=== PATIENT | male | born 1940 | race Caucasian/White ===

== ENCOUNTER 2019-06-15 14:38 | Emergency (ER) | payer OTHER ==
--- NOTE | 2019-06-15 15:01 | RAD REPORT ---
EXAM DESCRIPTION: CT - Ct Stroke Brain Wo Cont - 06/15/2019 2:50 pm CLINICAL HISTORY: CONFUSED Headache, drowsiness, seizure COMPARISON: HEAD BRAIN W O CONTRAST dated 10/08/2015 TECHNIQUE: All CT scans are performed using dose optimization technique as appropriate and may inclu de automated exposure control or mA/KV adjustment according to patient size. FINDINGS: No intracranial hemorrhage, hydrocephalus or extra-axial fluid collection.Mild brain atrop hy.No areas of brain edema or evidence of midline shift. The paranasal sinuses and mastoids are clear. The calvarium is intact. IMPRESSION: No acute intracranial abnormality. The findings were discussed with Dr. Rome in the ER on 06/15/2019 at 2:55 p.m. by telephone.
[2019-06-15 15:05] LABS: Absolute Lymphocytes (CBC) 1.3 K/uL (0.7-4.9); Basophils % 1.2 % (0-1.3); Eosinophils % 1.4 % (0-4.4); Hematocrit 38.4 % (39.6-49.0); MPV 7.2 fL (7.6-11.3); Monocytes % 11.1 % (3.3-12.3)
[2019-06-15 15:14] LABS: Protime INR 1.18
--- NOTE | 2019-06-15 15:35 | EKG ---
Test Date: 2019-06-15 Test Time: 15:12:33 Telegraph Office Manager: TC/D MEASUREMENT RESULTS: Intervals: Rate: 83 [place]: 144 QRSD: 74 QT: 342 QTc: 401 [place]: P: 50 AZ: 144 QRS: 29 T: 35 INTERPRETIVE STATEMENTS: Normal sinus rhythm Nonspecific T wave abnormality Abnormal ECG Compared to ECG 02/27/2016 09:07:05 No significant changes Electronically Signed On 06-15-19 15:35:04 CDT by Melvin Albarado
--- NOTE | 2019-06-15 15:49 | RAD REPORT ---
EXAM DESCRIPTION: RAD - Chest Single View - 06/15/2019 3:43 pm CLINICAL HISTORY: MALAISE Chest pain. COMPARISON: Chest Single View dated 02/27/2016; CHEST SINGLE VIEW dated 10/08/2015; CHEST SINGLE VIEW dated 05/20/2008 FINDINGS: Portable technique limits examination quality. Elevated left hemidiaphragm is noted with atelectasis in the left lung base. The right lung appears c lear. The heart is normal in size. Sternotomy wires present.
[2019-06-15 17:12] LABS: Urine Blood NEGATIVE (NEG); Urine Glucose NEGATIVE (NEG); Urine Protein 1+ (NEG); Urine Specific Gravity 1.025 (1.005-1.030); Urine pH 5.5 (5.0-7.0)
--- NOTE | 2019-06-15 17:19 | RAD REPORT ---
EXAM DESCRIPTION: RAD - Ankle Right 3 View - 06/15/2019 5:11 pm CLINICAL HISTORY: Swelling;Pain COMPARISON: No comparisons FINDINGS: Prominent soft tissue swelling is seen about the ankle. An acute fracture is not detected. Prominent calcaneal spurs are seen.
[2019-06-15] MEDS ORDERED: levETIRAcetam 1,000 MG in NA CHLORIDE 0.9% 100 ML IV ONE (17:30)
--- NOTE | 2019-06-15 17:52 | ER ---
Nurse's Notes [facility] Name: Munir Brooks Age: 78 yrs Sex: Male : 1940 Arrival Date: 06/15/2019 Time: 14:42 Bed 2 Private MD: Diagnosis: Epilepsy and recurrent seizures;Cerebral infarction Presentation: 06/15 14:43 Presenting complaint: EMS states: Pt had seizure at around 1000, hx of seizures, has ph had AMS since, oriented to person only, BGL 137, did not take meds today. Transition of care: patient was not received from another setting of care. Onset of symptoms was June 15, 2019. Risk Assessment: Do you want to hurt yourself or someone else? Patient reports no desire to harm self or others. Initial Sepsis Screen: Does the patient meet any 2 criteria? Altered Mental Status. Does the patient have a suspected source of infection? No. Patient's initial sepsis screen is negative. Care prior to arrival: IV initiated. 20 GA, in the left forearm, Glucose check: 137. 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 - Social history:: Smoking status: unknown. - Ebola Screening: : No symptoms or risks identified at this time. Screenin:59 Abuse screen: Denies threats or abuse. Denies injuries from another. Nutritional ph screening: No deficits noted. Tuberculosis screening: No symptoms or risk factors identified. Fall Risk No fall in past 12 months (0 pts). Secondary diagnosis (15 points) seizures, IV access (20 points). Ambulatory Aid- None/Bed Rest/Nurse Assist (0 pts). Gait- Weak (10 pts.). Mental Status- Overestimates/Forgets Limitations (15 pts.). Total Croft Fall Scale indicates High Risk Score (45 or more points). Fall prevention measures have been instituted. Side Rails Up X 2 Placed Close to Nursing Station Frequent Obs/Assessments Occuring Family Present and informed to notify staff if the need to leave the bedside As available patient and family educated on Fall Prevention Program and Strategies. 15:12 Patient has been NPO before screening. The patient is alert, able to follow commands. ph The patient does not exhibit slurred or garbled speech The patient is not exhibiting difficulty speaking. The patient does not exhibit difficulty understanding words. The patient is able to swallow own secretions with no drooling or need for suction. Patient tolerated one teaspoon of water. No drooling, immediate coughing, gurgling, or clearing of the throat was noted. The patient tolerated 90mL of water. No drooling, immediate coughing, gurgling, or clearing of the throat was noted. The patient passed the bedside swallow screening. Oral medications may be given as ordered. Contact Physician for further diet orders. Assessment: 14:40 Reassessment: Patient appears in no apparent distress at this time. Dr Rome at bedside ph to assess pt. General: Appears in no apparent distress. comfortable, slender, well groomed, Behavior is calm, cooperative, appropriate for age. Pain: Denies pain. Neuro: Level of Consciousness is awake, alert, obeys commands, Oriented to person, Staff Command And Control Officer are equal bilaterally Moves all extremities. Speech is normal, Facial symmetry appears normal, Pupils are PERRLA, Intact Denies weakness dizziness, headache. Cardiovascular: Denies chest pain, nausea. Respiratory: Airway is patent Respiratory effort is even, unlabored, Respiratory pattern is regular, symmetrical. GI: Abdomen is round non-distended, Patient currently denies abdominal pain, nausea, vomiting. Derm: Skin is intact, Skin is pink, warm \T\ dry. Musculoskeletal: Circulation, motion, and sensation intact. Range of motion: intact in all extremities, Swelling present in right ankle. 14:43 Reassessment: Code stroke called. ph 14:45 Reassessment: Pt taken to CT accompanied by RN. ph 14:50 Reassessment: Lab at bedside. ph 15:11 Reassessment: EKG at bedside. ph 15:30 Reassessment: Patient appears in no apparent distress at this time. No changes from ph previously documented assessment. Patient and/or family updated on plan of care and expected duration. Pain level reassessed. Pt resting quietly, remains awake and alert, oriented to person only. 16:47 Reassessment: Patient appears in no apparent distress at this time. Patient and/or ph family updated on plan of care and expected duration. Pain level reassessed. Pt awake and alert, oriented to person, family at bedside, assisted pt to stand at bedside to use urinal, stood w/ no difficulty, denies dizziness, urine sample obtained. 18:05 Reassessment: Patient appears in no apparent distress at this time. Patient and/or ph family updated on plan of care and expected duration. Pain level reassessed. Report called to [facility], transfer form signed by daughter, awaiting EMS for transport. 18:43 Reassessment: Patient appears in no apparent distress at this time. No changes from ph previously documented assessment. Patient and/or family updated on plan of care and expected duration. Pain level reassessed. EMS at bedside, report given to Calvin VEGA. Vital Signs: 15:00 BP 186 / 106; Pulse 95; Resp 18; Temp 99.0; Pulse Ox 97% on R/A; Weight 83.91 kg; ph 15:30 BP 139 / 90; Pulse 78; Resp 16; Pulse Ox 97% on R/A; rv 16:30 BP 161 / 103; Pulse 75; Resp 16; Pulse Ox 100% on R/A; rv 16:40 Temp 97.8(O); jp3 17:00 BP 146 / 109; Pulse 84; Resp 17; Pulse Ox 99% on R/A; rv 17:30 BP 148 / 95; Pulse 75; Resp 16; Pulse Ox 99% on R/A; rv 18:45 BP 130 / 97; Pulse 76; Resp 18; Temp 97.5; Pulse Ox 99% on R/A; Pain 0/10; ph NIH Stroke Scale Scores: 14:40 NIHSS Score: 1 ph 14:50 NIHSS Score: 1 ED Course: 14:42 Patient arrived in ED. ph 14:43 Ralph Rome MD is Attending Physician. gs 14:51 CT Stroke Brain w/o Contrast In Process Unspecified. EDMS 14:58 Triage completed. ph 14:59 Janelle Merino, RN is Primary Nurse. ph 15:04 X-ray completed. Patient tolerated procedure well. jb2 15:07 Stroke CXR 1 View In Process Unspecified. EDMS 15:11 Maintain EMS IV. Dressing intact. Good blood return noted. Site clean \T\ dry. Gauge \T\ ph site: 20LFA. 15:12 Allergy band placed. Bed in low position. Call light in reach. Side rails up X2. ph threat monitoring analyst on. Pulse ox on. NIBP on. Door closed. Noise minimized. Warm blanket given. 15:12 Arm band placed on. ph 15:18 EKG done, by oracle technical architect. reviewed by Ralph Rome MD. tc 17:09 XRAY Ankle RIGHT 3 view In Process Unspecified. EDMS 17:59 Armando wrap to right ankle Orthoglass splint: stirrup splint applied on right leg. jp3 18:44 No provider procedures requiring assistance completed. Patient transferred, IV remains ph in place. Administered Medications: 17:44 Drug: Keppra 1000 mg Route: IV; Rate: calculated rate; Site: left forearm; ph 18:00 Follow up: Response: No adverse reaction; IV Status: Completed infusion ph Outcome: 17:51 ER care complete, transfer ordered by . 18:44 Transferred by ground EMS [place]. to [facility], Transfer form ph completed. X-rays sent w/ patient. 18:44 Condition: stable 18:44 Instructed on the need for transfer. 18:46 Patient left the ED. NIH Stroke Scale - NIH Stroke Score Date: 06/15/2019 Time: 14:40 Total Score = 1 1a. Level of Consciousness (LOC) - 0(Alert) 1b. Level of Consciousness (LOC) (Year \T\ Age) - 1(One) 1c. LOC Commands (Open \T\ Closes Eyes/Mold Washer) - 0(Both) 2. Best Gaze (Lateral Gaze Paresis) - 0(Normal) 3. Visual Field Loss - 0(No visual loss) 4. Facial Palsy - 0(Normal) 5a. Left Arm: Motor (10-second hold) - 0(No drift) 5b. Right Arm: Motor (10-second hold) - 0(No drift) 6a. Left Leg: Motor (5-second hold - always test supine) - 0(No drift) 6b. Right Leg: Motor (5-second hold - always test supine) - 0(No drift) 7. Limb Ataxia (finger/nose \T\ heel/wright - test with eyes open) - 0(Absent) 8. Sensory Loss (pinprick arms/legs/face) - 0(Normal) 9. Best Language: Aphasia (description/naming/reading) - 0(No aphasia) 10. Dysarthria (speech clarity - read or repeat words) - 0(Normal) 11. Extinction and Inattention (visual/tactile/auditory/spatial/personal) - 0(No abnormality) Initials: NIH Stroke Scale - NIH Stroke Score Date: 06/15/2019 Time: 14:50 Total Score = 1 1a. Level of Consciousness (LOC) - 0(Alert) 1b. Level of Consciousness (LOC) (Year \T\ Age) - 1(One) 1c. LOC Commands (Open \T\ Closes Eyes/Mold Washer) - 0(Both) 2. Best Gaze (Lateral Gaze Paresis) - 0(Normal) 3. Visual Field Loss - 0(No visual loss) 4. Facial Palsy - 0(Normal) 5a. Left Arm: Motor (10-second hold) - 0(No drift) 5b. Right Arm: Motor (10-second hold) - 0(No drift) 6a. Left Leg: Motor (5-second hold - always test supine) - 0(No drift) 6b. Right Leg: Motor (5-second hold - always test supine) - 0(No drift) 7. Limb Ataxia (finger/nose \T\ heel/wright - test with eyes open) - 0(Absent) 8. Sensory Loss (pinprick arms/legs/face) - 0(Normal) 9. Best Language: Aphasia (description/naming/reading) - 0(No aphasia) 10. Dysarthria (speech clarity - read or repeat words) - 0(Normal) 11. Extinction and Inattention (visual/tactile/auditory/spatial/personal) - 0(No abnormality) Initials: Signatures: Dispatcher [employer] EDMS Buster Santana2 Lisa Cramer, plant engineer EKG Ttc Jnaelle Merino RN RN ph Ralph Rome MD MD gs Vicente, Ronaldo, RN RN rv Vijay Hernandez jp3 Corrections: (The following items were deleted from the chart) 17:11 15:03 Home Meds: tamsulosin oral oral; ph ph 17:11 15:03 Home Meds: atorvastatin oral oral; ph ph 17:11 15:03 Home Meds: levetiracetam oral oral; ph ph 17:11 15:03 Home Meds: Famotidine Oral; ph ph
--- NOTE | 2019-06-15 17:52 | EDPHYS ---
Physician Documentation [facility] Name: Munir Brooks Age: 78 yrs Sex: Male : 1940 Arrival Date: 06/15/2019 Time: 14:42 Bed 2 Private MD: ED Physician Ralph Rome HPI: 06/15 17:44 This 78 yrs old Male presents to ER via EMS with complaints of Altered Mental gs Status. 17:44 The patient presents with confusion. Onset: The symptoms/episode began/occurred today, gs at 10:00. Possible causes: seizure, has missed recent doses of medications, HAD SZ TODAY AT 10AM. Associated signs and symptoms: Pertinent negatives: abdominal pain, combativeness. Current symptoms: In the emergency department the patient's symptoms have improved, markedly. The patient has experienced similar episodes in the past, a few times. The patient has not recently seen a physician. 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 - Social history:: Smoking status: unknown. - Ebola Screening: : No symptoms or risks identified at this time. ROS: 17:44 MS/extremity: Positive for injury or acute deformity, R ANKLE SAYS STEPPED IN HOLE IN gs YARD. 17:44 All other systems are negative. Exam: 17:44 Head/Face: Normocephalic, atraumatic. Eyes: Pupils equal round and reactive to light, gs extra-ocular motions intact. Lids and lashes normal. Conjunctiva and sclera are non-icteric and not injected. Cornea within normal limits. Periorbital areas with no swelling, redness, or edema. ENT: Nares patent. No nasal discharge, no septal abnormalities noted. Tympanic membranes are normal and external auditory canals are clear. Oropharynx with no redness, swelling, or masses, exudates, or evidence of obstruction, uvula midline. Mucous membranes moist. Neck: Trachea midline, no thyromegaly or masses palpated, and no cervical lymphadenopathy. Supple, full range of motion without nuchal rigidity, or vertebral point tenderness. No Meningismus. Chest/axilla: Normal chest wall appearance and motion. Nontender with no deformity. No lesions are appreciated. Cardiovascular: Regular rate and rhythm with a normal S1 and S2. No gallops, murmurs, or rubs. Normal PMI, no JVD. No pulse deficits. Respiratory: Lungs have equal breath sounds bilaterally, clear to auscultation and percussion. No rales, rhonchi or wheezes noted. No increased work of breathing, no retractions or nasal flaring. Abdomen/GI: Soft, non-tender, with normal bowel sounds. No distension or tympany. No guarding or rebound. No evidence of tenderness throughout. Skin: Warm, dry with normal turgor. Normal color with no rashes, no lesions, and no evidence of cellulitis. 17:44 Constitutional: The patient appears alert, awake. 17:44 Musculoskeletal/extremity: Extremities: noted in the anterior aspect of right ankle: swelling, tenderness, ROM: limited active range of motion due to pain, limited passive range of motion due to pain, Pulses: noted to be 4+ in the right posterior tibial artery and left posterior tibial artery, Sensation intact. 17:44 Neuro: Orientation: to person, place, Cranial nerves: CN II- XII are normal as tested, Cerebellar function: no acute changes, Motor: moves all fours, Sensation: no obvious gross deficits, no acute changes, pin prick testing is normal. Vital Signs: 15:00 BP 186 / 106; Pulse 95; Resp 18; Temp 99.0; Pulse Ox 97% on R/A; Weight 83.91 kg; ph 15:30 BP 139 / 90; Pulse 78; Resp 16; Pulse Ox 97% on R/A; rv 16:30 BP 161 / 103; Pulse 75; Resp 16; Pulse Ox 100% on R/A; rv 16:40 Temp 97.8(O); jp3 17:00 BP 146 / 109; Pulse 84; Resp 17; Pulse Ox 99% on R/A; rv 17:30 BP 148 / 95; Pulse 75; Resp 16; Pulse Ox 99% on R/A; rv 18:45 BP 130 / 97; Pulse 76; Resp 18; Temp 97.5; Pulse Ox 99% on R/A; Pain 0/10; ph NIH Stroke Scale Scores: 14:40 NIHSS Score: 1 ph 14:50 NIHSS Score: 1 gs Procedures: 14:50 Splinting: Splint applied to right ankle using Orthoglass splint, applied by tech. gs Examined by me, post splint application: neurovascular intact, 2+ distal pulses palpable, brisk capillary refill noted, Patient tolerated well. MDM: 14:43 Patient medically screened. 14:50 Differential Diagnosis: CVA, electrolyte abnormality, intracranial bleed, pneumonia, gs seizure. Data reviewed: vital signs, nurses notes. Counseling: I had a detailed discussion with the patient and/or guardian regarding: the historical points, exam findings, and any diagnostic results supporting the discharge/admit diagnosis, the need to transfer to another facility. Response to treatment: There is no appreciated change of the patient's symptoms at this time. 14:50 ED course: NO TPA OUTSIDE 3 AND 4.5 HOUR WINDOW, NIHSS 1. 06/15 14:44 Order name: Basic Metabolic Panel 06/15 14:44 Order name: CBC with Diff; Complete Time: 16:31 06/15 14:44 Order name: Protime (+inr); Complete Time: 16:31 06/15 14:44 Order name: Ptt, Activated; Complete Time: 16:31 06/15 14:45 Order name: Basic Metabolic Panel; Complete Time: 16:31 EDGA 06/15 16:07 Order name: Glucose, Ancillary Testing; Complete Time: 16:31 EDGA 06/15 14:44 Order name: CT Stroke Brain w/o Contrast; Complete Time: 16:31 06/15 14:44 Order name: Stroke CXR 1 View; Complete Time: 16:31 06/15 14:44 Order name: EKG; Complete Time: 14:46 06/15 14:44 Order name: Accucheck; Complete Time: 15:13 06/15 14:44 Order name: Cardiac monitoring; Complete Time: 15:13 06/15 16:46 Order name: XRAY Ankle RIGHT 3 view; Complete Time: 17:24 ph 06/15 16:48 Order name: Urine Dipstick--Ancillary (enter results); Complete Time: 17:24 ms 06/15 14:44 Order name: EKG - Nurse/Tech; Complete Time: 15:13 06/15 14:44 Order name: IV Saline Lock; Complete Time: 15:13 06/15 14:44 Order name: Labs collected and sent; Complete Time: 15:13 06/15 14:44 Order name: NPO; Complete Time: 15:13 06/15 14:44 Order name: O2 Per Protocol; Complete Time: 15:13 06/15 14:44 Order name: O2 Sat Monitoring; Complete Time: 15:13 06/15 14:44 Order name: Stroke Swallow Screen; Complete Time: 15:13 06/15 17:25 Order name: Splint - Ankle: Orthoglass: Stirrup; Complete Time: 17:59 gs Administered Medications: 17:44 Drug: Keppra 1000 mg Route: IV; Rate: calculated rate; Site: left forearm; ph 18:00 Follow up: Response: No adverse reaction; IV Status: Completed infusion ph Disposition: 14:50 Critical Care:. gs Disposition: 06/15/19 17:[address] [facility]. Diagnosis are Epilepsy and recurrent seizures, Cerebral infarction. - Reason for transfer: Higher level of care. - Accepting physician is CARINA. - Condition is Stable. - Problem is new. - Symptoms have improved. Critical care time excluding procedures: 14:50 Critical care time: Bedside Care: 10 minutes, Consultation: 10 minutes, Family gs Intervention: 10 minutes. Total time: 30 minutes NIH Stroke Scale - NIH Stroke Score Date: 06/15/2019 Time: 14:40 Total Score = 1 1a. Level of Consciousness (LOC) - 0(Alert) 1b. Level of Consciousness (LOC) (Year \T\ Age) - 1(One) 1c. LOC Commands (Open \T\ Closes Eyes/Shipsmith) - 0(Both) 2. Best Gaze (Lateral Gaze Paresis) - 0(Normal) 3. Visual Field Loss - 0(No visual loss) 4. Facial Palsy - 0(Normal) 5a. Left Arm: Motor (10-second hold) - 0(No drift) 5b. Right Arm: Motor (10-second hold) - 0(No drift) 6a. Left Leg: Motor (5-second hold - always test supine) - 0(No drift) 6b. Right Leg: Motor (5-second hold - always test supine) - 0(No drift) 7. Limb Ataxia (finger/nose \T\ heel/wright - test with eyes open) - 0(Absent) 8. Sensory Loss (pinprick arms/legs/face) - 0(Normal) 9. Best Language: Aphasia (description/naming/reading) - 0(No aphasia) 10. Dysarthria (speech clarity - read or repeat words) - 0(Normal) 11. Extinction and Inattention (visual/tactile/auditory/spatial/personal) - 0(No abnormality) Initials: NIH Stroke Scale - NIH Stroke Score Date: 06/15/2019 Time: 14:50 Total Score = 1 1a. Level of Consciousness (LOC) - 0(Alert) 1b. Level of Consciousness (LOC) (Year \T\ Age) - 1(One) 1c. LOC Commands (Open \T\ Closes Eyes/Shipsmith) - 0(Both) 2. Best Gaze (Lateral Gaze Paresis) - 0(Normal) 3. Visual Field Loss - 0(No visual loss) 4. Facial Palsy - 0(Normal) 5a. Left Arm: Motor (10-second hold) - 0(No drift) 5b. Right Arm: Motor (10-second hold) - 0(No drift) 6a. Left Leg: Motor (5-second hold - always test supine) - 0(No drift) 6b. Right Leg: Motor (5-second hold - always test supine) - 0(No drift) 7. Limb Ataxia (finger/nose \T\ heel/wright - test with eyes open) - 0(Absent) 8. Sensory Loss (pinprick arms/legs/face) - 0(Normal) 9. Best Language: Aphasia (description/naming/reading) - 0(No aphasia) 10. Dysarthria (speech clarity - read or repeat words) - 0(Normal) 11. Extinction and Inattention (visual/tactile/auditory/spatial/personal) - 0(No abnormality) Initials: Signatures: Dispatcher [employer] Janelle Rios RN RN ph Ralph Rome MD MD gs Corrections: (The following items were deleted from the chart) 17:11 15:03 Home Meds: tamsulosin oral oral; ph ph 17:11 15:03 Home Meds: atorvastatin oral oral; ph ph 17:11 15:03 Home Meds: levetiracetam oral oral; ph ph 17:11 15:03 Home Meds: Famotidine Oral; ph ph 18:46 17:51 06/15/2019 17:[address] [facility]. ph Diagnosis is Epilepsy and recurrent seizures; Cerebral infarction. Reason for transfer: Higher level of care. Accepting physician is CARINA. Condition is Stable. Problem is new. Symptoms have improved. gs
[2019-06-15 21:56] VITALS: O2SAT 99
[2019-06-15 21:59] VITALS: BP 130/97; TEMP 97.5
== END 2019-06-15 18:46 | disposition short-term general hospital (02) ==
LOC: ER 14:38
PROC: 2W3QX1Z Immobilization of Right Lower Leg using Splint (ICD-10-PCS; principal; 2019-06-15)
DX: I63.9 Cerebral infarction, unspecified (principal); R29.701 NIHSS score 1; G40.909 Epilepsy, unspecified, not intractable, without status epilepticus; Z79.82 Long term (current) use of aspirin; M25.571 Pain in right ankle and joints of right foot
CPT/HCPCS: 96365; 93005; 85025; 80048; 36415; 85610; 82962; 85730; 81003; 70450; 71045; 73610; 99285; 29515; J1953

== ENCOUNTER 2023-03-24 13:49 | Emergency (ER) | payer OTHER ==
--- OUTSIDE RECORDS SUMMARY | 2023-03-24 13:53 | XMS REPORT | Continuity of Care Document ---
:1940 Author Organization [facility] t Address [address] [place]. [address] [place] [address] Care Team Providers Name Role Phone Mitul Womack Attending Clinician Unavailable CHACHO VALENCIA Attending Clinician Unavailable CHACHO VALENCIA Admitting Clinician Unavailable Problems Condition Condition Condition Status Onset Resolution Last Treating Co mments Source Name Details Category Date Date Treatment Clinician Date Cellulitis Cellulitis Disease Active [facility] Hx of CABG Hx of CABG Disease [facility] Hx of Hx of Disease Active [facility] disorder disorder [facility] Medica l 00 [place] Fracture Fracture Disease Active [facility] [place] [facility]: Medical 00 [place] Encephalop Encephalop Disease Active [facility] athy athy [facility] Allergies, Adverse Reactions, Alerts Allergy Allergy Status Severity Reaction(s) Onset Inactive Treating Comm ents Source Name Type Date Date Clinician No Known DA Active [facility] s 00:[facility]: [place] 00 [facility] No Known DA Active [facility] Allergie 2-28 Clear s 00:00: [place] 00 [facility] Social History Social Habit Start Date Stop Date Quantity Comments Source History SDOH [facility] Alcohol Comment Medical C enter History SDOH [facility] Alcohol Std Drinks Medica l Center History SDOH [facility] Alcohol Binge Medical [address] [facility] Alcohol intake 2019-06-17 2019-06-[address] [facility] 00:[facility]:00 00:00:00 non-drinker of Medical Ce nter alcohol (finding) History SDOH 2019-06-17 2019-06-[address] [facility] Alcohol Frequency 00:00:00 00:00:00 [facility] Sex Assigned At [address] [address] [facility] 00:[facility]00 [facility]00 [facility] Smoking Status Start Date Stop Date Source Never smoker [facility] Medications Ordered Filled Start Stop Current Ordering Indication Dosage Frequency Signature Comments Components Source Medication Medication Date Date Medication? Clinician (SIG) Name Name famotidine Yes gastroesoph 20mg QD Take [address] (PEPCID) 20 7- ageal by mouth [facility] MG tablet 17:41: reflux nightly. Me dical 42 disease Center tamsulosin Yes benign .4mg QD Take 0.[address] (FLOMAX) 7-26 prostatic mg by [facility] 0.4 mg Cap 17:41: hyperplasia mouth Medical 24 hr 42 with lower daily. Center capsule urinary tract sx atorvastati Yes hypercholes 40mg QD Take [address] n (LIPITOR) 7-26 terolemia by mouth [facility] 40 MG 17:41: nightly. Medical tablet 42 Center levETIRAcet Yes tonic-cloni 250mg Q.5D Take [address] [facility] (KEPPRA) 7-26 c epilepsy mg by L ukes 250 MG 17:41: treatment mouth 2 Med ical tablet 42 adjunct (two) Center times daily. famotidine Yes gastroesoph 20mg QD Take [address] (PEPCID) 20 7-26 ageal by mouth [facility] MG tablet 17:41: reflux nightly. Me dical 42 disease Center tamsulosin Yes benign .4mg QD Take 0.[address] (FLOMAX) 7-26 prostatic mg by [facility] 0.4 mg Cap 17:41: hyperplasia mouth Medical 24 hr 42 with lower daily. [place] capsule urinary tract sx atorvastati Yes hypercholes 40mg QD Take [address] [facility] (LIPITOR) 7-26 terolemia by mouth [facility] 40 MG 17:41: nightly. Medical tablet 42 Center levETIRAcet Yes tonic-cloni 250mg Q.5D Take [address] am (KEPPRA) 7-26 c epilepsy mg by L ukes 250 MG 17:41: treatment mouth 2 Med ical tablet 42 adjunct (two) Center times daily. Procedures This patient has no known procedures. Encounters Start End Encounter Admission Attending Care Care Encounter Source Date/Time Date/Time Type Type Clinicians Facility Department ID 2023-01-26 2023-01-26 [id number] [facility] 06:46:00 06:46:[address] Results Test Description Test Time Test Comments Results Result Comments Source BLOOD CULTURE 2019-06-24 08:44:00 Test Item Value Reference Range Interpretation Comme nts CULTURE (BEAKER) (test A From Aerobic Bottle Only code = 1095) Coagulase negat gabriella Staphylococcus GRAM STAIN RESULT From aerobic bottle only: (BEAKER) (test code = gram positive cocci in 1123) [facility] BASIC METABOLIC [id number] 07:23:00 Test Item Value Reference Range Interpretation Comments SODIUM (BEAKER) 137 meq/L 136-145 (test code = 381) POTASSIUM (BEAKER) 4.4 meq/L 3.5-5.1 (test code = 379) CHLORIDE (BEAKER) 104 meq/L 98-107 (test code = 382) CO2 (BEAKER) (test 27 meq/L 22-29 code = 355) BLOOD UREA NITROGEN 20 mg/dL 7-21 (BEAKER) (test code = 354) CREATININE (BEAKER) 1.46 mg/dL 0.57-1.25 H (test code = 358) GLUCOSE RANDOM 103 mg/dL 70-105 (BEAKER) (test code = 652) CALCIUM (BEAKER) 9.5 mg/dL 8.4-10.2 (test code = 697) EGFR (BEAKER) (test 46 mL/min/1.73 ESTIMA LINA GFR IS code = 1092) sq m NOT ACCURATE CREATININE CLEARANCE IN PREDICTING GLOMERULAR FILTRATION RATE . ESTIMATED GFR I S NOT APPLICABLE FOR DIALYSIS PATIEN TS. CBC W/PLT COUNT & AUTO [id number] 06:20:00 Test Item Value Reference Range Interpretation Comments WHITE BLOOD CELL COUNT (BEAKER) 7.5 K/ L 3.5-10.5 (test code = 775) RED BLOOD CELL COUNT (BEAKER) 4.35 M/ L 4.63-6.08 L (test code = 761) HEMOGLOBIN (BEAKER) (test code = 12.1 GM/DL 13.7-17.5 L 410) HEMATOCRIT (BEAKER) (test code = 37.2 % 40.1-51.0 L 411) MEAN CORPUSCULAR VOLUME (BEAKER) 85.5 fL 79.0-92.2 (test code = 753) MEAN CORPUSCULAR HEMOGLOBIN 27.8 pg 25.7-32.2 (BEAKER) (test code = 751) MEAN CORPUSCULAR HEMOGLOBIN CONC 32.5 GM/DL 32.3-36.5 (BEAKER) (test code = 752) RED CELL DISTRIBUTION WIDTH 12.9 % 11.6-14.4 (BEAKER) (test code = 412) PLATELET COUNT (BEAKER) (test 327 K/CU MM 150-450 code = 756) MEAN PLATELET VOLUME (BEAKER) 8.7 fL 9.4-12.4 L (test code = 754) NUCLEATED RED BLOOD CELLS 0 /100 WBC 0-0 (BEAKER) (test code = 413) NEUTROPHILS RELATIVE PERCENT 63 % (BEAKER) (test code = 429) LYMPHOCYTES RELATIVE PERCENT 26 % (BEAKER) (test code = 430) MONOCYTES RELATIVE PERCENT 7 % (BEAKER) (test code = 431) EOSINOPHILS RELATIVE PERCENT 3 % (BEAKER) (test code = 432) BASOPHILS RELATIVE PERCENT 1 % (BEAKER) (test code = 437) NEUTROPHILS ABSOLUTE COUNT 4.67 K/ L 1.78-5.38 (BEAKER) (test code = 670) LYMPHOCYTES ABSOLUTE COUNT 1.93 K/ L 1.32-3.57 (BEAKER) (test code = 414) MONOCYTES ABSOLUTE COUNT (BEAKER) 0.52 K/ L 0.30-0.82 (test code = 415) EOSINOPHILS ABSOLUTE COUNT 0.19 K/ L 0.04-0.54 (BEAKER) (test code = 416) BASOPHILS ABSOLUTE COUNT (BEAKER) 0.06 K/ L 0.01-0.08 (test code = 417) IMMATURE GRANULOCYTES-RELATIVE 1 % 0-1 PERCENT (BEAKER) (test code = 2801) BLOOD [id number] 20:01:00 Test Item Value Reference Range Interpretation Comments CULTURE (BEAKER) (test No growth in 5 days code = 1095) URINALYSIS W/ REFLEX URINE [id number] 11:55:00 Test Item Value Reference Range Interpretation Comments COLOR (BEAKER) (test code = 470) Colorless CLARITY (BEAKER) (test code = 469) Clear SPECIFIC GRAVITY UA (BEAKER) (test 1.003 1.001-1.035 code = 468) PH UA (BEAKER) (test code = 467) 6.0 5.0-8.0 PROTEIN UA (BEAKER) (test code = Negative Negative 464) GLUCOSE UA (BEAKER) (test code = Negative Negative 365) KETONES UA (BEAKER) (test code = Negative Negative 371) BILIRUBIN UA (BEAKER) (test code = Negative Negative 462) BLOOD UA (BEAKER) (test code = 461) Negative Negative NITRITE UA (BEAKER) (test code = Negative Negative 465) LEUKOCYTE ESTERASE UA (BEAKER) Negative Negative (test code = 466) UROBILINOGEN UA (BEAKER) (test code 0.2 mg/dL 0.2-1.0 = 463) RBC UA (BEAKER) (test code = 519) 0 /HPF WBC UA (BEAKER) (test code = 520) < /HPF BACTERIA (BEAKER) (test code = 517) Rare MUCUS (BEAKER) (test code = 1574) Rare SOURCE(BEAKER) (test code = 2795) CBC W/PLT COUNT & AUTO [id number] 09:53:00 Test Item Value Reference Range Interpretation Comments WHITE BLOOD CELL COUNT (BEAKER) 7.5 K/ L 3.5-10.5 (test code = 775) RED BLOOD CELL COUNT (BEAKER) 4.61 M/ L 4.63-6.08 L (test code = 761) HEMOGLOBIN (BEAKER) (test code = 12.7 GM/DL 13.7-17.5 L 410) HEMATOCRIT (BEAKER) (test code = 39.5 % 40.1-51.0 L 411) MEAN CORPUSCULAR VOLUME (BEAKER) 85.7 fL 79.0-92.2 (test code = 753) MEAN CORPUSCULAR HEMOGLOBIN 27.5 pg 25.7-32.2 (BEAKER) (test code = 751) MEAN CORPUSCULAR HEMOGLOBIN CONC 32.2 GM/DL 32.3-36.5 L (BEAKER) (test code = 752) RED CELL DISTRIBUTION WIDTH 12.9 % 11.6-14.4 (BEAKER) (test code = 412) PLATELET COUNT (BEAKER) (test 315 K/CU MM 150-450 code = 756) MEAN PLATELET VOLUME (BEAKER) 9.2 fL 9.4-12.4 L (test code = 754) NUCLEATED RED BLOOD CELLS 0 /100 WBC 0-0 (BEAKER) (test code = 413) NEUTROPHILS RELATIVE PERCENT 74 % (BEAKER) (test code = 429) LYMPHOCYTES RELATIVE PERCENT 17 % (BEAKER) (test code = 430) MONOCYTES RELATIVE PERCENT 6 % (BEAKER) (test code = 431) EOSINOPHILS RELATIVE PERCENT 2 % (BEAKER) (test code = 432) BASOPHILS RELATIVE PERCENT 1 % (BEAKER) (test code = 437) NEUTROPHILS ABSOLUTE COUNT 5.49 K/ L 1.78-5.38 H (BEAKER) (test code = 670) LYMPHOCYTES ABSOLUTE COUNT 1.23 K/ L 1.32-3.57 L (BEAKER) (test code = 414) MONOCYTES ABSOLUTE COUNT (BEAKER) 0.43 K/ L 0.30-0.82 (test code = 415) EOSINOPHILS ABSOLUTE COUNT 0.16 K/ L 0.04-0.54 (BEAKER) (test code = 416) BASOPHILS ABSOLUTE COUNT (BEAKER) 0.07 K/ L 0.01-0.08 (test code = 417) IMMATURE GRANULOCYTES-RELATIVE 1 % 0-1 PERCENT (BEAKER) (test code = 2801) [id number] 07:04:00 Test Item Value Reference Range Interpretation Comments CREATININE (BEAKER) 1.38 mg/dL 0.57-1.25 H (test code = 358) EGFR (BEAKER) (test 50 mL/min/1.73 ESTIMA LINA GFR IS code = 1092) sq m NOT ACCURATE CREATININE CLEARANCE IN PREDICTING GLOMERULAR FILTRATION RATE . ESTIMATED GFR I S NOT APPLICABLE FOR DIALYSIS PATIEN TS. VANCOMYCIN LEVEL, [id number] 06:38:00 Test Item Value Reference Range Interpretation Comments VANCOMYCIN TROUGH (BEAKER) (test 13.5 ug/mL 10.0-20.0 code = 522) Draw 30 min prior to scheduled dose, HOLD if level > 20 mcg/mL, inform . BASIC METABOLIC [id number] 16:14:00 Test Item Value Reference Range Interpretation Comments SODIUM (BEAKER) 135 meq/L 136-145 L (test code = 381) POTASSIUM (BEAKER) 4.0 meq/L 3.5-5.1 (test code = 379) CHLORIDE (BEAKER) 103 meq/L 98-107 (test code = 382) CO2 (BEAKER) (test 27 meq/L 22-29 code = 355) BLOOD UREA NITROGEN 16 mg/dL 7-21 (BEAKER) (test code = 354) CREATININE (BEAKER) 1.36 mg/dL 0.57-1.25 H (test code = 358) GLUCOSE RANDOM 114 mg/dL 70-105 H (BEAKER) (test code = 652) CALCIUM (BEAKER) 9.3 mg/dL 8.4-10.2 (test code = 697) EGFR (BEAKER) (test 50 mL/min/1.73 ESTIMA LINA GFR IS code = 1092) sq m NOT ACCURATE CREATININE CLEARANCE IN PREDICTING GLOMERULAR FILTRATION RATE . ESTIMATED GFR I S NOT APPLICABLE FOR DIALYSIS PATIEN TS. PLEASE CALL LAB TO ADD TO AM LAB [id number] 05:13:00 Test Item Value Reference Range Interpretation Comments CREATININE (BEAKER) 1.36 mg/dL 0.57-1.25 H (test code = 358) EGFR (BEAKER) (test 50 mL/min/1.73 ESTIMA LINA GFR IS code = 1092) sq m NOT ACCURATE CREATININE CLEARANCE IN PREDICTING GLOMERULAR FILTRATION RATE . ESTIMATED GFR I S NOT APPLICABLE FOR DIALYSIS PATIEN TS. C-REACTIVE [id number] 08:48:00 Test Item Value Reference Range Interpretation Comments C-REACTIVE PROTEIN (BEAKER) (test 4.29 mg/dL 0.00-0.50 H code = 676) BASIC METABOLIC [id number] 07:47:00 Test Item Value Reference Range Interpretation Comments SODIUM (BEAKER) 132 meq/L 136-145 L (test code = 381) POTASSIUM (BEAKER) 4.2 meq/L 3.5-5.1 Specimen slightly (test code = 379) hemolyzed CHLORIDE (BEAKER) 103 meq/L 98-107 (test code = 382) CO2 (BEAKER) (test 22 meq/L 22-29 code = 355) BLOOD UREA NITROGEN 24 mg/dL 7-21 H (BEAKER) (test code = 354) CREATININE (BEAKER) 1.37 mg/dL 0.57-1.25 H Specimen slightly (test code = 358) hemolyzed GLUCOSE RANDOM 90 mg/dL 70-105 (BEAKER) (test code = 652) CALCIUM (BEAKER) 8.7 mg/dL 8.4-10.2 (test code = 697) EGFR (BEAKER) (test 50 mL/min/1.73 ESTIMA LINA GFR IS code = 1092) sq m NOT ACCURATE CREATININE CLEARANCE IN PREDICTING GLOMERULAR FILTRATION RATE . ESTIMATED GFR I S NOT APPLICABLE FOR DIALYSIS PATIEN TS. VANCOMYCIN LEVEL, [id number] 07:45:00 Test Item Value Reference Range Interpretation Comments VANCOMYCIN TROUGH (BEAKER) (test 22.1 ug/mL 10.0-20.0 H code = 522) Draw 30 min prior to scheduled dose, HOLD if level > 20 mcg/mL, inform .CBC W/PLT COUNT & AUTO [id number] 07:29:00 Test Item Value Reference Range Interpretation Comments WHITE BLOOD CELL COUNT (BEAKER) 6.3 K/ L 3.5-10.5 (test code = 775) RED BLOOD CELL COUNT (BEAKER) 4.10 M/ L 4.63-6.08 L (test code = 761) HEMOGLOBIN (BEAKER) (test code = 11.5 GM/DL 13.7-17.5 L 410) HEMATOCRIT (BEAKER) (test code = 35.5 % 40.1-51.0 L 411) MEAN CORPUSCULAR VOLUME (BEAKER) 86.6 fL 79.0-92.2 (test code = 753) MEAN CORPUSCULAR HEMOGLOBIN 28.0 pg 25.7-32.2 (BEAKER) (test code = 751) MEAN CORPUSCULAR HEMOGLOBIN CONC 32.4 GM/DL 32.3-36.5 (BEAKER) (test code = 752) RED CELL DISTRIBUTION WIDTH 13.0 % 11.6-14.4 (BEAKER) (test code = 412) PLATELET COUNT (BEAKER) (test 271 K/CU MM 150-450 code = 756) MEAN PLATELET VOLUME (BEAKER) 9.0 fL 9.4-12.4 L (test code = 754) NUCLEATED RED BLOOD CELLS 0 /100 WBC 0-0 (BEAKER) (test code = 413) NEUTROPHILS RELATIVE PERCENT 58 % (BEAKER) (test code = 429) LYMPHOCYTES RELATIVE PERCENT 26 % (BEAKER) (test code = 430) MONOCYTES RELATIVE PERCENT 8 % (BEAKER) (test code = 431) EOSINOPHILS RELATIVE PERCENT 5 % (BEAKER) (test code = 432) BASOPHILS RELATIVE PERCENT 1 % (BEAKER) (test code = 437) NEUTROPHILS ABSOLUTE COUNT 3.65 K/ L 1.78-5.38 (BEAKER) (test code = 670) LYMPHOCYTES ABSOLUTE COUNT 1.65 K/ L 1.32-3.57 (BEAKER) (test code = 414) MONOCYTES ABSOLUTE COUNT (BEAKER) 0.49 K/ L 0.30-0.82 (test code = 415) EOSINOPHILS ABSOLUTE COUNT 0.28 K/ L 0.04-0.54 (BEAKER) (test code = 416) BASOPHILS ABSOLUTE COUNT (BEAKER) 0.06 K/ L 0.01-0.08 (test code = 417) IMMATURE GRANULOCYTES-RELATIVE 2 % 0-1 H PERCENT (BEAKER) (test code = 2802) VANCOMYCIN LEVEL, [id number] 06:16:00 Test Item Value Reference Range Interpretation Comments VANCOMYCIN TROUGH (BEAKER) (test 16.3 ug/mL 10.0-20.0 code = 522) Draw 30 min prior to scheduled dose, HOLD if level > 20 mcg/mL, inform BASIC METABOLIC [id number] 05:59:00 Test Item Value Reference Range Interpretation Comments SODIUM (BEAKER) 135 meq/L 136-145 L (test code = 381) POTASSIUM (BEAKER) 4.2 meq/L 3.5-5.1 (test code = 379) CHLORIDE (BEAKER) 104 meq/L 98-107 (test code = 382) CO2 (BEAKER) (test 24 meq/L 22-29 code = 355) BLOOD UREA NITROGEN 23 mg/dL 7-21 H (BEAKER) (test code = 354) CREATININE (BEAKER) 1.42 mg/dL 0.57-1.25 H (test code = 358) GLUCOSE RANDOM 97 mg/dL 70-105 (BEAKER) (test code = 652) CALCIUM (BEAKER) 9.0 mg/dL 8.4-10.2 (test code = 697) EGFR (BEAKER) (test 48 mL/min/1.73 ESTIMA LINA GFR IS code = 1092) sq m NOT ACCURATE CREATININE CLEARANCE IN PREDICTING GLOMERULAR FILTRATION RATE . ESTIMATED GFR I S NOT APPLICABLE FOR DIALYSIS PATIEN TS. CBC W/PLT COUNT & AUTO [id number] 05:29:00 Test Item Value Reference Range Interpretation Comments WHITE BLOOD CELL COUNT (BEAKER) 7.2 K/ L 3.5-10.5 (test code = 775) RED BLOOD CELL COUNT (BEAKER) 4.26 M/ L 4.63-6.08 L (test code = 761) HEMOGLOBIN (BEAKER) (test code = 11.8 GM/DL 13.7-17.5 L 410) HEMATOCRIT (BEAKER) (test code = 36.2 % 40.1-51.0 L 411) MEAN CORPUSCULAR VOLUME (BEAKER) 85.0 fL 79.0-92.2 (test code = 753) MEAN CORPUSCULAR HEMOGLOBIN 27.7 pg 25.7-32.2 (BEAKER) (test code = 751) MEAN CORPUSCULAR HEMOGLOBIN CONC 32.6 GM/DL 32.3-36.5 (BEAKER) (test code = 752) RED CELL DISTRIBUTION WIDTH 13.0 % 11.6-14.4 (BEAKER) (test code = 412) PLATELET COUNT (BEAKER) (test 265 K/CU MM 150-450 code = 756) MEAN PLATELET VOLUME (BEAKER) 8.7 fL 9.4-12.4 L (test code = 754) NUCLEATED RED BLOOD CELLS 0 /100 WBC 0-0 (BEAKER) (test code = 413) NEUTROPHILS RELATIVE PERCENT 64 % (BEAKER) (test code = 429) LYMPHOCYTES RELATIVE PERCENT 20 % (BEAKER) (test code = 430) MONOCYTES RELATIVE PERCENT 8 % (BEAKER) (test code = 431) EOSINOPHILS RELATIVE PERCENT 6 % (BEAKER) (test code = 432) BASOPHILS RELATIVE PERCENT 1 % (BEAKER) (test code = 437) NEUTROPHILS ABSOLUTE COUNT 4.59 K/ L 1.78-5.38 (BEAKER) (test code = 670) LYMPHOCYTES ABSOLUTE COUNT 1.44 K/ L 1.32-3.57 (BEAKER) (test code = 414) MONOCYTES ABSOLUTE COUNT (BEAKER) 0.55 K/ L 0.30-0.82 (test code = 415) EOSINOPHILS ABSOLUTE COUNT 0.42 K/ L 0.04-0.54 (BEAKER) (test code = 416) BASOPHILS ABSOLUTE COUNT (BEAKER) 0.06 K/ L 0.01-0.08 (test code = 417) IMMATURE GRANULOCYTES-RELATIVE 2 % 0-1 H PERCENT (BEAKER) (test code = 2801) CREATININE, RANDOM [id number] 19:17:00 Test Item Value Reference Range Interpretation Comments CREATININE URINE (BEAKER) (test 77.5 mg/dL code = 375) Reference Range: No NormalsSODIUM, RANDOM [id number] 19:17:00 Test Item Value Reference Range Interpretation Comments SODIUM URINE (BEAKER) (test code = 176 meq/L 243) Reference Range: No NormalsBLOOD CULTURE IDENTIFICATION [id number] 18:37:00 Test Item Value Reference Interpretation Comments Range LISTERIA MONOCYTOGENES Not detected Not detected (test code = 2471893) STAPHYLOCOCCUS (test Detected Not detected A Coagula se negative code = 8978319) Staph specie s (CoNS)- methici llin susceptibleFirs t-jerardo e therapy: Cefa zolin or Oxacillin (Oxacillin pref erred if POST FRAMER involvem ent) MecA NOT DETECTEDPossibl e contamination. The likelihood of pathogenicity i s increased if th e organism is obs erved in multiple blo od cultures obtain ed from separate venipunctures.R efere nce Range: Not Detected STAPHYLOCOCCUS AUREUS Not detected Not detected (test code = 8283560) STREPTOCOCCUS (test Not detected Not detected code = 4774091) STREPTOCOCCUS Not detected Not detected AGALACTIAE (GROUP B) (test code = 6092389) STREPTOCOCCUS Not detected Not detected PNEUMONIAE (test code = 3724871) STREPTOCOCCUS PYOGENES Not detected Not detected (GROUP A) (test code = 8132521) ACINETOBACTER BAUMANNII Not detected Not detected (test code = 8805495) HAEMOPHILUS INFLUENZAE Not detected Not detected (test code = 3381385) NEISSERIA MENINGITIDIS Not detected Not detected (test code = 0088310) ENTEROBACTERIACEAE Not detected Not detected (test code = 2852981) ENTEROBACTER CLOACOE Not detected Not detected COMPLEX (test code = 1521513) KLEBSIELLA OXYTOCA Not detected Not detected (test code = 2407091) KLEBSIELLA PNEUMONIAE Not detected Not detected (test code = 1650) PROTEUS (test code = Not detected Not detected 2724170) SERRATIA MARCESCENS Not detected Not detected (test code = 1120549) KALI ALBICANS (test Not detected Not detected code = 6717996) KALI GLABRATA (test Not detected Not detected code = 4034851) KALI KRUSEI (test Not detected Not detected code = 1824094) KALI PARAPSILOSIS Not detected Not detected (test code = 8425244) KALI TROPICALIS Not detected Not detected (test code = 5850284) ESCHERICHIA COLI (test Not detected Not detected code = 9226032) METHICILLIN-RESISTANCE Not detected Not detected GENE (test code = 7552468) VANCOMYCIN-RESISTANCE Not detected GENE (test code = 6567056) CARBAPENEM-RESISTANCE Not detected GENE (test code = 5302345) ENTEROCOCCUS-BEAKER Not detected Not detected (test code = 9807372) PSEUDOMONAS Not detected Not detected AERUGINOSA-BEAKER (test code = 4378791) Other bacteria and resistance markers not targeted by this PCR panel cannot be excluded; therefore clinical correlation and follow up of serology, culture results, and other molecular studies is required. The results are not intended to be used as the sole means for clinical diagnosis or patient management decisions. This sample was tested at the [facility] using the [employer] Blood Culture ID Panel. It is FDA cleared and has been verified and approved by the [facility] for clinical use. This laboratory is CLIA-certified and College ofAmerican Pathologists (CAP)-accredited to perform high complexity testing.CT, EXTREMITY, LOWER WITHOUT CONTRAST, [id number] 18:32:00FINAL REPORT CT, EXTREMITY, LOWER WITHOUT CONTRAST, RIGHT INDICATION: fracture, please obtain CT of ankle and talus COMPARISON: None TECHNIQUE: Thin slice axial images obtained through the right ankle and portions of the right foot without IV contrast demonstration. Coronal and sagittal reformats obtained. DOSE REDUCTION: Dose modulation, iterative reconstruction, and/or weight-based adjustment of the mA/kV was utilized to reduce the radiation dose to as low as reasonably achievable. FINDINGS:There is no evidence of acute fracture or traumatic malalignment. There are cortical irregularities of the talus, medial and lateral malleoli most consistent with degenerative changes. Ankle mortise is intact. Subtalar joint is unremarkable. There is diffuse soft tissue swelling. Vascular calcifications are noted. No osseous erosion. Scattered degenerative changes of the hindfoot and midfoot noted. Bone mineralization is within normal limits. IMPRESSION:No acute osseous fracture. Signed: Dmitriy Reyes Verified Date/Time: 06/17/2019 18:32:45 VANCOMYCIN LEVEL, [id number] 18:23:00 Test Item Value Reference Range Interpretation Comments VANCOMYCIN RANDOM (BEAKER) (test 11.8 ug/mL code = 523) Reference Range: No NormalsRAD, KNEE, 3 VIEWS, [id number] 14:07:00Reason for exam:->right knee pain. swelling.FINAL REPORT Right knee, four images HISTORY: Knee pain COMPARISON: None IMPRESSION:No evidence fracture. No dislocation. Joint effusion present. Mild pericardial degenerative changes. Signed: Rolan Fitzpatrick Verified Date/Time: 06/17/2019 14:07:05 Reading Location: [address] Ortho Consult Reading Room REHENSIVE METABOLIC [id number] 12:56:00 Test Item Value Reference Range Interpretation Comments TOTAL PROTEIN 8.5 gm/dL 6.0-8.3 H Specimen sligh tly (BEAKER) (test code = hemoly zed 770) ALBUMIN (BEAKER) 3.6 g/dL 3.5-5.0 Specimen sl ightly (test code = 1145) hemolyzed ALKALINE PHOSPHATASE 76 U/L 40-150 (BEAKER) (test code = 346) BILIRUBIN TOTAL 1.9 mg/dL 0.2-1.2 H Specimen sli ghtly (BEAKER) (test code = hemoly zed 377) SODIUM (BEAKER) (test 134 meq/L 136-145 L code = 381) POTASSIUM (BEAKER) 4.4 meq/L 3.5-5.1 Specimen slightly (test code = 379) hemolyzed CHLORIDE (BEAKER) 100 meq/L 98-107 (test code = 382) CO2 (BEAKER) (test 27 meq/L 22-29 code = 355) BLOOD UREA NITROGEN 20 mg/dL 7-21 (BEAKER) (test code = 354) CREATININE (BEAKER) 1.41 mg/dL 0.57-1.25 H Specimen slightly (test code = 358) hemolyzed GLUCOSE RANDOM 107 mg/dL 70-105 H (BEAKER) (test code = 652) CALCIUM (BEAKER) 9.6 mg/dL 8.4-10.2 (test code = 697) AST (SGOT) (BEAKER) 29 U/L 5-34 Specimen slightly (test code = 353) hemolyzed ALT (SGPT) (BEAKER) 23 U/L 6-55 Specimen slightly (test code = 347) hemolyzed EGFR (BEAKER) (test 48 mL/min/1.73 ESTIMA LINA GFR IS code = 1092) sq m NOT ACCURATE CREATININE CLEARANCE IN PREDICTING GLOMERULAR FILTRATION RATE . ESTIMATED GFR I S NOT APPLICABLE FOR DIALYSIS PATIEN TS. CBC W/PLT COUNT & AUTO [id number] 06:42:00 Test Item Value Reference Range Interpretation Comments WHITE BLOOD CELL COUNT (BEAKER) 9.6 K/ L 3.5-10.5 (test code = 775) RED BLOOD CELL COUNT (BEAKER) 4.55 M/ L 4.63-6.08 L (test code = 761) HEMOGLOBIN (BEAKER) (test code = 12.5 GM/DL 13.7-17.5 L 410) HEMATOCRIT (BEAKER) (test code = 38.6 % 40.1-51.0 L 411) MEAN CORPUSCULAR VOLUME (BEAKER) 84.8 fL 79.0-92.2 (test code = 753) MEAN CORPUSCULAR HEMOGLOBIN 27.5 pg 25.7-32.2 (BEAKER) (test code = 751) MEAN CORPUSCULAR HEMOGLOBIN CONC 32.4 GM/DL 32.3-36.5 (BEAKER) (test code = 752) RED CELL DISTRIBUTION WIDTH 13.0 % 11.6-14.4 (BEAKER) (test code = 412) PLATELET COUNT (BEAKER) (test 271 K/CU MM 150-450 code = 756) MEAN PLATELET VOLUME (BEAKER) 8.9 fL 9.4-12.4 L (test code = 754) NUCLEATED RED BLOOD CELLS 0 /100 WBC 0-0 (BEAKER) (test code = 413) NEUTROPHILS RELATIVE PERCENT 75 % (BEAKER) (test code = 429) LYMPHOCYTES RELATIVE PERCENT 12 % (BEAKER) (test code = 430) MONOCYTES RELATIVE PERCENT 9 % (BEAKER) (test code = 431) EOSINOPHILS RELATIVE PERCENT 1 % (BEAKER) (test code = 432) BASOPHILS RELATIVE PERCENT 1 % (BEAKER) (test code = 437) NEUTROPHILS ABSOLUTE COUNT 7.17 K/ L 1.78-5.38 H (BEAKER) (test code = 670) LYMPHOCYTES ABSOLUTE COUNT 1.16 K/ L 1.32-3.57 L (BEAKER) (test code = 414) MONOCYTES ABSOLUTE COUNT (BEAKER) 0.82 K/ L 0.30-0.82 (test code = 415) EOSINOPHILS ABSOLUTE COUNT 0.12 K/ L 0.04-0.54 (BEAKER) (test code = 416) BASOPHILS ABSOLUTE COUNT (BEAKER) 0.05 K/ L 0.01-0.08 (test code = 417) IMMATURE GRANULOCYTES-RELATIVE 3 % 0-1 H PERCENT (BEAKER) (test code = 2801) URINALYSIS W/ REFLEX URINE [id number] 18:24:00 Test Item Value Reference Range Interpretation Comments COLOR (BEAKER) (test code = 470) Yellow CLARITY (BEAKER) (test code = 469) Clear SPECIFIC GRAVITY UA (BEAKER) (test 1.014 1.001-1.035 code = 468) PH UA (BEAKER) (test code = 467) 7.0 5.0-8.0 PROTEIN UA (BEAKER) (test code = 20 mg/dL Negative A 464) GLUCOSE UA (BEAKER) (test code = Negative Negative 365) KETONES UA (BEAKER) (test code = Negative Negative 371) BILIRUBIN UA (BEAKER) (test code = Negative Negative 462) BLOOD UA (BEAKER) (test code = 461) Negative Negative NITRITE UA (BEAKER) (test code = Negative Negative 465) LEUKOCYTE ESTERASE UA (BEAKER) Negative Negative (test code = 466) UROBILINOGEN UA (BEAKER) (test code 3.0 mg/dL 0.2-1.0 H = 463) RBC UA (BEAKER) (test code = 519) < /HPF WBC UA (BEAKER) (test code = 520) < /HPF SQUAMOUS EPITHELIAL (BEAKER) (test < /HPF code = 516) SOURCE(BEAKER) (test code = 2795) VITAMIN B12 AND [id number] 04:17:00 Test Item Value Reference Range Interpretation Comments VITAMIN B12 (BEAKER) (test code = 324 pg/mL 213-816 774) FOLATE (BEAKER) (test code = 362) 2.8 ng/mL >=7.[address], BRAIN, WITHOUT [id number] 03:34:00FINAL REPORT CT Head without contrast CLINICAL HISTORY: Decreased alertness TECHNIQUE: Contiguous axial images through the head without contrast. This exam was performed according to the departmental dose optimization program which includes automated exposure control, adjustment of the mA and/or kV according to the patient size, and/or use of an iterative reconstruction technique. COMPARISON: None FINDINGS: There is no CT evidence of acute infarct or intracranial hemorrhage. There is periventricular and subcortical white matter hypodensity which is nonspecific but compatible with chronic microvascular ischemic change. There are atherosclerotic calcifications of the intracranial circulation. There is generalized parenchymal volume loss without hydrocephalus, midline shift, or apparent mass effect. Basilar cisterns are patent. There are no extra-axial fluid collections. The skull is intact. The visualized paranasal sinuses are well-aerated. Intraorbital contents are unremarkable. IMPRESSION: No CT evidence of acute infarct, hemorrhage, or hydrocephalus. Chronic ischemic and i nvolutional changes as above. Signed: Arielle Tinoco [facility] Verified Date/Time: 06/16/2019 03:34:10 TSH/FREE T4 IF [id number] 00:00:00 Test Item Value Reference Range Interpretation Comments THYROID STIMULATING HORMONE 1.38 uIU/mL 0.35-4.94 (LESIA) (test code = 772) TROPONIN [id number] 23:40:00 Test Item Value Reference Range Interpretation Comments TROPONIN I (LESIA) (test code = 397) < ng/mL 0.00-0.03 Troponin I (TnI) levels must be interpreted in the context of the presenting symptoms and the clinical findings. Elevated TnI levels indicate myocardial damage, but are not specific for ischemic heart disease. Elevated TnI levels are seen in patients with other cardiac conditions (including myocarditis and congestive heart failure), and slight TnI elevations occur in patients with other conditions, including sepsis, renal failure, acidosis, acute neurological disease, and persistent tachyarrhythmia.RAD, FOOT, MIN 3 VIEWS, [id number] 23:38:00Reason for exam:->truamaFINAL REPORT Exam: Right foot series, 3 views. Right tibia/fibula-2 views Clinical History: Trauma Comparison: None Findings: Right foot: Gauze material overlies the hindfoot. There is a likely acute mildly displaced acute fracture of the posterior talus. No other fractures identified. Small plantar calcaneal spur. Mild Achilles enthesopathy. Right tibia and fibula: Negative fracture or dislocation. The ankle mortise appears intact and symmetric. Mild right knee degenerative cordon ges. Patellar and quadriceps tendon enthesopathy. Impression:Likely acute mildly displaced acute fracture of posterior talus. Signed: Chris Foreman MDR[facility]ort Verified Date/Time: 06/15/2019 23:38:38 Reading Location: [address] Consult Reading Room RAD, LEG, [id number] 23:38:00Reason for exam:->truamaFINAL REPORT Exam: Right foot series, 3 views. Right tibia/fibula-2 views Clinical History: Trauma Comparison: None Findings: Right foot: Gauze material overlies the hindfoot. There is a likely acute mildly displaced acute fracture of the posterior talus. No other fractures identified. Small plantar calcaneal spur. Mild Achilles enthesopathy. Right tibia and fibula: Negative fracture or dislocation. The ankle mortise appears intact and symmetric. Mild right knee degenerative changes. Patellar and quadriceps tendon enthesopathy. Impression:Likely acute mildly displaced acute fracture of posterior talus. Signed: Chris Foreman MDReport Verified Date/Time: 06/15/2019 23:38:38 Reading Location: [facility] [id number] Consult Reading Room 11:38 [id number] 23:36:00 Test Item Value Reference Range Interpretation Comments AMMONIA (BEAKER) (test code = 348) 16 mol/L 18-72 L CREATINE KINASE (CK)2019-06-15 23:34:00 Test Item Value Reference Range Interpretation Comments CREATINE KINASE TOTAL (BEAKER) (test 144 U/L 29-200 code = 380) URIC [id number] 23:34:00 Test Item Value Reference Range Interpretation Comments URIC ACID (BEAKER) (test code = 5.3 mg/dL 2.6-7.2 773) BASIC METABOLIC [id number] 23:34:00 Test Item Value Reference Range Interpretation Comments SODIUM (BEAKER) 135 meq/L 136-145 L (test code = 381) POTASSIUM (BEAKER) 4.1 meq/L 3.5-5.1 (test code = 379) CHLORIDE (BEAKER) 100 meq/L 98-107 (test code = 382) CO2 (BEAKER) (test 27 meq/L 22-29 code = 355) BLOOD UREA NITROGEN 23 mg/dL 7-21 H (BEAKER) (test code = 354) CREATININE (BEAKER) 1.58 mg/dL 0.57-1.25 H (test code = 358) GLUCOSE RANDOM 152 mg/dL 70-105 H (BEAKER) (test code = 652) CALCIUM (BEAKER) 9.3 mg/dL 8.4-10.2 (test code = 697) EGFR (BEAKER) (test 42 mL/min/1.73 ESTIMA LINA GFR IS code = 1092) sq m NOT ACCURATE CREATININE CLEARANCE IN PREDICTING GLOMERULAR FILTRATION RATE . ESTIMATED GFR I S NOT APPLICABLE FOR DIALYSIS PATIEN TS. HEPATIC FUNCTION [id number] 23:34:00 Test Item Value Reference Range Interpretation Comments TOTAL PROTEIN (BEAKER) (test code = 8.2 gm/dL 6.0-8.3 770) ALBUMIN (BEAKER) (test code = 1145) 3.6 g/dL 3.5-5.0 BILIRUBIN TOTAL (BEAKER) (test code 1.7 mg/dL 0.2-1.2 H = 377) BILIRUBIN DIRECT (BEAKER) (test 0.8 mg/dL 0.1-0.5 H code = 706) ALKALINE PHOSPHATASE (BEAKER) (test 70 U/L 40-150 code = 346) AST (SGOT) (BEAKER) (test code = 23 U/L 5-34 353) ALT (SGPT) (BEAKER) (test code = 24 U/L 6-55 347) CBC W/PLT COUNT & AUTO [id number] 23:15:00 Test Item Value Reference Range Interpretation Comments WHITE BLOOD CELL COUNT (BEAKER) 8.5 K/ L 3.5-10.5 (test code = 775) RED BLOOD CELL COUNT (BEAKER) 4.54 M/ L 4.63-6.08 L (test code = 761) HEMOGLOBIN (BEAKER) (test code = 13.0 GM/DL 13.7-17.5 L 410) HEMATOCRIT (BEAKER) (test code = 39.3 % 40.1-51.0 L 411) MEAN CORPUSCULAR VOLUME (BEAKER) 86.6 fL 79.0-92.2 (test code = 753) MEAN CORPUSCULAR HEMOGLOBIN 28.6 pg 25.7-32.2 (BEAKER) (test code = 751) MEAN CORPUSCULAR HEMOGLOBIN CONC 33.1 GM/DL 32.3-36.5 (BEAKER) (test code = 752) RED CELL DISTRIBUTION WIDTH 12.9 % 11.6-14.4 (BEAKER) (test code = 412) PLATELET COUNT (BEAKER) (test 241 K/CU MM 150-450 code = 756) MEAN PLATELET VOLUME (BEAKER) 9.0 fL 9.4-12.4 L (test code = 754) NUCLEATED RED BLOOD CELLS 0 /100 WBC 0-0 (BEAKER) (test code = 413) NEUTROPHILS RELATIVE PERCENT 69 % (BEAKER) (test code = 429) LYMPHOCYTES RELATIVE PERCENT 17 % (BEAKER) (test code = 430) MONOCYTES RELATIVE PERCENT 9 % (BEAKER) (test code = 431) EOSINOPHILS RELATIVE PERCENT 3 % (BEAKER) (test code = 432) BASOPHILS RELATIVE PERCENT 1 % (BEAKER) (test code = 437) NEUTROPHILS ABSOLUTE COUNT 5.89 K/ L 1.78-5.38 H (BEAKER) (test code = 670) LYMPHOCYTES ABSOLUTE COUNT 1.48 K/ L 1.32-3.57 (BEAKER) (test code = 414) MONOCYTES ABSOLUTE COUNT (BEAKER) 0.74 K/ L 0.30-0.82 (test code = 415) EOSINOPHILS ABSOLUTE COUNT 0.21 K/ L 0.04-0.54 (BEAKER) (test code = 416) BASOPHILS ABSOLUTE COUNT (BEAKER) 0.05 K/ L 0.01-0.08 (test code = 417) IMMATURE GRANULOCYTES-RELATIVE 1 % 0-1 PERCENT (BEAKER) (test code = 2801) RAD, ANKLE, MIN 3 VIEWS, [id number] 22:04:00Reason for exam:->truamaFINAL REPORT Exam: Left ankle series, 3 views. Clinical History: Trauma Comparison: None Findings: No acute fracture or dislocation. The ankle mortise is intact and symmetric. Sequela of old healed trauma the medial malleolus. No substantial joint effusion. 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 Mild Achilles enthesopathy. Small plantar calcaneal spur. Mild degenerative changes about the midfoot. Impression:No acute osseous injury. Julian deformity of the calcaneus. Achilles enthesopathy. Signed: Chris Foreman [facility]ort Verified Date/Time: 06/15/2019 22:04:23 Reading Location: [facility] [id number] Consult Reading Room
[2023-03-24 15:30] LABS: Absolute Lymphocytes (CBC) 1.6 K/uL (0.7-4.9); Hematocrit 35.4 % (39.6-49.0); Lymphocytes % 20.6 % (15.3-44.8); MCV 85.3 fL (80-100); MPV 8.5 fL (7.6-11.3); RBC Red Blood Cell Count 4.15 M/uL (4.33-5.43)
[2023-03-24 15:35] LABS: Protime INR 1.1
[2023-03-24 15:44] LABS: Albumin 3.6 g/dL (3.4-5.0); Bilirubin Total 0.6 mg/dL (0.2-1.0); Potassium 3.9 mEq/L (3.5-5.1)
[2023-03-24 17:17] LABS: Specific Gravity 1.018 (1.005-1.030); Urine Bilirubin NEGATIVE (Negative); Urine Blood Negative (Negative); Urine Clarity Clear (Clear); Urine Color Light-Yellow (Yellow); Urine Glucose NEGATIVE (Negative); Urine Protein NEGATIVE (Negative); Urine Urobilinogen Normal (Normal)
--- NOTE | 2023-03-24 17:33 | RAD REPORT ---
EXAM DESCRIPTION: SOPHIEChest Single View03/24/2023 4:07 pm CLINICAL HISTORY: AMS COMPARISON: Chest Single View dated 09/06/2022; Chest Single View dated 08/31/2022; Chest Single View dated 06/15/2019; Chest Single View dated 02/27/2016 TECHNIQUE: Portable AP view of the chest. FINDINGS: Elevation of the left hemidiaphragm is again noted. 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 The lungs are clear. No pneumothorax or effusion. The cardiomediastinal contours are unremark able. IMPRESSION: No acute cardiopulmonary process.
--- NOTE | 2023-03-24 18:43 | RAD REPORT ---
EXAM DESCRIPTION: CT - Head Brain Wo Cont - 03/24/2023 6:22 pm CLINICAL HISTORY: AMS COMPARISON: Ct Stroke Brain Wo Cont dated 09/06/2022; Ct Stroke Brain Wo Cont dated 08/31/2022 TECHNIQUE: Noncontrast head CT images ad were obtained without IV contrast. Multiplanar reformats we re generated and reviewed. All CT scans are performed using dose optimization technique as appropriate and may include automated exposure control or mA/KV adjustment according to patient size. FINDINGS: No intracranial hemorrhage, mass, or edema. Midline structures are unremarkable. Stable ventricular caliber for age, with mild diffuse parenchymal volume loss. Love-white matter differentiation is preserved, without evidence of acute infarct. No abnormal extra- axial fluid collections. Mastoid air cells are well aerated. Small mucous retention cysts are seen within both maxillary sinus es. No acute bony findings. IMPRESSION: No evidence of an acute intracranial process.
--- NOTE | 2023-03-24 18:53 | EDPHYS ---
Physician Documentation [facility] Name: Munir Brooks Age: 82 yrs Sex: Male : 1940 Arrival Date: 03/24/2023 Time: 13:49 Bed 20 Private MD: ED Physician Noel Schaffer HPI: 03/24 15:30 This 82 yrs old Male presents to ER via Ambulatory with complaints of Confusion. ms3 15:30 82-year-old male with past medical history of dementia, seizures, Alzheimer's presents ms3 for altered mental status that has progressed over the last couple of days. Patient's daughter states patient did not know her mother this morning. She states patient's urine smells and patient is urinating frequently and having incontinence. Patient's daughter states patient has had 3 prior hospitalizations for delirium. Patient's daughter denies patient having fevers, chills, nausea, vomiting.. Historical: - Allergies: 14:12 Kfmlabu-EDE-DvG Reductase Inhibitor; ll1 14:12 Namenda; ll1 - PMHx: 14:12 Dementia; Seizures; Congenital Heart Defect; Alzheimer's disease; ll1 - PSHx: 14:12 Cholecystectomy; heart surgery; ll1 - Immunization history:: Client reports receiving the 2nd dose of the Covid vaccine. - Social history:: Smoking status: Patient denies any tobacco usage or history of. ROS: 15:30 Constitutional: Negative for fever, and chills. Neck: Negative for injury, pain, and ms3 swelling, Cardiovascular: Negative for chest pain, and palpitations. Respiratory: Negative for shortness of breath, cough, wheezing, and pleuritic chest pain, Abdomen/GI: Negative for abdominal pain, nausea, vomiting, diarrhea, and constipation, MS/Extremity: Negative for injury and deformity, Skin: Negative for injury, rash, and discoloration. 15:30 : Positive for urinary frequency. 15:30 All other systems are negative. Exam: 15:30 Constitutional: This is a well developed, well nourished patient who is awake, alert, ms3 and in no acute distress. Head/Face: Normocephalic, atraumatic. Neck: Trachea midline, no cervical lymphadenopathy. Supple, full range of motion without nuchal rigidity, or vertebral point tenderness. No Meningismus. Chest/axilla: Normal chest wall appearance and motion. Nontender with no deformity. Cardiovascular: Regular rate and rhythm with a normal S1 and S2. No gallops, murmurs, or rubs. Normal PMI, no JVD. No pulse deficits. Respiratory: Lungs have equal breath sounds bilaterally, clear to auscultation and percussion. No rales, rhonchi or wheezes noted. No increased work of breathing, no retractions or nasal flaring. Abdomen/GI: Soft, non-tender, with normal bowel sounds. No distension or tympany. No guarding or rebound. No evidence of tenderness throughout. Skin: Warm, dry with normal turgor. Normal color with no rashes, no lesions, and no evidence of cellulitis. MS/ Extremity: Pulses equal, no cyanosis. Neurovascular intact. Full, normal range of motion. 15:33 ECG was reviewed by the Attending Physician. ms3 Vital Signs: 14:10 BP 136 / 84; Pulse 70; Resp 16; Temp 98.4; Pulse Ox 96% ; Weight 90.26 kg; Height 6 ft. ll1 3 in. ; Pain 0/10; 15:21 BP 139 / 90; Pulse 63; Resp 18; Pulse Ox 98% ; nj1 17:20 BP 141 / 101; Pulse 62; Resp 16; Pulse Ox 97% on R/A; nj1 18:43 BP 142 / 104; Pulse 62; Resp 18; Pulse Ox 95% ; nj1 19:33 BP 151 / 101; Pulse 63; Resp 18 S; Pulse Ox 95% on R/A; ha1 14:10 Body Mass Index 24.87 (90.26 kg, 190.5 cm) ll1 14:10 Pain Scale: Adult ll1 MDM: 14:47 Patient medically screened. ms3 15:30 Differential Diagnosis: electrolyte abnormality, pneumonia, UTI. ms3 17:51 ED course: Discussed case with Dr Herzog. Obtain CT head. If negative patient can be ms3 discharged.. 18:52 Data reviewed: vital signs, nurses notes, lab test result(s), radiologic studies, and ms3 as a result, I will discharge patient. Management of patient was discussed with the following: Primary Care Provider: Discussed case with Dr Herzog and he agrees with obtaining CT Head and if negative discharge home.. Independent interpretation of the following test(s) in the Emergency Department EKG: See my EKG interpretation above government gauger: rate is 61 beats/min, Rhythm is normal sinus rhythm, regular, with no ectopy, Interpretation: normal rate, normal rhythm. Counseling: I had a detailed discussion with the patient and/or guardian regarding: the historical points, exam findings, and any diagnostic results supporting the discharge/admit diagnosis, lab results, radiology results, the need for outpatient follow up, to return to the emergency department if symptoms worsen or persist or if there are any questions or concerns that arise at home. 03/24 14:48 Order name: Blood Culture Adult (2) ms3 03/24 14:48 Order name: CBC with Diff; Complete Time: 17:06 ms3 03/24 14:48 Order name: CMP; Complete Time: 17:06 ms3 03/24 14:48 Order name: Lactate w/ 2H reflex if indic.; Complete Time: 17:06 ms3 03/24 14:48 Order name: Protime (+inr); Complete Time: 17:06 ms3 03/24 14:48 Order name: Ptt, Activated; Complete Time: 17:06 ms3 03/24 14:48 Order name: Urinalysis w/ reflexes; Complete Time: 17:19 ms3 03/24 18:52 Order name: Glucose, Ancillary Testing; Complete Time: 18:55 EDMS 03/24 14:48 Order name: Chest Single View XRAY; Complete Time: 17:43 ms3 03/24 17:50 Order name: CT Head Brain wo Cont; Complete Time: 18:49 ms3 03/24 14:48 Order name: EKG; Complete Time: 14:49 ms3 03/24 14:48 Order name: Cardiac monitoring; Complete Time: 17:21 ms3 03/24 14:48 Order name: EKG - Nurse/Tech; Complete Time: 15:28 ms3 03/24 14:48 Order name: IV Saline Lock - Large Bore; Complete Time: 15:18 ms3 03/24 14:48 Order name: Labs collected and sent; Complete Time: 15:18 ms3 03/24 14:48 Order name: O2 Per Protocol; Complete Time: 15:18 ms3 03/24 14:48 Order name: O2 Sat Monitoring; Complete Time: 15:18 ms3 03/24 14:48 Order name: Vital Signs; Complete Time: 15:18 ms3 03/24 16:30 Order name: Cath; Complete Time: 17:15 ms3 EC:33 Rate is 61 beats/min. Rhythm is regular. QRS [place] is Normal. DE interval is normal. QRS ms3 interval is normal. Clinical impression: NSR w/ Non-specific ST/T Changes. Interpreted by me. Reviewed by me. Administered Medications: No medications were administered Disposition Summary: 03/24/23 18:52 Discharge Ordered Location: Home ms3 Condition: Stable ms3 Diagnosis - Unspecified dementia with behavioral disturbance ms3 - Essential (primary) hypertension ms3 Followup: ms3 - With: Private Physician - When: 1 - 2 days - Reason: Recheck today's complaints Discharge Instructions: - Dementia ms3 - Hypertension, Adult ms3 - Discharge Summary Sheet nj1 Forms: - Medication Reconciliation Form ms3 - Thank You Letter ms3 - Antibiotic Education ms3 - Prescription Opioid Use ms3 - SBAR form nj1 Signatures: Dispatcher [employer] Catalina Wheatley RN RN ll1 Noel Schaffer DO DO ms3
--- NOTE | 2023-03-24 18:53 | ER ---
Nurse's Notes [facility] Name: Munir Brooks Age: 82 yrs Sex: Male : 1940 Arrival Date: 03/24/2023 Time: 13:49 Bed 20 Private MD: Diagnosis: Unspecified dementia with behavioral disturbance;Essential (primary) hypertension Presentation: 03/24 14:10 Chief complaint: Patient states: Confusion worse than usual for 1 week. Forgot who his ll1 was today. Frequent urinating and loss of bladder control. Coronavirus screen: Client denies travel out of the [place] in the last 14 days. At this time, the client does not indicate any symptoms associated with coronavirus-19. Ebola Screen: Patient denies travel to an Ebola-affected area in the 21 days before illness onset. Initial Sepsis Screen: Does the patient meet any 2 criteria? No. Patient's initial sepsis screen is negative. Does the patient have a suspected source of infection? Yes: Dysuria/Frequency/Urgency/UTI. Risk Assessment: Do you want to hurt yourself or someone else? Patient reports no desire to harm self or others. Onset of symptoms was March 18, 2023. 14:10 Method Of Arrival: Ambulatory ll1 14:10 Acuity: MAGALY 2 ll1 Historical: - Allergies: 14:12 Lltycwr-OKS-DbQ Reductase Inhibitor; ll1 14:12 Namenda; ll1 - PMHx: 14:12 Dementia; Seizures; Congenital Heart Defect; Alzheimer's disease; ll1 - PSHx: 14:12 Cholecystectomy; heart surgery; ll1 - Immunization history:: Client reports receiving the 2nd dose of the Covid vaccine. - Social history:: Smoking status: Patient denies any tobacco usage or history of. Screenin:00 [facility] ED Fall Risk Assessment (Adult) History of falling in the last 3 months, nj1 including since admission No falls in past 3 months (0 pts) Confusion or Disorientation Yes (5 pts) Intoxicated or Sedated No (0 pts) Impaired Gait No (0 pts) Mobility Assist Device Used No (0 pt) Altered Elimination Yes (1 pt) Score/Fall Risk Level 3 or more points = High Risk Oriented to surroundings, Maintained a safe environment, Assessed \T\ reinforced patient's understanding of fall precautions, Hourly rounding (assess needs \T\ fall precautionary measures) done, Offered frequent toileting (1:1 observation), Utilized family, sitter, or virtual theatre professor as indicated. 15:00 Abuse screen: Denies threats or abuse. Denies injuries from another. Nutritional nj1 screening: No deficits noted. Tuberculosis screening: No symptoms or risk factors identified. Assessment: 15:00 General: Appears in no apparent distress. comfortable, Behavior is calm, cooperative, nj1 appropriate for age, Smells of Urine. Pain: Denies pain. Neuro: Level of Consciousness is awake, alert, obeys commands, confused, Oriented to person. Cardiovascular: Patient's skin is warm and dry. Respiratory: Airway is patent Respiratory effort is even, unlabored. 16:50 Reassessment: Patient appears in no apparent distress at this time. Patient and/or nj1 family updated on plan of care and expected duration. Pain level reassessed. Patient denies pain at this time. 19:33 Reassessment: Patient and/or family updated on plan of care and expected duration. Pain ha1 level reassessed. Respiratory: Airway is patent Respiratory effort is even, unlabored, Respiratory pattern is regular, symmetrical. Vital Signs: 14:10 BP 136 / 84; Pulse 70; Resp 16; Temp 98.4; Pulse Ox 96% ; Weight 90.26 kg; Height 6 ft. ll1 3 in. ; Pain 0/10; 15:21 BP 139 / 90; Pulse 63; Resp 18; Pulse Ox 98% ; nj1 17:20 BP 141 / 101; Pulse 62; Resp 16; Pulse Ox 97% on R/A; nj1 18:43 BP 142 / 104; Pulse 62; Resp 18; Pulse Ox 95% ; nj1 19:33 BP 151 / 101; Pulse 63; Resp 18 S; Pulse Ox 95% on R/A; ha1 14:10 Body Mass Index 24.87 (90.26 kg, 190.5 cm) ll1 14:10 Pain Scale: Adult ll1 ED Course: 13:53 Patient arrived in ED. mr 14:07 Noel Schaffer DO is Attending Physician. ms3 14:12 Triage completed. ll1 14:13 Arm band placed on. ll1 14:34 Pam Ramirez, EDWIN is Primary Nurse. nj1 14:43 Placed in gown. Bed in low position. Call light in reach. Side rails up X 1. Client mb9 placed on continuous cardiac and pulse oximetry monitoring. NIBP monitoring applied. 15:10 Inserted saline lock: 20 gauge in right wrist, using aseptic technique. Blood collected.nj1 15:10 First set of blood cultures drawn by me. nj1 16:09 Chest Single View XRAY In Process Unspecified. EDMS 16:50 Urine collected: straight cath specimen. nj1 18:24 CT Head Brain wo Cont In Process Unspecified. EDMS 18:36 Blood Culture Adult (2) Sent. rs5 19:34 No provider procedures requiring assistance completed. IV discontinued, intact, ha1 bleeding controlled, No redness/swelling at site. Pressure dressing applied. Administered Medications: No medications were administered Medication: 19:35 VIS not applicable for this client. ha1 Outcome: 18:52 Discharge ordered by MD. ms3 19:34 Discharged to home ambulatory, with family. ha1 19:34 Condition: stable 19:34 Discharge instructions given to patient, family, Instructed on discharge instructions, follow up and referral plans. Demonstrated understanding of instructions, follow-up care. 19:35 Patient left the ED. ha1 Signatures: Dispatcher [employer] EDID Carlo Tish giles Catalina House, RN RN ll1 Noel Schaffer, DO ms3 Linda Ponce, RN RN ha1 Tish De La O, RN RN mb9 Ronen Parks rs5 Pam Ramirez, EDWIN RN nj1 Corrections: (The following items were deleted from the chart) 18:48 18:43 Pulse 62bpm; Resp 18bpm; Pulse Ox 95%; nj1 nj1
[2023-03-24 19:54] VITALS: TEMP 98.4
[2023-03-24 19:57] VITALS: O2SAT 95
[2023-03-24 19:59] VITALS: BP 151/101
--- NOTE | 2023-03-25 07:00 | EKG ---
Test Date: 2023-03-24 Test Time: 15:23:14 Adjuster Arbitrator: LEA MEASUREMENT RESULTS: Intervals: Rate: 62 [place]: 188 QRSD: 84 QT: 418 QTc: 424 [place]: P: 38 [place]: 188 QRS: 18 T: 42 INTERPRETIVE STATEMENTS: Normal sinus rhythm T wave abnormality, consider lateral ischemia Abnormal ECG Compared to ECG 09/06/2022 12:25:25 T-wave abnormality now present Possible ischemia now present Sinus bradycardia no longer present ST (T wave) deviation no longer present Electronically Signed On 03-25-23 06:59:47 CDT by Melvin Albarado
--- NOTE | 2023-03-26 15:25 | EKG ---
Test Date: 2023-03-24 Test Time: 15:24:20 Equipment Associate: LEA MEASUREMENT RESULTS: Intervals: Rate: 61 MI: 192 QRSD: 86 QT: 438 QTc: 440 [place]: P: 44 MI: 192 QRS: 20 T: 14 INTERPRETIVE STATEMENTS: Normal sinus rhythm Normal ECG Compared to ECG 03/24/2023 15:23:14 T-wave abnormality no longer present Possible ischemia no longer present Electronically Signed On 03-26-23 15:24:00 CDT by Waldo Yee
== END 2023-03-24 19:35 | disposition home or self-care (01) ==
LOC: ER 13:49
DX: F03.918 Unspecified dementia, unspecified severity, with other behavioral disturbance (principal); I10 Essential (primary) hypertension; Z88.8 Allergy status to other drugs, medicaments and biological substances
CPT/HCPCS: 36415; 70450; 71045; 80053; 81003; 82947; 83605; 85025; 85610; 85730; 87040; 93005

== ENCOUNTER 2023-05-15 13:03 | Emergency (ER) | payer OTHER ==
--- OUTSIDE RECORDS SUMMARY | 2023-05-15 13:06 | XMS REPORT | Continuity of Care Document ---
:1940 Author Organization [facility] t Address [address] [place] [address] Care Team Providers Name Role Phone Mitul [...] [facility] disorder disorder 00:00: Medica l 00 [place] Fracture Fracture Disease Active [facility] [place] 00:00: Medical 00 [place] Encephalop Encephalop Disease Active [facility] 7-19 [facility] 00:[facility]: Medical 00 Center Allergies, Adverse Reactions, Alerts Allergy Allergy Status Severity Reaction(s) Onset Inactive Treating Comm ents Source Name Type Date Date Clinician No Known DA Active [facility] Allergie 3-02 Clear s 00:00: Mead 00 [facility] No Known DA Active [facility] Allergie 2-28 Clear s 00:00: Mead 00 [facility] Social History Social Habit Start Date Stop [...] [facility] Alcohol Frequency 00:00:00 00:00:00 [facility] Sex Assigned At [address] [address] Anita kes 00:00:00 00:00:00 [facility] Smoking Status Start Date Stop Date Source Never smoked tobacco [facility] Medications Ordered Filled Start Stop Current Ordering [...] Medical 24 hr 42 with lower daily. 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 Medical tablet 42 [place] levETIRAcet Yes tonic-cloni 250mg Q.5D Take 250 [...] Medical 24 hr 42 with lower daily. 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 Medical tablet 42 [place] levETIRAcet Yes tonic-cloni 250mg Q.5D Take [address] [facility] (KEPPRA) 7-26 c epilepsy mg by L ukes 250 MG 17:41: treatment mouth 2 Med ical tablet 42 adjunct (two) Center times daily. Procedures This patient has no known procedures. Encounters Start End Encounter Admission Attending Care Care Encounter Source Date/Time Date/Time Type Type Clinicians Facility Department ID 2023-01-26 2023-01-26 Outpatient ISIAH Womack [id number] [facility] 06:46:00 06:46:[address] Results Test Description Test Time Test Comments Results Result Comments Source BLOOD CULTURE 2019-06-24 08:44:00 Test Item Value Reference Range Interpretation Comme nts CULTURE (BEAKER) (test A From Aerobic Bottle Only code = 1095) Coagulase negat gabriella Staphylococcus GRAM STAIN RESULT From aerobic bottle only: (BEAKER) (test code = gram positive cocci in 1123) [facility] BASIC METABOLIC [id number] 07:23:00 Test Item Value Reference Range Interpretation [...] PATIEN TS. CBC W/PLT COUNT & AUTO [id number] 06:20:00 Test Item Value Reference Range Interpretation [...] PERCENT (BEAKER) (test code = 2801) BLOOD [id number] 20:01:00 Test Item Value Reference Range Interpretation Comments CULTURE (BEAKER) (test No growth in 5 days code = 1095) URINALYSIS W/ REFLEX URINE [id number] 11:55:00 Test Item Value Reference Range Interpretation [...] = 2795) CBC W/PLT COUNT & AUTO [id number] 09:53:00 Test Item Value Reference Range Interpretation [...] 0-1 PERCENT (BEAKER) (test code = 2801) [id number] 07:04:00 Test Item Value Reference Range Interpretation Comments CREATININE (BEAKER) 1.38 mg/dL 0.57-1.25 H (test code = 358) EGFR (BEAKER) (test 50 mL/min/1.73 ESTIMA LINA GFR IS code = 1092) sq m NOT ACCURATE CREATININE CLEARANCE IN PREDICTING GLOMERULAR FILTRATION RATE . ESTIMATED GFR I S NOT APPLICABLE FOR DIALYSIS PATIEN TS. VANCOMYCIN LEVEL, [id number] 06:38:00 Test Item Value Reference Range Interpretation Comments VANCOMYCIN TROUGH (BEAKER) (test 13.5 ug/mL 10.0-20.0 code = 522) Draw 30 min prior to scheduled dose, HOLD if level > 20 mcg/mL, inform . BASIC METABOLIC [id number] 16:14:00 Test Item Value Reference Range Interpretation [...] CALL LAB TO ADD TO AM LAB [id number] 05:13:00 Test Item Value Reference Range Interpretation Comments CREATININE (BEAKER) 1.36 mg/dL 0.57-1.25 H (test code = 358) EGFR (BEAKER) (test 50 mL/min/1.73 ESTIMA LINA GFR IS code = 1092) sq m NOT ACCURATE CREATININE CLEARANCE IN PREDICTING GLOMERULAR FILTRATION RATE . ESTIMATED GFR I S NOT APPLICABLE FOR DIALYSIS PATIEN TS. C-REACTIVE [id number] 08:48:00 Test Item Value Reference Range Interpretation Comments C-REACTIVE PROTEIN (BEAKER) (test 4.29 mg/dL 0.00-0.50 H code = 676) BASIC METABOLIC [id number] 07:47:00 Test Item Value Reference Range Interpretation [...] APPLICABLE FOR DIALYSIS PATIEN TS. VANCOMYCIN LEVEL, [id number] 07:45:00 Test Item Value Reference Range Interpretation Comments VANCOMYCIN TROUGH (BEAKER) (test 22.1 ug/mL 10.0-20.0 H code = 522) Draw 30 min prior to scheduled dose, HOLD if level > 20 mcg/mL, inform .CBC W/PLT COUNT & AUTO [id number] 07:29:00 Test Item Value Reference Range Interpretation [...] H PERCENT (BEAKER) (test code = 2801) VANCOMYCIN LEVEL, [id number] 06:16:00 Test Item Value Reference Range Interpretation Comments VANCOMYCIN TROUGH (BEAKER) (test 16.3 ug/mL 10.0-20.0 code = 522) Draw 30 min prior to scheduled dose, HOLD if level > 20 mcg/mL, inform . BASIC METABOLIC [id number] 05:59:00 Test Item Value Reference Range Interpretation [...] PATIEN TS. CBC W/PLT COUNT & AUTO [id number] 05:29:00 Test Item Value Reference Range Interpretation [...] (BEAKER) (test code = 2801) CREATININE, RANDOM [id number] 19:17:00 Test Item Value Reference Range Interpretation Comments CREATININE URINE (BEAKER) (test 77.5 mg/dL code = 375) Reference Range: No NormalsSODIUM, RANDOM [id number] 19:17:00 Test Item Value Reference Range Interpretation Comments SODIUM URINE (BEAKER) (test code = 176 meq/L 243) Reference Range: No NormalsBLOOD CULTURE IDENTIFICATION [id number] 18:37:00 Test Item Value Reference Interpretation Comments Range LISTERIA MONOCYTOGENES Not detected Not detected (test code = 9117151) STAPHYLOCOCCUS (test Detected Not detected A Coagula se negative code = 0087445) Staph specie s (CoNS)- methici llin susceptibleFirs t-jerardo e therapy: Cefa zolin or Oxacillin (Oxacillin pref erred if FLOATER OPERATOR involvem ent) MecA NOT DETECTEDPossibl e contamination. The likelihood of pathogenicity i s increased if th e organism is obs erved in multiple blo od cultures obtain ed from separate venipunctures.R efere nce Range: Not Detected STAPHYLOCOCCUS AUREUS Not detected Not detected (test code = 5732218) STREPTOCOCCUS (test Not detected Not detected code = 8623373) STREPTOCOCCUS Not detected Not detected AGALACTIAE (GROUP B) (test code = 6025514) STREPTOCOCCUS Not detected Not detected PNEUMONIAE (test code = 8017716) STREPTOCOCCUS PYOGENES Not detected Not detected (GROUP A) (test code = 0579243) ACINETOBACTER BAUMANNII Not detected Not detected (test code = 6917360) HAEMOPHILUS INFLUENZAE Not detected Not detected (test code = 9365369) NEISSERIA MENINGITIDIS Not detected Not detected (test code = 1722405) ENTEROBACTERIACEAE Not detected Not detected (test code = 9963311) ENTEROBACTER CLOACOE Not detected Not detected COMPLEX (test code = 6005465) KLEBSIELLA OXYTOCA Not detected Not detected (test code = 2271246) KLEBSIELLA PNEUMONIAE Not detected Not detected (test code = 1650) PROTEUS (test code = Not detected Not detected 8015501) SERRATIA MARCESCENS Not detected Not detected (test code = 8383172) KALI ALBICANS (test Not detected Not detected code = 5507991) KALI GLABRATA (test Not detected Not detected code = 4252799) KALI KRUSEI (test Not detected Not detected code = 0846629) KALI PARAPSILOSIS Not detected Not detected (test code = 0638122) KALI TROPICALIS Not detected Not detected (test code = 3649562) ESCHERICHIA COLI (test Not detected Not detected code = 5510136) METHICILLIN-RESISTANCE Not detected Not detected GENE (test code = 8378355) VANCOMYCIN-RESISTANCE Not detected GENE (test code = 4775434) CARBAPENEM-RESISTANCE Not detected GENE (test code = 5578253) ENTEROCOCCUS-BEAKER Not detected Not detected (test code = 3224120) PSEUDOMONAS Not detected Not detected AERUGINOSA-BEAKER (test code = 0878436) Other bacteria and resistance markers not targeted by this PCR panel cannot be excluded; therefore clinical correlation and follow up of serology, culture results, and other molecular studies is required. The results are not intended to be used as the sole means for clinical diagnosis or patient management decisions. This sample was tested at the [facility] using the [place] Blood Culture ID Panel. It is FDA cleared and has been verified and approved by the [facility] for clinical use. This laboratory is CLIA-certified and College ofAmerican Pathologists (CAP)-accredited to perform high complexity testing.CT, EXTREMITY, LOWER WITHOUT CONTRAST, [id number] 18:32:00FINAL REPORT CT, EXTREMITY, LOWER WITHOUT CONTRAST, [...] IMPRESSION:No acute osseous fracture. Signed: Dmitriy Reyes MDReport Verified Date/Time: 06/17/2019 18:32:45 VANCOMYCIN LEVEL, [id number] 18:23:00 Test Item Value Reference Range Interpretation Comments VANCOMYCIN RANDOM (BEAKER) (test 11.8 ug/mL code = 523) Reference Range: No NormalsRAD, KNEE, 3 VIEWS, [id number] 14:07:00Reason for exam:->right knee pain. swelling.FINAL REPORT Right knee, four images HISTORY: Knee pain COMPARISON: None IMPRESSION:No evidence fracture. No dislocation. Joint effusion present. Mild pericardial degenerative changes. Signed: Rolan Fitzpatrick MDReport Verified Date/Time: 06/17/2019 14:07:05 Reading Location: [address] Ortho Consult Reading Room REHENSIVE METABOLIC [id number] 12:56:00 Test Item Value Reference Range Interpretation [...] PATIEN TS. CBC W/PLT COUNT & AUTO [id number] 06:42:00 Test Item Value Reference Range Interpretation [...] code = 2801) URINALYSIS W/ REFLEX URINE [id number] 18:24:00 Test Item Value Reference Range Interpretation [...] (test code = 2795) VITAMIN B12 AND [id number] 04:17:00 Test Item Value Reference Range Interpretation Comments VITAMIN B12 (BEAKER) (test code = 324 pg/mL 213-816 774) FOLATE (BEAKER) (test code = 362) 2.8 ng/mL >=7.[address], BRAIN, WITHOUT [id number] 03:34:00FINAL REPORT CT Head without contrast CLINICAL [...] nvolutional changes as above. Signed: Arielle Tinoco Verified Date/Time: 06/16/2019 03:34:10 TSH/FREE T4 IF [id number] 00:00:00 Test Item Value Reference Range Interpretation Comments THYROID STIMULATING HORMONE 1.38 uIU/mL 0.35-4.94 (BEAKER) (test code = 772) TROPONIN [id number] 23:40:00 Test Item Value Reference Range Interpretation Comments TROPONIN I (ZITAAKER) (test code = 397) < ng/mL 0.00-0.03 [...] and persistent tachyarrhythmia.RAD, FOOT, MIN 3 VIEWS, [id number] 23:38:00Reason for exam:->truamaFINAL REPORT Exam: Right foot [...] fracture of posterior talus. Signed: Chris Foreman [facility] Verified Date/Time: 06/15/2019 23:38:38 Reading Location: [address] Consult Reading Room RAD, LEG, [id number] 23:38:00Reason for exam:->truamaFINAL REPORT Exam: Right foot [...] MDReport Verified Date/Time: 06/15/2019 23:38:38 Reading Location: [address] Consult Reading Room [id number] 23:36:00 Test Item Value Reference Range Interpretation Comments AMMONIA (BEAKER) (test code = 348) 16 mol/L 18-72 L CREATINE KINASE (CK)2019-06-15 23:34:00 Test Item Value Reference Range Interpretation Comments CREATINE KINASE TOTAL (BEAKER) (test 144 U/L 29-200 code = 380) URIC [id number] 23:34:00 Test Item Value Reference Range Interpretation Comments URIC ACID (BEAKER) (test code = 5.3 mg/dL 2.6-7.2 773) BASIC METABOLIC [id number] 23:34:00 Test Item Value Reference Range Interpretation [...] APPLICABLE FOR DIALYSIS PATIEN TS. HEPATIC FUNCTION [id number] 23:34:00 Test Item Value Reference Range Interpretation [...] 6-55 347) CBC W/PLT COUNT & AUTO [id number] 23:15:00 Test Item Value Reference Range Interpretation [...] = 2801) RAD, ANKLE, MIN 3 VIEWS, [id number] 22:04:00Reason for exam:->truamaFINAL REPORT Exam: Left ankle [...] the calcaneus. Achilles enthesopathy. Signed: Chris Foreman [facility] Verified Date/Time: 06/15/2019 22:04:23 Reading Location: [facility] B1 C[address]W Consult Reading Room
[2023-05-15 14:18] LABS: Absolute Lymphocytes (CBC) 1.7 K/uL (0.7-4.9); Lymphocytes % 23.1 % (15.3-44.8); MCV 83.7 fL (80-100); MPV 7.9 fL (7.6-11.3); RBC Red Blood Cell Count 4.78 M/uL (4.33-5.43)
--- NOTE | 2023-05-15 14:26 | RAD REPORT ---
EXAM DESCRIPTION: CT - Head Brain Wo Cont - 05/15/2023 2:14 pm CLINICAL HISTORY: CONFUSED COMPARISON: Head Brain Wo Cont dated 03/24/2023; Ct Stroke Brain Wo Cont dated 09/06/2022 TECHNIQUE: Noncontrast head CT images ad were obtained without IV contrast. Multiplanar reformats we re generated and reviewed. All CT scans are performed using dose optimization technique as appropriate and may include automated exposure control or mA/KV adjustment according to patient size. FINDINGS: No intracranial hemorrhage, mass, or edema. Midline structures are unremarkable. Stable ventricular caliber, with mild diffuse parenchymal volume loss. Love-white matter differentiation is preserved, without evidence of acute infarct. No abnormal extra- axial fluid collections. Mastoid air cells are well aerated. Small mucous retention cysts in the maxillary sinuses. No acute bony findings. IMPRESSION: No evidence of an acute intracranial process. If there is clinical concern for stroke, additional evaluation by MRI may be helpful.
[2023-05-15 14:34] LABS: Magnesium 2.3 mg/dL (1.6-2.4); Potassium 3.9 mEq/L (3.5-5.1)
[2023-05-15] MEDS ORDERED: NA CHLORIDE 0.9% 500 ML ONE (14:58)
[2023-05-15 15:16] LABS: Specific Gravity 1.018 (1.005-1.030); Urine Bacteria None Seen /HPF (<20); Urine Bilirubin NEGATIVE (Negative); Urine Blood Negative (Negative); Urine Clarity Clear (Clear); Urine Color Light-Yellow (Yellow); Urine Glucose NEGATIVE (Negative); Urine Mucus Slight /HPF (None Seen); Urine Protein NEGATIVE (Negative); Urine RBC <5 /HPF (None Seen); Urine Urobilinogen Normal (Normal)
--- NOTE | 2023-05-15 15:45 | EDPHYS ---
Physician Documentation [facility] Name: Munir Brooks Age: 82 yrs Sex: Male : 1940 Arrival Date: 05/15/2023 Time: 13:03 Bed 14 Private MD: ED Physician Scott Mckeon HPI: 05/15 13:50 This 82 yrs old Male presents to ER via Ambulatory with complaints of Possible Foot cp Infection. 13:50 The patient presents with possible infection. cp 13:50 Daughter reports patient has PMHX significant for Alzheimer's and dementia. Patient cp seemed more confused last night. No fever, no chest pain, no abdominal. Daughter concerned patient may have infection of feet. Historical: - Allergies: 13:36 Namenda; vg1 13:36 Tzxheda-Nac-Col Reductase Inhibitor; vg1 - Home Meds: 13:37 atorvastatin 40 mg Oral tab 1 tab at bedtime [Active]; Melatonin Oral [Active]; vg1 Trazodone Oral [Active]; loratadine 10 mg Oral tab 1 tab once daily at bedtime for Allergic rhinitis [Active]; trazodone 50 mg Oral tab 0.5 tab at bedtime [Active]; famotidine 20 mg Oral tab 1 tab 1 at night [Active]; tamsulosin 0.4 mg Oral cap 1 cap once daily at noon [Active]; Iron CR Oral [Active]; 15:56 amlodipine 5 mg tab 1 tab once daily [Active]; aspirin 81 mg Oral tab 81 mg daily sg5 [Active]; donepezil 10 mg Oral tab 1 tab twice daily [Active]; memantine 5 mg Oral tab 1 tab once daily at noon [Active]; Tradjenta 5 mg Oral tab 1 tab once daily [Active]; - PMHx: 13:36 Alzheimer's disease; Congenital Heart Defect; Dementia; Seizures; vg1 - PSHx: 13:36 Cholecystectomy; heart surgery; vg1 - Immunization history:: Client reports receiving the 2nd dose of the Covid vaccine. - Social history:: Smoking status: Patient denies any tobacco usage or history of. ROS: 13:55 Constitutional: Negative for fever, poor PO intake. cp 13:55 Eyes: Negative for injury, pain, redness, and discharge. cp 13:55 Cardiovascular: Negative for chest pain. 13:55 Respiratory: Negative for cough, wheezing. 13:55 Abdomen/GI: Negative for abdominal pain, vomiting, diarrhea, constipation. 13:55 Skin: Negative for rash. 13:55 Neuro: Negative for altered mental status, headache. 13:55 All other systems are negative. Exam: 13:56 ECG was reviewed by the Attending Physician. cp 14:00 Constitutional: The patient appears in no acute distress, alert, awake, cp non-diaphoretic, non-toxic, well developed, well nourished. 14:00 Head/Face: Normocephalic, atraumatic. cp 14:00 Eyes: Periorbital structures: appear normal, Conjunctiva: normal, no exudate, no injection, Sclera: no appreciated abnormality, Lids and lashes: appear normal, bilaterally. 14:00 ENT: External ear(s): are unremarkable, Nose: is normal, Mouth: Lips: dry, Oral mucosa: moist, Posterior pharynx: is normal, airway is patent, no erythema, no exudate. 14:00 Neck: ROM/movement: is normal, is supple, without pain, no range of motions limitations, no meningismus. 14:00 Chest/axilla: Inspection: normal. 14:00 Cardiovascular: Rate: normal, Rhythm: regular, Edema: is not appreciated, JVD: is not appreciated. 14:00 Respiratory: the patient does not display signs of respiratory distress, Respirations: normal, no use of accessory muscles, no retractions, labored breathing, is not present, Breath sounds: are clear throughout, no decreased breath sounds, no stridor, no wheezing. 14:00 Abdomen/GI: Inspection: abdomen appears normal, Palpation: abdomen is soft and non-tender, in all quadrants. 14:00 Back: pain, is absent, ROM is normal. 14:00 Musculoskeletal/extremity: exam of feet show callous buildup, no significant erythema, no open wounds noted. 14:00 Skin: cellulitis, is not appreciated, no rash present. 14:00 Neuro: Orientation: to person, Mentation: able to follow commands, Motor: moves all fours, strength is normal. Vital Signs: 13:31 BP 128 / 79; Pulse 70; Resp 16; Temp 98.3(O); Pulse Ox 97% on R/A; Weight 90.72 kg; vg1 Height 6 ft. 3 in. ; 14:55 BP 126 / 74; Pulse 62; Resp 16; Pulse Ox 95% on R/A; sg5 15:41 BP 119 / 67; Pulse 59; Resp 16; Pulse Ox 96% on R/A; sg5 13:31 Body Mass Index 25.00 (90.72 kg, 190.5 cm) vg1 MDM: 13:44 Patient medically screened. cp 14:00 Differential diagnosis: sepsis, uti, cellulitis, dehydration, electrolyte abnormality, cp acute [place]. 15:45 Data reviewed: vital signs, nurses notes, lab test result(s), EKG, radiologic studies, cp CT scan, plain films. 15:45 Consideration of Admission/Observation Escalation of care including cp admission/observation considered. Counseling: I had a detailed discussion with the patient and/or guardian regarding: the historical points, exam findings, and any diagnostic results supporting the discharge/admit diagnosis, lab results, radiology results, to return to the emergency department if symptoms worsen or persist or if there are any questions or concerns that arise at home. 05/15 13:40 Order name: Urinalysis W/Microscopic; Complete Time: 15:20 05/15 15:20 Interpretation: Reviewed. 05/15 13:49 Order name: Basic Metabolic Panel; Complete Time: 14:46 05/15 14:46 Interpretation: Normal except: CL 108; GLUC 116; BUN 40; CRE 1.57; GFR 43. 05/15 13:49 Order name: CBC with Diff; Complete Time: 14:30 05/15 14:30 Interpretation: Normal except: HGB 13.3; RDW 16.7. 05/15 13:49 Order name: Magnesium; Complete Time: 14:46 05/15 13:49 Order name: Troponin HS; Complete Time: 14:46 05/15 13:49 Order name: Lactate w/ 2H reflex if indic.; Complete Time: 14:46 05/15 13:56 Order name: CT Head Brain wo Cont; Complete Time: 14:30 05/15 14:30 Interpretation: Report reviewed. 05/15 13:49 Order name: EKG; Complete Time: 13:56 05/15 13:49 Order name: Cardiac monitoring; Complete Time: 13:52 05/15 13:49 Order name: EKG - Nurse/Tech; Complete Time: 13:52 cp 05/15 13:49 Order name: IV Saline Lock; Complete Time: 14:09 cp 05/15 13:49 Order name: Labs collected and sent; Complete Time: 14:09 cp 05/15 13:49 Order name: O2 Per Protocol; Complete Time: 13:52 cp 05/15 13:49 Order name: O2 Sat Monitoring; Complete Time: 13:53 cp EC:56 Rate is 67 beats/min. Rhythm is regular. NV interval is normal. QRS interval is normal. cp QT interval is normal. Interpreted by me. Reviewed by me. Administered Medications: 14:47 CANCELLED (Physician Discretion): NS 0.9% IV 250 ml IV at bolus once cp 14:52 Drug: NS 0.9% IV 500 ml Route: IV; Rate: 125 ml/hr; Site: right forearm; sg5 15:47 Follow up: IV Status: Completed infusion sg5 Disposition Summary: 05/15/23 15:45 Discharge Ordered Location: Home cp Problem: new cp Symptoms: have improved cp Condition: Stable cp Diagnosis - Dementia in other diseases classified elsewhere without behavioral disturbance cp Followup: cp - With: Marcus Pickard DPM - When: 1 week - Reason: foot check Discharge Instructions: - Discharge Summary Sheet cp - Dementia cp - Foot Care, Adult cp Forms: - Medication Reconciliation Form cp - Thank You Letter cp - Antibiotic Education cp - Prescription Opioid Use cp Signatures: Dispatcher [employer] EDMS Schuyler Urbano PA PA cp Garcia, Victoria RN RN vg1 Zaira May RN RN sg5 Corrections: (The following items were deleted from the chart) 14:47 14:46 NS 0.9% IV 250 ml IV at bolus once ordered. cp cp
--- NOTE | 2023-05-15 15:45 | ER ---
Nurse's Notes [facility] Name: Munir Brooks Age: 82 yrs Sex: Male : 1940 Arrival Date: 05/15/2023 Time: 13:03 Bed 14 Private MD: Diagnosis: Dementia in other diseases classified elsewhere without behavioral disturbance Presentation: 05/15 13:31 Chief complaint: Patient's son or daughter states: Daughter states pt c/o BHANU foot vg1 pain, pt hx of Alzheimer's and stated "every time he has an infection he becomes more confused, he thinks my mom is a stranger in the house; I think he may have an infection to his foot". Coronavirus screen: Vaccine status: Patient reports receiving the 2nd dose of the covid vaccine. Client denies travel out of the [place] in the last 14 days. Ebola Screen: Patient negative for fever greater than or equal to 101.5 degrees Fahrenheit, and additional compatible Ebola Virus Disease symptoms Patient denies exposure to infectious person. Patient denies travel to an Ebola-affected area in the 21 days before illness onset. Initial Sepsis Screen: Does the patient meet any 2 criteria? No. Patient's initial sepsis screen is negative. Does the patient have a suspected source of infection? No. Patient's initial sepsis screen is negative. Risk Assessment: Do you want to hurt yourself or someone else? Patient reports no desire to harm self or others. Onset of symptoms was May 14, 2023. 13:31 Method Of Arrival: Ambulatory vg1 13:31 Acuity: MAGALY 3 vg1 Triage Assessment: 13:37 General: Appears in no apparent distress. comfortable, Behavior is cooperative. Pain: vg1 Complains of pain in right foot and left foot. Neuro: Level of Consciousness is awake, alert, obeys commands, Oriented to person, Moves all extremities. Musculoskeletal: Circulation, motion, and sensation intact. Historical: - Allergies: 13:36 Namenda; vg1 13:36 [place]-Exy-Icm Reductase Inhibitor; vg1 - Home Meds: 13:37 atorvastatin 40 mg Oral tab 1 tab at bedtime [Active]; Melatonin Oral [Active]; vg1 Trazodone Oral [Active]; loratadine 10 mg Oral tab 1 tab once daily at bedtime for Allergic rhinitis [Active]; trazodone 50 mg Oral tab 0.5 tab at bedtime [Active]; famotidine 20 mg Oral tab 1 tab 1 at night [Active]; tamsulosin 0.4 mg Oral cap 1 cap once daily at noon [Active]; Iron CR Oral [Active]; 15:56 amlodipine 5 mg tab 1 tab once daily [Active]; aspirin 81 mg Oral tab 81 mg daily sg5 [Active]; donepezil 10 mg Oral tab 1 tab twice daily [Active]; memantine 5 mg Oral tab 1 tab once daily at noon [Active]; Tradjenta 5 mg Oral tab 1 tab once daily [Active]; - PMHx: 13:36 Alzheimer's disease; Congenital Heart Defect; Dementia; Seizures; vg1 - PSHx: 13:36 Cholecystectomy; heart surgery; vg1 - Immunization history:: Client reports receiving the 2nd dose of the Covid vaccine. - Social history:: Smoking status: Patient denies any tobacco usage or history of. Screenin:09 [facility] ED Fall Risk Assessment (Adult) History of falling in the last 3 months, sg5 including since admission No falls in past 3 months (0 pts). Abuse screen: Denies threats or abuse. Nutritional screening: No deficits noted. Tuberculosis screening: No symptoms or risk factors identified. Assessment: 14:09 General: Appears in no apparent distress. comfortable, Behavior is calm, cooperative, sg5 appropriate for age. Pain: Complains of pain in left foot and right foot. Neuro: Level of Consciousness is awake, alert, obeys commands, Oriented to person, place, time, situation, Appropriate for age. Cardiovascular: Capillary refill < 3 seconds Patient's skin is warm and dry. Respiratory: Airway is patent Trachea midline Respiratory effort is even, unlabored. GI: No signs and/or symptoms were reported involving the gastrointestinal system. GI: Abdomen is round non-distended. : No signs and/or symptoms were reported regarding the genitourinary system. EENT: No signs and/or symptoms were reported regarding the EENT system. Derm: No signs and/or symptoms reported regarding the dermatologic system. Musculoskeletal: Reports pain in left foot and right foot. Vital Signs: 13:31 BP 128 / 79; Pulse 70; Resp 16; Temp 98.3(O); Pulse Ox 97% on R/A; Weight 90.72 kg; vg1 Height 6 ft. 3 in. ; 14:55 BP 126 / 74; Pulse 62; Resp 16; Pulse Ox 95% on R/A; sg5 15:41 BP 119 / 67; Pulse 59; Resp 16; Pulse Ox 96% on R/A; sg5 13:31 Body Mass Index 25.00 (90.72 kg, 190.5 cm) vg1 ED Course: 13:07 Patient arrived in ED. ts1 13:25 Schuyler Urbano PA is PHCP. cp 13:25 Scott Mckeon MD is Attending Physician. cp 13:36 Triage completed. vg1 13:37 Arm band placed on. vg1 13:51 Zaira May, EDWIN is Primary Nurse. sg5 13:53 Patient has correct armband on for positive identification. Fall risk band placed. mm9 Placed in gown. Bed in low position. Call light in reach. Side rails up X2. Warm blanket given. Client placed on continuous cardiac and pulse oximetry monitoring. NIBP monitoring applied. electronic device monitor on. Pulse ox on. NIBP on. 13:53 EKG done, by ED staff, reviewed by Scott Mckeon MD. mm9 14:09 Inserted saline lock: 20 gauge in right forearm, using aseptic technique. Blood sg5 collected. 14:16 CT Head Brain wo Cont In Process Unspecified. EDMS 15:43 Marcus Pickard DPM is Referral Physician. cp 15:47 No provider procedures requiring assistance completed. IV discontinued. sg5 Administered Medications: 14:47 CANCELLED (Physician Discretion): NS 0.9% IV 250 ml IV at bolus once cp 14:52 Drug: NS 0.9% IV 500 ml Route: IV; Rate: 125 ml/hr; Site: right forearm; sg5 15:47 Follow up: IV Status: Completed infusion sg5 Medication: 15:56 VIS not applicable for this client. sg5 Outcome: 15:45 Discharge ordered by . cp 15:47 Discharged to home ambulatory, with family. sg5 15:47 Condition: good 15:47 Discharge instructions given to patient, Instructed on discharge instructions, follow up and referral plans. 15:57 Patient left the ED. sg5 Signatures: Dispatcher [employer] EDMS Schuyler Urbano PA PA cp Garcia, Victoria, RN RN adrian1 Sonia Abdullahi mm9 Zaira May, EDWIN RN sg5 Lucero Hunt, MANSI PAS ts1
[2023-05-15 16:02] VITALS: TEMP 98.3
[2023-05-15 16:05] VITALS: BP 119/67; O2SAT 96
== END 2023-05-15 15:57 | disposition home or self-care (01) ==
LOC: ER 13:03
DX: G30.9 Alzheimer's disease, unspecified (principal); F02.80 Dementia in other diseases classified elsewhere, unspecified severity, without behavioral disturbance, psychotic disturbance, mood disturbance, and anxiety; Z88.8 Allergy status to other drugs, medicaments and biological substances
CPT/HCPCS: 85025; 81001; 80048; 36415; 83735; 83605 ×2; 84484; 70450; 96360; 99285; J7040; 93005

== ENCOUNTER 2023-06-09 09:26 | Emergency (ER) | payer OTHER ==
--- OUTSIDE RECORDS SUMMARY | 2023-06-09 09:31 | XMS REPORT | Continuity of Care Document ---
:1940 Author Organization [facility] t Address [address] [facility]. [address] [place] [address] Care Team Providers Name Role Phone Mitul [...] [facility] disorder disorder 00:00: Medica l 00 [place] Fracture Fracture Disease Active [facility] right 7[facility]20 [facility] [place] 00:00: Medical 00 [place] Encephalop Encephalop Disease Active [facility] athy athy 7-19 [facility] 00:00: Medical 00 Center Allergies, Adverse Reactions, Alerts Allergy Allergy Status Severity Reaction(s) Onset Inactive Treating Comm ents Source Name Type Date Date Clinician No Known DA Active [facility] Allergie 3-02 Clear s 00:00: [place] 00 [facility] No Known DA Active [facility] Allergie 2-28 Clear s 00:00: [place] 00 [facility] Social History Social Habit Start Date [...] [facility] Alcohol Frequency 00:00:00 00:00:00 [facility] Center Sex Assigned At [address] [facility] [address] Anita kes 00:00:00 00:00:[address] [facility] Smoking Status Start Date Stop Date Source Never smoked tobacco [facility] Medications Ordered Filled Start Stop Current [...] Medical 24 hr 42 with lower daily. [place] capsule urinary tract sx atorvastati Yes hypercholes 40mg QD Take [address] [facility] (LIPITOR) 7-26 terolemia by mouth [facility] 40 MG 17:41: nightly. Medical tablet 42 [place] levETIRAcet Yes tonic-cloni 250mg Q.5D Take [address] [facility] (KEPPRA) 7-26 c epilepsy mg by L ukes 250 MG 17:41: treatment mouth 2 Med ical tablet 42 adjunct (two) Center times daily. famotidine Yes gastroesoph 20mg QD Take [address] (PEPCID) 20 7-26 ageal by mouth Bebe es MG tablet 17:41: reflux nightly. [address] tamsulosin Yes benign .4mg QD Take 0.[address] (FLOMAX) 7-26 prostatic mg by [facility] 0.4 mg Cap 17:41: hyperplasia mouth Medical 24 hr 42 with lower daily. [place] capsule urinary tract sx atorvastati Yes hypercholes 40mg QD Take [address] [facility] (LIPITOR) 7-26 terolemia by mouth [facility] 40 MG 17:41: nightly. Medical tablet 42 [place] levETIRAcet Yes tonic-cloni 250mg Q.5D Take [address] am (KEPPRA) 7-26 c epilepsy mg by L ukes 250 MG 17:41: treatment mouth 2 Med ical tablet 42 adjunct (two) Center times daily. famotidine Yes gastroesoph 20mg QD Take [address] (PEPCID) 20 7-26 ageal by mouth Bebe es MG tablet 17:41: reflux nightly. [address] tamsulosin Yes benign .4mg QD Take 0.[address] (FLOMAX) 7-26 prostatic mg by [facility] 0.4 mg Cap 17:41: hyperplasia mouth Medical 24 hr 42 with lower daily. [place] capsule urinary tract sx atorvastati Yes hypercholes 40mg QD Take [address] [facility] (LIPITOR) 06-22 terolemia by mouth [facility] 40 MG 17:41: nightly. Medical tablet 42 Center levETIRAcet Yes tonic-cloni 250mg Q.5D Take [address] am (KEPPRA) 7- c epilepsy mg by L ukes 250 MG 17:41: treatment mouth 2 Med ical tablet 42 adjunct (two) Center times daily. Procedures This patient has no known procedures. Encounters Start End Encounter Admission Attending Care Care Encounter Source Date/Time Date/Time Type Type Clinicians Facility Department ID 2023-01-26 2023-01-26 Outpatient ISIAH Womack LABO [id number] [facility] 06:46:00 06:46:[address] Results Test Description Test Time Test Comments Results Result Comments Source BLOOD CULTURE 2019-06-24 08:44:00 Test Item Value Reference Range Interpretation Comme nts CULTURE (BEAKER) (test A From Aerobic Bottle Only code = 1095) Coagulase negat gabriella Staphylococcus GRAM STAIN RESULT From aerobic bottle only: (BEAKER) (test code = gram positive cocci in 1123) [facility] BASIC METABOLIC [id number] 07:23:00 Test Item Value Reference Range Interpretation [...] PATIEN TS. CBC W/PLT COUNT & AUTO [id number] 06:20:00 Test Item Value Reference Range Interpretation [...] PERCENT (BEAKER) (test code = 2801) BLOOD [id number] 20:01:00 Test Item Value Reference Range Interpretation Comments CULTURE (BEAKER) (test No growth in 5 days code = 1095) URINALYSIS W/ REFLEX URINE [id number] 11:55:00 Test Item Value Reference Range Interpretation [...] = 1574) Rare SOURCE(BEAKER) (test code = 8298) CBC W/PLT COUNT & AUTO [id number] 09:53:00 Test Item Value Reference Range Interpretation [...] 0-1 PERCENT (BEAKER) (test code = 2801) [id number] 07:04:00 Test Item Value Reference Range Interpretation Comments CREATININE (BEAKER) 1.38 mg/dL 0.57-1.25 H (test code = 358) EGFR (BEAKER) (test 50 mL/min/1.73 ESTIMA LINA GFR IS code = 1092) sq m NOT ACCURATE CREATININE CLEARANCE IN PREDICTING GLOMERULAR FILTRATION RATE . ESTIMATED GFR I S NOT APPLICABLE FOR DIALYSIS PATIEN TS. VANCOMYCIN LEVEL, [id number] 06:38:00 Test Item Value Reference Range Interpretation Comments VANCOMYCIN TROUGH (BEAKER) (test 13.5 ug/mL 10.0-20.0 code = 522) Draw 30 min prior to scheduled dose, HOLD if level > 20 mcg/mL, inform MD. BASIC METABOLIC [id number] 16:14:00 Test Item Value Reference Range Interpretation [...] CALL LAB TO ADD TO AM LAB [id number] 05:13:00 Test Item Value Reference Range Interpretation Comments CREATININE (BEAKER) 1.36 mg/dL 0.57-1.25 H (test code = 358) EGFR (BEAKER) (test 50 mL/min/1.73 ESTIMA LINA GFR IS code = 1092) sq m NOT ACCURATE CREATININE CLEARANCE IN PREDICTING GLOMERULAR FILTRATION RATE . ESTIMATED GFR I S NOT APPLICABLE FOR DIALYSIS PATIEN TS. C-REACTIVE [id number] 08:48:00 Test Item Value Reference Range Interpretation Comments C-REACTIVE PROTEIN (BEAKER) (test 4.29 mg/dL 0.00-0.50 H code = 676) BASIC METABOLIC [id number] 07:47:00 Test Item Value Reference Range Interpretation [...] APPLICABLE FOR DIALYSIS PATIEN TS. VANCOMYCIN LEVEL, [id number] 07:45:00 Test Item Value Reference Range Interpretation Comments VANCOMYCIN TROUGH (BEAKER) (test 22.1 ug/mL 10.0-20.0 H code = 522) Draw 30 min prior to scheduled dose, HOLD if level > 20 mcg/mL, inform .CBC W/PLT COUNT & AUTO [id number] 07:29:00 Test Item Value Reference Range Interpretation [...] (BEAKER) (test code = 2801) VANCOMYCIN LEVEL, [id number] 06:16:00 Test Item Value Reference Range Interpretation Comments VANCOMYCIN TROUGH (BEAKER) (test 16.3 ug/mL 10.0-20.0 code = 522) Draw 30 min prior to scheduled dose, HOLD if level > 20 mcg/mL, inform . BASIC METABOLIC [id number] 05:59:00 Test Item Value Reference Range Interpretation [...] PATIEN TS. CBC W/PLT COUNT & AUTO [id number] 05:29:00 Test Item Value Reference Range Interpretation [...] (BEAKER) (test code = 2801) CREATININE, RANDOM [id number] 19:17:00 Test Item Value Reference Range Interpretation Comments CREATININE URINE (BEAKER) (test 77.5 mg/dL code = 375) Reference Range: No NormalsSODIUM, RANDOM [id number] 19:17:00 Test Item Value Reference Range Interpretation Comments SODIUM URINE (BEAKER) (test code = 176 meq/L 243) Reference Range: No NormalsBLOOD CULTURE IDENTIFICATION [id number] 18:37:00 Test Item Value Reference Interpretation Comments Range LISTERIA MONOCYTOGENES Not detected Not detected (test code = 20160830) STAPHYLOCOCCUS (test Detected Not detected A Coagula se negative code = 20161102) Staph specie s (CoNS)- methici llin susceptibleFirs t-jerardo e therapy: Cefa zolin or Oxacillin (Oxacillin pref erred if GEAR TOOTH GRINDING MACHINE OPERATOR involvem ent) MecA NOT DETECTEDPossibl e contamination. The likelihood of pathogenicity i s increased if th e organism is obs erved in multiple blo od cultures obtain ed from separate venipunctures.R efere nce Range: Not Detected STAPHYLOCOCCUS AUREUS Not detected Not detected (test code = 20161103) STREPTOCOCCUS (test Not detected Not detected code = 6564203) STREPTOCOCCUS Not detected Not detected AGALACTIAE (GROUP B) (test code = 1547488) STREPTOCOCCUS Not detected Not detected PNEUMONIAE (test code = 0353228) STREPTOCOCCUS PYOGENES Not detected Not detected (GROUP A) (test code = 1021760) ACINETOBACTER BAUMANNII Not detected Not detected (test code = 0047655) HAEMOPHILUS INFLUENZAE Not detected Not detected (test code = 7908065) NEISSERIA MENINGITIDIS Not detected Not detected (test code = 0606360) ENTEROBACTERIACEAE Not detected Not detected (test code = 4854953) ENTEROBACTER CLOACOE Not detected Not detected COMPLEX (test code = 1468213) KLEBSIELLA OXYTOCA Not detected Not detected (test code = 3983328) KLEBSIELLA PNEUMONIAE Not detected Not detected (test code = 1650) PROTEUS (test code = Not detected Not detected 7945315) SERRATIA MARCESCENS Not detected Not detected (test code = 8103499) KALI ALBICANS (test Not detected Not detected code = 1429263) KALI GLABRATA (test Not detected Not detected code = 8275542) KALI KRUSEI (test Not detected Not detected code = 9400435) KALI PARAPSILOSIS Not detected Not detected (test code = 8984427) KALI TROPICALIS Not detected Not detected (test code = 2090598) ESCHERICHIA COLI (test Not detected Not detected code = 5477648) METHICILLIN-RESISTANCE Not detected Not detected GENE (test code = 0991539) VANCOMYCIN-RESISTANCE Not detected GENE (test code = 2075464) CARBAPENEM-RESISTANCE Not detected GENE (test code = 6318013) ENTEROCOCCUS-BEAKER Not detected Not detected (test code = 0628113) PSEUDOMONAS Not detected Not detected AERUGINOSA-BEAKER (test code = 1994847) Other bacteria and resistance markers not targeted by this PCR panel cannot be excluded; therefore clinical correlation and follow up of serology, culture results, and other molecular studies is required. The results are not intended to be used as the sole means for clinical diagnosis or patient management decisions. This sample was tested at the [facility] Molecular Diagnostics Laboratory using the [employer] Blood Culture ID Panel. It is FDA cleared and has been verified and approved by the [facility] Molecular Diagnostics Laboratory for clinical use. This laboratory is CLIA-certified and College ofAmerican Pathologists (CAP)-accredited to perform high complexity testing.CT, EXTREMITY, LOWER WITHOUT CONTRAST, [id number] 18:32:00FINAL REPORT CT, EXTREMITY, LOWER WITHOUT CONTRAST, [...] limits. IMPRESSION:No acute osseous fracture. Signed: Dmitriy Reyesort Verified Date/Time: 06/17/2019 18:32:45 VANCOMYCIN LEVEL, [id number] 18:23:00 Test Item Value Reference Range Interpretation Comments VANCOMYCIN RANDOM (BEAKER) (test 11.8 ug/mL code = 523) Reference Range: No NormalsRAD, KNEE, 3 VIEWS, [id number] 14:07:00Reason for exam:->right knee pain. swelling.FINAL REPORT Right knee, four images HISTORY: Knee pain COMPARISON: None IMPRESSION:No evidence fracture. No dislocation. Joint effusion present. Mild pericardial degenerative changes. Signed: Rolan Fitzpatrick Verified Date/Time: 06/17/2019 14:07:05 Reading Location: [facility] C0[facility] Ortho Consult Reading Room REHENSIVE METABOLIC [id number] 12:56:00 Test Item Value Reference Range Interpretation [...] PATIEN TS. CBC W/PLT COUNT & AUTO [id number] 06:42:00 Test Item Value Reference Range Interpretation [...] code = 2801) URINALYSIS W/ REFLEX URINE [id number] 18:24:00 Test Item Value Reference Range Interpretation [...] (test code = 2795) VITAMIN B12 AND [id number] 04:17:00 Test Item Value Reference Range Interpretation Comments VITAMIN B12 (BEAKER) (test code = 324 pg/mL 213-816 774) FOLATE (BEAKER) (test code = 362) 2.8 ng/mL >=7.[address], BRAIN, WITHOUT [id number] 03:34:00FINAL REPORT CT Head without contrast CLINICAL [...] nvolutional changes as above. Signed: Arielle Tinoco [facility] Verified Date/Time: 06/16/2019 03:34:10 TSH/FREE T4 IF [id number] 00:00:00 Test Item Value Reference Range Interpretation Comments THYROID STIMULATING HORMONE 1.38 uIU/mL 0.35-4.94 (BEAKER) (test code = 772) TROPONIN [id number] 23:40:00 Test Item Value Reference Range Interpretation [...] and persistent tachyarrhythmia.RAD, FOOT, MIN 3 VIEWS, [id number] 23:38:00Reason for exam:->truamaFINAL REPORT Exam: Right foot [...] acute fracture of posterior talus. Signed: Chris Foremanfreeman [facility] Verified Date/Time: 06/15/2019 23:38:38 Reading Location: [address] Reading Room RAD, LEG, [id number] 23:38:00Reason for exam:->truamaFINAL REPORT Exam: Right foot [...] MDReport Verified Date/Time: 06/15/2019 23:38:38 Reading Location: [address] Consult Reading Room 11:38 [id number] 23:36:00 Test Item Value Reference Range Interpretation Comments AMMONIA (BEAKER) (test code = 348) 16 mol/L 18-72 L CREATINE KINASE (CK)2019-06-15 23:34:00 Test Item Value Reference Range Interpretation Comments CREATINE KINASE TOTAL (BEAKER) (test 144 U/L 29-200 code = 380) URIC [id number] 23:34:00 Test Item Value Reference Range Interpretation Comments URIC ACID (BEAKER) (test code = 5.3 mg/dL 2.6-7.2 773) BASIC METABOLIC [id number] 23:34:00 Test Item Value Reference Range Interpretation [...] APPLICABLE FOR DIALYSIS PATIEN TS. HEPATIC FUNCTION [id number] 23:34:00 Test Item Value Reference Range Interpretation [...] 6-55 347) CBC W/PLT COUNT & AUTO [id number] 23:15:00 Test Item Value Reference Range Interpretation [...] = 2801) RAD, ANKLE, MIN 3 VIEWS, [id number] 22:04:00Reason for exam:->truamaFINAL REPORT Exam: Left ankle [...] MDReport Verified Date/Time: 06/15/2019 22:04:23 Reading Location: [facility] C013W Consult Reading Room
[2023-06-09 10:20] LABS: Absolute Lymphocytes (CBC) 1.6 K/uL (0.7-4.9); Hematocrit 40.9 % (39.6-49.0); Lymphocytes % 20.6 % (15.3-44.8); MCV 83.6 fL (80-100); MPV 7.8 fL (7.6-11.3)
[2023-06-09 10:37] LABS: Albumin 3.4 g/dL (3.4-5.0); Bilirubin Total 0.6 mg/dL (0.2-1.0); Potassium 3.9 mEq/L (3.5-5.1); Protein, Total 7.9 g/dL (6.4-8.2)
--- NOTE | 2023-06-09 11:20 | RAD REPORT ---
EXAM DESCRIPTION: US - Extremity Venous [employer] - 06/09/2023 11:09 am CLINICAL HISTORY: Swelling, redness of right foot COMPARISON: None. TECHNIQUE: Real-time sonographic evaluation of the left lower extremity deep venous system was perfo rmed. FINDINGS: Normal compressibility, flow augmentation, phasic flow and spontaneous flow is identified in the left lower extremity deep venous system. No intraluminal filling defects seen. IMPRESSION: No DVT in the left lower extremity.
[2023-06-09 11:32] LABS: Specific Gravity 1.008 (1.005-1.030); Urine Bacteria None Seen /HPF (<20); Urine Bilirubin NEGATIVE (Negative); Urine Blood Negative (Negative); Urine Clarity Clear (Clear); Urine Color Colorless (Yellow); Urine Glucose NEGATIVE (Negative); Urine Protein NEGATIVE (Negative); Urine RBC <5 /HPF (None Seen); Urine Urobilinogen Normal (Normal)
--- NOTE | 2023-06-09 11:43 | ER ---
Nurse's Notes [facility] Name: Munir Brooks Age: 82 yrs Sex: Male : 1940 Arrival Date: 06/09/2023 Time: 09:26 Bed 19 Private MD: Andres Herzog C Diagnosis: Unspecified urinary incontinence;Cellulitis of other sites-Left dorsal foot Presentation: 06/09 09:44 Chief complaint: Spouse and/or significant other states: has been treated for a fungal iw infection of left foot and was told if it turned red to be seen in the ER, it turned red yesterday , also he has frequent urination and an odor to his urine since yesterday. Coronavirus screen: At this time, the client does not indicate any symptoms associated with coronavirus-19. Ebola Screen: Patient negative for fever greater than or equal to 101.5 degrees Fahrenheit, and additional compatible Ebola Virus Disease symptoms Patient denies exposure to infectious person. Patient denies travel to an Ebola-affected area in the 21 days before illness onset. No symptoms or risks identified at this time. Initial Sepsis Screen: Does the patient meet any 2 criteria? No. Patient's initial sepsis screen is negative. Does the patient have a suspected source of infection? No. Patient's initial sepsis screen is negative. Risk Assessment: Do you want to hurt yourself or someone else? Patient reports no desire to harm self or others. Onset of symptoms was June 08, 2023. 09:44 Method Of Arrival: Ambulatory iw 09:44 Acuity: MAGALY 3 iw Historical: - Allergies: 09:46 Namenda; iw 09:46 Ruurpqo-Zfr-Zqi Reductase Inhibitor; iw - Home Meds: 09:46 amlodipine 5 mg tab 1 tab once daily [Active]; aspirin 81 mg Oral tab 81 mg daily iw [Active]; atorvastatin 40 mg Oral tab 1 tab at bedtime [Active]; donepezil 10 mg Oral tab 1 tab twice daily [Active]; famotidine 20 mg Oral tab 1 tab 1 at night [Active]; Iron CR Oral [Active]; loratadine 10 mg Oral tab 1 tab once daily at bedtime for Allergic rhinitis [Active]; Melatonin Oral [Active]; memantine 5 mg Oral tab 1 tab once daily at noon [Active]; tamsulosin 0.4 mg Oral cap 1 cap once daily at noon [Active]; Tradjenta 5 mg Oral tab 1 tab once daily [Active]; trazodone 50 mg Oral tab 0.5 tabs at bedtime [Active]; - PMHx: 09:46 Alzheimer's disease; Dementia; Seizures; Congenital Heart Defect; iw - PSHx: 09:46 Cholecystectomy; heart surgery; iw - Immunization history:: Client reports receiving the 2nd dose of the Covid vaccine. - Social history:: Smoking status: Patient denies any tobacco usage or history of. Screenin:51 Abuse screen: Denies threats or abuse. Nutritional screening: No deficits noted. ap3 Tuberculosis screening: No symptoms or risk factors identified. 11:28 [facility] ED Fall Risk Assessment (Adult) History of falling in the last 3 months, ap3 including since admission Yes- fall prone (multiple falls) (3 pts) Confusion or Disorientation Yes (5 pts) Intoxicated or Sedated No (0 pts) Impaired Gait No (0 pts) Mobility Assist Device Used No (0 pt) Altered Elimination Yes (1 pt) Score/Fall Risk Level 3 or more points = High Risk. Assessment: 09:50 General: Appears in no apparent distress. Behavior is calm, cooperative. General: ap3 Smells of urine. Pain: Denies pain. Neuro: Level of Consciousness is awake, alert, obeys commands, Oriented to person, place. Cardiovascular: Patient's skin is warm and dry. Respiratory: Airway is patent Respiratory effort is even, unlabored, Respiratory pattern is regular, symmetrical. GI: Bowel sounds present X 4 quads. Abd is soft and non tender. : Reports urgency, urinary frequency. Derm: increased redness on the medial left foot. Vital Signs: 09:44 BP 158 / 83; Pulse 59; Resp 16; Temp 97.9; Pulse Ox 98% on R/A; Weight 92.99 kg; Height iw 6 ft. 3 in. ; 09:44 Body Mass Index 25.62 (92.99 kg, 190.5 cm) ED Course: :28 Patient arrived in ED. am2 09:29 Andres Herzog MD is Private Physician. am2 09:33 Chloé Rosenthal F[facility]-C [facility]. snw 09:33 Zaira Lamb MD is Attending Physician. snw 09:35 Ana Maria Mckeon, RN is Primary Nurse. ap3 09:46 Triage completed. iw 09:48 Arm band placed on. iw 09:51 Patient has correct armband on for positive identification. Bed in low position. Call ap3 light in reach. Side rails up X 1. Adult w/ patient. Pulse ox on. NIBP on. 10:15 Inserted saline lock: 20 gauge in right forearm, using aseptic technique. Blood ds4 collected. 10:15 First set of blood cultures drawn by me, Second set of blood cultures drawn by me. ds4 11:10 Extremity Venous Uni Ltd US In Process Unspecified. EDMS 11:24 Urine Culture Sent. ap3 11:24 Urine W/Microscopic (UAM) Sent. ap3 11:28 Provided Education on: fall risk education. ap3 11:40 Andres Herzog MD is Referral Physician. snw 12:05 No provider procedures requiring assistance completed. IV discontinued, intact, mb9 bleeding controlled, No redness/swelling at site. Pressure dressing applied. Administered Medications: 10:09 Drug: NS 0.9% IV 1000 ml Route: IV; Rate: 75 ml/hr; Site: right wrist; ap3 11:52 Drug: Mupirocin Topical Ointment 2 % 1 application Route: Topical; Site: affected area; ap3 Outcome: 11:42 Discharge ordered by MD. snw 12:05 Discharged to home ambulatory, with family. mb9 12:05 Condition: stable 12:05 Discharge instructions given to patient, Instructed on discharge instructions, follow up and referral plans. Demonstrated understanding of instructions, follow-up care, medications, Prescriptions given X 1. 12:05 Patient left the ED. mb9 Signatures: Dispatcher [employer] EDMS Chloé Rosenthal, BOTTOM FILLER-C BOTTOM FILLER-Csnw Yen Langston, RN RN iw Micah Lucas ds4 Ana Maria Gerardo am2 Ana Maria Mckeon, RN RN ap3 Tish De La O RN RN mb9 Corrections: (The following items were deleted from the chart) 09:48 09:46 Home Meds: Trazodone Oral; iw iw
--- NOTE | 2023-06-09 11:43 | EDPHYS ---
Physician Documentation [facility] Name: Munir Brooks Age: 82 yrs Sex: Male : 1940 Arrival Date: 06/09/2023 Time: 09:26 Bed 19 Private MD: Andres Herzog C ED Physician Zaira Lamb HPI: 06/09 10:07 This 82 yrs old Male presents to ER via Ambulatory with complaints of Wound Infection - snw foot, Urinary Problem, Abdominal Problem. 10:07 The patient presents with urinary symptoms, dysuria, urinary frequency. Onset: The snw symptoms/episode began/occurred suddenly, 1 day(s) ago, and became persistent. Associated signs and symptoms: Pertinent positives: pt with dementia, Daughter states she has noticed foul smelling urine, frequency, Dr. Herzog has been treating fungal foot infection, left foot noted to be red yesterday across dorsum. It is unknown whether or not the patient has recently seen a physician. Historical: - Allergies: 09:46 Namenda; iw 09:46 Pqhhbih-Ryp-Hjg Reductase Inhibitor; iw - Home Meds: 09:46 amlodipine 5 mg tab 1 tab once daily [Active]; aspirin 81 mg Oral tab 81 mg daily iw [Active]; atorvastatin 40 mg Oral tab 1 tab at bedtime [Active]; donepezil 10 mg Oral tab 1 tab twice daily [Active]; famotidine 20 mg Oral tab 1 tab 1 at night [Active]; Iron CR Oral [Active]; loratadine 10 mg Oral tab 1 tab once daily at bedtime for Allergic rhinitis [Active]; Melatonin Oral [Active]; memantine 5 mg Oral tab 1 tab once daily at noon [Active]; tamsulosin 0.4 mg Oral cap 1 cap once daily at noon [Active]; Tradjenta 5 mg Oral tab 1 tab once daily [Active]; trazodone 50 mg Oral tab 0.5 tabs at bedtime [Active]; - PMHx: 09:46 Alzheimer's disease; Dementia; Seizures; Congenital Heart Defect; iw - PSHx: 09:46 Cholecystectomy; heart surgery; iw - Immunization history:: Client reports receiving the 2nd dose of the Covid vaccine. - Social history:: Smoking status: Patient denies any tobacco usage or history of. ROS: 10:07 Constitutional: Negative for fever, chills, and weight loss, Eyes: Negative for injury, snw pain, redness, and discharge, ENT: Negative for injury, pain, and discharge, Neck: Negative for injury, pain, and swelling, Cardiovascular: Negative for chest pain, palpitations, and edema, Respiratory: Negative for shortness of breath, cough, wheezing, and pleuritic chest pain. 10:07 Back: Negative for injury and pain, MS/Extremity: Negative for injury and deformity. 10:07 Psych: Negative for depression, anxiety, suicide ideation, homicidal ideation, and hallucinations. 10:07 Abdomen/GI: Positive for bath aide states left abdomen with area of swelling, none noted per Daughter. 10:07 : Positive for urinary symptoms. 10:07 MS/extremity: Positive for erythema, of the dorsum of left foot. 10:07 Skin: Positive for under tx for fungal infection of feet. 10:07 Neuro: Negative for acute changes. 10:07 Psych: Exam: 10:13 Constitutional: This is a well developed, well nourished patient who is awake, alert, snw and in no acute distress. Scented of urine Head/Face: Normocephalic, atraumatic. Eyes: Pupils equal round and reactive to light, extra-ocular motions intact. Lids and lashes normal. Conjunctiva and sclera are non-icteric and not injected. Cornea within normal limits. Periorbital areas with no swelling, redness, or edema. ENT: Nares patent. No nasal discharge, no septal abnormalities noted. Tympanic membranes are normal and external auditory canals are clear. Oropharynx with no redness, swelling, or masses, exudates, or evidence of obstruction, uvula midline. Mucous membranes moist. Neck: Trachea midline, no thyromegaly or masses palpated, and no cervical lymphadenopathy. Supple, full range of motion without nuchal rigidity, or vertebral point tenderness. No Meningismus. Chest/axilla: Normal chest wall appearance and motion. Nontender with no deformity. No lesions are appreciated. Cardiovascular: Regular rate and rhythm with a normal S1 and S2. No gallops, murmurs, or rubs. Normal PMI, no JVD. No pulse deficits. Respiratory: Lungs have equal breath sounds bilaterally, clear to auscultation and percussion. No rales, rhonchi or wheezes noted. No increased work of breathing, no retractions or nasal flaring. Abdomen/GI: Soft, non-tender, with normal bowel sounds. No distension or tympany. No guarding or rebound. No evidence of tenderness throughout. Back: No spinal tenderness. No costovertebral tenderness. Full range of motion. MS/ Extremity: Pulses equal, no cyanosis. Neurovascular intact. Full, normal range of motion. Neuro: Awake and alert, GCS 15, oriented to person, place, time, and situation. Cranial nerves II-XII grossly intact. Motor strength 5/5 in all extremities. Sensory grossly intact. Cerebellar exam normal. Normal gait. 10:13 Skin: Appearance: normal except for affected area, Color: normal in color, cellulitis, that is mild, well demarcated, on the dorsum of left foot. Vital Signs: 09:44 BP 158 / 83; Pulse 59; Resp 16; Temp 97.9; Pulse Ox 98% on R/A; Weight 92.99 kg; Height iw 6 ft. 3 in. ; 09:44 Body Mass Index 25.62 (92.99 kg, 190.5 cm) iw MDM: 09:33 Patient medically screened. snw 10:12 Differential diagnosis: UTI, cellulitis, dvt. Data reviewed: vital signs, nurses notes, snw lab test result(s), radiologic studies. Care significantly affected by the following chronic conditions: Dementia. Counseling: I had a detailed discussion with the patient and/or guardian regarding: the historical points, exam findings, and any diagnostic results supporting the discharge/admit diagnosis, lab results, radiology results, the need for outpatient follow up, for definitive care, an wool brusher, to return to the emergency department if symptoms worsen or persist or if there are any questions or concerns that arise at home. 11:28 Awaiting: urine. snw 11:39 Special discussion: Based on the history and exam findings, there is no indication for snw further emergent testing or inpatient evaluation. I discussed with the patient/guardian the need to see the primary care provider for further evaluation of the symptoms. 06/09 09:50 Order name: CBC with Diff; Complete Time: 10:25 snw 06/09 09:50 Order name: CMP; Complete Time: 10:38 snw 06/09 09:50 Order name: CPK; Complete Time: 10:38 snw 06/09 09:50 Order name: Procalcitonin; Complete Time: 11:11 snw 06/09 09:50 Order name: Urine W/Microscopic (UAM); Complete Time: 11:39 snw 06/09 09:50 Order name: Blood Culture Adult (2) snw 06/09 09:50 Order name: Urine Culture snw 06/09 09:50 Order name: Extremity Venous Uni Ltd US; Complete Time: 11:27 snw Administered Medications: 10:09 Drug: NS 0.9% IV 1000 ml Route: IV; Rate: 75 ml/hr; Site: right wrist; ap3 11:52 Drug: Mupirocin Topical Ointment 2 % 1 application Route: Topical; Site: affected area; ap3 Disposition: 15:38 STAFF ATTESTATION STATEMENT: I was immediately available onsite in the emergency sd2 department for consultation in the care of this patient. I did not see or examine this patient. Zaira Lamb MD. Chart complete. Disposition Summary: 06/09/23 11:42 Discharge Ordered Location: Home snw Condition: Stable snw Diagnosis - Unspecified urinary incontinence snw - Cellulitis of other sites - Left dorsal foot snw Followup: snw - With: Andres Herzog MD - When: 5 - 6 days - Reason: Recheck today's complaints, Continuance of care, Re-evaluation by your physician Discharge Instructions: - Discharge Summary Sheet snw - Cellulitis, Adult snw - Urinary Incontinence snw Forms: - Medication Reconciliation Form snw - Thank You Letter snw - Antibiotic Education snw - Prescription Opioid Use snw - Patient Portal Instructions snw Prescriptions: - mupirocin 2 % Topical ointment - apply 1 application by TOPICAL route 2 times per day; 15 gram tube; Refills: 0, snw Product Selection Permitted Signatures: Dispatcher [employer] Chloé Juarez FNP-Laurie ENERGY AND CONSERVATION TECHNICIAN-Csnw Yen Langston, RN RN Ana Maria Preston RN RN ap3 Zaira Lamb MD MD sd2 Corrections: (The following items were deleted from the chart) 09:48 09:46 Home Meds: Trazodone Oral; tamia cantrell
[2023-06-09] MEDS ORDERED: MUPIROCIN 2% OINT 22GM TUBE TOP ONE (11:56)
[2023-06-09 12:31] VITALS: BP 158/83; TEMP 97.9; O2SAT 98
== END 2023-06-09 12:05 | disposition home or self-care (01) ==
LOC: ER 09:26
DX: R32 Unspecified urinary incontinence (principal); L03.116 Cellulitis of left lower limb; G30.9 Alzheimer's disease, unspecified; F02.80 Dementia in other diseases classified elsewhere, unspecified severity, without behavioral disturbance, psychotic disturbance, mood disturbance, and anxiety; Z88.8 Allergy status to other drugs, medicaments and biological substances; Z79.82 Long term (current) use of aspirin
CPT/HCPCS: 36415; 80053; 81001; 82550; 84145; 85025; 87040; 87086; 87088; 93971; 99284

== ENCOUNTER 2024-02-09 18:35 | Inpatient (IN) | payer OTHER ==
[2024-02-09] MEDS ORDERED: ZIPRASIDONE MESYLA 20 MG/VIAL IM ONE ×2 (18:48→19:17)
[2024-02-09] MEDS ORDERED: WATER FOR INJ,STERILE 10 ML ONE ×2 (18:49→19:17)
--- NOTE | 2024-02-09 20:15 | RAD REPORT ---
EXAM DESCRIPTION: RAD - Chest Single View - 02/09/2024 8:04 pm CLINICAL HISTORY: ams Chest pain. COMPARISON: <Comparisons> FINDINGS: Portable technique limits examination quality. Mild interstitial pulmonary edema. The heart is normal in size. Sternotomy wires. Prominent tortuous thoracic aorta. IMPRESSION: Mild CHF.
[2024-02-09 20:44] LABS: Albumin 3.9 g/dL (3.4-5.0); Albumin/Globulin Ratio 0.9 (1.1-1.8); Globulin 4.5 g/dL (2.3-3.5); Protein, Total 8.4 g/dL (6.4-8.2)
[2024-02-09 20:53] LABS: PT Prothrombin Time 11.6 SECONDS (9.5-12.5); PTT, Activated Partial Thromb 20.6 SECONDS (24.3-36.9); Protime INR 1.06
[2024-02-09 21:40] LABS: Absolute Eosinophils 0.1 K/uL (0-0.5); Absolute Lymphocytes (CBC) 1.3 K/uL (0.7-4.9); Absolute Monocytes 0.5 K/uL (0.1-1.3); Absolute Neutrophil 5.1 K/uL (1.8-8.0); Basophils % 0.6 % (0-1.3); Eosinophils % 1.8 % (0-4.4); Hematocrit 38.8 % (39.6-49.0); Hemoglobin 13.3 g/dL (13.6-17.9); Lymphocytes % 18.9 % (15.3-44.8); MCH 30.3 pg (27.0-35.0); MCHC 34.3 g/dL (32.0-36.0); MCV 88.5 fL (80-100); MPV 8.4 fL (7.6-11.3); Monocytes % 6.9 % (3.3-12.3); Neutrophils % 71.8 % (41.7-73.7); Platelets 202 thou/uL (152-406); RBC Red Blood Cell Count 4.39 M/uL (4.33-5.43)
--- NOTE | 2024-02-09 21:57 | RAD REPORT ---
EXAM DESCRIPTION: CT - Head Brain Wo Cont - 02/09/2024 9:51 pm CLINICAL HISTORY: ams Headache, drowsiness, alteration of awareness. COMPARISON: <Comparisons> TECHNIQUE: All CT scans are performed using dose optimization technique as appropriate and may inclu de automated exposure control or mA/KV adjustment according to patient size. FINDINGS: No intracranial hemorrhage, hydrocephalus or extra-axial fluid collection.Moderate general ized brain atrophy.No areas of brain edema or evidence of midline shift. The paranasal sinuses and mastoids are clear. The calvarium is intact. IMPRESSION: No acute intracranial abnormality.
[2024-02-09 22:06] LABS: Specific Gravity 1.018 (1.005-1.030); Sqamous Epithelial <5 /HPF (None Seen); Urine Bacteria None Seen /HPF (<20); Urine Bilirubin NEGATIVE (Negative); Urine Blood Trace (Negative); Urine Clarity Clear (Clear); Urine Color Light-Yellow (Yellow); Urine Culture Reflex Order NOT NEEDED; Urine Glucose NEGATIVE (Negative); Urine Ketones NEGATIVE (Negative); Urine Microscopic Reflex YN ORDER UMIC; Urine Mucus Slight /HPF (None Seen); Urine Nitrite NEGATIVE (Negative); Urine Protein NEGATIVE (Negative); Urine Urobilinogen Normal (Normal); Urine WBC <5 /HPF (<5)
[2024-02-09] MEDS ORDERED: DIAZEPAM 10 MG/2 ML INJ SYRINGE ONE ×2 (23:03→23:48)
--- NOTE | 2024-02-09 23:06 | EDPHYS ---
Physician Documentation [facility] Name: Munir Brooks Age: 83 yrs Sex: Male : 1940 Arrival Date: 02/09/2024 Time: 18:35 Bed 4 Private MD: Andres Herzog C ED Physician Jan Rowland HPI: 02/08 20:54 This 83 yrs old Male presents to ER via Ambulatory with complaints of Confusion. rt 20:54 History obtained per patient's daughter. Patient presents to the ED with an altered rt mental status. Patient does have a history of Alzheimer's disease but is usually able to carry a conversation. Patient had a brief episode where he was not speaking, only staring off into space, when he started speaking again, was garbled speech was not making any sense and he was becoming more combative compared to usual. Denies recent illness. Denies other acute complaints. No further history could be elicited. Symptoms are moderate in severity, no other aggravating or elevating factors.. Historical: - Allergies: 18:48 Namenda; iw 18:48 Wyxjpcz-Qdw-Ccz Reductase Inhibitor; iw - PMHx: 18:48 Seizures; Dementia; Congenital Heart Defect; Alzheimer's disease; iw - PSHx: 18:48 Cholecystectomy; heart surgery; iw - Immunization history:: Flu vaccine status is unknown. - Social history:: Smoking status: Patient denies any tobacco usage or history of. ROS: 20:54 Unable to obtain ROS due to altered mental status, rt 23:07 Constitutional: Positive for confusion sp4 Exam: 20:54 Constitutional: This is a well developed, well nourished patient who is awake, alert, rt and in no acute distress. Head/Face: Normocephalic, atraumatic. Chest/axilla: Normal chest wall appearance and motion. Nontender with no deformity. No lesions are appreciated. Cardiovascular: Regular rate and rhythm with a normal S1 and S2. No gallops, murmurs, or rubs. Normal PMI, no JVD. No pulse deficits. Respiratory: Lungs have equal breath sounds bilaterally, clear to auscultation and percussion. No rales, rhonchi or wheezes noted. No increased work of breathing, no retractions or nasal flaring. Abdomen/GI: Soft, non-tender, with normal bowel sounds. No distension or tympany. No guarding or rebound. No evidence of tenderness throughout. Skin: Warm, dry with normal turgor. Normal color with no rashes, no lesions, and no evidence of cellulitis. MS/ Extremity: Pulses equal, no cyanosis. Neurovascular intact. Full, normal range of motion. 20:54 Constitutional: The patient appears Confused, somewhat aggressive 20:54 ECG was reviewed by the Attending Physician. 20:54 Neuro: Mostly incoherent speech, moves all 4 extremities equally, no obvious cranial nerve deficits, 23:15 EKG at 1857 normal sinus rhythm at a rate of 73. sp4 Vital Signs: 19:00 BP 140 / 87; Pulse 80; Resp 16 S; Pulse Ox 96% on R/A; jw7 20:00 BP 157 / 91; Pulse 70; Resp 17 S; Pulse Ox 99% on R/A; jw7 20:12 Temp 97.7; Weight 90.72 kg; vc1 20:31 BP 145 / 85; Pulse 70; Resp 21; Pulse Ox 98% ; vc1 21:35 BP 144 / 72; Pulse 61; Resp 15; Pulse Ox 100% ; vc1 03 00:00 BP 125 / 66; Pulse 58; Resp 18; Pulse Ox 100% ; vc1 Procedures: 01:03 Central Line: the site was prepped with in sterile fashion, chlorhexidine prep , a sp4 triple lumen catheter was inserted, in the left internal jugular vein, in 1 attempts. placement was verified, by CXR, by blood return, Central line, ultrasound-guided, verified with ultrasound and chest x-ray, the site was dressed with 4X4s, Tegaderm, using sterile technique, the patient tolerated the procedure, well, 7 Tajik left internal jugular triple-lumen CVL placed without complication. Patient has pulled out multiple IVs therefore central line was placed strictly for IV access. Central line was secured with 4 sutures. MDM: 02/08 18:44 Patient medically screened. rt 22:52 ED course: EXAM DESCRIPTION: CT - Head Brain Wo Cont - 02/09/2024 9:51 pm CLINICAL sp4 HISTORY: ams Headache, drowsiness, alteration of awareness. COMPARISON: TECHNIQUE: All CT scans are performed using dose optimization technique as appropriate and may include automated exposure control or mA/KV adjustment according to patient size. FINDINGS: No intracranial hemorrhage, hydrocephalus or extra-axial fluid collection.Moderate generalized brain atrophy.No areas of brain edema or evidence of midline shift. The paranasal sinuses and mastoids are clear. The calvarium is intact. IMPRESSION: No acute intracranial abnormality. ED course: EXAM DESCRIPTION: RAD - Chest Single View - 02/09/2024 8:04 pm CLINICAL HISTORY: ams Chest pain. COMPARISON: FINDINGS: Portable technique limits examination quality. Mild interstitial pulmonary edema. The heart is normal in size. Sternotomy wires. Prominent tortuous thoracic aorta. IMPRESSION: Mild CHF. . 23:05 Differential Diagnosis altered mental status, sepsis, flu, Acute agitated delirium, sp4 multi-infarct dementia. Data reviewed: vital signs, nurses notes, lab test result(s), EKG, radiologic studies, CT scan, plain films. Consideration of Admission/Observation Patient was admitted/placed on observation. Escalation of care including admission/observation considered. Management of patient was discussed with the following: Hospitalist: Mino Berman MD . ED course: Acute agitated delirium, patient has signs of moderate dehydration no sign of septicemia. Will obtain COVID and flu swab and thyroid panel. Patient warrants admission for further evaluation. He is diagnostics tech is in agreement. . 02/09 02:17 ED course: EXAM DESCRIPTION: Chest Single View 02/10/2024 1:17 AM CDT CLINICAL HISTORY: sp4 83 years, Male, Central Line placed COMPARISON: None FINDINGS: 1 views of the chest was obtained. No prior films are available at this time for comparison. There is decreased lung volume There is a left IJ triple-lumen catheter tip within the junction of the innominate vein and superior vena cava in good position. No evidence for pneumothorax. Mediastinum: The cardiomediastinal silhouette is slightly prominent most likely related to decreased lung volume. Sternotomy wires and pericardiac clips suggest previous CABG Lungs: No areas of consolidations or masses are identified. Heart: The heart is normal in size. Thoracic aorta: The thoracic aorta demonstrate to be normal. Pulmonary vasculature: The pulmonary vasculature is normal in distribution. Pleura: The costophrenic angles demonstrate to be sharp. Elevation of both hemidiaphragms. Osseous structures: The bony structures demonstrate to be within normal limits. Other: None. IMPRESSION: Decreased lung volume. Left IJ triple-lumen catheter tip within the junction of the innominate vein and superior vena cava in good position. No evidence for pneumothorax. Status post CABG.. 02/08 19:01 Order name: Blood Culture Adult (2) rt 02/08 19:01 Order name: CBC with Diff; Complete Time: 22:46 rt 02/08 19:01 Order name: CMP; Complete Time: 20:52 rt 02/08 19:01 Order name: Lactate w/ 2H reflex if indic.; Complete Time: 20:52 rt 02/08 19:01 Order name: Protime (+inr); Complete Time: 21:00 rt 02/08 19:01 Order name: Ptt, Activated; Complete Time: 21:00 rt 02/08 19:01 Order name: Urinalysis w/ reflexes; Complete Time: 22:46 rt 02/08 20:06 Order name: Glucose, Ancillary Testing; Complete Time: 20:52 EDMS 02/08 22:58 Order name: TSH; Complete Time: 02:17 sp4 02/08 22:58 Order name: T4 Free; Complete Time: 02:17 sp4 02/08 23:07 Order name: SARS RAPID; Complete Time: 02:17 sp4 02/08 23:07 Order name: Influenza Screen (a \T\ B); Complete Time: 02:17 sp4 02/08 19:01 Order name: Chest Single View XRAY; Complete Time: 20:52 rt 02/08 19:01 Order name: CT Head Brain wo Cont; Complete Time: 22:46 rt 02/09 00:55 Order name: XRAY Chest (1 view) pf1 02/08 19:01 Order name: EKG; Complete Time: 19:02 rt 02/08 19:01 Order name: Accucheck; Complete Time: 20:00 rt 02/08 19:01 Order name: Cardiac monitoring; Complete Time: 20:00 rt 02/08 19:01 Order name: EKG - Nurse/Tech; Complete Time: 20:00 rt 02/08 19:01 Order name: IV Saline Lock - Large Bore; Complete Time: 20:00 rt 02/08 19:01 Order name: Labs collected and sent; Complete Time: 20:01 rt 02/08 19:01 Order name: O2 Per Protocol; Complete Time: 20:01 rt 02/08 19:01 Order name: O2 Sat Monitoring; Complete Time: 20:01 rt 02/08 19:01 Order name: Vital Signs; Complete Time: 20:02 rt 02/08 23:44 Order name: Central Line Kit; Complete Time: 00:34 sp4 EC/14 20:54 Rate is 73 beats/min. Rhythm is regular, Normal Sinus Rhythm with No ectopy. QRS [place] rt is Normal. TN interval is normal. QRS interval is normal. QT interval is normal. No Q waves. T waves are Normal. No ST changes noted. Interpreted by me. Administered Medications: 18:54 Drug: Geodon IM 20 mg IM once Route: IM; Site: right deltoid; ll1 20:00 Follow up: Response: No adverse reaction; Marked relief of symptoms vc1 19:40 Drug: Geodon IM 10 mg IM once Route: IM; Site: left deltoid; vc1 02/09 01:11 Follow up: Response: No adverse reaction; Marked relief of symptoms vc1 02/08 23:56 Drug: Diazepam IM 10 mg IM once Route: IM; Site: left vastus lateralis; vc1 02/09 01:11 Follow up: Response: No adverse reaction; Marked relief of symptoms vc1 00:06 Not Given (LOST IV ACCESSs): diazepam5 mg IVP once vc1 01:10 Drug: Lidocaine Infiltration (1 %) 20 ml 20 ml Infiltration once; to bedside {Note: vc1 ADMINISTERED TO LEFT NEXT BY DR. ROWLAND.} Volume: 20 ml; Route: Infiltration; Site: affected area; 01:14 Not Given (NO IV ACCESS, PT WENT TO FLOORr): ns 0.9% 1000 ml IV at 125 ml/hr continuous vc1 Disposition Summary: 02/09/24 23:05 Hospitalization Ordered Notes: Hospitalization Status: Inpatient Admission sp4 Provider: Andres Herzog [facility] ([facility]) sp4 Condition: Stable sp4 Problem: new sp4 Symptoms: have improved sp4 Bed/Room Type: Standard sp4 Room Assignment: 404(02/09/24 23:32) Diagnosis - Dehydration sp4 - Acute agitated delirium, moderate dehydration, acute on chronic renal insufficiency sp4 Forms: - Medication Reconciliation Form sp4 - SBAR form sp4 - Leadership Thank You Letter sp4 Signatures: Dispatcher [employer] Yen Luna RN RN iw Garcia, Cindy, RN RN cg Catalina House RN RN ll1 CalcoteSharmila, RN RN vc1 Kodak Nickerson MD MD rt Jan Rowland MD MD sp4 Corrections: (The following items were deleted from the chart) 02/08 23:32 23:05 sp4
--- NOTE | 2024-02-09 23:06 | ER ---
Nurse's Notes [facility] Name: Munir Brooks Age: 83 yrs Sex: Male : 1940 Arrival Date: 02/09/2024 Time: 18:35 Bed 4 Private MD: Andres Herzog C Diagnosis: Dehydration;Acute agitated delirium, moderate dehydration, acute on chronic renal insufficiency Presentation: 02/08 18:46 Chief complaint: Patient's son or daughter states: pt has hx of Alzheimer's , today he iw has had episodes of increased confusion, he was not speaking, and when he finally started talking he did not make any sense. pt refuses to allow VS to be taken, uncooperative, will not sit in bed , daughter at bedside. 18:46 Method Of Arrival: Ambulatory iw 18:46 Acuity: MAGALY 2 iw 18:48 Coronavirus screen: At this time, the client does not indicate any symptoms associated iw with coronavirus-19. Ebola Screen: Patient negative for fever greater than or equal to 101.5 degrees Fahrenheit, and additional compatible Ebola Virus Disease symptoms Patient denies exposure to infectious person. Onset of symptoms was February 09, 2024. 19:00 Initial Sepsis Screen: Does the patient meet any 2 criteria? No. Patient's initial vc1 sepsis screen is negative. Does the patient have a suspected source of infection? No. Patient's initial sepsis screen is negative. Risk Assessment: Do you want to hurt yourself or someone else? Unable to obtain. Triage Assessment: 19:15 General: Appears in no apparent distress. comfortable, unkempt, Behavior is agitated, vc1 restless, uncooperative. General: Smells of urine. Pain: Denies pain. EENT: No deficits noted. No signs and/or symptoms were reported regarding the EENT system. Neuro: Pérez Agitation-Sedation Scale (RASS): +2 Agitated Level of Consciousness is awake, alert, obeys commands, Oriented to person. Cardiovascular: Heart tones S1 S2 Capillary refill < 3 seconds Patient's skin is warm and dry. Respiratory: Airway is patent Respiratory effort is even, unlabored, Respiratory pattern is regular, symmetrical, Breath sounds are clear. GI: Abdomen is flat, non-distended, Bowel sounds present X 4 quads. hyperactive in right upper quadrant, left upper quadrant, right lower quadrant and left lower quadrant Abd is soft and non tender X 4 quads. : No deficits noted. No signs and/or symptoms were reported regarding the genitourinary system. Derm: Skin is intact, dry flaky skin Skin is pink, warm \T\ dry. Skin temperature is warm. Musculoskeletal: No deficits noted. No signs and/or symptoms reported regarding the musculoskeletal system. Historical: - Allergies: 18:48 Namenda; iw 18:48 Wrqytmt-Okx-Yhw Reductase Inhibitor; iw - PMHx: 18:48 Seizures; Dementia; Congenital Heart Defect; Alzheimer's disease; iw - PSHx: 18:48 Cholecystectomy; heart surgery; iw - Immunization history:: Flu vaccine status is unknown. - Social history:: Smoking status: Patient denies any tobacco usage or history of. Screenin:00 [facility] ED Fall Risk Assessment (Adult) History of falling in the last 3 months, vc1 including since admission No falls in past 3 months (0 pts) Confusion or Disorientation Yes (5 pts) Intoxicated or Sedated No (0 pts) Impaired Gait No (0 pts) Mobility Assist Device Used No (0 pt) Altered Elimination No (0 pt) Score/Fall Risk Level 3 or more points = High Risk Oriented to surroundings, Maintained a safe environment, Educated pt \T\ family on fall prevention, incl call for assistance when getting out of bed, Assessed \T\ reinforced patient's understanding of fall precautions, Hourly rounding (assess needs \T\ fall precautionary measures) done, Apply high fall risk patient identification: yellow non skid footwear/ fall signage, Remained with patient while ambulating. Abuse screen: Denies threats or abuse. Nutritional screening: No deficits noted. Tuberculosis screening: No symptoms or risk factors identified. Assessment: 19:00 General: See triage assessment. vc1 20:47 Reassessment: Patient appears in no apparent distress at this time. Patient and/or vc1 family updated on plan of care and expected duration. Pain level reassessed. Patient states symptoms have improved. 21:49 Reassessment: Patient appears in no apparent distress at this time. No changes from vc1 previously documented assessment. Patient and/or family updated on plan of care and expected duration. Pain level reassessed. Patient denies pain at this time. : Urine is clear. 23:00 Reassessment: PT PULLED OUT IV AND 2ND IV WILL NOT FLUSH. vc1 23:30 Reassessment: MULTIPLE ATTEMPTS TO REPLACE IV. vc1 23:40 Reassessment: SUCCESS IV ATTEMPT BY EDWIN BELLA. vc1 23:48 Reassessment: PT PULLED OUT IV, PROVIDER NOTIFIED, WILL PLACE CENTRAL LINE. vc1 02/09 00:00 General: PATIENT PULLED OFF BP CUFF, PULSE OX AND CARDIAC LEADS, PT PEED ON FLOOR ON vc1 PULSE OX AND CARDIAC LEADS.. 06:27 General: Wasted 10mg geodon with Debra Mathis RN. vc1 Vital Signs: 02/08 19:00 BP 140 / 87; Pulse 80; Resp 16 S; Pulse Ox 96% on R/A; jw7 20:00 BP 157 / 91; Pulse 70; Resp 17 S; Pulse Ox 99% on R/A; jw7 20:12 Temp 97.7; Weight 90.72 kg; vc1 20:31 BP 145 / 85; Pulse 70; Resp 21; Pulse Ox 98% ; vc1 21:35 BP 144 / 72; Pulse 61; Resp 15; Pulse Ox 100% ; vc1 02/09 00:00 BP 125 / 66; Pulse 58; Resp 18; Pulse Ox 100% ; vc1 ED Course: 02/08 18:36 Patient arrived in ED. rg4 18:36 Andres Herzog MD is Private Physician. rg4 18:38 Kodak Nickerson MD is Attending Physician. rt 18:44 Arm band placed on Patient placed in an exam room, on a stretcher. ll1 18:47 Triage completed. iw 19:00 presetter operator on. Pulse ox on. NIBP on. Sitter at bedside. vc1 19:00 Warm blanket given. One-on-one care X 15 minutes. vc1 19:00 Patient has correct armband on for positive identification. Placed in gown. Bed in low vc1 position. Call light in reach. Side rails up X2. tech at bedside. 19:15 One-on-one care X 15 minutes. vc1 19:26 Sharmila De La O, EDWIN is Primary Nurse. vc1 19:26 Sharmila De La O, EDWIN is Primary Nurse. vc1 19:30 One-on-one care X 15 minutes. vc1 20:06 Chest Single View XRAY In Process Unspecified. EDMS 20:24 No provider procedures requiring assistance completed. vc1 20:52 Attending Physician role handed off by Kodak Nickerson MD sp4 20:52 Jan Rowland MD is Attending Physician. sp4 21:40 Straight cath inserted, using sterile technique, 16 Fr. Specimen obtained. Returned vc1 500cc. Patient tolerated well. 21:[address] via stretcher. vc1 21:53 CT Head Brain wo Cont In Process Unspecified. EDMS 23:00 One-on-one care X 15 minutes. vc1 23:03 Andres Herzog MD is Hospitalizing Provider. sp4 23:15 One-on-one care X 15 minutes. vc1 23:30 One-on-one care X 15 minutes. vc1 23:45 One-on-one care X 15 minutes. vc1 03/15 00:00 One-on-one care X 15 minutes. vc1 00:15 One-on-one care X 15 minutes. vc1 00:30 One-on-one care X 15 minutes. vc1 00:45 One-on-one care X 15 minutes. vc1 01:00 One-on-one care X 15 minutes. vc1 01:07 Assisted provider with central line placement. Set up central line tray. Triple lumen vc1 line placed in left internal jugular. Line placed by Jan Rowland MD Placement verified by CXR, blood return, Dressed with Tegaderm, Patient tolerated well. Before procedure, did Practitioner(s) obtain informed consent? Yes. Time-out/Briefing performed prior to start of procedure? Yes. Was handwashing/sanitizing done immediately prior to procedure? Yes. Was patient positioned to in a way to prevent air embolism? Yes. Was procedure site sterilized? Yes, with chlorhexidine. Was the site allowed to dry? Yes. Was local anesthetic and/or sedation utilized? Yes. During the procedure, did the Practitioner(s) maintain a sterile field? Yes. Were unused ports clamped during insertion? Yes. Was a 2nd qualified MD obtained after 3 unsuccessful insertion attempts? No. Was blood aspirated from each lumen? Yes. After the procedure, did the Practitioner(s) clean the site and apply a sterile dressing? Yes. 01:09 Patient admitted, IV remains in place. vc1 Administered Medications: 02/08 18:54 Drug: Geodon IM 20 mg IM once Route: IM; Site: right deltoid; ll1 20:00 Follow up: Response: No adverse reaction; Marked relief of symptoms vc1 19:40 Drug: Geodon IM 10 mg IM once Route: IM; Site: left deltoid; vc1 02/09 01:11 Follow up: Response: No adverse reaction; Marked relief of symptoms vc1 02/08 23:56 Drug: Diazepam IM 10 mg IM once Route: IM; Site: left vastus lateralis; vc1 02/09 01:11 Follow up: Response: No adverse reaction; Marked relief of symptoms vc1 00:06 Not Given (LOST IV ACCESSs): diazepam5 mg IVP once vc1 01:10 Drug: Lidocaine Infiltration (1 %) 20 ml 20 ml Infiltration once; to bedside {Note: vc1 ADMINISTERED TO LEFT NEXT BY DR. ROWLAND.} Volume: 20 ml; Route: Infiltration; Site: affected area; 01:14 Not Given (NO IV ACCESS, PT WENT TO FLOORr): ns 0.9% 1000 ml IV at 125 ml/hr continuous vc1 Medication: 02/08 20:21 VIS not applicable for this client. vc1 Outcome: 23:05 Decision to Hospitalize by Provider. sp4 02/09 01:08 Admitted to Tele accompanied by tech, via stretcher, room 404, with oxygen, with chart, vc1 Report called to REPORT FAXED TO 4TH FLOOR. Condition: good Instructed on the need for admit, 01:10 Patient left the ED. vc1 Signatures: Dispatcher [employer] Yen Luna RN RN iw Garcia, Rubi rg4 Catalina House RN RN ll1 Sharmila De La O RN RN vc1 Debra Sanches RN RN jw7 Kodak Nickerson MD MD rt Jan Rowland MD MD sp4 Corrections: (The following items were deleted from the chart) 02/08 18:49 18:46 Chief complaint: Patient's son or daughter states: pt has hx of Alzheimer's , iw today he has had episodes of increased confusion, he was not speaking, and when he finally started talking he did not make any sense iw
[2024-02-10 00:03] LABS: SARS-CoV-2 Antigen CONTROL BLUE LINE VIS/BG OK; SARS-CoV-2 Antigen Rapid Res Negative (Negative)
[2024-02-10 00:12] LABS: Thyroid Stimulating Hormone 3.21 uIU/mL (0.358-3.740)
[2024-02-10] MEDS ORDERED: LIDOCAINE 1% 20 ML MDV ONE (00:20)
[2024-02-10 01:46] VITALS: BMI 25.9
[2024-02-10] MEDS: LORazepam 2 MG/ML VIAL ONE (06:18)
[2024-02-10] MEDS: LORazepam 2 MG/ML VIAL IV ONE (06:34)
[2024-02-10] MEDS ORDERED: ZIPRASIDONE MESYLA 20 MG/VIAL IM PRN (08:51)
[2024-02-10] MEDS: INSULIN REGULAR (HUMAN) 100 UNIT/ML SQ SCH (08:51)
[2024-02-10] MEDS ORDERED: ACETAMINOPHEN 325 MG TABLET PO PRN (08:51)
[2024-02-10] MEDS ORDERED: WATER FOR INJ,STERILE 10 ML IM PRN (08:51)
[2024-02-10] MEDS ORDERED: ALPRAZOLAM 1 MG TABLET PO PRN (08:51)
[2024-02-10] MEDS ORDERED: ONDANSETRON 4 MG/2 ML VIAL IV PRN (08:51)
[2024-02-10] MEDS ORDERED: ALBUTEROL 2.5 MG/3 ML NEB SOL NEB PRN (08:51)
[2024-02-10] MEDS: NA CHLORIDE 0.9% 1,000 ML IV SCH (09:20)
[2024-02-10 10:38] LABS: Anion Gap 9.8 mEq/L (5.0-15.0); Potassium 3.8 mEq/L (3.5-5.1)
[2024-02-10] MEDS: ENOXAPARIN 30 MG/0.3 ML SQ SCH (16:28)
--- NOTE | 2024-02-10 17:22 | EKG ---
Test Date: 2024-02-09 Test Time: 18:57:58 Machine Heddle Cleaner: JEROME MEASUREMENT RESULTS: Intervals: Rate: 73 [place]: 180 QRSD: 94 QT: 420 QTc: 462 [place]: P: 22 [place]: 180 QRS: 36 T: -41 INTERPRETIVE STATEMENTS: Normal sinus rhythm Normal ECG Compared to ECG 05/15/2023 13:49:18 No significant changes Electronically Signed On 02-10-24 17:20:06 CDT by Waldo Yee
[2024-02-10] MEDS: ENSURE ENLIVE 237 ML CAN PO SCH (21:29)
--- NOTE | 2024-02-10 21:30 | HP ---
Date of Admission: 02/10/2024 Chief Complaint: Altered mental status. History Of Present Illness: This is an 83-year-old male patient who came into emergency room after the patient's daughter brought him to ER with altered mental status. The patient lives at home with his and he has advanced dementia problem where he does not recognize any family member. The daughter says that he is very happy at home. Has a good appetite. He gets up and walks around in the house on his own. Denies any fever, chills, nausea, vomiting. No constipation or diarrhea. No fall or head injury, lately. Yesterday, patient was noted to have altered mental status where the patient's daughter reported that he was just talking something that just did not make any sense and he just kept on repeating himself like that. He was standing and walking around when daughter noted this kind of altered mental status and did not get better, so they decided to bring him to the emergency room. There was no focal neurological deficits. After he came into the ER, he was very agitated and received some medication to calm him down. This morning, when I saw him, he was sleeping and daughter was with him at bedside. Code Status: As per my discussion with the patient's daughter, she reported that family wants everything done on him in the event of cardiopulmonary arrest and the patient will remain full code. Medications: Trazodone 50 mg at bedtime and Famotidine 20 mg at bedtime. 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 All other systems reviewed and negative. Allergies: STATIN. Past Medical History: Significant for type 2 diabetes mellitus; hypertension; mixed hyperlipidemia; gastroesophageal reflux disease; liver cyst; chronic kidney disease, stage 3B; benign prostatic hypertrophy; high PSA; osteoarthritis at multiple sites; anemia due to chronic kidney disease; anxiety. Past Surgical History: Significant for surgery for congenital heart disease many years ago and cholecystectomy. Family History: Father had DE. Social History: Negative for smoking and alcohol use. Physical Examination: Vital Signs: Temperature 98, pulse 60, respiratory rate 16, blood pressure 135/75, oxygen saturation 98%. General: Awake, alert, oriented, not in distress. HEENT: Head atraumatic, normocephalic. Conjunctivae nonerythematous. Sclerae white. Mouth, no thrush or edema noted. Ears/Nose, no mass, lesion, discharge noted. Neck: Supple. No JVD, lymph nodes, bruit, thyromegaly noted. Lungs: Bilateral good equal air entry. Clear to auscultation. No rhonchi. No rales. Heart: Normal heart sounds, no murmur or gallop. Abdomen: Soft, bowel sounds normal. No guarding, rigidity, tenderness, mass, hepatosplenomegaly, distention, or bruit noted. Extremities: No leg edema. No calf tenderness. Skin: No rash, ulcer, cellulitis. Lymphatics: No lymph node enlargement in neck, supraclavicular, infraclavicular region. Neuro: No focal neurological deficit. Chest: Unremarkable. External Genitalia: Deferred. Rectal: Deferred. 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 Laboratory Data: His COVID-19 test negative. Chest x-ray was reported as mild CHF and clinically he does not have any congestive heart failure problem. CAT scan of the head was negative for any acute intracranial changes. Labs: White count 7.1, hemoglobin 13.3, platelets 202. Sodium 140, potassium 4, chloride 108, bicarb 25, BUN 52, creatinine 2, glucose 123. Liver function tests unremarkable. Lactic acid 0.8 and TSH 3.210. Urinalysis: 11 to 20 rbc, otherwise rest of the urinalysis was negative. Impression: 1. Acute kidney injury. 2. Volume depletion. 3. Altered mental status. 4. Dementia. 5. Anemia, unspecified. 6. Hypertension. 7. Mixed hyperlipidemia. 8. Diabetes mellitus, type 2. 9. Gastroesophageal reflux disease. 10. Chronic kidney disease, 3b. 11. Osteoarthritis, multiple sites. Plan: We will go ahead and admit the patient to hospital for further evaluation and management of this problem. Patient is appropriate for inpatient and is expected to spend 2 midnights in hospital. IV fluid was ordered and we will monitor blood work. We will repeat blood work tomorrow. DVT prophylaxis will be given using Lovenox and SCD was ordered. Patient takes trazodone and Pepcid at home. We will continue that. Consult Neurology Service, Dr. Lees. Details and plan of treatment discussed with the patient's daughter and code status was discussed as well and the patient will remain full code per her decision. I will see him tomorrow for followup. I have also requested Physical Therapy consultation. CIPRIANO/ORESTES Voice ID: [id number] MTDD
--- NOTE | 2024-02-10 21:37 | CON ---
Reason For Consultation: Consultation called because of acute agitation and delirium. History Of Present Illness: Mr. Brooks is an 83-year-old patient whom I have followed in clinic for about 8 years for complex partial seizures with secondary generalization and more recently Alzheimer 's disease. He has had prior admissions with acute onset confusion related to seizures. His current admission is reported to be due to acute confusion. Brought in by his daughter. There was an episo de where he suddenly stopped speaking and stared off into space and when he began speaking again, he was disoriented, confused, did not make much sense and became combative. There were no recent fevers , chills, nausea, vomiting, and no reported signs of infection. At [facility], blood work s howed normal white count. Marginally low hemoglobin. Platelet count unremarkable. His INR 1.06. H is electrolytes showed dehydration with creatinine of 2, BUN of 52, chloride 108. He was hydrated an d today his creatinine 1.5, BUN 41, but still somewhat dehydrated. His COVID testing is negative and chest x-ray shows a mild CHF pattern without pneumonia. His urinalysis shows trace blood, _ red blood cells, no bacteria, less than red blood cells and less than 5 white blood cell s, not consistent with an infection. At my evaluation, the patient is very pleasant and interactive, but completely disoriented to where he was and what date it was despite looking at the board where t he date including the month, day of the week was written. A nurse is sitting at the bedside due to s ome agitation. Past Medical History: As noted with localization related seizures, Alzheimer disease. Past Surgical History: Cholecystectomy, cardiac surgery. Allergies: REPORTED TO BE NAMENDA AND HMG-COA REDUCTASE INHIBITOR. Social History: No reported alcohol, tobacco, or IV drug use. Surgical History: Cholecystectomy and cardiac surgery. Review of Systems: The patient is not able to give any meaningful review of systems. He is very tangential in speech bu t very alert and would smile and respond to his name and speak in a tangential way when asked questio ns and answers in unrelated answers. Otherwise appears to have no chills. No myalgias or apparent a rthralgias. Has no obvious rash and no headaches, but some disorientation, confusion as n oted. Physical Examination: Vital Signs: Blood pressure 123/70, pulse 60, respiratory rate 18, temperature 97.8, oxygen saturati on 98% on room air. General: Mr. Brooks is in his hospital bed. He appears to be in no acute distress. HEENT: He is normocephalic, atraumatic. Sclerae anicteric. Oropharynx moist. Neck: Supple. Chest: Clear. Heart: Regular. Extremities: No significant edema, cyanosis or clubbing. Neurologic: Alert, oriented to himself, but not to place, situation, circumstance and unable to give a cohesive answer to any questions. At one point, he looked down and wanted to know what was below him, thought he was on some building perhaps. His cranial nerves show no focal deficits. Motor exam , he has equally strong upper and lower extremities. Unable to assess sensation and coordination, bu t his spontaneous movements are smooth without dysmetria. Reflexes symmetric. With his gait, he was ambulated with physical therapist and he ambulated 250 feet twice with a wheelchair following and wa s able to hold onto a rolling walker with minimum assistance. Did have short steps and he had to be reminded to focus on what he was doing. Easily distracted. Assessment And Plan: Mr. Brooks is an 83-year-old patient with a long history of seizures for at le ast 8 years. He is reportedly not very compliant with medications, but was initially when he was [facility] diagnosed with seizures on Dilantin, more recently was off antiepileptic medications. His present ation is suggestive of seizures with a postictal phase of delirium, this staring into space also cons istent with that. He has no evidence of an acute stroke and his prior imaging including brain MRI an d recent CT scan do not show evidence of any acute ischemic or hemorrhagic changes. The study does s how moderate generalized brain atrophy, likely secondary to small vessel ischemic disease. Suggest the patient may be started on Keppra, potentially 750 mg 500 mg twice daily. May continue wi th stroke risk reduction with aspirin 81 mg daily. Also may use Seroquel to help with his agitation. Consider a lipid panel and if LDL is greater than 70, start statin, though he does have listed stat in as an allergy, so may have to consider just high-dose omega-3 fish oil. At this point, he does no t have any evidence of ongoing infection or acute processes and if he is able to return to his facili ty Assisted [facility], he would benefit most from a memory care unit. After discharge, he should follow in Dr. Lees's office and a Keppra level within 10 days will help determine where the blood level is. In addition, he should have an EEG done outpatient that is not available in house. He may bene fit from long-term ambulatory EEG monitoring to characterize any unusual episodes of staring or aggre ssive or focal behaviors. JOCELIN/ORESTES Voice ID: [id number] Report ID: [id number]
[2024-02-10] MEDS: FAMOTIDINE 20 MG TAB ONE (22:03)
[2024-02-10] MEDS: TRAZODONE 50 MG TABLET ONE (22:04)
[2024-02-10] MEDS: TRAZODONE 50 MG TABLET PO SCH (22:07)
[2024-02-10] MEDS: FAMOTIDINE 20 MG TAB PO SCH (22:07)
[2024-02-11 07:47] LABS: Anion Gap 6.9 mEq/L (5.0-15.0); Potassium 3.9 mEq/L (3.5-5.1)
[2024-02-11 08:07] VITALS: BP 157/90; TEMP 97.9
[2024-02-11 11:36] VITALS: O2SAT 95
--- NOTE | 2024-02-11 11:58 | DS ---
Date of Discharge: 02/11/2024 Disposition: The patient will be discharged to go home. Physical Examination: HEENT: Unremarkable. Lungs: Clear to auscultation. Heart: Sounds normal. Abdomen: Soft. Bowel sounds normal. No guarding, rigidity, tenderness, distention. Extremities: No leg edema. Neurological: The patient does not have any focal neurological deficit. He is disoriented, does not answer any questions appropriately. Labs: This morning sodium 142, potassium 3.9, chloride 110, bicarb 29, BUN 30, creatinine 1.37, gluc ose 111. Upon admission, CAT scan of the head was negative for any acute intracranial changes. Init ial labs had shown white count 7.1, hemoglobin 13.3, platelets 202. Sodium 140, potassium 4, chlorid e 108, bicarb 25, BUN 52, creatinine 2, glucose 123. Liver function tests unremarkable. Final Diagnoses: 1.Acute kidney injury. 2.Volume depletion. 3.Altered mental status. 4.Seizure disorder. 5.Dementia. 6.Anemia, unspecified. 7.Hypertension. 8.Hyperlipidemia. 9.Type 2 diabetes mellitus. 10.Gastroesophageal reflux disease. 11.Chronic kidney disease, stage IIIB. 12.Osteoarthritis, multiple sites. Hospital Course: This is an 83-year-old very pleasant male patient admitted to the hospital with alt ered mental status. Please see dictated H and P for more information. After patient was evaluated i n the emergency room, he was admitted to the hospital and his neurologist Dr. Lees was requested to see him for consultation. Dr. Lees did evaluate him yesterday and he has suggested for the rajeev acuna to be started on Keppra with his prior history of seizure disorder. He was on Dilantin, but cu rrently he is not on any medication and he suggested that we should start the patient on Keppra which we started at a low dose 250 mg 2 times a day and then on outpatient basis we will increase the dose to 500 mg 2 times a day as his maintenance dose. This morning, when I saw the patient, his daughter was not there, but subsequently she arrived at the hospital, so I did communicate with her on the ph one regarding all these details regarding Dr. Lees's recommendation. The patient is medically st able for discharge. He was given IV fluid for his volume depletion and acute kidney injury problem w hich has improved now. Discharge Medication/instructions: 1.Continue all prior home medication. 2.Start Keppra 250 mg 2 times a day. 3.Follow up at my office next week. CIPRIANO/MODL Voice ID: [id number] Report ID: [id number]
--- NOTE | 2024-02-11 12:22 | RAD REPORT ---
EXAM DESCRIPTION: RAD - Chest Single View - 02/10/2024 1:06 am CLINICAL HISTORY: 83 years, Male, Central Line placed COMPARISON: None FINDINGS: 1 views of the chest was obtained. No prior films are available at this time for compari son. There is decreased lung volume There is a left IJ triple-lumen catheter tip within the junction of the innominate vein and superior vena cava in good position. No evidence for pneumothorax. Mediastinum: The cardiomediastinal silhouette is slightly prominent most likely related to decreased lung volume. Sternotomy wires and pericardiac clips suggest previous CABG Lungs: No areas of consolidations or masses are identified. Heart: The heart is normal in size. Thoracic aorta: The thoracic aorta demonstrate to be normal. Pulmonary vasculature: The pulmonary vasculature is normal in distribution. Pleura: The costophrenic angles demonstrate to be sharp. Elevation of both hemidiaphragms. Osseous structures: The bony structures demonstrate to be within normal limits. Other: None. IMPRESSION: Decreased lung volume. Left IJ triple-lumen catheter tip within the junction of the innominate vein and superior vena cava i n good position. No evidence for pneumothorax. Status post CABG. Electronically signed by: Anton Ramon MD 02/10/2024 01:18 AM CDT Due to temporary technical issues with the PACS/Fluency reporting system, reports are being signed by the in house radiologists without review as a courtesy to insure prompt reporting. The interpreting radiologist is fully responsible for the content of the report.
== END 2024-02-11 10:45 | disposition home or self-care (01) | DRG 101 ==
LOC: ER 18:35 → 4TH 23:08
PROVIDERS: ADMIT Internal Medicine; ATTEND Internal Medicine
PROC: 02HV33Z Insertion of Infusion Device into Superior Vena Cava, Percutaneous Approach (ICD-10-PCS; principal; 2024-02-10)
DX: G40.909 Epilepsy, unspecified, not intractable, without status epilepticus (principal); N17.9 Acute kidney failure, unspecified; F05 Delirium due to known physiological condition; E86.0 Dehydration; E78.2 Mixed hyperlipidemia; I12.9 Hypertensive chronic kidney disease with stage 1 through stage 4 chronic kidney disease, or unspecified chronic kidney disease; N18.32 Chronic kidney disease, stage 3b; E11.22 Type 2 diabetes mellitus with diabetic chronic kidney disease; D63.1 Anemia in chronic kidney disease; E86.9 Volume depletion, unspecified; M19.09 Primary osteoarthritis, other specified site; K21.9 Gastro-esophageal reflux disease without esophagitis; N40.0 Benign prostatic hyperplasia without lower urinary tract symptoms; G30.9 Alzheimer's disease, unspecified; F02.80 Dementia in other diseases classified elsewhere, unspecified severity, without behavioral disturbance, psychotic disturbance, mood disturbance, and anxiety; Z95.1 Presence of aortocoronary bypass graft; Z90.49 Acquired absence of other specified parts of digestive tract; Z11.52 Encounter for screening for COVID-19; Z91.148 Patient's other noncompliance with medication regimen for other reason
CPT/HCPCS: 36415; 51702; 70450; 71045; 80048; 80053; 81001; 82947; 83605; 84439; 84443; 85025; 85610; 85730; 87040; 87804; 87811; 93005; 96372; 97116; 97163; 97530; 99285; J1650; J2001; J3360; J3486; J7030

== ENCOUNTER 2024-03-19 19:18 | Observation (INO) | payer OTHER ==
--- NOTE | 2024-03-19 20:16 | RAD REPORT ---
EXAM DESCRIPTION: RAD - Chest Single View - 03/19/2024 8:09 pm CLINICAL HISTORY: slurred speech Chest pain. COMPARISON: Chest Single View dated 02/10/2024; Chest Single View dated 02/09/2024; Chest Single View dated 03/24/2023; Chest Single View dated 09/06/2022 FINDINGS: Portable technique limits examination quality. Mild interstitial pulmonary edema suspected. The heart is normal in size. Sternotomy wires present.El evated left hemidiaphragm noted. IMPRESSION: Mild CHF.
[2024-03-19] MEDS ORDERED: NA CHLORIDE 0.9% 500 ML ONE (20:19)
[2024-03-19 20:27] LABS: Absolute Eosinophils 0.1 K/uL (0-0.5); Absolute Lymphocytes (CBC) 1.6 K/uL (0.7-4.9); Absolute Monocytes 0.5 K/uL (0.1-1.3); Absolute Neutrophil 6.3 K/uL (1.8-8.0); Basophils % 0.5 % (0-1.3); Eosinophils % 1.5 % (0-4.4); Hematocrit 39.1 % (39.6-49.0); Hemoglobin 13.2 g/dL (13.6-17.9); Lymphocytes % 18.5 % (15.3-44.8); MCH 30.5 pg (27.0-35.0); MCHC 33.6 g/dL (32.0-36.0); MCV 90.5 fL (80-100); MPV 8.6 fL (7.6-11.3); Monocytes % 5.8 % (3.3-12.3); Neutrophils % 73.7 % (41.7-73.7); Platelets 238 thou/uL (152-406); RBC Red Blood Cell Count 4.33 M/uL (4.33-5.43); Red Cell Distribution Width 13.4 % (12.1-15.2)
[2024-03-19 20:31] LABS: PT Prothrombin Time 12.7 SECONDS (9.5-12.5); PTT, Activated Partial Thromb 31.9 SECONDS (24.3-36.9); Protime INR 1.16
[2024-03-19 20:38] LABS: Specific Gravity 1.021 (1.005-1.030); Sqamous Epithelial <5 /HPF (None Seen); Urine Bacteria None Seen /HPF (<20); Urine Bilirubin NEGATIVE (Negative); Urine Blood Negative (Negative); Urine Clarity Extremely Turbid (Clear); Urine Color Yellow (Yellow); Urine Culture Reflex Order NOT NEEDED; Urine Glucose NEGATIVE (Negative); Urine Ketones TRACE (Negative); Urine Microscopic Reflex YN ORDER UMIC; Urine Mucus Slight /HPF (None Seen); Urine Nitrite NEGATIVE (Negative); Urine Protein TRACE (Negative); Urine RBC <5 /HPF (None Seen); Urine Urobilinogen 1+ (Normal); Urine WBC <5 /HPF (<5)
--- NOTE | 2024-03-19 20:39 | RAD REPORT ---
EXAM DESCRIPTION: CT - Ct Stroke Brain Wo Cont - 03/19/2024 8:33 pm CLINICAL HISTORY: STROKE ALERT Headache, drowsiness COMPARISON: Head Brain Wo Cont dated 02/09/2024; Head Brain Wo Cont dated 05/15/2023 TECHNIQUE: All CT scans are performed using dose optimization technique as appropriate and may inclu de automated exposure control or mA/KV adjustment according to patient size. FINDINGS: No intracranial hemorrhage, hydrocephalus or extra-axial fluid collection.Moderate general ized brain atrophy.No areas of brain edema or evidence of midline shift. The paranasal sinuses and mastoids are clear. The calvarium is intact. IMPRESSION: No acute intracranial abnormality.
[2024-03-19 21:16] LABS: Anion Gap 11.6 mEq/L (5.0-15.0); Troponin High Sensitivity 9.4 pg/mL (<58.9)
[2024-03-19 21:20] LABS: Potassium 4.6 mEq/L (3.5-5.1)
--- NOTE | 2024-03-19 22:02 | EDPHYS ---
Physician Documentation [facility] Name: Munir Brooks Age: 83 yrs Sex: Male : 1940 Arrival Date: 03/19/2024 Time: 19:18 Bed 13 Private MD: ED Physician Tracy Pressley HPI: 03/19 19:48 This 83 yrs old Male presents to ER via Ambulatory with complaints of Confusion. rn 19:48 The patient presents with confusion, disorientation, Slurred speech. Onset: The rn symptoms/episode began/occurred this morning. Possible causes: unknown. Current symptoms: In the emergency department the patient's symptoms have improved. The patient has experienced a previous episode. Family member reports patient with Alzheimer's disease, currently near his baseline but family noted earlier in the day had difficulty with speech, slurred speech. Family now states that speech has improved but seems a little more agitated than normal. Family states the last time this happened he was diagnosed with dehydration and got better with IV fluids. No fall or head injury.. Historical: - Allergies: 19:30 Namenda; km8 19:30 Uoemkgj-Qqn-Jno Reductase Inhibitor; km8 - PMHx: 19:30 Seizures; Alzheimer's disease; Congenital Heart Defect; Dementia; km8 - PSHx: 19:30 Cholecystectomy; heart surgery; km8 - Immunization history:: Adult Immunizations up to date. - Infectious Disease History:: Denies. - Social history:: Smoking status: Patient/guardian denies using tobacco, but has a distant history of tobacco abuse, Patient/guardian denies using alcohol, street drugs. - Family history:: not pertinent. - Hospitalizations: : No recent hospitalization is reported. ROS: 19:51 Constitutional: Negative for fever, chills, and weight loss, Cardiovascular: Negative rn for chest pain, palpitations, and edema, Respiratory: Negative for shortness of breath, cough, wheezing, and pleuritic chest pain, Abdomen/GI: Negative for abdominal pain, nausea, vomiting, diarrhea, and constipation, Back: Negative for injury and pain, MS/Extremity: Negative for injury and deformity, Skin: Negative for injury, rash, and discoloration, Neuro: Positive for slurred speech earlier in the day, now resolved Exam: 19:51 Constitutional: This is a well developed, well nourished patient who is awake, alert, rn no acute distress. Follows all commands, laughing inappropriately but pleasant Head/Face: Normocephalic, atraumatic. ENT: Dry mucous membranes Cardiovascular: Regular rate and rhythm. No pulse deficits. Respiratory: No increased work of breathing, no retractions or nasal flaring. Abdomen/GI: Soft, non-tender MS/ Extremity: Pulses equal, no cyanosis. Neurovascular intact. Full, normal range of motion. Equal circumference. Neuro: Awake and alert, GCS 15, equal strength bilaterally. Normal sensation. Not oriented to time or place Vital Signs: 19:28 BP 122 / 81; Pulse 62; Resp 16; Temp 98.2(TE); Pulse Ox 100% on R/A; Weight 90.72 kg km8 (R); Height 6 ft. 3 in. (R); 20:44 BP 134 / 86; Pulse 92; Resp 16; Temp 98.2; Pulse Ox 98% ; Pain 0/10; bm8 22:03 BP 138 / 78; Pulse 97; Resp 20; Temp 98.2; Pulse Ox 99% on R/A; Pain 0/10; bm8 19:28 Body Mass Index 25.00 (90.72 kg, 190.5 cm) km8 20:44 Pain Scale: Adult bm8 22:03 Pain Scale: Adult bm8 NIH Stroke Scale Scores: 19:32 NIHSS Score: 2 bm8 Nohelia Coma Score: 19:32 Eye Response: spontaneous(4). Motor Response: obeys commands(6). Verbal Response: bm8 oriented(5). Total: 15. MDM: 19:36 Patient medically screened. rn 20:08 Transition of care: After a detail discussion of the patient's case, care is rn transferred to [facility]. 21:58 ED course: CT head with no acute intracranial abnormality. CTA ordered however ci patient's creatinine is 2.24, given lower suspicion for CVA, will defer at this time. CXR concerning for mild interstitial edema, daughter reports no previous history of CHF, will need further workup of his encephalopathy and possible new onset heart failure. Discussed case with PCP Dr. Herzog who accepted patient for admission.. 22:02 Data reviewed: vital signs, nurses notes. ci 03/19 19:44 Order name: Basic Metabolic Panel; Complete Time: 21:28 rn 03/19 21:30 Interpretation: Abnormal: CRE 2.24; Previously 2 02/18. ci 03/19 19:44 Order name: CBC with Diff; Complete Time: 21:09 rn 03/19 19:44 Order name: High Sensitivity Troponin; Complete Time: 21:28 rn 03/19 19:44 Order name: Protime (+inr); Complete Time: 21: rn 03/19 19:44 Order name: Ptt, Activated; Complete Time: 21: rn 03/19 19:51 Order name: Urinalysis w/ reflexes; Complete Time: 21: rn 03/19 21:20 Order name: CREATININE WHOLE BLOOD; Complete Time: 21:28 EDRI 03/19 23:13 Order name: Basic Metabolic Panel EDRI 03/19 23:13 Order name: Basic Metabolic Panel EDRI 03/19 23:13 Order name: CBC with Automated Diff EDRI 03/19 23:13 Order name: CBC with Automated Diff EDRI 03/19 19:44 Order name: CT Stroke Brain w/o Contrast; Complete Time: 21: rn 03/19 21:10 Interpretation: No acute disease: Per Radiologist's finding(s): IMPRESSION: No acute ci intracranial abnormality. 03/19 19:44 Order name: Stroke CXR 1 View; Complete Time: 21: rn 03/19 21:10 Interpretation: Abnormal: Per Radiologist's finding(s): IMPRESSION: Mild CHF. ci 03/19 23:13 Order name: CONS Physician Consult EDRI 03/19 19:44 Order name: Accucheck; Complete Time: 20:39 rn 03/19 19:44 Order name: Cardiac monitoring; Complete Time: 20:39 rn 03/19 19:44 Order name: EKG - Nurse/Tech; Complete Time: 20:39 rn 03/19 19:44 Order name: IV Saline Lock; Complete Time: 20:39 rn 03/19 19:44 Order name: Labs collected and sent; Complete Time: 20:39 rn 03/19 19:44 Order name: NPO; Complete Time: 20:39 rn 03/19 19:44 Order name: O2 Per Protocol; Complete Time: 20:39 rn 03/19 19:44 Order name: O2 Sat Monitoring; Complete Time: 20:39 rn 03/19 19:44 Order name: Stroke Swallow Screen; Complete Time: 20:39 rn Administered Medications: 20:39 Drug: NS 0.9% IV 500 ml IV at bolus once Route: IV; Rate: bolus; Site: right forearm; bm8 22:05 Follow up: Response: No adverse reaction; IV Status: Completed infusion; IV Intake: bm8 500ml 23:01 Drug: Haloperidol IVP 2 mg IVP once Route: IVP; Site: right forearm; bm8 03/20 00:03 Follow up: Response: No adverse reaction bm8 Disposition Summary: 03/19/24 22:01 Hospitalization Ordered Notes: Hospitalization Status: Observation ci Provider: Andres Herzog Location: Telemetry/MedSurg (observation) ci Condition: Stable ci Problem: an acute exacerbation ci Symptoms: are unchanged ci Bed/Room Type: Standard ci Room Assignment: 213(03/19/24 23:14) as6 Diagnosis - Encephalopathy, unspecified ci - Unspecified systolic (congestive) heart failure ci Forms: - Medication Reconciliation Form ci - SBAR form ci - Leadership Thank You Letter ci NIH Stroke Scale - NIH Stroke Score Date: 03/19/2024 Time: 19:32 Total Score = 2 10. Dysarthria (speech clarity - read or repeat words) - 0(Normal) 11. Extinction and Inattention (visual/tactile/auditory/spatial/personal) - 0(No abnormality) 1a. Level of Consciousness (LOC) - 0(Alert) 1b. Level of Consciousness (LOC) (Month \T\ Age) - 2(Neither) 1c. LOC Commands (Open \T\ Closes Eyes/Veterinary Surgeon) - 0(Both) 2. Best Gaze (Lateral Gaze Paresis) - 0(Normal) 3. Visual Field Loss - 0(No visual loss) 4. Facial Palsy - 0(Normal) 5a. Left Arm: Motor (10-second hold) - 0(No drift) 5b. Right Arm: Motor (10-second hold) - 0(No drift) 6a. Left Leg: Motor (5-second hold - always test supine) - 0(No drift) 6b. Right Leg: Motor (5-second hold - always test supine) - 0(No drift) 7. Limb Ataxia (finger/nose \T\ heel/wright - test with eyes open) - 0(Absent) 8. Sensory Loss (pinprick arms/legs/face) - 0(Normal) 9. Best Language: Aphasia (description/naming/reading) - 0(No aphasia) Initials: bm8 Signatures: Dispatcher [employer] EDRI Remington Spencer MD MD rn Slawson, Ashby, RN RN as6 Tracy Pressley Beth Ryan, RN RN km8 Juan Antonio Ng, RN RN bm8 Corrections: (The following items were deleted from the chart) 03/19 19:45 19:45 Neck Angio+CT.RAD.BRZ ordered. EDMS EDMS 19:45 19:45 CT-STROKE BRAIN W/O CONTRAST+CT.RAD.BRZ ordered. EDRI EDMS :45 19:45 Chest Single View+RAD.RAD.BRZ ordered. EDRI EDMS 19:51 19:51 Urinalysis+U.LAB.BRZ ordered. EDRI EDMS 19:52 19:51 Constitutional: This is a well developed, well nourished patient who is rn awake, alert, no acute distress. Follows all commands, laughing inappropriately but pleasant Head/Face: Normocephalic, atraumatic. ENT: Dry mucous membranes Cardiovascular: Regular rate and rhythm. No pulse deficits. Respiratory: No increased work of breathing, no retractions or nasal flaring. Abdomen/GI: Soft, non-tender MS/ Extremity: Pulses equal, no cyanosis. Neurovascular intact. Full, normal range of motion. Equal circumference. Neuro: Awake and alert, GCS 15 rn 22:07 19:45 Head Angio+CT.RAD.BRZ ordered. EDMS EDMS 23:14 22:01 ci as6
--- NOTE | 2024-03-19 22:02 | ER ---
Nurse's Notes [facility] Name: Munir Brooks Age: 83 yrs Sex: Male : 1940 Arrival Date: 03/19/2024 Time: 19:18 Bed 13 Private MD: Diagnosis: Encephalopathy, unspecified;Unspecified systolic (congestive) heart failure Presentation: 03/19 19:28 Chief complaint: Patient's son or daughter states: pt was having trouble speaking and km8 repeating words around 1730 today; last known normal was around 0900; "last time he was like this he was severely dehydrated". Coronavirus screen: Client denies travel out of the [place] in the last 14 days. Ebola Screen: No symptoms or risks identified at this time. Initial Sepsis Screen: Does the patient meet any 2 criteria? No. Patient's initial sepsis screen is negative. Does the patient have a suspected source of infection? No. Patient's initial sepsis screen is negative. Risk Assessment: Do you want to hurt yourself or someone else? Patient reports no desire to harm self or others. Onset of symptoms was March 19, 2024 at 17:30. 19:28 Method Of Arrival: Ambulatory km8 19:28 Acuity: MAGALY 2 km8 Triage Assessment: 19:30 General: Appears in no apparent distress. unkempt, Behavior is calm, cooperative. Pain: km8 Denies pain. EENT: No signs and/or symptoms were reported regarding the EENT system. Neuro: Level of Consciousness is awake, alert, obeys commands, Oriented to person. Cardiovascular: Patient's skin is warm and dry. Respiratory: Airway is patent Respiratory effort is even, unlabored, Respiratory pattern is regular, symmetrical. GI: No signs and/or symptoms were reported involving the gastrointestinal system. : No signs and/or symptoms were reported regarding the genitourinary system. Derm: No signs and/or symptoms reported regarding the dermatologic system. Skin is intact, is healthy with good turgor, Skin is dry, Skin is pink, warm \\T\\ dry. normal, Skin temperature is warm. Musculoskeletal: No signs and/or symptoms reported regarding the musculoskeletal system. Historical: - Allergies: 19:30 Namenda; km8 19:30 Uwholac-Yhp-Uif Reductase Inhibitor; km8 - PMHx: 19:30 Seizures; Alzheimer's disease; Congenital Heart Defect; Dementia; km8 - PSHx: 19:30 Cholecystectomy; heart surgery; km8 - Immunization history:: Adult Immunizations up to date. - Infectious Disease History:: Denies. - Social history:: Smoking status: Patient/guardian denies using tobacco, but has a distant history of tobacco abuse, Patient/guardian denies using alcohol, street drugs. - Family history:: not pertinent. - Hospitalizations: : No recent hospitalization is reported. Screenin:32 [facility] ED Fall Risk Assessment (Adult). [facility] ED Fall Risk Assessment (Adult) bm8 History of falling in the last 3 months, including since admission Yes- fall prone (multiple falls) (3 pts) Confusion or Disorientation Yes (5 pts) Intoxicated or Sedated No (0 pts) Impaired Gait No (0 pts) Mobility Assist Device Used No (0 pt) Altered Elimination No (0 pt) Score/Fall Risk Level 3 or more points = High Risk Oriented to surroundings, Maintained a safe environment, Educated pt \\T\\ family on fall prevention, incl call for assistance when getting out of bed, Remained with patient while ambulating, Utilized family, sitter, or virtual senior technical support engineer as indicated. Abuse screen: Denies threats or abuse. Nutritional screening: No deficits noted. Tuberculosis screening: No symptoms or risk factors identified. 21:09 [place] Swallow Protocol Exclusion Criteria: Exclusion Criteria Result: Proceed Brief bm8 Cognitive Screen What is your name? Normal, Where are you right now? Abnormal: Pt responds in clearly understandable speech but incorrect answer.. What year is it? Abnormal: Pt again responds in clearly understandable language but incorrect answer. Oral Mechanism Examination Facial Symmetry: Normal, Motion: Normal, Lip Closure: Normal, Oral Mechanism Result: Normal. 3 oz Water Swallow Challenge: Pt able to drink all water without stopping, coughing, choking or throat clearing: Yes Result: PASS. Assessment: 19:32 Reassessment: Patient appears in no apparent distress at this time. General: Appears in bm8 no apparent distress. comfortable, Behavior is calm, cooperative, appropriate for age, Smells of urine. Pain: Denies pain. Neuro: Level of Consciousness is awake, alert, obeys commands, Oriented to person. Neuro: pt is repeating what is being said to him or answer with a strong nod and yes or no. Cooperative in his care. moving all exts with ease.. Reports family reports that pt has been very repetitive and doesn't seem to his "usual confused". . Cardiovascular: No deficits noted. Heart tones S1 S2 present Capillary refill < 3 seconds Patient's skin is warm and dry. Respiratory: Airway is patent Respiratory effort is even, unlabored, Respiratory pattern is regular, symmetrical, Breath sounds are clear bilaterally. GI: No deficits noted. No signs and/or symptoms were reported involving the gastrointestinal system. : No deficits noted. No signs and/or symptoms were reported regarding the genitourinary system. EENT: No deficits noted. No signs and/or symptoms were reported regarding the EENT system. Derm: No deficits noted. No signs and/or symptoms reported regarding the dermatologic system. Musculoskeletal: No deficits noted. No signs and/or symptoms reported regarding the musculoskeletal system. 22:03 Reassessment: Patient appears in no apparent distress at this time. No changes from bm8 previously documented assessment. Patient and/or family updated on plan of care and expected duration. Pain level reassessed. pt seems to be talking to someone in the room although no one else is present. can be heard laughing and giggling to himself. Patient denies pain at this time. Vital Signs: 19:28 BP 122 / 81; Pulse 62; Resp 16; Temp 98.2(TE); Pulse Ox 100% on R/A; Weight 90.72 kg km8 (R); Height 6 ft. 3 in. (R); 20:44 BP 134 / 86; Pulse 92; Resp 16; Temp 98.2; Pulse Ox 98% ; Pain 0/10; bm8 22:03 BP 138 / 78; Pulse 97; Resp 20; Temp 98.2; Pulse Ox 99% on R/A; Pain 0/10; bm8 19:28 Body Mass Index 25.00 (90.72 kg, 190.5 cm) km8 20:44 Pain Scale: Adult bm8 22:03 Pain Scale: Adult bm8 Nohelia Coma Score: 19:32 Eye Response: spontaneous(4). Motor Response: obeys commands(6). Verbal Response: bm8 oriented(5). Total: 15. NIH Stroke Scale Scores: 19:32 NIHSS Score: 2 bm8 ED Course: 19:24 Patient arrived in ED. mg5 19:30 Triage completed. km8 19:30 Arm band placed on right wrist. km8 19:32 Patient has correct armband on for positive identification. Placed in gown. Bed in low bm8 position. Call light in reach. Side rails up X2. Adult w/ patient. Client placed on continuous cardiac and pulse oximetry monitoring. NIBP monitoring applied. surveillance monitor on. Pulse ox on. NIBP on. Door closed. Noise minimized. Visitors limited. Warm blanket given. Verbal reassurance given. Head of bed elevated. Cleaned of incontinence. One-on-one care X 30 minutes. 19:32 No provider procedures requiring assistance completed. Inserted saline lock: 20 gauge bm8 in right forearm, using aseptic technique. Blood collected. 19:36 Remington Spencer MD is Attending Physician. rn 19:40 Juan Antonio Ng RN is Primary Nurse. bm8 19:45 Straight cath inserted, using sterile technique, 16 Fr. Specimen obtained. Returned bm8 harshil urine. Patient tolerated well. 20:10 Stroke CXR 1 View In Process Unspecified. EDMS 20:20 EKG done, by cardiac cath technician. reviewed by Remington Spencer MD. oe 20:35 CT Stroke Brain w/o Contrast In Process Unspecified. EDMS 21:09 Attending Physician role handed off by Remington Spencer MD ci 21:09 Tracy Pressley is Attending Physician. ci 22:00 Andres Herzog MD is Hospitalizing Provider. ci 22:03 Provided Education on: family on need for admission.. bm8 22:03 Patient admitted, IV remains in place. bm8 Administered Medications: 20:39 Drug: NS 0.9% IV 500 ml IV at bolus once Route: IV; Rate: bolus; Site: right forearm; bm8 22:05 Follow up: Response: No adverse reaction; IV Status: Completed infusion; IV Intake: bm8 500ml 23:01 Drug: Haloperidol IVP 2 mg IVP once Route: IVP; Site: right forearm; bm8 03/20 00:03 Follow up: Response: No adverse reaction bm8 Medication: 03/19 19:32 VIS not applicable for this client. bm8 Intake: 22:05 IV: 500ml; Total: 500ml. bm8 Outcome: 22:01 Decision to Hospitalize by Provider. ci 03/20 00:02 Admitted to Med/surg accompanied by nurse, via stretcher, room 213, Report called to mendoza beth rn Condition: stable Instructed on the need for admit, Demonstrated understanding of instructions, follow-up care, 00:03 Patient left the ED. bm8 NIH Stroke Scale - NIH Stroke Score Date: 03/19/2024 Time: 19:32 Total Score = 2 10. Dysarthria (speech clarity - read or repeat words) - 0(Normal) 11. Extinction and Inattention (visual/tactile/auditory/spatial/personal) - 0(No abnormality) 1a. Level of Consciousness (LOC) - 0(Alert) 1b. Level of Consciousness (LOC) (Month \\T\\ Age) - 2(Neither) 1c. LOC Commands (Open \\T\\ Closes Eyes/Pit Operator) - 0(Both) 2. Best Gaze (Lateral Gaze Paresis) - 0(Normal) 3. Visual Field Loss - 0(No visual loss) 4. Facial Palsy - 0(Normal) 5a. Left Arm: Motor (10-second hold) - 0(No drift) 5b. Right Arm: Motor (10-second hold) - 0(No drift) 6a. Left Leg: Motor (5-second hold - always test supine) - 0(No drift) 6b. Right Leg: Motor (5-second hold - always test supine) - 0(No drift) 7. Limb Ataxia (finger/nose \\T\\ heel/wright - test with eyes open) - 0(Absent) 8. Sensory Loss (pinprick arms/legs/face) - 0(Normal) 9. Best Language: Aphasia (description/naming/reading) - 0(No aphasia) Initials: tori8 Signatures: Dispatcher [employer] EDRemington Logn MD MD rn Espinosa, [place] oe Gardner Mallory mg5 IhTracy melendez Katie, RN RN 8 Juan Antonio Ng RN RN bm8
[2024-03-19] MEDS ORDERED: HALOPERIDOL LACT 5 MG/ML INJ ONE (22:56)
[2024-03-19] MEDS ORDERED: ONDANSETRON 4 MG/2 ML VIAL IV PRN (23:09)
[2024-03-20 01:22] VITALS: BMI 25.0
[2024-03-20 03:45] LABS: Absolute Eosinophils 0.2 K/uL (0-0.5); Absolute Lymphocytes (CBC) 1.9 K/uL (0.7-4.9); Absolute Monocytes 0.7 K/uL (0.1-1.3); Absolute Neutrophil 4.4 K/uL (1.8-8.0); Basophils % 0.7 % (0-1.3); Eosinophils % 2.8 % (0-4.4); Hemoglobin 12.6 g/dL (13.6-17.9); Lymphocytes % 26.7 % (15.3-44.8); MCH 31.1 pg (27.0-35.0); MCHC 34.9 g/dL (32.0-36.0); MCV 89.1 fL (80-100); MPV 8.5 fL (7.6-11.3); Monocytes % 9.1 % (3.3-12.3); Neutrophils % 60.7 % (41.7-73.7); Nucleated Red Blood Cells % 0.1 % (0-0); Platelets 216 thou/uL (152-406); RBC Red Blood Cell Count 4.05 M/uL (4.33-5.43); Red Cell Distribution Width 13.4 % (12.1-15.2)
[2024-03-20 04:05] LABS: Anion Gap 7.8 mEq/L (5.0-15.0); Potassium 3.8 mEq/L (3.5-5.1)
[2024-03-20] MEDS: NA CHLORIDE 0.9% 1,000 ML IV SCH (08:00)
[2024-03-20 09:04] VITALS: O2SAT 97
--- NOTE | 2024-03-21 01:10 | CON ---
Date of Consultation: 03/20/2024 Reason: Possible worsening of seizures. History Of Present Illness: Mr. Brooks is an 83-year-old right-handed patient, who has se terell Alzheimer's disease and has ApoE 4++ and who has history of controlled complex partial seizures. He earlier on the 19 of March became more disoriented, confused, and appeared for the family to h ave difficulty speaking. He was repeating his words. He was seen at [facility] for workup. His head CT scan showed no acute intracranial abnormalities. The study was remarkable for moderate generalized brain atrophy. CT angiogram studies of head and neck showed no large vesse l disease. Complete blood count with differential is essentially unremarkable. Coagulation panel un remarkable. His electrolyte panel remarkable for dehydration. Creatinine 2.24, BUN elevated to 48. He did receive IV hydration. Urinalysis showed 1+ urobilinogen, trace ketones, greater than 20 hyal ine casts, but no bacteria, no nitrite, no esterase. A chest x-ray in the emergency room showed mild CHF. The patient did appear to return towards baseline level of functioning. I spoke with the ishmael ent's son-in-law who was in the room. I also discussed the case with Dr. Herzog. He was on Keppra pre viously and because of potential behavioral disturbances and the patient having "too much energy," th is was from being seen in the hospital where he would throw things and be combative. The Keppra was discontinued. He was not restarted on antiepileptic medications. The discussion was for him to be p laced on Depakote as both a seizure medication and for mood control. The titration will be [address] arting at night for a week and increasing by 250 every week until 500 mg twice daily. The patient is to be discharged home. Past Medical History: As noted above including diabetes, hypertension, kidney disease, seizures, and Alzheimer's disease. Surgical History: Cardiac surgery in 1998, bypass surgery in 1990, cholecystectomy in 1994, open hea rt surgery in 1998. Family History: Diabetes in father, heart disease in mother, and blood pressure in mother as well. Social History: The patient lives with family members who are available, but not 24 hours a day. He requires significant help managing ordinary activities. No current alcohol, tobacco, or IV drug use . Home Medications: Flomax 0.4 mg daily, Tylenol 500 mg daily, also on trazodone, Pepcid, and Claritin . Allergies: STATINS AND HMG-COA REDUCTASE MEDICATIONS. Family History: Noncontributory. Review of Systems: No current fevers or chills. No significant myalgias, arthralgias. No rash. No headache. No weigh t change. Physical Examination: Vital Signs: Blood pressure 151/64, pulse 78, respiratory rate 16, temperature 98, oxygen saturation 94%. HEENT: Mr. Brooks is normocephalic, atraumatic. Sclerae anicteric. Oropharynx moist. Neck: Supple. Chest: No significant abnormalities noted. Abdomen: Soft. Extremities: No significant clubbing, cyanosis, or edema. Neurologic: He is alert, interactive, follows simple commands and have difficulty following complex commands. He has no focal neurologic deficits in upper and lower extremities. Assessment: Mr. Brooks is an 83-year-old patient with possible additional seizures and behavioral d isturbance, advanced Alzheimer's disease, diabetes mellitus. He has psychotic features with Alzheime r's and possible seizures. Plan: 1.Depakote 250 mg to titrate up to 500 mg twice daily. 2.Outpatient, may consider ambulatory video EEG monitoring. 3.He likely requires 24-hour supervision for safety awareness, potentially in a memory care unit. 4.All comorbidities are managed by Dr. Herzog and he will follow up with Dr. Herzog in 1 week and in thi s clinic in 2 weeks. JOCELIN/ORESTES Voice ID: [id number] Report ID: [id number]
--- NOTE | 2024-03-21 08:32 | HP ---
Date of Admission: 03/19/2024 Chief Complaint: Confusion. History Of Present Illness: This is an 83-year-old male patient, who lives at home, was brought into emergency room by a family member because of worsening of his confusion. The patient has advanced A lzheimer's disease and on any normal given day, he has confusion, but he was noted to be more confuse d than usual as family reported and brought him to emergency room. Recently, such confusion was asso ciated with seizure episodes. Dr. Lees had tried him on Keppra, but family reported that it was causing mood swings, so that medication was discontinued and no new medication was started in its dianna ce as I understand. Family denies any reports of any fever, cough, congestion. No abdominal pain, n ausea, vomiting, diarrhea, etc. After the patient was evaluated in ER, emergency room physician cont acted me requesting admission to the hospital. The patient received 500 cc of IV fluid in the emerge ncy room. During nighttime, as I understand by discussing with nursing staff, they tried to establis h 2 different IV accesses and he pulled out IV access immediately after it was placed in. When I saw him this morning, he was lying in bed, appeared to be in no distress, just like his normal self and no different than his baseline when I saw him this morning. There was no family member with him when I evaluated him this morning. Physical Examination: Vital Signs: This morning, temperature 97, pulse 78, respiratory rate 20, blood pressure 173/84. Pr ior blood pressure was 150/66. Oxygen saturation 94% on room air. Height 6 feet 3 inches, weight 20 0 pounds. General: Awake, alert, oriented, not in distress. HEENT: Head atraumatic, normocephalic. Conjunctivae nonerythematous. Sclerae white. Mouth, no thr ush or edema noted. Ears/Nose, no mass, lesion, discharge noted. Neck: Supple. No JVD, lymph nodes, bruit, thyromegaly noted. Lungs: Bilateral good equal air entry. Clear to auscultation. No rhonchi. No rales. Heart: Normal heart sounds, no murmur or gallop. Abdomen: Soft, bowel sounds normal. No guarding, rigidity, tenderness, mass, hepatosplenomegaly, dis tention, or bruit noted. Extremities: No leg edema. No calf tenderness. Skin: No rash, ulcer, cellulitis. Lymphatics: No lymph node enlargement in neck, supraclavicular, infraclavicular region. DENTAL ASSISTANT INSTRUCTOR: The patient is awake, alert, not oriented, not in any distress, follows simple commands, and mo ves all the 4 extremities equally against gravity. Chest: Unremarkable. External Genitalia: Deferred. Rectal: Deferred. Laboratory Data: Yesterday, white count 8.6, hemoglobin 13.2, platelets 238. This morning, white co unt 7.2, hemoglobin 12.6, platelets 260. Chemistry yesterday, sodium 138, potassium 4.6, chloride 10 4, bicarb 27, BUN 48, creatinine 2.24, glucose 122. This morning, sodium 139, potassium 3.8, chlorid e 108, bicarb 27, BUN 42, creatinine 1.77, glucose 93. Urinalysis, 1+ urobilinogen, more than 20 fani t, rest of the urinalysis was negative. Chest x-ray was reported as mild congestive heart failure stella awan, but clinically there is absolutely no evidence of congestive heart failure. On the contrary, he appeared to be dehydrated when he came in. CAT scan of the head was negative for any acute intrac ranial changes. Impression: 1.Encephalopathy, unspecified. 2.Alzheimer's disease, late stage. 3.Seizure disorder. 4.Volume depletion. 5.Hypertension. 6.Mixed hyperlipidemia. 7.Type 2 diabetes mellitus. 8.Gastroesophageal reflux disease. 9.Osteoarthritis, multiple sites. Plan: We will go ahead and admit the patient to hospital for observation. IV fluids were ordered, b ut the patient pulled out his IV access 2 different times soon after it was placed, so what I have as [facility] nursing staff is to see if he will allow to place IV access while his family members are with him during daytime, so they can help him to try to maintain IV access, so we can give him some IV fluid hydration. We will consult neurologist, Dr. Lees, and I did communicate with him during the cour se of day today and discuss all the details and what he is recommending is elective outpatient video monitoring type of EEG testing to be done which can be done on elective outpatient basis and we will assist with that, but he is also suggesting for the patient to try Depakote starting at 250 mg at bed time and every week increase the dose by adding 250 mg until we reach a dose of 500 mg 2 times a day. We communicated with Dr. Lees 2 times, once earlier before he evaluated the patient providing a ll the information and details, and second time communication happens after he evaluated the patient. Plan was to discharge him to go home this evening, but during evening hours we found out that famil y already had gone for the day and they reported to nursing staff that they preferred the patient to be discharged tomorrow morning instead of later this evening. I will see him tomorrow morning. Total time spent minutes. CIPRIANO/MODL Voice ID: [id number]
[2024-03-21 09:17] VITALS: BP 143/73; TEMP 97.9
--- NOTE | 2024-03-22 01:14 | DS ---
Date of Discharge: 03/21/2024 Disposition: Discharged to go home. Physical Examination: HEENT: Unremarkable. Lungs: Clear to auscultation. Heart: Heart sounds normal. Abdomen: Soft. Bowel sounds normal. No guarding, rigidity, tenderness, distention. Extremities: No leg edema. Discharge Medications And Instructions: 1.Continue all prior home medication. 2.Start Depakote 250 mg take 1 tablet by mouth daily at bedtime and prescription will be sent to [facility] pharmacy from office. 3.Drink 60 ounce water daily. 4.Follow up with Dr. Herzog next week and Dr. Lees in 2 weeks. Hospital Course: An 83-year-old male patient who has end-stage Alzheimer disease, was brought into [facility] emergency room with confusion. Family noted that he was more confused than his usual baseline and brought him to the emergency room. There was no fall, no head injury. No nausea, vomiting, fever, chills, cough, congestion, vomiting, diarrhea, etc. After he was evaluated in the ER, he was admitte d to the hospital. His urinalysis did not indicate any evidence of infection. Chest x-ray did not s how any pneumonia. CAT scan of the head was negative for any acute intracranial changes and blood wo rk was unremarkable except evidence of volume depletion. He received about 500 mL of IV fluid in the emergency room that actually resulted in improvement in his renal function, but after that, the ishmael ent did not keep any IV access and as a result of that, we were not able to provide any further ongoi ng IV fluid hydration. A couple of times IV access was placed, but within short time after it was pl aced, the patient took it out. Dr. Lees was consulted from Neurology Service, and he believes th at his confusion was due to underlying seizure episodes and he has suggested for patient to start Dep akote 250 mg daily at bedtime and every week and 250 mg until we reach to 500 mg 2 times a day. He h as discussed all the details with family member and the patient was discharged to go home in stable c ondition today. This morning when I saw him he was lying in bed, very happy, smiling, does not answe r questions appropriately due to his baseline confusions due to underlying Alzheimer's, but at the [facility] time, no other obvious complaints reported. He was not in any distress and vital signs were stabl e, so patient was discharged to go home with above-mentioned medications and instructions. Final Diagnoses: 1.Encephalopathy, unspecified. 2.Seizure disorder. 3.Alzheimer disease, late stage. 4.Volume depletion. 5.Hypertension. 6.Hyperlipidemia. CIPRIANO/MODL Voice ID: [id number] Report ID: [id number]
--- NOTE | 2024-03-22 16:54 | EKG ---
Test Date: 2024-03-19 Test Time: 20:16:06 Coupon Clerk: RALPH MEASUREMENT RESULTS: Intervals: Rate: 65 DC: 170 QRSD: 82 QT: 422 QTc: 438 Hunter: P: 34 DC: 170 QRS: 31 T: 64 INTERPRETIVE STATEMENTS: Normal sinus rhythm Normal ECG Compared to ECG 02/09/2024 18:57:58 No significant changes Electronically Signed On 03-22-24 16:44:51 CDT by Waldo Yee
== END 2024-03-21 08:39 | disposition home or self-care (01) ==
LOC: ER 19:18 → ERHOLD 23:08 → 2ND 03-20 01:39
PROVIDERS: ADMIT Internal Medicine; ATTEND Internal Medicine
DX: E86.9 Volume depletion, unspecified (principal); G40.909 Epilepsy, unspecified, not intractable, without status epilepticus; G93.40 Encephalopathy, unspecified; G30.9 Alzheimer's disease, unspecified; F02.80 Dementia in other diseases classified elsewhere, unspecified severity, without behavioral disturbance, psychotic disturbance, mood disturbance, and anxiety; I50.20 Unspecified systolic (congestive) heart failure; I10 Essential (primary) hypertension; E78.2 Mixed hyperlipidemia; E11.9 Type 2 diabetes mellitus without complications; K21.9 Gastro-esophageal reflux disease without esophagitis; M19.90 Unspecified osteoarthritis, unspecified site
CPT/HCPCS: 96361; 93005; 85025 ×2; 81001; 80048 ×2; 36415; 85610; 82565; 85730; 84484; 70450; 71045; 51702; 96374; 99285; J1630; J7040; J7030; G0378

== ENCOUNTER 2024-05-25 17:34 | Observation (INO) | payer OTHER ==
[2024-05-25] MEDS ORDERED: NA CHLORIDE 0.9% 1,000 ML ONE (17:58)
[2024-05-25 18:10] LABS: Absolute Basophils 0.1 K/uL (0-0.5); Absolute Eosinophils 0.1 K/uL (0-0.5); Absolute Lymphocytes (CBC) 1.4 K/uL (0.7-4.9); Absolute Monocytes 0.4 K/uL (0.1-1.3); Absolute Neutrophil 5.7 K/uL (1.8-8.0); Basophils % 0.8 % (0-1.3); Eosinophils % 1.5 % (0-4.4); Hematocrit 41.1 % (39.6-49.0); Hemoglobin 13.8 g/dL (13.6-17.9); Lymphocytes % 17.7 % (15.3-44.8); MCH 30.2 pg (27.0-35.0); MCHC 33.5 g/dL (32.0-36.0); MCV 90.1 fL (80-100); MPV 8.4 fL (7.6-11.3); Monocytes % 5.7 % (3.3-12.3); Neutrophils % 74.3 % (41.7-73.7); Nucleated Red Blood Cells % 0.1 % (0-0); Platelets 260 thou/uL (152-406); RBC Red Blood Cell Count 4.57 M/uL (4.33-5.43); Red Cell Distribution Width 13.6 % (12.1-15.2)
--- NOTE | 2024-05-25 18:14 | RAD REPORT ---
EXAM DESCRIPTION: Yane Single View05/25/2024 6:04 pm CLINICAL HISTORY: Confusion. COMPARISON: 2021 FINDINGS: The lungs appear clear of acute infiltrate. The heart mildly to moderately enlarged. Stable dilatation of the aorta. Postsurgical changes involve chest IMPRESSION: No acute abnormalities displayed
[2024-05-25 18:23] LABS: Albumin 4.2 g/dL (3.4-5.0); Albumin/Globulin Ratio 0.9 (1.1-1.8); Anion Gap 12.5 mEq/L (5.0-15.0); Bilirubin Direct 0.2 mg/dL (0-0.2); Bilirubin Indirect, Calculated 0.7 mg/dL (0.2-0.8); Bilirubin Total 0.9 mg/dL (0.2-1.0); Globulin 4.7 g/dL (2.3-3.5); Magnesium 2.3 mg/dL (1.6-2.4); Potassium 4.5 mEq/L (3.5-5.1); Protein, Total 8.9 g/dL (6.4-8.2); Troponin High Sensitivity 9.7 pg/mL (<58.9)
--- NOTE | 2024-05-25 18:39 | RAD REPORT ---
EXAM DESCRIPTION: CT - Head Brain Wo Cont - 05/25/2024 6:23 pm CLINICAL HISTORY: Alteration of awareness/confusion COMPARISON: February 2024 TECHNIQUE: Computed axial tomography of the head was obtained. IV contrast was not requested. All CT scans are performed using dose optimization technique as appropriate and may include automated exposure control or mA/KV adjustment according to patient size. FINDINGS: An intracranial bleed is not seen The ventricles are normal in caliber No extra-axial fluid collection is noted. Prominent cerebral atrophy. No significant hyperdensities the brain. Fluid within the sinuses/ mastoids is not seen. IMPRESSION: No acute intracranial abnormality is seen If patient's symptoms persist MRI of the brain would be recommended
[2024-05-25 18:44] LABS: Sqamous Epithelial <5 /HPF (None Seen); Urine Bacteria None Seen /HPF (<20); Urine Bilirubin NEGATIVE (Negative); Urine Blood Negative (Negative); Urine Clarity Turbid (Clear); Urine Color Yellow (Yellow); Urine Culture Reflex Order NOT NEEDED; Urine Glucose NEGATIVE (Negative); Urine Ketones NEGATIVE (Negative); Urine Micro Reflex YN NO BILL MICROSCOPIC; Urine Mucus Slight /HPF (None Seen); Urine Nitrite NEGATIVE (Negative); Urine Protein TRACE (Negative); Urine RBC <5 /HPF (None Seen); Urine Urobilinogen Normal (Normal); Urine WBC <5 /HPF (<5)
--- NOTE | 2024-05-25 19:28 | EDPHYS ---
Physician Documentation [facility] Name: Munir Brooks Age: 83 yrs Sex: Male : 1940 Arrival Date: 05/25/2024 Time: 17:34 Bed 3 Private MD: ED Physician Kodak Nickerson HPI: 05/25 18:08 This 83 yrs old Male presents to ER via Wheelchair with complaints of altered and rt dehydration. 18:08 Patient presents to the ED with reported altered mental status, possible dehydration. rt Patient has history of severe dementia, reportedly walked up from. Today while the stimulator from his house and police were called when he tried to get into a vehicle that he thought was his. The daughter states that the patient is off of his baseline, is only able to speak his name currently. Denies any acute complaints, symptoms are moderate in severity, no other aggravating or alleviating factors.. Historical: - Allergies: 17:50 Namenda; aa5 17:50 Echrrda-Wqi-Pjx Reductase Inhibitor; aa5 - Home Meds: 17:54 amlodipine 5 mg tab 1 tab once daily [Active]; aspirin 81 mg Oral tab 81 mg daily mb9 [Active]; atorvastatin 40 mg Oral tab 1 tab at bedtime [Active]; donepezil 10 mg Oral tab 1 tab twice daily [Active]; famotidine 20 mg Oral tab 1 tab 1 at night [Active]; Iron CR Oral [Active]; loratadine 10 mg Oral tab 1 tab once daily at bedtime for Allergic rhinitis [Active]; memantine 5 mg Oral tab 1 tab once daily at noon [Active]; tamsulosin 0.4 mg Oral cap 1 cap once daily at noon [Active]; Melatonin Oral [Active]; Tradjenta 5 mg Oral tab 1 tab once daily [Active]; trazodone 50 mg Oral tab 0.5 tabs at bedtime [Active]; Trazodone Oral [Active]; - PMHx: 17:50 Alzheimer's disease; Congenital Heart Defect; Dementia; Seizures; aa5 - PSHx: 17:50 Cholecystectomy; heart surgery; aa5 - Immunization history:: Adult Immunizations up to date. - Infectious Disease History:: Denies. - Family history:: not pertinent. - Social history:: Smoking status: unknown. ROS: 18:08 Unable to obtain ROS due to altered mental status, baseline dementia, rt Exam: 18:08 Head/Face: Normocephalic, atraumatic. Chest/axilla: Normal chest wall appearance and rt motion. Nontender with no deformity. No lesions are appreciated. Cardiovascular: Regular rate and rhythm with a normal S1 and S2. No gallops, murmurs, or rubs. Normal PMI, no JVD. No pulse deficits. Respiratory: Lungs have equal breath sounds bilaterally, clear to auscultation and percussion. No rales, rhonchi or wheezes noted. No increased work of breathing, no retractions or nasal flaring. Abdomen/GI: Soft, non-tender, with normal bowel sounds. No distension or tympany. No guarding or rebound. No evidence of tenderness throughout. Skin: Warm, dry with normal turgor. Normal color with no rashes, no lesions, and no evidence of cellulitis. MS/ Extremity: Pulses equal, no cyanosis. Neurovascular intact. Full, normal range of motion. 18:08 Constitutional: The patient appears Confused 18:08 ECG was reviewed by the Attending Physician. 18:08 Neuro: Confused, only saying his name, moves all 4 extremities equally, Vital Signs: 17:42 BP 148 / 92; Pulse 96; Resp 16 S; Temp 97.3(A); Pulse Ox 96% on R/A; aa5 19:43 BP 132 / 72; Pulse 72; Resp 18; Temp 97.6; Pulse Ox 99% on R/A; pc2 MDM: 17:47 Patient medically screened. rt 19:21 Differential Diagnosis Dehydration, electrolyte disturbance, AMS. Data reviewed: vital rt signs, nurses notes, lab test result(s), EKG, radiologic studies. Consideration of Admission/Observation Patient was admitted/placed on observation. Management of patient was discussed with the following: Hospitalist: Agrees to admit. I considered the following discharge prescriptions or medication management in the emergency department Medications were administered in the Emergency Department. See MAR. Independent interpretation of the following test(s) in the Emergency Department CT Scan: My interpretation is No intracranial hemorrhage seen on interpretation of CT scan images. Care significantly affected by the following chronic conditions: Dementia. Counseling: I had a detailed discussion with the patient and/or guardian regarding the historical points, exam findings, and any diagnostic results supporting the discharge/admit diagnosis, lab results, radiology results, the need for further work-up and treatment in the hospital. Response to treatment: There is no appreciated change of the patient's symptoms at this time. 05/25 17:48 Order name: Basic Metabolic Panel; Complete Time: 18:41 rt 05/25 17:48 Order name: CBC with Diff; Complete Time: 18:22 rt 05/25 17:48 Order name: LFT's; Complete Time: 18:41 rt 05/25 17:48 Order name: Magnesium; Complete Time: 18:41 rt 05/25 17:48 Order name: Troponin HS; Complete Time: 18:41 rt 05/25 17:48 Order name: UAM; Complete Time: 18:47 rt 05/25 17:48 Order name: CPK; Complete Time: 18:41 rt 05/25 19:46 Order name: Urinalysis w/ reflexes EDMS 05/25 19:46 Order name: CBC with Automated Diff EDMS 05/25 19:46 Order name: CBC with Automated Diff EDMS 05/25 19:46 Order name: Comprehensive Metabolic Panel EDMS 05/25 19:46 Order name: Comprehensive Metabolic Panel EDMS 05/25 17:48 Order name: XRAY Chest (1 view); Complete Time: 18:22 rt 05/25 17:48 Order name: CT Head Brain wo Cont; Complete Time: 18:41 rt 05/25 17:48 Order name: Cardiac monitoring; Complete Time: 17:57 rt 05/25 17:48 Order name: EKG - Nurse/Tech; Complete Time: 17:57 rt 05/25 17:48 Order name: IV Saline Lock; Complete Time: 17:57 rt 05/25 17:48 Order name: Labs collected and sent; Complete Time: 17:57 rt 05/25 17:48 Order name: O2 Per Protocol; Complete Time: 17:57 rt 05/25 17:48 Order name: O2 Sat Monitoring; Complete Time: 17:57 rt 05/25 17:58 Order name: Straight Cath - Urine; Complete Time: 18:12 mb9 EC:08 Rate is 92 beats/min. Rhythm is regular, Normal Sinus Rhythm with No ectopy. QRS [place] rt is Normal. FL interval is normal. QRS interval is normal. QT interval is normal. No Q waves. Clinical impression: NSR w/ Non-specific ST/T Changes. Administered Medications: 18:05 Drug: NS 0.9% IV 1000 ml IV at 1 bolus Per protocol; 1000 mL bolus Route: IV; Rate: 1 mb9 bolus; Site: right antecubital; 19:51 Follow up: Response: No adverse reaction; IV Status: Completed infusion pc2 Disposition Summary: 05/25/24 19:27 Hospitalization Ordered Notes: Hospitalization Status: Inpatient Admission rt Provider: Edgard Lepe rt Location: Telemetry/MedSurg (Inpatient) rt Condition: Stable rt Problem: new rt Symptoms: are unchanged rt Bed/Room Type: Standard rt Room Assignment: 205(05/25/24 20:15) [facility] Diagnosis - Acute kidney injury rt Forms: - Medication Reconciliation Form rt - SBAR form rt - Leadership Thank You Letter rt Signatures: Dispatcher [employer] Edelmira Ashford RN RN aa5 Tish eD La O RN RN mb9 Kodak Nickerson MD MD rt Joanne Lai [facility] Sindhu nance RN pc2 Corrections: (The following items were deleted from the chart) 17:49 17:49 BASIC METABOLIC PANEL+C.LAB.BRZ ordered. EDMS EDMS 17:49 17:49 CBC+H.LAB.BRZ ordered. EDMS EDMS 17:49 17:49 HEPATIC FUNCTION+C.LAB.BRZ ordered. EDMS EDMS 17:49 17:49 MAGNESIUM+C.LAB.BRZ ordered. EDMS EDMS 17:49 17:49 Troponin High Sensitivity+C.LAB.BRZ ordered. EDMS EDMS 17:49 17:49 Urinalysis W/Microscopic+U.LAB.BRZ ordered. EDMS EDMS 17:49 17:49 CREATINE PHOSPHOKINASE+C.LAB.BRZ ordered. EDMS EDMS 17:49 17:49 Chest Single View+RAD.RAD.BRZ ordered. EDMS EDMS 17:49 17:49 Head Brain Wo Cont+CT.RAD.BRZ ordered. EDMS EDMS 20:06 19:27 rt kmf 20:15 20:06 208 kmf kmf
--- NOTE | 2024-05-25 19:28 | ER ---
Nurse's Notes [facility] Name: Munir Brooks Age: 83 yrs Sex: Male : 1940 Arrival Date: 05/25/2024 Time: 17:34 Bed 3 Private MD: Diagnosis: Acute kidney injury Presentation: 05/25 17:42 Chief complaint: Pt's daughter reports pt wandered off and was found by the police aa5 approximately 1 mile away from his house. Pt altered, having visual hallucinations, and A\T\O x person only. Hx of Dementia. 17:42 Coronavirus screen: At this time, the client does not indicate any symptoms associated aa5 with coronavirus-19. Ebola Screen: Patient denies travel to an Ebola-affected area in the 21 days before illness onset. Initial Sepsis Screen: Does the patient meet any 2 criteria? HR > 90 bpm. Does the patient have a suspected source of infection? No. Patient's initial sepsis screen is negative. Risk Assessment: Do you want to hurt yourself or someone else? Unable to obtain. Onset of symptoms was May 25, 2024. 17:42 Acuity: MAGALY 2 aa5 17:42 Method Of Arrival: Wheelchair aa5 Historical: - Allergies: 17:50 Namenda; aa5 17:50 Smuejem-Rip-Ujy Reductase Inhibitor; aa5 - Home Meds: 17:54 amlodipine 5 mg tab 1 tab once daily [Active]; aspirin 81 mg Oral tab 81 mg daily mb9 [Active]; atorvastatin 40 mg Oral tab 1 tab at bedtime [Active]; donepezil 10 mg Oral tab 1 tab twice daily [Active]; famotidine 20 mg Oral tab 1 tab 1 at night [Active]; Iron CR Oral [Active]; loratadine 10 mg Oral tab 1 tab once daily at bedtime for Allergic rhinitis [Active]; memantine 5 mg Oral tab 1 tab once daily at noon [Active]; tamsulosin 0.4 mg Oral cap 1 cap once daily at noon [Active]; Melatonin Oral [Active]; Tradjenta 5 mg Oral tab 1 tab once daily [Active]; trazodone 50 mg Oral tab 0.5 tabs at bedtime [Active]; Trazodone Oral [Active]; - PMHx: 17:50 Alzheimer's disease; Congenital Heart Defect; Dementia; Seizures; aa5 - PSHx: 17:50 Cholecystectomy; heart surgery; aa5 - Immunization history:: Adult Immunizations up to date. - Infectious Disease History:: Denies. - Family history:: not pertinent. - Social history:: Smoking status: unknown. Screenin:54 [facility] ED Fall Risk Assessment (Adult) History of falling in the last 3 months, mb9 including since admission Yes- fall prone (multiple falls) (3 pts) Confusion or Disorientation Yes (5 pts) Intoxicated or Sedated No (0 pts) Impaired Gait No (0 pts) Mobility Assist Device Used No (0 pt) Altered Elimination No (0 pt) Score/Fall Risk Level 3 or more points = High Risk Oriented to surroundings, Maintained a safe environment, Educated pt \T\ family on fall prevention, incl call for assistance when getting out of bed, Assessed \T\ reinforced patient's understanding of fall precautions, Hourly rounding (assess needs \T\ fall precautionary measures) done. Abuse screen: Denies threats or abuse. Nutritional screening: No deficits noted. Tuberculosis screening: No symptoms or risk factors identified. Assessment: 17:54 Reassessment: Daughter at bedside. mb9 17:56 General: Appears uncomfortable. Pain: Unable to use pain scale. Patient is disoriented. mb9 Neuro: Level of Consciousness is confused, Oriented to none Speech rapid. Cardiovascular: Patient's skin is warm and dry. Respiratory: Airway is patent Respiratory effort is even, unlabored, Respiratory pattern is regular, symmetrical. GI: Abdomen is round non-distended. : No signs and/or symptoms were reported regarding the genitourinary system. EENT: No signs and/or symptoms were reported regarding the EENT system. Derm: Skin is pink, warm \T\ dry. Musculoskeletal: Range of motion: intact in all extremities. 19:20 General: Appears in no apparent distress. comfortable, Behavior is calm. Neuro: Level pc2 of Consciousness is awake, confused, Oriented to person. Cardiovascular: Patient's skin is warm and dry. Rhythm is sinus rhythm. Respiratory: Airway is patent Respiratory effort is even, unlabored, Respiratory pattern is regular, symmetrical. GI: Abdomen is non-distended. : No deficits noted. EENT: No deficits noted. Derm: Skin is pink, warm \T\ dry. Musculoskeletal: Circulation, motion, and sensation intact. Range of motion: intact in all extremities. 20:15 Reassessment: No changes from previously documented assessment. rg5 Vital Signs: 17:42 BP 148 / 92; Pulse 96; Resp 16 S; Temp 97.3(A); Pulse Ox 96% on R/A; aa5 19:43 BP 132 / 72; Pulse 72; Resp 18; Temp 97.6; Pulse Ox 99% on R/A; pc2 ED Course: 17:36 Patient arrived in ED. ra3 17:37 Kodak Nickerson MD is Attending Physician. rt 17:42 Arm band placed on. aa5 17:52 Triage completed. aa5 17:53 Placed in gown. Bed in low position. Call light in reach. Side rails up X 1. Provided mb9 Education on: press call light if needing anything. Client placed on continuous cardiac and pulse oximetry monitoring. NIBP monitoring applied. monitoring analyst on. Door closed. Noise minimized. Warm blanket given. Pillow given. 17:53 Inserted saline lock: 18 gauge in right forearm, using aseptic technique. Blood cm10 collected. 17:53 Initial lab(s) drawn, by me, sent to lab. First set of blood cultures drawn by me. cm10 17:53 EKG done, by ED staff, reviewed by Kodak Nickerson MD. mb9 18:05 Tish De La O, EDWIN is Primary Nurse. mb9 18:06 XRAY Chest (1 view) In Process Unspecified. EDMS 18:13 Straight cath inserted, using sterile technique, 14 Fr. Returned clear yellow urine. cm10 Patient tolerated well. 18:14 Urine collected: straight cath specimen, clear. mb9 18:25 CT Head Brain wo Cont In Process Unspecified. EDMS 19:01 Report given to EDWIN CANO. mb9 19:27 Edgard Lepe MD is Hospitalizing Provider. rt 20:15 IV is intact, Patient admitted, IV remains in place. rg5 20:17 No provider procedures requiring assistance completed. rg5 Administered Medications: 18:05 Drug: NS 0.9% IV 1000 ml IV at 1 bolus Per protocol; 1000 mL bolus Route: IV; Rate: 1 mb9 bolus; Site: right antecubital; 19:51 Follow up: Response: No adverse reaction; IV Status: Completed infusion pc2 Medication: 17:53 VIS not applicable for this client. mb9 Outcome: 19:27 Decision to Hospitalize by Provider. rt 20:15 Admitted to Med/surg accompanied by nurse, rgMilad 20:15 Condition: stable 20:15 Instructed on safety practices, 20:56 Patient left the ED. rg5 Signatures: Dispatcher [employer] EDMS Edelmira Rodriguez RN RN aa5 Tish De La O RN RN mb9 Kodak Nickerson MD MD rt Taniya Abdullahi RN RN cm10 Jael Carvajal 3 Olvin Becker RN RN rg5 Sindhu nance RN RN pc2 Corrections: (The following items were deleted from the chart) 17:53 17:42 Chief complaint: Pt's daughter reports pt was wandered off and was found by the [facility] police approximately 1 mile from his house. Pt altered, having visual hallucinations, and A\T\O x person only. Hx of Dementia aa5 18:16 18:13 Straight cath inserted, using sterile technique, 14 Fr. Returned clear yellow cm10 urine. Patient tolerated well. mb9
[2024-05-25] MEDS ORDERED: ONDANSETRON 4 MG/2 ML VIAL IV PRN (19:41)
[2024-05-25] MEDS ORDERED: ACETAMINOPHEN 325 MG TABLET PO PRN (19:41)
--- NOTE | 2024-05-25 19:41 | P.HP ---
Certification for Inpatient Patient admitted to: Observation With expected LOS: <2 Midnights Practitioner: I am a practitioner with admitting privileges, knowledge of patient current condition, hospital course, and medical plan of care. Services: Services provided to patient in accordance with Admission requirements found in Title 42 Section 412.3 of the Code of Federal Regulations Patient History Date of Service: 05/25/24 Reason for admission: MELITA History of Present Illness: 83 yrs old Male past medical history of Alzheimer's dementia, seizure, history of congenital heart disease status post surgery, hypertension, hyperlipidemia presents to ER with complaints of altered mental status and dehydration. Patient is a poor historian hence most of the history is obtained from the chart review and talking to the ER physician. The daughter states that the patient is off of his baseline, is only able to speak his name currently. Denies any acute complaints, no other aggravating or alleviating factors.. Patient has been more confused than the baseline Patient was assessed in the ER and is admitted for further management of acute encephalopathy Allergies Aoxlywi-YBT-AiA Reductase Inhibitor [Svlnhno-Mac-Zlf Reductase Inhibitor] Adverse Reaction (Intermediate, Verified 12/28/12 17:06) Itching/Hives/Rash No Known Allergies Allergy (Uncoded 05/25/24 22:21) Unknown Home medications list reviewed: Yes Home Medications: Famotidine 20 mg PO BEDTIME 09/01/22 Trazodone [Desyrel] 0.5 tab PO BEDTIME 09/01/22 - Past Medical/Surgical History Diabetic: No Past Medical History: Reviewed- Non-Contributory -: HDL -: dementia -: diabetes -: urinary retention -: HTN Past Surgical History: Reviewed- Non-Contributory -: 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, fixed with surgery -: 1989 Gallbladder surgery - Family History Family History: Reviewed- Non-Contributory - Family History Father -: Heart disease Mother -: Cancer - Social History Smoking Status: Never smoker Alcohol use: No CD- Drugs: No Caffeine use: Yes Review of Systems is unable to be obtained Physical Examination - Vital Signs Temperature: 97.3 F Blood Pressure: 148/88 Pulse: 94 Respirations: 16 Pulse Ox (%): 94 - Physical Exam General: Alert, In no apparent distress, Confused HEENT: Atraumatic, Normocephalic Neck: Supple, 2+ carotid pulse no bruit Respiratory: Clear to auscultation bilaterally, Normal air movement Cardiovascular: Normal pulses, Regular rate/rhythm Capillary refill: <2 Seconds Gastrointestinal: Hypoactive, W/out hepatosplenomegaly Musculoskeletal: No clubbing, No swelling Integumentary: No rashes Neurological: Normal strength at 5/5 x4 extr, Cranial nerves 3-12 intact, Normal reflexes 2+ Lymphatics: No axilla or inguinal lymphadenopathy - Studies Laboratory Data (last 24 hrs) 05/25/24 05/25/24 17:53 17:53 WBC 7.70 Hgb 13.8 Hct 41.1 Plt Count 260 Sodium 139 Potassium 4.5 BUN 54 H Creatinine 2.48 H Glucose 105 Magnesium 2.3 Total Bilirubin 0.9 AST 21 ALT 24 Alkaline Phosphatase 58 Assessment and Plan - Problems (Diagnosis) (1) Acute metabolic encephalopathy Current Visit: Yes Status: Acute Plan: Acute encephalopathy Patient has a baseline dementia Monitor neuro vital signs CT brain noted No acute changes Hypertension Antihypertensives titrated Acute kidney injury Renal parameters monitor IV hydration Electrolytes monitor and replace accordingly Rhabdomyolysis Elevated CK level ordered IV hydration Monitor closely GI/DVT prophylaxis Advanced directive full code - Advance Directives Does patient have a Living Will: No Does patient have a Durable POA for Healthcare: No
[2024-05-25 22:31] VITALS: O2SAT 99; BMI 23.1
[2024-05-26] MEDS: NA CHLORIDE 0.9% 1,000 ML IV SCH (00:09)
[2024-05-26 06:04] LABS: Absolute Basophils 0.1 K/uL (0-0.5); Absolute Eosinophils 0.2 K/uL (0-0.5); Absolute Lymphocytes (CBC) 1.7 K/uL (0.7-4.9); Absolute Monocytes 0.7 K/uL (0.1-1.3); Absolute Neutrophil 5.1 K/uL (1.8-8.0); Basophils % 0.7 % (0-1.3); Eosinophils % 2.3 % (0-4.4); Hematocrit 34.5 % (39.6-49.0); Hemoglobin 11.8 g/dL (13.6-17.9); Lymphocytes % 22.5 % (15.3-44.8); MCH 30.9 pg (27.0-35.0); MCHC 34.3 g/dL (32.0-36.0); MCV 90.2 fL (80-100); MPV 8.1 fL (7.6-11.3); Monocytes % 8.7 % (3.3-12.3); Neutrophils % 65.8 % (41.7-73.7); Nucleated Red Blood Cells % 0.1 % (0-0); Platelets 218 thou/uL (152-406); RBC Red Blood Cell Count 3.83 M/uL (4.33-5.43); Red Cell Distribution Width 13.5 % (12.1-15.2)
[2024-05-26 06:12] LABS: Albumin 3.1 g/dL (3.4-5.0); Albumin/Globulin Ratio 0.8 (1.1-1.8); Anion Gap 7.5 mEq/L (5.0-15.0); Bilirubin Total 1.1 mg/dL (0.2-1.0); Globulin 3.7 g/dL (2.3-3.5); Potassium 3.5 mEq/L (3.5-5.1); Protein, Total 6.8 g/dL (6.4-8.2)
--- NOTE | 2024-05-26 07:22 | P.PN ---
Date of Service: 05/26/24 Subjective, Dementia, patient confused Review of Systems is unable to be obtained due to dementia Physical Examination - Vital Signs reviewed - Physical Exam General: In no apparent distress, Confused HEENT: Atraumatic, Normocephalic Neck: Supple, 2+ carotid pulse no bruit Respiratory: Clear to auscultation bilaterally, Normal air movement Cardiovascular: Normal pulses, Regular rate/rhythm Capillary refill: <2 Seconds Gastrointestinal: W/out hepatosplenomegaly nontender Musculoskeletal: No clubbing, No swelling Integumentary: No rashes Neurological: Normal strength at 5/5 x4 extr, dementia Assessment and Plan - Problems (Diagnosis) Acute encephalopathy due to dehydration Patient has a baseline dementia Monitor neuro vital signs CT brain noted IMPRESSION: No acute intracranial abnormality is seen If patient's symptoms persist MRI of the brain would be recommended Hypertension Antihypertensives titrated Acute kidney injury Renal parameters monitor IV hydration Electrolytes monitor and replace accordingly Rhabdomyolysis Elevated CK level ordered IV hydration Monitor closely GI/DVT prophylaxis Advanced directive full code - Advance Directives Does patient have a Living Will: No Does patient have a Durable POA for Healthcare: No
[2024-05-26] MEDS: POTASSIUM CL SA 10 MEQ TAB PO ONE (08:00)
[2024-05-26] MEDS: ENOXAPARIN 30 MG/0.3 ML SQ SCH (08:12)
[2024-05-26] MEDS ORDERED: ENOXAPARIN 40 MG/0.4 ML SQ SCH (09:00)
[2024-05-26] MEDS ORDERED: ZOLPIDEM TARTRATE 5 MG TABLET PO PRN (14:51)
[2024-05-26] MEDS ORDERED: MORPHINE 4 MG/ML SYR IV PRN (14:59)
[2024-05-26] MEDS ORDERED: MORPHINE 2 MG/ML SYR IV PRN (14:59)
[2024-05-26 16:00] LABS: Anion Gap 8.2 mEq/L (5.0-15.0); Potassium 4.2 mEq/L (3.5-5.1)
[2024-05-26 16:12] VITALS: BP 164/88; TEMP 98.7
[2024-05-26] MEDS ORDERED: FAMOTIDINE 20 MG TAB PO SCH (21:00)
[2024-05-26] MEDS ORDERED: TRAZODONE 50 MG TABLET PO SCH (21:00)
[2024-05-26] MEDS ORDERED: AMLODIPINE 5 MG TAB PO SCH (21:00)
--- NOTE | 2024-05-26 22:32 | HP ---
Date of Admission: 05/26/2024 Date of Discharge: 05/26/2024 Chief Complaint: Altered mental status. History Of Present Illness: This is an 83-year-old male patient who has late stage Alzheimer disease, lives at home with family, was found to have worsening of his confusion or altered mental status from baseline, and thus far he was brought into emergency room. After he was evaluated, he was admitted to the hospital with volume depletion and acute kidney injury. There is no history of any fever, chills, nausea, vomiting, or diarrhea. The patient was started on IV fluid and unfortunately yesterday when he came in, ER physician did not contact me and contacted the hospitalist service, and the patient was admitted to the hospitalist service, but this morning when I came to hospital I found out about the patient's admission and I took over this patient's care as of this morning. The patient denies any specific complaints, and there was no family member at bedside when I saw him. Medications: List reviewed. Review of Systems: APPLICATIONS PROCESSOR: As mentioned above. All other systems reviewed and negative. Allergies: TO STATIN. Past Medical History: Alzheimer disease, which is late stage; type 2 diabetes mellitus, which is diet controlled; hypertension; mixed hyperlipidemia; gastroesophageal reflux disease; liver cyst; chronic kidney disease stage 3B; benign prostatic hypertrophy; high PSA; osteoarthritis at multiple sites; anemia due to chronic kidney disease; anxiety; and seizure disorder. Past Surgical History: Significant for surgery for congenital heart disease many years ago and cholecystectomy. Family History: Father had HI. Social History: Negative for smoking and alcohol use. Physical Examination: Vital Signs: This morning, last vital signs, temperature 97.9, pulse 58, respiratory rate 18, blood pressure 150/75, oxygen saturation 97% on room air. Weight 185 pounds, height 6 feet 3 inches. General: Awake, alert, oriented, not in distress. HEENT: Head atraumatic, normocephalic. Conjunctivae nonerythematous. Sclerae white. Mouth, no thrush or edema noted. Ears/Nose, no mass, lesion, discharge noted. Neck: Supple. No JVD, lymph nodes, bruit, thyromegaly noted. Lungs: Bilateral good equal air entry. Clear to auscultation. No rhonchi. No rales. Heart: Normal heart sounds, no murmur or gallop. Abdomen: Soft, bowel sounds normal. No guarding, rigidity, tenderness, mass, hepatosplenomegaly, distention, or bruit noted. Extremities: No leg edema. No calf tenderness. Skin: No rash, ulcer, cellulitis. Lymphatics: No lymph node enlargement in neck, supraclavicular, infraclavicular region. Neuro: The patient is not oriented, but follows simple commands and moves all the 4 extremities equally against gravity. There is no facial asymmetry and speech is normal. Chest: Unremarkable. External Genitalia: Deferred. Rectal: Deferred. Laboratory Data: Yesterday, sodium 139, potassium 4.5, chloride 107, bicarb 24, BUN 54, creatinine 2.48, glucose 105. Liver function tests unremarkable. CPK 355. Troponin 9.7. This morning, sodium 142, potassium 3.5, chloride 112, bicarb 26, BUN 44, creatinine 1.68, glucose 87. Liver function test unremarkable. Yesterday, white count 7.7, hemoglobin 13.8, platelets 260. This morning, white count 7.8, hemoglobin 11.8. Urinalysis was normal. No evidence of any urinary tract infection. Chest x-ray: No acute cardiopulmonary changes. CAT scan of the head was negative for any acute intracranial changes. Hospital Course: After I saw the patient, I saw that he was getting IV fluid. We continued that. We repeated another chemistry panel this afternoon and once that result was available, decision was made to discharge him to go home. There is no evidence of any infection and patient does not require ongoing hospital care. The patient is medically stable for discharge. His creatinine is back to baseline at 1.5. Discharge Diagnoses: 1. Acute kidney injury. 2. Volume depletion. 3. Anemia due to chronic kidney disease. 4. Alzheimer disease, late stage. 5. Hypertension. 6. Hyperlipidemia. 7. Type 2 diabetes mellitus. 8. Gastroesophageal reflux disease. 9. Osteoarthritis, multiple sites. Total time spent today that includes review of emergency room records, prior hospital admission, records from 03/20/2024, prior office record and communication with the nursing staff, includes 90 minutes. CIPRIANO/MODL Voice ID: [id number]
[2024-05-27] MEDS ORDERED: PANTOPRAZOLE 40MG TABLET PO SCH (06:30)
[2024-05-27] MEDS ORDERED: AMLODIPINE 5 MG TAB PO SCH (09:00)
[2024-05-27] MEDS ORDERED: DULOXETINE 30 MG CAP PO SCH (09:00)
--- NOTE | 2024-05-28 14:22 | EKG ---
Test Date: 2024-05-25 Test Time: 17:50:45 Cable Rigger: MB MEASUREMENT RESULTS: Intervals: Rate: 92 NE: 174 QRSD: 80 QT: 366 QTc: 452 Newton: P: 66 NE: 174 QRS: 39 T: 80 INTERPRETIVE STATEMENTS: Normal sinus rhythm Nonspecific ST and T wave abnormality Abnormal ECG Compared to ECG 04/13/2024 10:13:33 No significant changes Electronically Signed On 05-28-24 14:16:20 CDT by Waldo Yee
== END 2024-05-26 17:31 | disposition home or self-care (01) ==
LOC: ER 17:34 → ERHOLD 19:41 → 2ND 21:26
PROVIDERS: ADMIT Internal Medicine; ATTEND Internal Medicine
DX: G93.41 Metabolic encephalopathy (principal); N17.9 Acute kidney failure, unspecified; E86.9 Volume depletion, unspecified; M62.82 Rhabdomyolysis; G30.9 Alzheimer's disease, unspecified; F02.C0 Dementia in other diseases classified elsewhere, severe, without behavioral disturbance, psychotic disturbance, mood disturbance, and anxiety; E78.2 Mixed hyperlipidemia; K21.9 Gastro-esophageal reflux disease without esophagitis; E11.22 Type 2 diabetes mellitus with diabetic chronic kidney disease; I12.9 Hypertensive chronic kidney disease with stage 1 through stage 4 chronic kidney disease, or unspecified chronic kidney disease; N18.32 Chronic kidney disease, stage 3b; M19.90 Unspecified osteoarthritis, unspecified site
CPT/HCPCS: 96361; 85025 ×2; 81001; 80048 ×2; 36415; 83735; 82550; 80076; 84484; 80053; 70450; 71045; 51702; 96360; 99285; J1650; J7030 ×3; G0378 ×3; 93005

== ENCOUNTER 2024-06-27 10:08 | Inpatient (IN) | payer OTHER ==
[2024-06-27] MEDS ORDERED: FOLIC ACID 5 MG/ML VIAL ONE (10:37)
[2024-06-27] MEDS ORDERED: NA CHLORIDE 0.9% 1,000 ML ONE ×2 (10:38→13:44)
--- NOTE | 2024-06-27 10:50 | RAD REPORT ---
EXAM DESCRIPTION: CT - Ct Stroke Brain Wo Cont - 06/27/2024 10:38 am CLINICAL HISTORY: STROKE ALERT COMPARISON: Head Brain Wo Cont dated 05/25/2024; Ct Stroke Brain Wo Cont dated 03/19/2024 TECHNIQUE: Noncontrast head CT images were obtained without IV contrast. Multiplanar reformats were generated and reviewed. All CT scans are performed using dose optimization technique as appropriate and may include automated exposure control or mA/KV adjustment according to patient size. FINDINGS: No intracranial hemorrhage, mass, or edema. Midline structures are unremarkable. Moderate diffuse parenchymal volume loss with asymmetric prominence of the left sylvian fissure, stab le. Ventricular caliber is stable. . Love-white matter differentiation is preserved, without evidence of acute infarct. No abnormal extra- axial fluid collections. Mastoid air cells and visualized portions of the paranasal sinuses are clear. No acute bony findings. IMPRESSION: No evidence of an acute intracranial process. Stable moderate diffuse parenchymal volume loss. The findings were communicated to Zaira Lamb on 06/27/2024 at 10:44 hours.
[2024-06-27 11:07] LABS: Absolute Eosinophils 0.1 K/uL (0-0.5); Absolute Lymphocytes (CBC) 1.5 K/uL (0.7-4.9); Absolute Monocytes 0.8 K/uL (0.1-1.3); Absolute Neutrophil 6.1 K/uL (1.8-8.0); Basophils % 0.4 % (0-1.3); Eosinophils % 1.3 % (0-4.4); Hematocrit 38.7 % (39.6-49.0); Lymphocytes % 17.4 % (15.3-44.8); MCH 30.2 pg (27.0-35.0); MCHC 33.6 g/dL (32.0-36.0); MCV 89.9 fL (80-100); Monocytes % 9.8 % (3.3-12.3); Neutrophils % 71.1 % (41.7-73.7); Nucleated Red Blood Cells % 0.1 % (0-0); Platelets 209 thou/uL (152-406); Red Cell Distribution Width 13.1 % (12.1-15.2)
[2024-06-27 11:14] LABS: PT Prothrombin Time 12.1 SECONDS (9.4-12.5); Protime INR 1.08
--- NOTE | 2024-06-27 11:21 | RAD REPORT ---
EXAM DESCRIPTION: CT - Neck Angio - 06/27/2024 10:50 am CLINICAL HISTORY: PAIN COMPARISON: Soft Tissue Neck W/Contr dated 03/25/2016; Head angio dated 06/27/2024 TECHNIQUE: Axial CT angiography images of the neck was performed with multiplanar and maximum intens ity projection reconstructions. Images performed following intravenous administration of 100mL Isovue 370. All CT scans are performed using dose optimization technique as appropriate and may include automated exposure control or mA/KV adjustment according to patient size. Quantification of carotid stenosis, if any, is performed according to NASCET criteria. FINDINGS: At the LEs and tortuous right innominate artery. Moderate to advanced mixed calcified and noncalcified atherosclerotic plaque formation along the included portion of the aortic arch. The righ t CCA origin is not included. No significant flow abnormality is seen of the common carotid bilaterally. No significant stenosis is identified involving the cervical segments of both internal carotid arteri es. Moderate to severe focal atherosclerotic narrowing at the origin of the left vertebral artery. Normal flow is seen within both vertebral arteries otherwise. IMPRESSION: Moderate to severe focal atherosclerotic narrowing at the origin of the left vertebral a rtery. No other significant flow abnormality of the neck vessels is identified. CAROTID STENOSIS REFERENCE USING NASCET CRITERIA: % ICA stenosis = (1 - narrowest ICA diameter/diameter of distal cervical ICA) x 100. Mild - <50% stenosis. Moderate - 50-69% stenosis. Severe - 70-94% stenosis. Near occlusion - 95-99% stenosis. Occluded - 100% stenosis.
--- NOTE | 2024-06-27 11:24 | RAD REPORT ---
EXAM DESCRIPTION: CT - Head angio - 06/27/2024 10:56 am CLINICAL HISTORY: STROKE ALERT COMPARISON: Ct Stroke Brain Wo Cont dated 06/27/2024; Head Brain Wo Cont dated 05/25/2024; Neck Angio dated 06/27/2024; Brain Wo Cont dated 06/27/2024 TECHNIQUE: Axial CT angiography images of the head was performed with multiplanar and maximum intens ity projection reconstructions. Images performed following intravenous administration of 100mL Isovue 370. All CT scans are performed using dose optimization technique as appropriate and may include automated exposure control or mA/KV adjustment according to patient size. FINDINGS: No evidence of large vessel occlusion. No evidence of aneurysm or dissection flap is detec herlinda. No flow-limiting stenosis or vascular malformation identified. Antegrade flow is seen in the vertebral arteries. The vertebral arteries are codominant. The visualized dural venous sinuses are grossly patent although suboptimal contrast timing limits tez luation. Polypoidal mucosal thickening within the maxillary sinuses. IMPRESSION: No evidence of large vessel occlusion or flow-limiting stenosis.
--- NOTE | 2024-06-27 11:27 | RAD REPORT ---
EXAM DESCRIPTION: MRI - Brain Wo Cont - 06/27/2024 11:13 am CLINICAL HISTORY: TIA COMPARISON: Noncontrast head CT and CT angiogram of the same day. MRI brain 09/06/2022 TECHNIQUE: Multiplanar multisequence MRI of the brain performed without IV contrast. FINDINGS: Motion artifact limits evaluation on the sagittal T1 and coronal T2 images, despite attemp ts at repeat imaging. No evidence of acute infarct or other diffusion signal abnormality. No evidence of acute intracranial hemorrhage or abnormal extra-axial fluid collections. Moderate diffuse parenchymal volume loss. Ventricular caliber otherwise within normal for age. Midlin e structures are unremarkable. Mild periventricular and deep white matter T2/FLAIR hyperintensities, nonspecific, and stable in exte nt, most suggestive of chronic small vessel ischemic changes. No mass effect or midline shift. Major vascular flow voids are preserved. Mastoid air cells and paranasal sinuses are clear. IMPRESSION: No acute intracranial process. No evidence of ventriculomegaly or mass effect. Chronic findings as above, including moderate diffuse parenchymal volume loss.
[2024-06-27 11:51] LABS: Albumin 3.5 g/dL (3.4-5.0); Albumin/Globulin Ratio 0.8 (1.1-1.8); Anion Gap 5.2 mEq/L (5.0-15.0); Bilirubin Direct 0.3 mg/dL (0-0.2); Bilirubin Indirect, Calculated 1.3 mg/dL (0.2-0.8); Bilirubin Total 1.6 mg/dL (0.2-1.0); C-Reactive Protein 18.9 mg/L (<3.00); Globulin 4.4 g/dL (2.3-3.5); Magnesium 2.3 mg/dL (1.6-2.4); Potassium 4.2 mEq/L (3.5-5.1); Protein, Total 7.9 g/dL (6.4-8.2); Troponin High Sensitivity 9.9 pg/mL (<58.9)
--- NOTE | 2024-06-27 11:58 | RAD REPORT ---
EXAM DESCRIPTION: RADChest Single View06/27/2024 11:29 am CLINICAL HISTORY: COUGH COMPARISON: Chest Single View dated 05/25/2024; Chest Single View dated 04/13/2024; Chest Single View dated 03/19/2024; Chest Single View dated 02/10/2024 TECHNIQUE: Portable AP view of the chest. FINDINGS: The lungs are clear, again with elevation of the left hemidiaphragm and adjacent atelectas is. No pneumothorax or effusion. The cardiomediastinal contours are unchanged with tortuosity of the thoracic aorta. Sequelae of median sternotomy again seen. IMPRESSION: No acute cardiopulmonary process.
--- NOTE | 2024-06-27 12:17 | ER ---
Nurse's Notes [facility] Name: Munir Brooks Age: 83 yrs Sex: Male : 1940 Arrival Date: 06/27/2024 Time: 10:08 Bed 2 Private MD: Diagnosis: Cerebral infarction, unspecified-subacute;Unspecified kidney failure-insufficency;Dementia in other diseases classified elsewhere without behavioral disturbance;Other conjunctivitis-right Presentation: 06/27 10:16 Chief complaint: Patient states: Unknown last known well. Niece noticed his face looked ll1 swollen last night. At 8 AM his daughter noticed his facial droop right away. Coronavirus screen: Client denies travel out of the [place] in the last 14 days. At this time, the client does not indicate any symptoms associated with coronavirus-19. Ebola Screen: Patient denies travel to an Ebola-affected area in the 21 days before illness onset. No acute neurological deficit is noted. Initial Sepsis Screen: Does the patient meet any 2 criteria? No. Patient's initial sepsis screen is negative. Does the patient have a suspected source of infection? No. Patient's initial sepsis screen is negative. Risk Assessment: Do you want to hurt yourself or someone else? Patient reports no desire to harm self or others. Onset of symptoms was June 26, 2024. 10:16 Method Of Arrival: Ambulatory ll1 10:16 Acuity: MAGALY 2 ll1 Triage Assessment: 13:00 The onset of the patients symptoms was June 26, 2024 at 18:00. ld1 13:00 General: Appears in no apparent distress. comfortable, Behavior is calm, cooperative, ld1 appropriate for age. Pain: Denies pain. EENT: No signs and/or symptoms were reported regarding the EENT system. Neuro: Level of Consciousness is awake, Oriented to none Reports facial droop. Cardiovascular: Capillary refill < 3 seconds Patient's skin is warm and dry. Respiratory: Airway is patent Respiratory effort is even, unlabored. GI: Abdomen is flat, non-distended. : No signs and/or symptoms were reported regarding the genitourinary system. 18:08 The onset of the patients symptoms was. ld1 Stroke Activation: Symptom onset > 6 hours Physician: ED Attending; Name: ; Notified At: ; Arrived At: Physician: Mid-Level Provider; Name: ; Notified At: ; Arrived At: Physician: [not used]; Name: ; Notified At: ; Arrived At: Physician: [not used]; Name: ; Notified At: ; Arrived At: Physician: [not used]; Name: ; Notified At: ; Arrived At: Historical: - Allergies: 10:16 Namenda; ll1 10:16 Zrtpnep-Ogx-Ouu Reductase Inhibitor; ll1 - PMHx: 10:16 Alzheimer's disease; Congenital Heart Defect; Seizures; Dementia; ll1 - PSHx: 10:16 Cholecystectomy; heart surgery; ll1 - Immunization history:: Adult Immunizations up to date. - Infectious Disease History:: Denies. - Family history:: not pertinent. - Social history:: Smoking status: Patient denies any tobacco usage or history of. Screenin:00 [facility] ED Fall Risk Assessment (Adult) History of falling in the last 3 months, ld1 including since admission No falls in past 3 months (0 pts) Confusion or Disorientation No (0 pts) Intoxicated or Sedated No (0 pts) Impaired Gait No (0 pts) Mobility Assist Device Used No (0 pt) Altered Elimination No (0 pt) Score/Fall Risk Level 0 - 2 = Low Risk Oriented to surroundings, Maintained a safe environment, Educated pt \T\ family on fall prevention, incl call for assistance when getting out of bed, Assessed \T\ reinforced patient's understanding of fall precautions, Provided non-skid footwear, Hourly rounding (assess needs \T\ fall precautionary measures) done, Used ambulatory aids as needed (educated on \T\ assisted with), Used gait belt as appropriate. Abuse screen: Denies threats or abuse. Denies injuries from another. Nutritional screening: No deficits noted. Tuberculosis screening: No symptoms or risk factors identified. Assessment: 11:00 VAN Scoring: Arm Drift: Patients demonstrates NO arm weakness. Patient is VAN Negative. ld1 [place] Swallow Protocol Brief Cognitive Screen What is your name? Normal, Where are you right now? Normal, What year is it? Normal. Oral Mechanism Examination Facial Symmetry: Normal, Motion: Normal, Lip Closure: Normal, Oral Mechanism Result: Normal. 3 oz Water Swallow Challenge: Pt able to drink all water without stopping, coughing, choking or throat clearing: Yes Result: HATTIE RUBIO Notified: Schuyler Combs MD. TNKase (Tenecteplase) Screening: Indications: Treatment will start within 4.5 hours onset of symptoms: No. General: Appears in no apparent distress. comfortable, Behavior is calm, cooperative, appropriate for age. Pain: Denies pain. Neuro: Level of Consciousness is awake, alert, obeys commands, Oriented to person, place, time, situation, Appropriate for age. Cardiovascular: Capillary refill < 3 seconds Patient's skin is warm and dry. Rhythm is sinus bradycardia. Respiratory: Airway is patent Respiratory effort is even, unlabored. GI: Abdomen is flat, non-distended. : No signs and/or symptoms were reported regarding the genitourinary system. EENT: No signs and/or symptoms were reported regarding the EENT system. Derm: No signs and/or symptoms reported regarding the dermatologic system. Musculoskeletal: No signs and/or symptoms reported regarding the musculoskeletal system. 12:15 Reassessment: Patient appears in no apparent distress at this time. No changes from ld1 previously documented assessment. Patient and/or family updated on plan of care and expected duration. Pain level reassessed. 14:00 Reassessment: Patient appears in no apparent distress at this time. No changes from ld1 previously documented assessment. 15:30 Reassessment: Patient appears in no apparent distress at this time. No changes from ld1 previously documented assessment. Patient states symptoms have not improved. 17:00 Reassessment: Patient appears in no apparent distress at this time. No changes from ld1 previously documented assessment. 18:06 Reassessment: Patient appears in no apparent distress at this time. No changes from ld1 previously documented assessment. 18:09 [place] Swallow Protocol Exclusion Criteria: Exclusion Criteria Result: Defer \T\ Re-attempt.ld1 Vital Signs: 10:16 BP 138 / 74; Pulse 62; Resp 17; Temp 98.2; Pulse Ox 98% on R/A; Weight 88.45 kg; Height ll1 6 ft. 3 in. ; Pain 0/10; 11:30 BP 162 / 85; Pulse 64; Resp 18; Pulse Ox 97% on R/A; ld1 13:00 BP 159 / 89; Pulse 68; Resp 18; Pulse Ox 98% on R/A; ph 14:00 BP 149 / 98; Pulse 73; Resp 18; Pulse Ox 99% on R/A; ph 15:56 BP 157 / 86; Pulse 67; Resp 18; Temp 98.2; Pulse Ox 98% on R/A; ph 17:00 BP 149 / 76; Pulse 71; Resp 18; Pulse Ox 100% on R/A; ld1 10:16 Body Mass Index 24.37 (88.45 kg, 190.5 cm) ll1 10:16 Pain Scale: Adult ll1 NIH Stroke Scale Scores: 11:00 NIHSS Score: 1 ld1 ED Course: 10:09 Patient arrived in ED. mr 10:14 Schuyler Combs MD is Attending Physician. courtney 10:16 Arm band placed on. ll1 10:18 Triage completed. ll1 10:40 CT Stroke Brain w/o Contrast In Process Unspecified. EDMS 10:52 CT Neck Angio In Process Unspecified. EDMS 10:57 Head angio In Process Unspecified. EDMS 10:57 Inserted saline lock: 20 gauge in left antecubital area, using aseptic technique. Blood ld1 collected. Flushed with 10 mL NS. 11:00 Patient has correct armband on for positive identification. Placed in gown. Bed in low ld1 position. Call light in reach. Side rails up X2. engine monitor on. Pulse ox on. NIBP on. Door closed. Noise minimized. Warm blanket given. 11:00 No provider procedures requiring assistance completed. ld1 11:14 Brain Wo Cont In Process Unspecified. EDMS 11:21 Janelle Merino RN is Primary Nurse. ph 11:31 XRAY Chest (1 view) In Process Unspecified. EDMS 12:15 Andres Herzog MD is Hospitalizing Provider. [facility] 15:49 Janelle Merino RN is Primary Nurse. ph 18:08 Patient admitted, IV remains in place. ld1 Administered Medications: 11:30 Drug: NS 0.9% IV 1000 ml IV at 1 bolus Per protocol; 1000 mL bolus Route: IV; Rate: 1 ld1 bolus; Site: left upper arm; 13:00 Follow up: Response: No adverse reaction; IV Status: Completed infusion; IV Intake: ph 1000ml 11:30 Drug: foLIC Acid IVPB 1 mg IVPB once Route: IVPB; Site: left upper arm; ld1 12:00 Follow up: Response: No adverse reaction; IV Status: Completed infusion ph 12:03 CANCELLED (Duplicate Order): [id number] mg PO once courtney 15:38 Drug: Clopidogrel PO 75 mg PO once Route: PO; ph 16:00 Follow up: Response: No adverse reaction ph 15:38 Drug: NS 0.9% IV 500 ml IV at bolus once Route: IV; Rate: bolus; Site: right ph antecubital; 16:30 Follow up: Response: No adverse reaction; IV Status: Completed infusion ph 15:39 Drug: Mucomyst - Acetylcysteine PO 600 mg PO once Route: PO; ph 16:00 Follow up: Response: No adverse reaction ph 15:39 Drug: Aspirin PO Chewable Tablet 324 mg PO once; 81 mg tablets x 4 Route: PO; ph 16:00 Follow up: Response: No adverse reaction ph 15:40 Not Given (Other Intervention Used): ns 0.9% 1000 ml IV at 125 ml/hr continuous ph 16:06 Drug: ERYTHromycin Ophthalmic Ointment 1 application Ophthalmic once; right Route: ph Ophthalmic; Site: right eye; 16:30 Follow up: Response: No adverse reaction ph 16:06 Drug: predniSONE PO 60 mg PO once Route: PO; ph 17:00 Follow up: Response: No adverse reaction ph 16:06 Drug: Valtrex PO 1000 mg PO once Route: PO; ph 17:00 Follow up: Response: No adverse reaction ph Medication: 15:49 VIS not applicable for this client. ph Intake: 13:00 IV: 1000ml; Total: 1000ml. ph Outcome: 12:16 Decision to Hospitalize by Provider. courtney 18:07 Admitted to Med/surg accompanied by valencia, via trini, kristyn 18:07 Condition: stable 18:07 Instructed on the need for admit, 18:09 Patient left the ED. ld1 NIH Stroke Scale - NIH Stroke Score Date: 06/27/2024 Time: 11:00 Total Score = 1 10. Dysarthria (speech clarity - read or repeat words) - 0(Normal) 11. Extinction and Inattention (visual/tactile/auditory/spatial/personal) - 0(No abnormality) 1a. Level of Consciousness (LOC) - 0(Alert) 1b. Level of Consciousness (LOC) (Month \T\ Age) - 0(Both) 1c. LOC Commands (Open \T\ Closes Eyes/Inflated Pad Buffer) - 0(Both) 2. Best Gaze (Lateral Gaze Paresis) - 0(Normal) 3. Visual Field Loss - 0(No visual loss) 4. Facial Palsy - 1(Minor Paralysis) 5a. Left Arm: Motor (10-second hold) - 0(No drift) 5b. Right Arm: Motor (10-second hold) - 0(No drift) 6a. Left Leg: Motor (5-second hold - always test supine) - 0(No drift) 6b. Right Leg: Motor (5-second hold - always test supine) - 0(No drift) 7. Limb Ataxia (finger/nose \T\ heel/wright - test with eyes open) - 0(Absent) 8. Sensory Loss (pinprick arms/legs/face) - 0(Normal) 9. Best Language: Aphasia (description/naming/reading) - 0(No aphasia) Initials: ld1 Signatures: Dispatcher [employer] Schuyler Solomon MD MD cha Rivera, Tish, Reg Jos mr Janelle Merino, Catalina Blanchard RN, ph, RN RN 1 Dori Schaffer RN RN ld1
--- NOTE | 2024-06-27 12:17 | EDPHYS ---
Physician Documentation [facility] Name: Munir Brooks Age: 83 yrs Sex: Male : 1940 Arrival Date: 06/27/2024 Time: 10:08 Bed 2 Private MD: OLIVIA Physician Schuyler Combs HPI: 06/27 10:32 This 83 yrs old Male presents to ER via Ambulatory with complaints of Facial courtney Droop. 10:32 The patient presents to the emergency department with paresthesias of the right side of courtney the face, that is mild. Onset: The symptoms/episode began/occurred last night. Context: occurred at home, occurred while the patient was doing normal activity. Associated signs and symptoms: Pertinent positives: This patient does not have any pertinent positives. Severity of symptoms: At their worst the symptoms were mild in the emergency department the symptoms are unchanged. Patient's baseline: Neuro: alert and fully oriented. The patient has not experienced similar symptoms in the past. Historical: - Allergies: 10:16 Namenda; ll1 10:16 Thovusn-Fdl-Vtj Reductase Inhibitor; ll1 - PMHx: 10:16 Alzheimer's disease; Congenital Heart Defect; Seizures; Dementia; ll1 - PSHx: 10:16 Cholecystectomy; heart surgery; ll1 - Immunization history:: Adult Immunizations up to date. - Infectious Disease History:: Denies. - Family history:: not pertinent. - Social history:: Smoking status: Patient denies any tobacco usage or history of. ROS: 10:32 Constitutional: Negative for fever, chills, and weight loss, Eyes: Negative for injury, courtney pain, redness, and discharge, ENT: Negative for injury, pain, and discharge, Neck: Negative for injury, pain, and swelling, Cardiovascular: Negative for chest pain, palpitations, and edema, Respiratory: Negative for shortness of breath, cough, wheezing, and pleuritic chest pain, Abdomen/GI: Negative for abdominal pain, nausea, vomiting, diarrhea, and constipation, Back: Negative for injury and pain, : Negative for injury, bleeding, discharge, and swelling, MS/Extremity: Negative for injury and deformity, Skin: Negative for injury, rash, and discoloration, Psych: Negative for depression, anxiety, suicide ideation, homicidal ideation, and hallucinations, Allergy/Immunology: Negative for hives, rash, and allergies, Endocrine: Negative for neck swelling, polydipsia, polyuria, polyphagia, and marked weight changes, Hematologic/Lymphatic: Negative for swollen nodes, abnormal bleeding, and unusual bruising, 10:32 Neuro: Positive for weakness, of the right cheek and right jaw, Exam: 10:32 Constitutional: This is a well developed, well nourished patient who is awake, alert, courtney and in no acute distress. Head/Face: Normocephalic, atraumatic. Eyes: Pupils equal round and reactive to light, extra-ocular motions intact. Lids and lashes normal. Conjunctiva and sclera are non-icteric and not injected. Cornea within normal limits. Periorbital areas with no swelling, redness, or edema. ENT: Nares patent. No nasal discharge, no septal abnormalities noted. Tympanic membranes are normal and external auditory canals are clear. Oropharynx with no redness, swelling, or masses, exudates, or evidence of obstruction, uvula midline. Mucous membranes moist. Neck: Trachea midline, no thyromegaly or masses palpated, and no cervical lymphadenopathy. Supple, full range of motion without nuchal rigidity, or vertebral point tenderness. No Meningismus. Chest/axilla: Normal chest wall appearance and motion. Nontender with no deformity. No lesions are appreciated. Cardiovascular: Regular rate and rhythm with a normal S1 and S2. No gallops, murmurs, or rubs. Normal PMI, no JVD. No pulse deficits. Respiratory: Lungs have equal breath sounds bilaterally, clear to auscultation and percussion. No rales, rhonchi or wheezes noted. No increased work of breathing, no retractions or nasal flaring. Abdomen/GI: Soft, non-tender, with normal bowel sounds. No distension or tympany. No guarding or rebound. No evidence of tenderness throughout. Back: No spinal tenderness. No costovertebral tenderness. Full range of motion. Male : Normal genitalia with no discharge or lesions. Skin: Warm, dry with normal turgor. Normal color with no rashes, no lesions, and no evidence of cellulitis. MS/ Extremity: Pulses equal, no cyanosis. Neurovascular intact. Full, normal range of motion. Psych: Awake, alert, with orientation to person, place and time. Behavior, mood, and affect are within normal limits. 10:32 Neuro: Orientation: is normal, appropriate for stated age, no acute changes, Mentation: is normal, appropriate for stated age, no acute changes, Memory: is normal, appropriate for stated age, no acute changes, Cranial nerves: facial droop noted on right, with forehead spared. Sensation: is normal, Gait: not tested. Babinski testing is normal, seizure activity, is not displayed by the patient, Vital Signs: 10:16 BP 138 / 74; Pulse 62; Resp 17; Temp 98.2; Pulse Ox 98% on R/A; Weight 88.45 kg; Height ll1 6 ft. 3 in. ; Pain 0/10; 11:30 BP 162 / 85; Pulse 64; Resp 18; Pulse Ox 97% on R/A; ld1 13:00 BP 159 / 89; Pulse 68; Resp 18; Pulse Ox 98% on R/A; ph 14:00 BP 149 / 98; Pulse 73; Resp 18; Pulse Ox 99% on R/A; ph 15:56 BP 157 / 86; Pulse 67; Resp 18; Temp 98.2; Pulse Ox 98% on R/A; ph 17:00 BP 149 / 76; Pulse 71; Resp 18; Pulse Ox 100% on R/A; ld1 10:16 Body Mass Index 24.37 (88.45 kg, 190.5 cm) ll1 10:16 Pain Scale: Adult ll1 NIH Stroke Scale Scores: 11:00 NIHSS Score: 1 ld1 MDM: 10:14 Patient medically screened. [facility] 10:35 Data reviewed: vital signs, nurses notes, lab test result(s), EKG, radiologic studies, [facility] CT scan, MRI, plain films. Consideration of Admission/Observation Escalation of care including admission/observation considered. I considered the following discharge prescriptions or medication management in the emergency department Medications were administered in the Emergency Department. See MAR. Independent interpretation of the following test(s) in the Emergency Department EKG: See my EKG interpretation above. Test considered but Not performed: Ultrasound no carotid usg. Care significantly affected by the following chronic conditions: alzheimers. congenital heart, seizures, dementia. 10:37 ED course: begam yesterday, not a tnk candidiate. [facility] 06/27 10:22 Order name: Basic Metabolic Panel; Complete Time: 11:58 [facility] 06/27 10:22 Order name: CBC with Diff; Complete Time: 11:58 [facility] 06/27 10:22 Order name: LFT's; Complete Time: 11:58 [facility] 06/27 10:22 Order name: Magnesium; Complete Time: 11:58 [facility] 06/27 10:22 Order name: NT PRO-BNP; Complete Time: 11:58 [facility] 06/27 10:22 Order name: PT-INR; Complete Time: 11:58 [facility] 06/27 10:22 Order name: Troponin HS; Complete Time: 11:58 [facility] 06/27 10:22 Order name: CRP; Complete Time: 11:58 [facility] 06/27 10:22 Order name: Lipid Profile; Complete Time: 11:58 [facility] 06/27 11:06 Order name: CREATININE WHOLE BLOOD; Complete Time: 11:58 [facility] 06/27 10:22 Order name: XRAY Chest (1 view); Complete Time: 12:07 [facility] 06/27 10:22 Order name: CT Stroke Brain w/o Contrast; Complete Time: 11:58 [facility] 06/27 10:22 Order name: CT Neck Angio; Complete Time: 11:58 [facility] 06/27 10:28 Order name: Head angio; Complete Time: 11:58 [facility] 06/27 11:14 Order name: Brain Wo Cont; Complete Time: 11:58 [facility] 06/27 10:22 Order name: EKG; Complete Time: 10:22 [facility] 06/27 12:21 Order name: CONS Physician Consult [facility] 06/27 10:22 Order name: Cardiac monitoring; Complete Time: 11:30 [facility] 06/27 10:22 Order name: EKG - Nurse/Tech; Complete Time: 11:30 [facility] 06/27 10:22 Order name: IV Saline Lock; Complete Time: 10:57 [facility] 06/27 10:22 Order name: Labs collected and sent; Complete Time: 10:57 [facility] 06/27 10:22 Order name: O2 Per Protocol; Complete Time: 10:35 [facility] 06/27 10:22 Order name: O2 Sat Monitoring; Complete Time: 10:35 [facility] Administered Medications: 11:30 Drug: NS 0.9% IV 1000 ml IV at 1 bolus Per protocol; 1000 mL bolus Route: IV; Rate: 1 ld1 bolus; Site: left upper arm; 13:00 Follow up: Response: No adverse reaction; IV Status: Completed infusion; IV Intake: ph 1000ml 11:30 Drug: foLIC Acid IVPB 1 mg IVPB once Route: IVPB; Site: left upper arm; ld1 12:00 Follow up: Response: No adverse reaction; IV Status: Completed infusion ph 12:03 CANCELLED (Duplicate Order): [id number] mg PO once courtney 15:38 Drug: Clopidogrel PO 75 mg PO once Route: PO; ph 16:00 Follow up: Response: No adverse reaction ph 15:38 Drug: NS 0.9% IV 500 ml IV at bolus once Route: IV; Rate: bolus; Site: right ph antecubital; 16:30 Follow up: Response: No adverse reaction; IV Status: Completed infusion ph 15:39 Drug: Mucomyst - Acetylcysteine PO 600 mg PO once Route: PO; ph 16:00 Follow up: Response: No adverse reaction ph 15:39 Drug: Aspirin PO Chewable Tablet 324 mg PO once; 81 mg tablets x 4 Route: PO; ph 16:00 Follow up: Response: No adverse reaction ph 15:40 Not Given (Other Intervention Used): ns 0.9% 1000 ml IV at 125 ml/hr continuous ph 16:06 Drug: ERYTHromycin Ophthalmic Ointment 1 application Ophthalmic once; right Route: ph Ophthalmic; Site: right eye; 16:30 Follow up: Response: No adverse reaction ph 16:06 Drug: predniSONE PO 60 mg PO once Route: PO; ph 17:00 Follow up: Response: No adverse reaction ph 16:06 Drug: Valtrex PO 1000 mg PO once Route: PO; ph 17:00 Follow up: Response: No adverse reaction ph Disposition Summary: 06/27/24 12:16 Hospitalization Ordered Notes: Hospitalization Status: Inpatient Admission courtney Provider: Andres Herzog cha Location: Telemetry/[facility] (Inpatient) courtney Condition: Stable courtney Problem: new courtney Symptoms: are unchanged courtney Bed/Room Type: Standard courtney Room Assignment: 224(06/27/24 14:57) ja1 Diagnosis - Cerebral infarction, unspecified - subacute courtney - Unspecified kidney failure - insufficency courtney - Dementia in other diseases classified elsewhere without behavioral disturbance courtney - Other conjunctivitis - right courtney Forms: - Medication Reconciliation Form courtney - SBAR form courtney - Leadership Thank You Letter courtney NIH Stroke Scale - NIH Stroke Score Date: 06/27/2024 Time: 11:00 Total Score = 1 10. Dysarthria (speech clarity - read or repeat words) - 0(Normal) 11. Extinction and Inattention (visual/tactile/auditory/spatial/personal) - 0(No abnormality) 1a. Level of Consciousness (LOC) - 0(Alert) 1b. Level of Consciousness (LOC) (Month \T\ Age) - 0(Both) 1c. LOC Commands (Open \T\ Closes Eyes/Curriculum Coordinator) - 0(Both) 2. Best Gaze (Lateral Gaze Paresis) - 0(Normal) 3. Visual Field Loss - 0(No visual loss) 4. Facial Palsy - 1(Minor Paralysis) 5a. Left Arm: Motor (10-second hold) - 0(No drift) 5b. Right Arm: Motor (10-second hold) - 0(No drift) 6a. Left Leg: Motor (5-second hold - always test supine) - 0(No drift) 6b. Right Leg: Motor (5-second hold - always test supine) - 0(No drift) 7. Limb Ataxia (finger/nose \T\ heel/wright - test with eyes open) - 0(Absent) 8. Sensory Loss (pinprick arms/legs/face) - 0(Normal) 9. Best Language: Aphasia (description/naming/reading) - 0(No aphasia) Initials: ld1 Signatures: Dispatcher [employer] EDMS Schuyler Combs MD MD cha Hall, Patricia, RN RN Mark Maier, RN RN ja1 Catalina House RN EDWIN montoya1 Dori Schaffer RN RN ld1 Corrections: (The following items were deleted from the chart) 10:22 10:22 Neck Angio+CT.RAD.BRZ ordered. EDMS EDMS 10:22 10:22 MR STROKE PROTOCOL+MRI.RAD.BRZ ordered. EDMS EDMS 12:03 12:02 Atorvastatin PO 40 mg PO once ordered. courtney courtney 14:56 12:16 courtney ja1 14:57 14:56 203 ja1 ja1
[2024-06-27] MEDS ORDERED: ASPIRIN 81 MG CHEWABLE TABLET ONE (13:44)
[2024-06-27] MEDS ORDERED: CLOPIDOGREL 75 MG TABLET ONE (13:44)
[2024-06-27] MEDS ORDERED: ACETYLCYST 6,000 MG/30 ML VIAL ONE (13:45)
[2024-06-27] MEDS ORDERED: TOBRAMYCIN SULF 0.3% OPTH OINT ONE (16:13)
[2024-06-27] MEDS ORDERED: predniSONE 20 MG TAB ONE (16:13)
[2024-06-27] MEDS ORDERED: VALACYCLOVIR 500 MG TAB ONE (16:15)
--- NOTE | 2024-06-27 22:34 | HP ---
Date of Admission: 06/27/2024 Chief Complaint: Facial droop. History Of Present Illness: An 83-year-old male patient, who was brought into emergency room today by family with above-mentioned problems and after the patient was evaluated in the emergency room, he was admitted to the hospital. Emergency room physician contacted me with workup done in the emergency room and when I saw the patient this evening, he was lying in bed. There was no family member with him at bedside. The patient is not able to answer any questions because he has end-stage Alzheimer's disease. In question I asked him, he kept on repeating, "I am Munir Brooks." Medications: List reviewed. 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 All other systems reviewed and negative. Allergies: TO STATIN. Past Medical History: Alzheimer disease, which is late stage; type 2 diabetes mellitus, which is diet controlled; hypertension; mixed hyperlipidemia; gastroesophageal reflux disease; liver cyst; chronic kidney disease stage 3B; benign prostatic hypertrophy; high PSA; osteoarthritis at multiple sites; anemia due to chronic kidney disease; anxiety; and seizure disorder. Past Surgical History: Significant for surgery for congenital heart disease many years ago and cholecystectomy. Family History: Father had [place]. Social History: Negative for smoking and alcohol use. Physical Examination: Vital Signs: Height 6 feet 3 inches, weight 184 pounds, temperature 98.2, pulse 62, respiratory rate 17, blood pressure 138/74, oxygen saturation 98%. General: Awake, alert, oriented, not in distress. HEENT: Head atraumatic, normocephalic. Conjunctivae nonerythematous. Sclerae white. Mouth, no thrush or edema noted. Ears/Nose, no mass, lesion, discharge noted. Neck: Supple. No JVD, lymph nodes, bruit, thyromegaly noted. Lungs: Bilateral good equal air entry. Clear to auscultation. No rhonchi. No rales. Heart: Normal heart sounds, no murmur or gallop. Abdomen: Soft, bowel sounds normal. No guarding, rigidity, tenderness, mass, hepatosplenomegaly, distention, or bruit noted. Extremities: No leg edema. No calf tenderness. Skin: No rash, ulcer, cellulitis. Lymphatics: No lymph node enlargement in neck, supraclavicular, infraclavicular region. Neuro: The patient is lying in bed, awake, alert, not oriented, unable to follow simple commands, but every now and then, he would follow commands like close eyes or open mouth. He does have very slight flattening of the right nasolabial fold compared to left side. Power in both upper and lower extremity is normal and equal. Chest: Unremarkable. External Genitalia: Deferred. Rectal: Deferred. Laboratory Data: White count 8.6, hemoglobin 13, platelets 209. Sodium 137, potassium 4.2, chloride 106, bicarb 30, BUN 37, creatinine 1.62, glucose 94, total bilirubin 1.6, AST 17, ALT 19, alkaline phosphatase 59. CRP 18.90, slightly elevated and proBNP 540, slightly elevated. His LDL cholesterol 185, triglyceride 155, total cholesterol 255, HDL 39. His CT angiogram of head was negative for any occlusive or flow-limiting lesion. CT scan of the head was negative for any acute intracranial changes. MRI of brain was negative for any acute intracranial changes. Chest x-ray was negative for any acute cardiopulmonary changes. CT angio of neck showed moderate to severe focal atherosclerotic narrowing at the origin of left vertebral artery. Impression: 1. TIA. 2. Chronic kidney disease stage IIIB. 3. Alzheimer's disease, late stage. 4. Hypertension. 5. Hyperlipidemia. 6. Type 2 diabetes mellitus. 7. Gastroesophageal reflux disease. 8. Osteoarthritis, multiple sites. Plan: We will go ahead and admit the patient to hospital for further evaluation and management of this problem. We will consult neurologist, Dr. Lees. We will continue antiplatelet therapy as per order. The patient is allergic to statin therapy and due to his limited life expectancy with late stage Alzheimer's disease, I will not consider any other cholesterol-lowering medications like Repatha (PCSK9 inhibitor). We will continue IV fluid per order at this time. Fall precaution was ordered and I will go ahead and see him tomorrow morning for followup. We will continue his home medications as per order. Consult physical therapy. The patient is full code. Total time spent was 80 minutes that includes communication with emergency room physician, review of emergency room visit record, performing today's evaluation and management, review of the last hospital record from admission date 05/25/2024, and review of last office visit record. I will see him tomorrow morning for followup. CIPRIANO/MODL Voice ID: [id number] MTDD
[2024-06-28] MEDS ORDERED: ONDANSETRON 4 MG/2 ML VIAL IV PRN (04:00)
[2024-06-28] MEDS ORDERED: ACETAMINOPHEN 500 MG TAB PO PRN (04:00)
[2024-06-28 05:02] LABS: Absolute Lymphocytes (CBC) 1.1 K/uL (0.7-4.9); Absolute Monocytes 0.3 K/uL (0.1-1.3); Basophils % 0.2 % (0-1.3); Hematocrit 37.1 % (39.6-49.0); Lymphocytes % 12.7 % (15.3-44.8); MCV 88.3 fL (80-100); MPV 8.2 fL (7.6-11.3); Monocytes % 3.9 % (3.3-12.3); Neutrophils % 83.2 % (41.7-73.7); Nucleated Red Blood Cells % 0.2 % (0-0); Platelets 212 thou/uL (152-406); Red Cell Distribution Width 13.2 % (12.1-15.2)
[2024-06-28 05:06] LABS: Anion Gap 9.2 mEq/L (5.0-15.0); Potassium 4.2 mEq/L (3.5-5.1)
[2024-06-28] MEDS: NA CHLORIDE 0.9% 1,000 ML IV SCH ×2 (06:36→07:04)
[2024-06-28] MEDS: FAMOTIDINE 20 MG/2 ML VIAL IV ONE (06:37)
[2024-06-28] MEDS: FOLIC ACID 1 MG in NA CHLORIDE 0.9% 50 ML IV SCH (09:00)
[2024-06-28] MEDS ORDERED: CLOPIDOGREL 75 MG TABLET PO SCH (09:00)
[2024-06-28] MEDS: FAMOTIDINE 20 MG TAB PO SCH (09:15)
[2024-06-28] MEDS: ASPIRIN EC 81 MG TAB PO SCH (09:15)
[2024-06-28] MEDS: TRAZODONE 50 MG TABLET PO SCH (20:11)
[2024-06-28] MEDS: GLUCERNA SHAKE 237 ML CAN PO SCH (20:12)
[2024-06-28] MEDS ORDERED: FAMOTIDINE 20 MG/2 ML VIAL IV SCH (21:00)
[2024-06-28 21:31] VITALS: BMI 24.9
--- NOTE | 2024-06-28 23:04 | PN ---
Date of Progress Note: 06/28/2024 Subjective: The patient was seen this morning for followup. No new complaints or problems reported by nursing staff. When I saw him this morning, he was lying in bed, not in distress. Did not answer any questions. Nurse reported that last night, the patient did not allow her to start any IV access , so the patient did not receive any IV fluid last night. Objective: Vital Signs: Reviewed. HEENT: Unremarkable. Lungs: Clear to auscultation. Heart: Sounds normal. Abdomen: Soft. Bowel sounds normal. No guarding, rigidity, tenderness, distention. Extremities: No leg edema. 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 Laboratory Data: White count 8.4, hemoglobin 13, platelets 212. Sodium 139, potassium 4.2, chloride 108, bicarb 26, BUN 36, creatinine 0.40, glucose 134. Impression: 1.TIA. 2.Alzheimer's disease, late stage. 3.Chronic kidney disease, stage IIIB. Plan: We will continue current medication. Continue his famotidine and Seroquel per order. Nurse w as advised to attempt to start IV and the patient would allow and we are waiting on Neurology consult ation. Neurology workup was done yesterday in the emergency room and plan is to possibly discharge him to go home tomorrow. CIPRIANO/MODL Voice ID: [id number] Report ID: [id number]
--- NOTE | 2024-06-28 23:55 | CON ---
Reason For Consultation: Consultation called because of possible CVA. History Of Present Illness: The patient has baseline dementia. The patient is unable to give any me aningful communication and information obtained by chart review and of course the patient's examinati on. It is reported the patient had a facial droop and he was brought in on 06/27/2024 by his family for facial drooping. He was evaluated in the emergency room by Dr. Combs and arrived at 10:08 in the morning on 06/27. The drooping was reported on the right side of the face, was noted to be mild, and began around the night before. The patient was otherwise showing no new deficits. He does have a baseline cognitive impairment and history of seizures, cognitive impairment likely related Alzheim er's disease and has been on Namenda 10 mg twice daily. Laboratory Data: His complete blood count with differential showing no significant abnormalities exc ept for mild anemia. INR was normal. His chemistries remarkable for dehydration with creatinine of 1.62, BUN elevated at 37. Liver function studies were remarkable for elevated total bilirubin of 1.6 , direct bilirubin elevated at 0.3, indirect bilirubin elevated to 1.3. C-reactive protein slightly elevated. Beta natriuretic peptide also slightly elevated. Total cholesterol elevated at 255, trigl ycerides elevated at 155, and LDL cholesterol elevated at 185 with a low HDL cholesterol of 39, and a cholesterol to HDL ratio of 6.54. His brain MRI on 06/27/2024 showed no acute intracranial abnormal ities. No evidence of a ventriculomegaly or mass effect. There was moderate diffuse parenchymal vol ume loss due to chronic small vessel ischemic disease. CT angiogram of his head shows no evidence of large vessel occlusion or flow limiting stenosis. CT angiogram of his neck did show [id number] ere focal arthrosclerotic narrowing of the origin of the left vertebral artery which do not explain t he patient's symptoms. No other abnormalities were identified. The patient was treated by Dr. Combs with aspirin, folic acid, and had permissive hypertension, an d received normal saline bolus of L per at 100 cc an hour. Again, he is admitted for further observa tion and additional workup was appropriate. Past Medical History: Alzheimer's disease, congenital heart defect, seizures. Past Surgical History: He has had surgeries including cholecystectomy and a heart valve surgery. Allergies: TO NAMENDA, STATINS, HMG-CO A REDUCTASE. Medications: Tylenol Extra Strength 650 mg every 6 hours as needed, aspirin 81 mg daily, Glucerna sh lorelei 237 mL twice daily, Pepcid 20 mg daily, folic acid 1 mg daily, Zofran 4 mg every 6 hours as neede d, trazodone 50 mg at bedtime, and normal saline as noted. Review of Systems: Unable to as the patient is responding with duration when questions are asked. Physical Examination: Vital Signs: Blood pressure is 139/75, pulse 73, respiratory rate 17, temperature 98.2, O2 saturatio n 94%. Weight 184 pounds, height 6 feet 1 inch, BMI 24.3. General: Mr. Brooks is resting comfortably in bed. He appears normocephalic, atraumatic. Sclerae anicteric. Oropharynx is pink and moist. Neck: Supple. Chest: Clear. Heart: Regular. Extremities: Show no significant clubbing, cyanosis, or edema. Neurological: He does appear very alert and would answer with the duration non-meaningful communicat ion when asked to any questions. His face does appear symmetric without drooping of the nasolabial f old. In terms of his strength, upper and lower extremities do appear symmetric with no obvious focal deficits. As he communicates, again, very gibberish speech. However, he was able to eventually lif t the each leg when asked to do so and he is able to show a thumbs-up with the right hand when asked to do so. He had significant difficulty identifying the left side from his right side. Again, no me aningful communication verbally. There was an attempt to ambulate the patient with the geophysical prospecting surveyor apist. He noted the patient would stand and appear very unsteady with a tendency to fall, holding on to anything nearby to prevent falling. He was unable to do any significant walking. There was some issue of potential functional mobility and strength, which appears to be present, but the patient had difficulty following commands and mostly finding by the physical therapist. I did recommend gait tr aining and for him to ambulate without and with assistive device. Assessment And Plan: Mr. Brooks is an 83-year-old patient, with Alzheimer's disease, who comes to [facility] with apparent facial drooping, which is apparent at this point likely potentially had res olved and his brain MRI shows no acute ischemic hemorrhagic change. He does have significant occlusi on of the origin of the left vertebral artery. However, these findings not explaining the patient's symptoms. He has comorbid conditions including his hypertension, Alzheimer's disease. Plan will be that the patient should be in a facility with a memory care unit for 24 hours a day supervision for h is poor safety awareness and high likelihood of falling. In terms of the etiology of his very unstea dy gait, his dementia and potential new weakness, the consideration is for normal pressure hydrocepha rolando. However, the scan is not consistent with that. It is unclear if the patient will be able to re turn to a baseline where he may be independent. Again, it is recommended that he is in a facility at memory care unit, we assisted in all transfers, all mobilization, and performing all activities requ iring any significant level of cognitive functioning. JOCELIN/ORESTES Voice ID: [id number] Report ID: [id number]
[2024-06-29 07:06] VITALS: BP 130/67
[2024-06-29 09:29] VITALS: O2SAT 97
[2024-06-29 10:50] VITALS: TEMP 98.3
--- NOTE | 2024-06-29 11:31 | DS ---
Date of Discharge: 06/29/2024 Disposition: Discharged to go home. Physical Examination: Vital Signs: This morning, reviewed. His temperature was 99.1, pulse 73, respiratory rate 16, blood pressure 130/67, oxygen saturation 97%. HEENT: Unremarkable. Lungs: Clear to auscultation. Heart: Sounds normal. Abdomen: Soft. Bowel sounds normal. No guarding, rigidity, tenderness, distention. Extremities: No leg edema. Laboratory Data: Upon admission, white count 8.6, hemoglobin 13, platelets 209. Yesterday, white co unt 8.4, hemoglobin 13, platelets 212. Upon admission, sodium 137, potassium 4.2, chloride 106, bica rb 30, BUN 37, creatinine 1.62, glucose 94. Liver function tests unremarkable. Total bilirubin was 1.6, slightly elevated, but AST 17, ALT 19, alkaline phosphatase 59. C-reactive protein 18.9. Initi al troponin 9.9, second troponin 8.6, total cholesterol 255, LDL 185. Repeat chemistry from yesterda y, sodium 139, potassium 4.2, chloride 108, bicarb 26, BUN 36, creatinine 1.40, glucose 134. His belinda st x-ray, no acute cardiopulmonary changes. CAT scan of the head, no acute intracranial changes. MR I of the brain was negative for any acute intracranial changes. No evidence of stroke on MRI. CT an angela of head was negative for any occlusive stenotic lesion, but CT angio of neck showed [id number] evere focal atherosclerotic narrowing at the origin of the left vertebral artery. All these findings were discussed with the patient's daughter. Discharge Medications And Instructions: 1.Continue all prior home medications. 2.Take aspirin 81 mg 1 tablet by mouth daily. 3.Follow up at my office next week. Hospital Course: This is an 83-year-old pleasant male patient, who lives at home with his family, wa s brought into emergency room with facial asymmetry with drooping of the right side of his mouth. Pl ease see dictated H and P for more information. After the patient was evaluated in the emergency irwin m, he was admitted to the hospital. Evaluation done in the emergency room was negative for any strok e. I suspected that he probably had a TIA, but no definite evidence of stroke. So, aspirin 81 mg p. o. daily was started. The patient cannot take any statin therapy and with his end-stage Alzheimer's disease, his life expectancy is limited. So with that in mind, really there is no need for considera tion of any other treatment for cholesterol reducing medications like PCSK9 inhibitor like Repatha be cause of his limited life expectancy. Neurology consultation was requested from Dr. Lees who tez luated him yesterday and Dr. Lees had recommended for the patient to go to a facility where he ca n get 24-hour care, but today when I talked to the patient, his daughter was present with him at [facility] and when I presented this recommendation, she informed me that at this time family is able to shimon e care of him at home, but in the future at certain point when family is not able to, then they will consider placement in a facility, but they do not want to place him in any such facility at this time and they are able to and going to continue to take care of him at home. Also, discussed with family regarding hospice care in view of his end-stage late Alzheimer's disease, it will be appropriate for him to consider to go on hospice care at any time family makes the decision, but family was also mad e aware of the fact that once he goes on hospice care, then he will not be coming back to the emergen cy rooms or hospital admissions related to that decline in Alzheimer's disease process and Hospice wi ll provide comfort care at home and she understands, but at the same time, she is not ready for any [facility] decision to be made at this time either. Case Management also visited her regarding if they need any home health care assistance and daughter declined any such assistance at this point since family is able to take care of him. Daughter feels comfortable taking him home today and the patient will be discharged to go home in stable condition. Discharge Medications And Instructions: 1.Continue all prior home medications. 2.Aspirin 81 mg take 1 tablet by mouth daily with food. 3.Follow up at my office next week. Final Diagnoses: 1.TIA. 2.Chronic kidney disease, stage IIIB. 3.Alzheimer's disease, late stage. 4.Hypertension. 5.Hyperlipidemia. 6.Type 2 diabetes mellitus. 7.Gastroesophageal reflux disease. 8.Osteoarthritis, multiple sites. 9.Volume depletion. Total time spent 40 minutes. CIPRIANO/MODL Voice ID: [id number] Report ID: [id number]
--- NOTE | 2024-06-29 13:33 | EKG ---
Test Date: 2024-06-28 Test Time: 08:26:35 Field Support Representative: HEATHER MEASUREMENT RESULTS: Intervals: Rate: 69 WV: 158 QRSD: 78 QT: 398 QTc: 426 [place]: P: 69 WV: 158 QRS: 42 T: -72 INTERPRETIVE STATEMENTS: Normal sinus rhythm Nonspecific T wave abnormality Abnormal ECG Compared to ECG 06/27/2024 11:27:08 No significant changes Electronically Signed On 06-29-24 13:29:54 CDT by Waldo Yee
--- NOTE | 2024-06-29 13:37 | EKG ---
Test Date: 2024-06-27 Test Time: 11:27:08 Hvac Sales Representative: Eitan WATT MEASUREMENT RESULTS: Intervals: Rate: 61 OH: 130 QRSD: 80 QT: 416 QTc: 418 [place]: P: 20 OH: 130 QRS: 10 T: 13 INTERPRETIVE STATEMENTS: Normal sinus rhythm Nonspecific T wave abnormality Abnormal ECG Compared to ECG 05/25/2024 17:50:45 T-wave abnormality now present ST (T wave) deviation no longer present Electronically Signed On 06-29-24 13:32:27 CDT by Waldo Yee
== END 2024-06-29 12:46 | disposition home or self-care (01) | DRG 69 ==
LOC: ER 10:08 → ERHOLD 12:17 → 2ND 15:20
PROVIDERS: ADMIT Internal Medicine; ATTEND Internal Medicine
DX: G45.9 Transient cerebral ischemic attack, unspecified (principal); G30.1 Alzheimer's disease with late onset; F02.80 Dementia in other diseases classified elsewhere, unspecified severity, without behavioral disturbance, psychotic disturbance, mood disturbance, and anxiety; H10.89 Other conjunctivitis; I12.9 Hypertensive chronic kidney disease with stage 1 through stage 4 chronic kidney disease, or unspecified chronic kidney disease; N18.32 Chronic kidney disease, stage 3b; E11.22 Type 2 diabetes mellitus with diabetic chronic kidney disease; D63.1 Anemia in chronic kidney disease; E78.2 Mixed hyperlipidemia; E86.9 Volume depletion, unspecified; K21.9 Gastro-esophageal reflux disease without esophagitis; N40.0 Benign prostatic hyperplasia without lower urinary tract symptoms; M19.09 Primary osteoarthritis, other specified site; R29.701 NIHSS score 1; R29.810 Facial weakness; Z79.82 Long term (current) use of aspirin; Z90.49 Acquired absence of other specified parts of digestive tract; Z79.899 Other long term (current) drug therapy
CPT/HCPCS: 36415; 70450; 70496; 70498; 70551; 71045; 80048; 80061; 80076; 82565; 83735; 83880; 84484; 85025; 85610; 86140; 92610; 93005; 96361; 96365; 97116; 97161; 99285; J7030; J7512; J7608; Q9967

== ENCOUNTER 2024-07-29 13:31 | Emergency (ER) | payer OTHER ==
[2024-07-29] MEDS ORDERED: LORazepam 2 MG/ML VIAL ONE (14:27)
[2024-07-29 14:32] LABS: Absolute Basophils 0.1 K/uL (0-0.5); Absolute Eosinophils 0.3 K/uL (0-0.5); Absolute Monocytes 0.6 K/uL (0.1-1.3); Absolute Neutrophil 4.4 K/uL (1.8-8.0); Basophils % 0.8 % (0-1.3); Eosinophils % 3.6 % (0-4.4); Hematocrit 37.8 % (39.6-49.0); Hemoglobin 12.9 g/dL (13.6-17.9); Lymphocytes % 27.3 % (15.3-44.8); MCH 30.7 pg (27.0-35.0); MCV 90.2 fL (80-100); MPV 7.8 fL (7.6-11.3); Monocytes % 8.1 % (3.3-12.3); Neutrophils % 60.2 % (41.7-73.7); Platelets 211 thou/uL (152-406); RBC Red Blood Cell Count 4.19 M/uL (4.33-5.43); Red Cell Distribution Width 13.9 % (12.1-15.2)
[2024-07-29 14:36] LABS: PT Prothrombin Time 12.1 SECONDS (9.4-12.5); PTT, Activated Partial Thromb 35.3 SECONDS (24.3-36.9); Protime INR 1.08
--- NOTE | 2024-07-29 14:45 | RAD REPORT ---
EXAM DESCRIPTION: CT - Head Brain Wo Cont - 07/29/2024 2:34 pm CLINICAL HISTORY: ams Headache, drowsiness COMPARISON: Head angio dated 06/27/2024; Ct Stroke Brain Wo Cont dated 06/27/2024; Neck Angio dated ; Head Brain Wo Cont dated 05/25/2024; Brain Wo Cont dated 06/27/2024 TECHNIQUE: All CT scans are performed using dose optimization technique as appropriate and may inclu de automated exposure control or mA/KV adjustment according to patient size. FINDINGS: No intracranial hemorrhage, hydrocephalus or extra-axial fluid collection.Moderate brain a trophy.No areas of brain edema or evidence of midline shift. The paranasal sinuses and mastoids are clear. The calvarium is intact. IMPRESSION: No acute intracranial abnormality.
[2024-07-29 14:51] LABS: Albumin 3.7 g/dL (3.4-5.0); Albumin/Globulin Ratio 0.8 (1.1-1.8); Anion Gap 7.3 mEq/L (5.0-15.0); Globulin 4.4 g/dL (2.3-3.5); Potassium 4.3 mEq/L (3.5-5.1); Protein, Total 8.1 g/dL (6.4-8.2); Troponin High Sensitivity 6.2 pg/mL (<58.9)
[2024-07-29 15:20] LABS: Specific Gravity 1.017 (1.005-1.030); Urine Bilirubin NEGATIVE (Negative); Urine Blood Negative (Negative); Urine Clarity Clear (Clear); Urine Color Light-Yellow (Yellow); Urine Glucose NEGATIVE (Negative); Urine Ketones NEGATIVE (Negative); Urine Microscopic Reflex YN NO UMIC; Urine Nitrite NEGATIVE (Negative); Urine Protein NEGATIVE (Negative); Urine Urobilinogen Normal (Normal); Urine pH 6.5 (5.0-7.0)
--- NOTE | 2024-07-29 15:24 | RAD REPORT ---
EXAM DESCRIPTION: RAD - Chest Single View - 07/29/2024 3:14 pm CLINICAL HISTORY: ams Chest pain. COMPARISON: Chest Single View dated 06/27/2024; Chest Single View dated 05/25/2024; Chest Single View dated 04/13/2024; Chest Single View dated 03/19/2024 FINDINGS: Portable technique limits examination quality. The lungs are grossly clear. Mild chronic elevation of left hemidiaphragm. The heart is mildly enlarg ed with a tortuous thoracic aorta. No displaced fractures.Sternotomy wires. IMPRESSION: No acute intrathoracic process suspected.
[2024-07-29 15:32] LABS: SARS-CoV-2 Antigen CONTROL BLUE LINE VIS/BG OK; SARS-CoV-2 Antigen Rapid Res Negative (Negative)
--- NOTE | 2024-07-29 16:45 | EDPHYS ---
Physician Documentation [facility] Name: Muinr Brooks Age: 84 yrs Sex: Male : 1940 Arrival Date: 07/29/2024 Time: 13:31 Bed 2 Private MD: ED Physician Scott Mckeon HPI: 07/29 14:28 This 84 yrs old Male presents to ER via Ambulatory with complaints of Altered Mental sp3 Status. 14:28 84-year-old male with history of Alzheimer's, dementia, seizures, prior altered mental sp3 status episodes, prior infections now presents to the ED again with daughter who states that she "cannot handle him at home. In the past she has been advised to put patient in a rehab or assisted living facility however that has not been accomplished as of yet. No fever reported. Review of systems, history and physical otherwise limited secondary to dementia and patient cooperation.. Historical: - Allergies: 13:49 Namenda; ap3 13:49 Uoezdha-Lgw-Rpg Reductase Inhibitor; ap3 - PMHx: 13:49 Alzheimer's disease; Congenital Heart Defect; Dementia; Seizures; ap3 - PSHx: 13:49 Cholecystectomy; heart surgery; ap3 - Immunization history:: Client reports receiving the 2nd dose of the Covid vaccine. - Social history:: Smoking status: Patient/guardian denies using tobacco. ROS: 14:29 Unable to obtain ROS due to altered mental status, baseline dementia, sp3 Exam: 14:29 Constitutional: The patient appears Patient with no gross neurological deficits. He is sp3 confused at baseline. Patient ambulatory in no acute distress. Remainder of exam limited. 14:29 Unable to obtain exam due to altered mental status, baseline dementia, 16:48 ECG was reviewed by the Attending Physician. EKG demonstrates normal sinus rhythm at 61 sp3 bpm with normal intervals, normal QRS, normal axis, and normal ST/T-segment's without evidence of acute ischemia. Vital Signs: 13:46 BP 137 / 88; Pulse 72; Resp 17; Temp 97.8; Pulse Ox 98% ; Weight 83.91 kg; Height 6 ft. ap3 3 in. ; 15:05 BP 143 / 66; Pulse 57; Resp 18; Pulse Ox 96% on R/A; ld1 16:08 BP 104 / 86; Pulse 51; Resp 18; Pulse Ox 100% on R/A; ld1 16:20 BP 126 / 85; Pulse 60; Resp 18; Pulse Ox 99% on R/A; ld1 13:46 Body Mass Index 23.12 (83.91 kg, 190.5 cm) ap3 MDM: 13:53 Patient medically screened. sp3 14:30 Data reviewed: vital signs, nurses notes, old medical records, lab test result(s), EKG, sp3 radiologic studies. ED course: 84-year-old male with PMH above now with altered mental status. We will evaluate for dementia versus delirium and/or underlying infection. If workup negative, we will safely discharge patient home. Disposition pending workup and patient course.. 16:43 ED course: Full workup negative. I have extensively talked to daughter and stated that sp3 he needs to be in a memory care facility. Patient meets no inpatient criteria here and will be discharged home at this time.. 07/29 14:09 Order name: Blood Culture Adult (2) sp3 07/29 14:09 Order name: CBC with Diff; Complete Time: 15:32 sp3 07/29 14:09 Order name: CMP; Complete Time: 15:32 sp3 07/29 14:09 Order name: Lactate w/ 2H reflex if indic.; Complete Time: 15:32 sp3 07/29 14:09 Order name: Protime (+inr); Complete Time: 15:32 sp3 07/29 14:09 Order name: Ptt, Activated; Complete Time: 15:32 sp3 07/29 14:09 Order name: Urinalysis w/ reflexes; Complete Time: 15:32 sp3 07/29 14:09 Order name: Troponin High Sensitivity; Complete Time: 15:32 sp3 07/29 14:09 Order name: SARS RAPID; Complete Time: 15:32 sp3 07/29 14:09 Order name: Flu; Complete Time: 15:32 sp3 07/29 14:09 Order name: Strep sp3 07/29 15:10 Order name: Throat Culture EDKY 07/29 14:09 Order name: Chest Single View XRAY; Complete Time: 15:32 sp3 07/29 14:09 Order name: CT Head Brain wo Cont; Complete Time: 15:32 sp3 07/29 14:09 Order name: EKG; Complete Time: 14:09 sp3 07/29 14:09 Order name: Cardiac monitoring; Complete Time: 14:27 sp3 07/29 14:09 Order name: EKG - Nurse/Tech; Complete Time: 14:49 sp3 07/29 14:09 Order name: IV Saline Lock - Large Bore; Complete Time: 14:27 sp3 07/29 14:09 Order name: Labs collected and sent; Complete Time: 14:27 sp3 07/29 14:09 Order name: O2 Per Protocol; Complete Time: 14:23 sp3 07/29 14:09 Order name: O2 Sat Monitoring; Complete Time: 14:23 sp3 07/29 14:09 Order name: Vital Signs; Complete Time: 14:27 sp3 07/29 14:09 Order name: Cath: cath ua; Complete Time: 15:00 sp3 Administered Medications: 14:47 Drug: Ativan IVP 1 mg IVP once Route: IVP; Site: right forearm; ld1 15:15 Follow up: Response: No adverse reaction ld1 Disposition Summary: 07/29/24 16:44 Discharge Ordered Notes: Location: Home sp3 Condition: Stable sp3 Diagnosis - Dementia, altered mental status sp3 Followup: sp3 - With: Private Physician - When: Upon discharge from the Emergency Department - Reason: Continuance of care Discharge Instructions: - Discharge Summary Sheet sp3 - Dementia Caregiver Guide sp3 Forms: - Medication Reconciliation Form sp3 - Antibiotic Education sp3 - Prescription Opioid Use sp3 - Patient Portal Instructions sp3 - Leadership Thank You Letter sp3 Signatures: Dispatcher [employer] Ana Maria Abdi RN RN ap3 Dori Schaffer RN RN ld1 Scott Mckeon MD MD sp3
--- NOTE | 2024-07-29 16:45 | ER ---
Nurse's Notes [facility] Name: Munir Brooks Age: 84 yrs Sex: Male : 1940 Arrival Date: 07/29/2024 Time: 13:31 Bed 2 Private MD: Diagnosis: Dementia, altered mental status Presentation: 07/29 13:46 Chief complaint: Patient's son or daughter states: patient has been getting ap3 increasingly forgetful and agitated with his family members with day-to-day activities over the last week. family reports the patient is forgetting to bathe, getting agitated during feeds, and demanding family members leave. family reports that the patient still lives at home with his . Coronavirus screen: At this time, the client does not indicate any symptoms associated with coronavirus-19. Ebola Screen: No symptoms or risks identified at this time. Initial Sepsis Screen: Does the patient meet any 2 criteria? No. Patient's initial sepsis screen is negative. Does the patient have a suspected source of infection? No. Patient's initial sepsis screen is negative. Risk Assessment: Do you want to hurt yourself or someone else? Patient reports no desire to harm self or others. Onset of symptoms is unknown. 13:46 Method Of Arrival: Ambulatory ap3 13:46 Acuity: MAGALY 3 ap3 Triage Assessment: 13:49 General: Appears in no apparent distress. Behavior is cooperative. Pain: Unable to use ap3 pain scale. Does not appear to understand pain scale. Neuro: Level of Consciousness is awake, alert, obeys commands, Oriented to person, Gait is steady. Cardiovascular: Patient's skin is warm and dry. Respiratory: Airway is patent Respiratory effort is even, unlabored, Respiratory pattern is regular, symmetrical. Historical: - Allergies: 13:49 Namenda; ap3 13:49 Tpmgeqx-Nwo-Iik Reductase Inhibitor; ap3 - PMHx: 13:49 Alzheimer's disease; Congenital Heart Defect; Dementia; Seizures; ap3 - PSHx: 13:49 Cholecystectomy; heart surgery; ap3 - Immunization history:: Client reports receiving the 2nd dose of the Covid vaccine. - Social history:: Smoking status: Patient/guardian denies using tobacco. Screenin:50 Abuse screen: Denies threats or abuse. Nutritional screening: No deficits noted. ap3 Tuberculosis screening: No symptoms or risk factors identified. 15:01 [facility] ED Fall Risk Assessment (Adult) History of falling in the last 3 months, mb9 including since admission No falls in past 3 months (0 pts) Confusion or Disorientation Yes (5 pts) Intoxicated or Sedated No (0 pts) Impaired Gait No (0 pts) Mobility Assist Device Used No (0 pt) Altered Elimination No (0 pt) Score/Fall Risk Level 3 or more points = High Risk Oriented to surroundings, Maintained a safe environment, Educated pt \\T\\ family on fall prevention, incl call for assistance when getting out of bed. Assessment: 14:25 Reassessment: Pt calling staff "Bitch" while trying to maintenance supervisor electrical to monitor, ld1 uncooperative at this time. Notified ERP. See [facility] for orders. 14:30 General: Appears in no apparent distress. comfortable, Behavior is anxious, fussy, ld1 uncooperative. Pain: Denies pain. Neuro: Level of Consciousness is awake, confused, Oriented to none. Cardiovascular: Capillary refill < 3 seconds Patient's skin is warm and dry. Rhythm is sinus rhythm. Respiratory: Airway is patent Respiratory effort is even, unlabored. GI: Abdomen is flat, non-distended. : No signs and/or symptoms were reported regarding the genitourinary system. EENT: No signs and/or symptoms were reported regarding the EENT system. Derm: No signs and/or symptoms reported regarding the dermatologic system. Musculoskeletal: No signs and/or symptoms reported regarding the musculoskeletal system. 15:30 Reassessment: Patient appears in no apparent distress at this time. No changes from ld1 previously documented assessment. 16:20 Reassessment: Family member asking about hospital admission. States "I can't take care ld1 of him anymore by myself." ERP at bedside, discussed options for patient to move to possible nursing facility. Family member upset that we will not admit patient at this time. 16:59 Reassessment: Patient appears in no apparent distress at this time. No changes from ld1 previously documented assessment. Patient and/or family updated on plan of care and expected duration. Pain level reassessed. Vital Signs: 13:46 BP 137 / 88; Pulse 72; Resp 17; Temp 97.8; Pulse Ox 98% ; Weight 83.91 kg; Height 6 ft. ap3 3 in. ; 15:05 BP 143 / 66; Pulse 57; Resp 18; Pulse Ox 96% on R/A; ld1 16:08 BP 104 / 86; Pulse 51; Resp 18; Pulse Ox 100% on R/A; ld1 16:20 BP 126 / 85; Pulse 60; Resp 18; Pulse Ox 99% on R/A; ld1 13:46 Body Mass Index 23.12 (83.91 kg, 190.5 cm) ap3 ED Course: 13:35 Patient arrived in ED. mg5 13:38 Scott Mckeon MD is Attending Physician. sp3 13:39 Dori Schaffer, EDWIN is Primary Nurse. ld1 13:49 Triage completed. ap3 13:50 Arm band placed on right wrist. ap3 14:27 Initial lab(s) drawn, by me, sent to lab. Inserted saline lock: 20 gauge in right em1 forearm, using aseptic technique. Blood collected. Flushed with 10 mL NS. 14:36 CT Head Brain wo Cont In Process Unspecified. EDMS 14:49 Blood Culture Adult (2) Sent. ld1 14:49 Lactate w/ 2H reflex if indic. Sent. ld1 14:49 Strep Sent. ld1 14:49 Flu Sent. ld1 14:49 SARS RAPID Sent. ld1 15:01 Urine collected: straight cath specimen, clear, EKG done, by ED staff, reviewed by asiya Mckeon MD. 15:02 Bed in low position. Call light in reach. Side rails up X 1. Provided Education on: asiya press call light . Client placed on continuous cardiac and pulse oximetry monitoring. NIBP monitoring applied. engine monitor on. 15:05 No provider procedures requiring assistance completed. ld1 15:16 Chest Single View XRAY In Process Unspecified. EDMS 17:01 IV discontinued, intact, bleeding controlled, No redness/swelling at site. ld1 Administered Medications: 14:47 Drug: Ativan IVP 1 mg IVP once Route: IVP; Site: right forearm; ld1 15:15 Follow up: Response: No adverse reaction ld1 Medication: 15:02 VIS not applicable for this client. [id number] Outcome: 16:44 Discharge ordered by . sp3 17:01 Discharged to home via wheelchair, with family, ld1 17:01 Condition: stable 17:01 Discharge instructions given to patient, family, Instructed on discharge instructions, follow up and referral plans. Demonstrated understanding of instructions, follow-up care, 17:01 Patient left the ED. ld1 Signatures: Dispatcher [employer] Otilio Stuart em1 Ana Maria Mckeon, RN RN ap3 Dori Schaffer RN RN ld1 Scott Mckeon MD MD sp3 Tish Caldera RN RN mb9 Mallory Wood 5
[2024-07-29 17:53] VITALS: TEMP 97.8
[2024-07-29 17:58] VITALS: BP 126/85; O2SAT 99
--- NOTE | 2024-07-31 12:41 | EKG ---
Test Date: 2024-07-29 Test Time: 14:49:23 Tip Printer: MB MEASUREMENT RESULTS: Intervals: Rate: 61 AR: 180 QRSD: 82 QT: 426 QTc: 428 [place]: P: 51 AR: 180 QRS: 39 T: 53 INTERPRETIVE STATEMENTS: Normal sinus rhythm Normal ECG Compared to ECG 06/28/2024 08:26:35 T-wave abnormality no longer present Electronically Signed On 07-31-24 12:38:48 CDT by Nasir Egan
== END 2024-07-29 17:01 | disposition home or self-care (01) ==
LOC: ER 13:31
DX: G30.9 Alzheimer's disease, unspecified (principal); F02.80 Dementia in other diseases classified elsewhere, unspecified severity, without behavioral disturbance, psychotic disturbance, mood disturbance, and anxiety; Z11.52 Encounter for screening for COVID-19
CPT/HCPCS: 36415; 70450; 71045; 80053; 81003; 83605; 84484; 85025; 85610; 85730; 87040; 87070; 87081; 87804; 87811; 93005; 96374; 99285

== ENCOUNTER 2025-01-04 08:36 | Inpatient (IN) | payer OTHER ==
[2025-01-04] MEDS ORDERED: NA CHLORIDE 0.9% 1,000 ML ONE (09:21)
--- NOTE | 2025-01-04 09:31 | RAD REPORT ---
EXAM: Chest Single View HISTORY: ABDOMINAL DISTENTION COMPARISON: 08/09/2024 FINDINGS: LUNGS/PLEURA: The lungs are clear. No pleural effusions or pneumothorax. No pulmonary edema. MEDIASTINUM: Similar configuration. Tortuous thoracic aorta. CARDIAC: Stable size and configuration. UPPER ABDOMEN: No significant abnormality. BONES: No acute abnormality. LINES/TUBES/OTHER: N/A IMPRESSION: No evidence of acute cardiopulmonary disease.
[2025-01-04 09:45] LABS: Absolute Basophils 0.1 K/uL (0-0.5); Absolute Eosinophils 0.2 K/uL (0-0.5); Absolute Lymphocytes (CBC) 1.8 K/uL (0.7-4.9); Absolute Monocytes 0.6 K/uL (0.1-1.3); Absolute Neutrophil 7.7 K/uL (1.8-8.0); Basophils % 0.7 % (0-1.3); Eosinophils % 1.9 % (0-4.4); Hematocrit 44.4 % (39.6-49.0); Hemoglobin 14.8 g/dL (13.6-17.9); Lymphocytes % 17.1 % (15.3-44.8); MCH 29.5 pg (27.0-35.0); MCHC 33.4 g/dL (32.0-36.0); MCV 88.3 fL (80-100); MPV 7.9 fL (7.6-11.3); Neutrophils % 74.3 % (41.7-73.7); Nucleated Red Blood Cells % 0.1 % (0-0); Platelets 258 thou/uL (152-406); RBC Red Blood Cell Count 5.03 M/uL (4.33-5.43); Red Cell Distribution Width 14.7 % (12.1-15.2)
[2025-01-04 09:56] LABS: PT Prothrombin Time 11.2 SECONDS (9.4-12.5); Protime INR 1.07
[2025-01-04 10:06] LABS: Albumin 3.5 g/dL (3.4-5.0); Albumin/Globulin Ratio 0.7 (1.1-1.8); Anion Gap 10.4 mEq/L (5.0-15.0); Bilirubin Direct 0.2 mg/dL (0-0.2); Bilirubin Indirect, Calculated 0.7 mg/dL (0.2-0.8); Bilirubin Total 0.9 mg/dL (0.2-1.0); Globulin 4.8 g/dL (2.3-3.5); Magnesium 2.2 mg/dL (1.6-2.4); Potassium 4.4 mEq/L (3.5-5.1); Protein, Total 8.3 g/dL (6.4-8.2); Troponin High Sensitivity 7.7 pg/mL (<58.9)
[2025-01-04] MEDS ORDERED: FAMOTIDINE 20 MG/2 ML VIAL IV ONE (10:10)
--- NOTE | 2025-01-04 10:24 | EDPHYS ---
Physician Documentation [facility] Name: Munir Brooks Age: 84 yrs Sex: Male : 1940 Arrival Date: 01/04/2025 Time: 08:36 Bed 14 Private MD: OLIVIA Physician Schuyler Combs HPI: 01/04 09:21 This 84 yrs old Male presents to ER via EMS with complaints of Diarrhea. courtney 09:21 The patient presents to the emergency department with nausea, diarrhea, that is courtney intermittent. Onset: The symptoms/episode began/occurred yesterday. Possible causes: unknown. The symptoms are aggravated by nothing. The symptoms are alleviated by nothing. Associated signs and symptoms: The patient has no apparent associated signs or symptoms. Severity of symptoms: At their worst the symptoms were moderate in the emergency department the symptoms are unchanged. The patient has not experienced similar symptoms in the past. Historical: - Allergies: 08:52 Namenda; kc6 08:52 Mdycmvt-Ssb-Jjr Reductase Inhibitor; kc6 - PMHx: 08:52 Alzheimer's disease; Congenital Heart Defect; Dementia; Seizures; kc6 - PSHx: 08:52 Cholecystectomy; heart surgery; kc6 - Immunization history:: Adult Immunizations up to date. - Infectious Disease History:: Denies. - Social history:: Smoking status: unknown. - Family history:: not pertinent. ROS: 09:21 Constitutional: Negative for fever, chills, and weight loss, Eyes: Negative for injury, courtney pain, redness, and discharge, ENT: Negative for injury, pain, and discharge, Neck: Negative for injury, pain, and swelling, Cardiovascular: Negative for chest pain, palpitations, and edema, Respiratory: Negative for shortness of breath, cough, wheezing, and pleuritic chest pain, Back: Negative for injury and pain, : Negative for injury, bleeding, discharge, and swelling, MS/Extremity: Negative for injury and deformity, Skin: Negative for injury, rash, and discoloration, Psych: Negative for depression, anxiety, suicide ideation, homicidal ideation, and hallucinations, Allergy/Immunology: Negative for hives, rash, and allergies, Endocrine: Negative for neck swelling, polydipsia, polyuria, polyphagia, and marked weight changes, Hematologic/Lymphatic: Negative for swollen nodes, abnormal bleeding, and unusual bruising, 09:21 Abdomen/GI: Positive for diarrhea, Exam: 09:21 Constitutional: This is a well developed, well nourished patient who is awake, alert, courtney and in no acute distress. Head/Face: Normocephalic, atraumatic. Eyes: Pupils equal round and reactive to light, extra-ocular motions intact. Lids and lashes normal. Conjunctiva and sclera are non-icteric and not injected. Cornea within normal limits. Periorbital areas with no swelling, redness, or edema. ENT: Nares patent. No nasal discharge, no septal abnormalities noted. Tympanic membranes are normal and external auditory canals are clear. Oropharynx with no redness, swelling, or masses, exudates, or evidence of obstruction, uvula midline. Mucous membranes moist. Neck: Trachea midline, no thyromegaly or masses palpated, and no cervical lymphadenopathy. Supple, full range of motion without nuchal rigidity, or vertebral point tenderness. No Meningismus. Chest/axilla: Normal chest wall appearance and motion. Nontender with no deformity. No lesions are appreciated. Cardiovascular: Regular rate and rhythm with a normal S1 and S2. No gallops, murmurs, or rubs. Normal PMI, no JVD. No pulse deficits. Respiratory: Lungs have equal breath sounds bilaterally, clear to auscultation and percussion. No rales, rhonchi or wheezes noted. No increased work of breathing, no retractions or nasal flaring. Abdomen/GI: Soft, non-tender, with normal bowel sounds. No distension or tympany. No guarding or rebound. No evidence of tenderness throughout. Back: No spinal tenderness. No costovertebral tenderness. Full range of motion. Male : Normal genitalia with no discharge or lesions. Skin: Warm, dry with normal turgor. Normal color with no rashes, no lesions, and no evidence of cellulitis. MS/ Extremity: Pulses equal, no cyanosis. Neurovascular intact. Full, normal range of motion., bilateral aka Psych: Awake, alert, with orientation to person, place and time. Behavior, mood, and affect are within normal limits. 09:21 Neuro: Orientation: is normal, Mentation: is normal, Memory: no acute changes, Cranial nerves: grossly normal, is grossly normal based on the patient's age, no acute changes, Motor: moves all fours, Sensation: no obvious gross deficits, Gait: not tested. seizure activity, is not displayed by the patient, 09:27 ECG was reviewed by the Attending Physician. [facility] Vital Signs: 08:50 BP 115 / 77; Pulse 58; Resp 16 S; Temp 98.2(TE); Pulse Ox 99% on R/A; Pain 0/10; kc6 10:35 BP 140 / 76; Pulse 45; Resp 15 S; Pulse Ox 99% on R/A; kc6 08:50 Pain Scale: Adult kc6 MDM: 08:53 Medical Screening Exam initiated courtney 09:25 Differential diagnosis: Nonspecific abd pain, pancreatitis, diverticulitis, viral courteny gastroenteritis, gastroenteritis. Data reviewed: vital signs, nurses notes, EMS record, lab test result(s), EKG, radiologic studies, CT scan, plain films. Consideration of Admission/Observation Patient was admitted/placed on observation. Escalation of care including admission/observation considered. I considered the following discharge prescriptions or medication management in the emergency department Medications were administered in the Emergency Department. See MAR. Independent interpretation of the following test(s) in the Emergency Department EKG: See my EKG interpretation above. Historians other than the Patient: EMS: WELL INFORMED. Daughter/Son: DAUGHTER WELL INFORMED. Care significantly affected by the following chronic conditions: DEMENTIA, CONGENITAL HEART, SEIZURES, DEMENTIA. 01/04 08:55 Order name: Basic Metabolic Panel; Complete Time: 10:21 [facility] 01/04 08:55 Order name: CBC with Diff; Complete Time: 10:02 [facility] 01/04 08:55 Order name: LFT's; Complete Time: 10:21 [facility] 01/04 08:55 Order name: Magnesium; Complete Time: 10:21 [facility] 01/04 08:55 Order name: NT PRO-BNP; Complete Time: 10:21 [facility] 01/04 08:55 Order name: PT-INR; Complete Time: 10:02 [facility] 01/04 08:55 Order name: Troponin HS; Complete Time: 10:21 [facility] 01/04 08:55 Order name: Lipase; Complete Time: 10:21 [facility] 01/04 08:55 Order name: Urinalysis w/ reflexes [facility] 01/04 08:55 Order name: Fecal Leukocyte Stain [facility] 01/04 08:55 Order name: Stool Culture [facility] 01/04 09:19 Order name: CDIFF [facility] 01/04 08:55 Order name: XRAY Chest (1 view); Complete Time: 10:02 [facility] 01/04 08:55 Order name: CT Abd/Pelvis - Without Contrast; Complete Time: 10:41 [facility] 01/04 08:55 Order name: Cardiac monitoring; Complete Time: 09:14 [facility] 01/04 08:55 Order name: EKG - Nurse/Tech; Complete Time: 09:27 [facility] 01/04 08:55 Order name: IV Saline Lock; Complete Time: 10:02 [facility] 01/04 08:55 Order name: Labs collected and sent; Complete Time: 10:02 [facility] 01/04 08:55 Order name: O2 Per Protocol; Complete Time: :14 [facility] 01/04 08:55 Order name: O2 Sat Monitoring; Complete Time: : [facility] EC: Rate is 59 beats/min. Rhythm is regular. QRS [place] is Normal. MI interval is normal. QRS courtney interval is normal. QT interval is normal. No Q waves. T waves are Normal. No ST changes noted. Clinical impression: Sinus bradycardia and No evidence of ischemia. Interpreted by me. Reviewed by me. Administered Medications: 10:02 Drug: NS 0.9% IV 1000 ml IV at 1000 ml once; to be given as a bolus over 60 minutes kc6 Route: IV; Rate: 1000 ml; Site: left forearm; 10:34 Drug: Famotidine IVP 20 mg IVP once; dilute with 10 mL 0.9% NaCl; give over 2 minutes kc6 Route: IVP; Site: left forearm; 11:32 Follow up: Response: No adverse reaction kc6 Disposition Summary: 01/04/25 10:23 Hospitalization Ordered Notes: Hospitalization Status: Inpatient Admission courtney Condition: Fair courtney Problem: new courtney Symptoms: have improved courtney Bed/Room Type: Standard courtney Provider: Cullen Herzog(01/04/25 10:58) courtney Location: Telemetry/MedSurg (Inpatient)(01/04/25 11:55) jl7 Room Assignment: [facility](01/04/25 11:55) jl7 Diagnosis - Diarrhea, unspecified courtney - Dehydration courtney - Unspecified kidney failure courtney - Weakness courtney Forms: - Medication Reconciliation Form courtney - SBAR form courtney - Leadership Thank You Letter courtney Signatures: Dispatcher [employer] Schuyler Solomon MD MD cha Leal, Jahala, RN RN jl7 Avani Sloan RN RN kc6 Corrections: (The following items were deleted from the chart) 08:56 08:56 BASIC METABOLIC PANEL+C.LAB.BRZ ordered. EDMS EDMS 08:56 08:56 CBC+H.LAB.BRZ ordered. EDMS EDMS 08:56 08:56 HEPATIC FUNCTION+C.LAB.BRZ ordered. EDMS EDMS 08:56 08:56 MAGNESIUM+C.LAB.BRZ ordered. EDMS EDMS 08:56 08:56 PROBNP+C.LAB.BRZ ordered. EDMS EDMS 08:56 08:56 PROTIME (+INR)+COAG.LAB.BRZ ordered. EDMS EDMS 08:56 08:56 Troponin High Sensitivity+C.LAB.BRZ ordered. EDMS EDMS 08:56 08:56 LIPASE+C.LAB.BRZ ordered. EDMS EDMS 08:56 08:56 Urinalysis+U.LAB.BRZ ordered. EDMS EDMS 08:56 08:56 Fecal Leukocyte Stain+BA.LAB.BRZ ordered. EDMS EDMS 08:56 08:56 Stool Culture+BA.LAB.BRZ ordered. EDMS EDMS 08:56 08:56 Chest Single View+RAD.RAD.BRZ ordered. EDMS EDMS 08:56 08:56 Abdomen Pelvis Wo Con+CT.RAD.BRZ ordered. EDMS EDMS 10:58 10:23 Nerissa Morrison cha [facility] 11:55 10:23 Telemetry/MedSurg (Inpatient) courtney [facility] 11:55 10:23 courtney Oswaldo
--- NOTE | 2025-01-04 10:24 | ER ---
Nurse's Notes [facility] Name: Munir Brooks Age: 84 yrs Sex: Male : 1940 Arrival Date: 01/04/2025 Time: 08:36 Bed 14 Private MD: Diagnosis: Diarrhea, unspecified;Dehydration;Unspecified kidney failure;Weakness Presentation: 01/04 08:50 Chief complaint: EMS states: pt is from [facility] and EMS was toned out kc6 for diarrhea. pt received soiled. Coronavirus screen: At this time, the client does not indicate any symptoms associated with coronavirus-19. Ebola Screen: No symptoms or risks identified at this time. Initial Sepsis Screen: Does the patient meet any 2 criteria? Altered Mental Status. Does the patient have a suspected source of infection? No. Patient's initial sepsis screen is negative. Risk Assessment: Do you want to hurt yourself or someone else? Unable to obtain. Onset of symptoms was January 04, 2025. 08:50 Method Of Arrival: EMS: [facility] kc6 08:50 Acuity: MAGALY 3 kc6 Historical: - Allergies: 08:52 Namenda; kc6 08:52 Dzfmevz-Ubk-Exc Reductase Inhibitor; kc6 - PMHx: 08:52 Alzheimer's disease; Congenital Heart Defect; Dementia; Seizures; kc6 - PSHx: 08:52 Cholecystectomy; heart surgery; kc6 - Immunization history:: Adult Immunizations up to date. - Infectious Disease History:: Denies. - Social history:: Smoking status: unknown. - Family history:: not pertinent. Screenin:52 [facility] ED Fall Risk Assessment (Adult) History of falling in the last 3 months, kc6 including since admission No falls in past 3 months (0 pts) Confusion or Disorientation Yes (5 pts) Intoxicated or Sedated No (0 pts) Impaired Gait No (0 pts) Mobility Assist Device Used No (0 pt) Altered Elimination No (0 pt) Score/Fall Risk Level 3 or more points = High Risk Oriented to surroundings, Maintained a safe environment, Educated pt \T\ family on fall prevention, incl call for assistance when getting out of bed. Abuse screen: Denies threats or abuse. Denies injuries from another. Nutritional screening: No deficits noted. Tuberculosis screening: No symptoms or risk factors identified. Assessment: 09:12 General: Appears in no apparent distress. comfortable, unkempt, well developed, kc6 Behavior is calm, cooperative, appropriate for age. Pain: Unable to use pain scale. Patient is disoriented. Does not appear to understand pain scale. Neuro: Level of Consciousness is awake, alert, obeys commands, confused, Oriented to person, Appropriate for age. Cardiovascular: Capillary refill < 3 seconds. Respiratory: Airway is patent Trachea midline Respiratory effort is even, unlabored, Respiratory pattern is regular, symmetrical. GI: Abdomen is flat, non-distended, Bowel sounds present X 4 quads. Abd is soft and non tender X 4 quads. Patient currently denies abdominal pain, nausea, vomiting, Parent/caregiver reports the patient having diarrhea. : No signs and/or symptoms were reported regarding the genitourinary system. EENT: No signs and/or symptoms were reported regarding the EENT system. Derm: No signs and/or symptoms reported regarding the dermatologic system. Skin is intact, is healthy with good turgor, Skin is pink, warm \T\ dry. Musculoskeletal: No signs and/or symptoms reported regarding the musculoskeletal system. Circulation, motion, and sensation intact. Range of motion: intact in all extremities. 10:35 Reassessment: Patient appears in no apparent distress at this time. No changes from kc6 previously documented assessment. Patient and/or family updated on plan of care and expected duration. Pain level reassessed. 11:35 Reassessment: Patient appears in no apparent distress at this time. No changes from kc6 previously documented assessment. Patient and/or family updated on plan of care and expected duration. Pain level reassessed. 12:51 Reassessment: Patient appears in no apparent distress at this time. No changes from kc6 previously documented assessment. Patient and/or family updated on plan of care and expected duration. Pain level reassessed. voicemail left with daughter asking her to call back regarding pt being admitted. Salome made aware that pt is being admitted. Vital Signs: 08:50 BP 115 / 77; Pulse 58; Resp 16 S; Temp 98.2(TE); Pulse Ox 99% on R/A; Pain 0/10; kc6 10:35 BP 140 / 76; Pulse 45; Resp 15 S; Pulse Ox 99% on R/A; kc6 08:50 Pain Scale: Adult kc6 ED Course: 08:50 Patient arrived in ED. kc6 08:51 Triage completed. kc6 08:52 Arm band placed on. kc6 08:52 Patient has correct armband on for positive identification. Placed in gown. Bed in low kc6 position. Call light in reach. Side rails up X2. Adult w/ patient. Pulse ox on. NIBP on. Door closed. Noise minimized. Lights dimmed. Warm blanket given. Pillow given. Verbal reassurance given. Repositioned patient. Cleaned of incontinence. Linen changed. 08:52 Patient maintains SpO2 saturation greater than 95% on room air. kc6 08:53 Schuyler Combs MD is Attending Physician. [facility] 09:12 Avani Sloan RN is Primary Nurse. kc6 09:28 XRAY Chest (1 view) In Process Unspecified. EDMS 10:02 Placed in gown. Repositioned patient. Cleaned of incontinence. Linen changed. kc6 10:02 Fecal Leukocyte Stain Sent. kc6 10:02 Stool Culture Sent. kc6 10:02 CDIFF Sent. kc6 10:02 Initial lab(s) drawn, by nc, sent to lab. Missed attempt(s): 20 gauge in left kc6 antecubital area. Inserted saline lock: 22 gauge in left forearm, using aseptic technique. Blood collected. Flushed with 10 mL NS. 10:17 CT Abd/Pelvis - Without Contrast In Process Unspecified. EDMS 10:22 Nerissa Morrison MD is Hospitalizing Provider. [facility] 10:58 Cullen Herzog MD is Hospitalizing Provider. [facility] 12:46 Repositioned patient. Cleaned of incontinence. Linen changed. kc 12:46 No provider procedures requiring assistance completed. Patient admitted, IV remains in kc6 place. Administered Medications: 10:02 Drug: NS 0.9% IV 1000 ml IV at 1000 ml once; to be given as a bolus over 60 minutes kc Route: IV; Rate: 1000 ml; Site: left forearm; 10:34 Drug: Famotidine IVP 20 mg IVP once; dilute with 10 mL 0.9% NaCl; give over 2 minutes [facility] Route: IVP; Site: left forearm; 11:32 Follow up: Response: No adverse reaction [facility] Medication: 12:47 VIS not applicable for this client. kc6 Outcome: 10:23 Decision to Hospitalize by Provider. courtney 12:47 Admitted to Med/surg accompanied by tech, via stretcher, room 412, with chart, kc6 12:47 Condition: good 12:47 Instructed on the need for admit, 12:49 Patient left the ED. kc6 Signatures: Dispatcher [employer] Schuyler Solomon MD MD cha Campbell, Kaitlyn RN RN kc6 Corrections: (The following items were deleted from the chart) 09:14 08:50 Chief complaint: EMS states: pt is from [facility] and EMS was toned kc6 out for diarrhea kc6
--- NOTE | 2025-01-04 10:36 | RAD REPORT ---
EXAMINATION: CT ABDOMEN AND PELVIS WITHOUT CONTRAST CLINICAL INDICATION: Male, 84 years old.PAIN TECHNIQUE: CT abdomen and pelvis was performed, without IV contrast, as per department protocol. Axia l, sagittal and coronal reconstructions were obtained. One or more of the following dose reduction techniques were used: Automated exposure control, adjustment of the mA and/or kV according to the pat ient size, and/or iterative reconstruction. Unless otherwise specified, incidental findings do not require dedicated imaging follow-up. [id number]. IV CONTRAST: Not administered. COMPARISON: 08/09/2024 FINDINGS: The lack of intravenous contrast limits the sensitivity of this exam for evaluation of solid visceral organs, vascular structures, and retroperitoneum. LOWER CHEST: No acute process identified.No significant pericardial effusion. Multivessel coronary ar italo calcifications. UPPER GI: Question gastric wall thickening but the stomach is underdistended. LIVER: No significant focal abnormality. GALLBLADDER/BILE DUCTS: Cholecystectomy. Mild extra-hepatic biliary ductal dilatation is likely relat ed to the post-cholecystectomy state. Consider correlating with LFT's.? PANCREAS: Not well assessed due to motion. SPLEEN: Unremarkable. ADRENALS: No adrenal masses. KIDNEYS AND URETERS: No hydronephrosis.Nonobstructive right nephrolithiasis. ABDOMINAL AORTA AND OTHER VESSELS: Moderate atherosclerotic changes without aortic aneurysm. PERITONEUM: No abnormal free fluid. No free air. LYMPH NODES: No pathologic lymphadenopathy. ABDOMINAL WALL: Unremarkable SMALL BOWEL/COLON: Nonspecific fluid present throughout the small bowel and colon. No bowel obstructi on identified.Normal appendix. Mild diverticulosis without diverticulitis. URINARY BLADDER: Circumferential thickening which may be secondary to chronic bladder outlet obstruct ion. REPRODUCTIVE ORGANS: Moderate prostatomegaly. MUSCULOSKELETAL: New L4 compression fracture with up to 30% loss of height. This is favored subacute. ADDITIONAL FINDINGS: None. IMPRESSION: 1. Small bowel and colonic fluid likely reflecting diarrheal disease or mild enterocolitis. No bowel obstruction. 2. New L4 compression fracture compared with 08/09/2024. Suspect subacute. No bony retropulsion. 3. Other incidental findings as noted above.
[2025-01-04] MEDS ORDERED: ONDANSETRON 4 MG/2 ML VIAL IV PRN (12:28)
[2025-01-04] MEDS ORDERED: ACETAMINOPHEN 325 MG TABLET PO PRN (12:31)
[2025-01-04 13:24] VITALS: BMI 24.0
--- NOTE | 2025-01-04 13:38 | EKG ---
Test Date: 2025-01-04 Test Time: 09:23:23 [employer]: CASANDRA MEASUREMENT RESULTS: Intervals: Rate: 59 IL: 194 QRSD: 78 QT: 420 QTc: 415 [place]: P: 37 [place]: 194 QRS: 26 T: -6 INTERPRETIVE STATEMENTS: Sinus bradycardia Nonspecific ST and T wave abnormality Abnormal ECG Compared to ECG 08/09/2024 19:55:42 ST (T wave) deviation now present Sinus rhythm no longer present Left ventricular hypertrophy no longer present T-wave abnormality no longer present Possible ischemia no longer present Electronically Signed On 01-04-25 13:37:16 ASSAYER by Waldo Yee
[2025-01-04] MEDS: D5 0.45 NS 1,000 ML IV SCH (13:54)
[2025-01-04 14:54] LABS: Absolute Basophils 0.1 K/uL (0-0.5); Absolute Eosinophils 0.2 K/uL (0-0.5); Absolute Lymphocytes (CBC) 1.5 K/uL (0.7-4.9); Absolute Monocytes 0.5 K/uL (0.1-1.3); Absolute Neutrophil 7.4 K/uL (1.8-8.0); Basophils % 0.5 % (0-1.3); Eosinophils % 1.6 % (0-4.4); MCH 29.7 pg (27.0-35.0); MCHC 34.2 g/dL (32.0-36.0); MCV 86.9 fL (80-100); Monocytes % 4.9 % (3.3-12.3); Nucleated Red Blood Cells % 0.1 % (0-0); Platelets 235 thou/uL (152-406); RBC Red Blood Cell Count 4.37 M/uL (4.33-5.43); Red Cell Distribution Width 14.4 % (12.1-15.2)
[2025-01-04 15:03] LABS: PT Prothrombin Time 11.9 SECONDS (9.4-12.5); PTT, Activated Partial Thromb 33.8 SECONDS (24.3-36.9); Protime INR 1.13
[2025-01-04 15:10] LABS: Albumin 3.1 g/dL (3.4-5.0); Albumin/Globulin Ratio 0.8 (1.1-1.8); Anion Gap 7.3 mEq/L (5.0-15.0); Bilirubin Total 0.8 mg/dL (0.2-1.0); Potassium 4.3 mEq/L (3.5-5.1); Protein, Total 7.1 g/dL (6.4-8.2)
[2025-01-04 15:10] LABS: C.diff Antigen/Toxin Ag neg : Tox neg (NEG : NEG); CDIFF INTERNAL NEG CONTROL White Background (WHITE BKGD); STOOL CONSISTENCY Liquid/Semi-Solid
[2025-01-04] MEDS: NA CHLORIDE 0.9% 1,000 ML IV SCH ×2 (15:34→18:28)
[2025-01-04] MEDS ORDERED: VANCOMYCIN 1 GM in NA CHLORIDE 0.9% 250 ML IVPB SCH (16:00)
[2025-01-04] MEDS: CEFEPIME 1 GM in NA CHLORIDE 0.9% 100 ML IV SCH (16:09)
[2025-01-04] MEDS: VANCOMYCIN 1.25 GM in NA CHLORIDE 0.9% 250 ML IVPB SCH (16:09)
[2025-01-04] MEDS: NA CHLORIDE 0.9% 500 ML IV ONE (17:30)
[2025-01-04 18:09] VITALS: O2SAT 95
[2025-01-04 19:14] LABS: Sqamous Epithelial <5 /HPF (None Seen); Urine Bacteria None Seen /HPF (<20); Urine Bilirubin NEGATIVE (Negative); Urine Blood Negative (Negative); Urine Clarity Turbid (Clear); Urine Color Light-Yellow (Yellow); Urine Crystals Unidentified Few /HPF (None Seen); Urine Culture Reflex Order NOT NEEDED; Urine Glucose NEGATIVE (Negative); Urine Ketones TRACE (Negative); Urine Microscopic Reflex YN ORDER UMIC; Urine Nitrite NEGATIVE (Negative); Urine Protein TRACE (Negative); Urine RBC <5 /HPF (None Seen); Urine Urobilinogen Normal (Normal); Urine WBC <5 /HPF (<5); Urine WBC Clump Rare /HPF (None Seen); Urine pH 5.5 (5.0-7.0)
--- NOTE | 2025-01-04 20:27 | HP ---
Date of Admission: 01/04/2025 Chief Complaint: Diarrhea. History Of Present Illness: Mr. Brooks is an 84-year-old male patient, who [facility], as sent to emergency room today with diarrhea problem. After he was evaluated in emergency room, he was admitted to hospital. I saw him in emergency room. There was no family member with him at that time when I saw him and he was lying in bed with his eyes closed. He opened his eyes when I called h is name, but obviously because of his advanced Alzheimer's disease, he is not able to answer any ques tions. After I saw the patient this afternoon, I did talk to the patient's daughter on the phone and she did not have any other details to add on. Last time I saw him at office was just about 2 days a go and at that time, I did discuss with the patient's daughter regarding consideration of hospice car e and she was going to communicate with rest of the family regarding this and so far no decision has been made as she has informed me. Code Status: The patient is full code as per my discussion with the patient's daughter. Medications: List reviewed. Review of Systems: GI: As mentioned above. CABLE PLACER: Impaired cognition, which is his chronic baseline condition. All other systems reviewed and negative. Allergies: TO STATIN THERAPY. Past Medical History: Significant for Alzheimer's disease which is late stage, type 2 diabetes melli tus which is diet controlled, hypertension, mixed hyperlipidemia, gastroesophageal reflux disease, li zaira cyst, chronic kidney disease stage IIIA to IIIB, benign prostatic hypertrophy, high PSA, osteoart hritis at multiple sites, anemia due to chronic kidney disease, anxiety, seizure disorder, and donaldson ry artery disease. He recently had admission to outside hospital due to myocardial infarction, which was managed with conservative treatment. Past Surgical History: Significant for surgery for congenital heart disease many years ago and marco antonio cystectomy. Family History: Father had myocardial infarction. Social History: Negative for smoking and alcohol use. Physical Examination: Vital Signs: When he first came in, initial temperature 98.2, pulse 58, respiratory rate 16, blood p ressure 115/77, oxygen saturation 99%. Height 5 feet 8 inches, weight 158 pounds. This evening on [facility] medical floor, his blood pressure had dropped down to 76/46 with pulse 58, temperature 97.9, oxyge n saturation was 95%. General: Awake, alert, oriented, not in distress. HEENT: Head atraumatic, normocephalic. Conjunctivae nonerythematous. Sclerae white. Mouth, no thr ush or edema noted. Ears/Nose, no mass, lesion, discharge noted. Neck: Supple. No JVD, lymph nodes, bruit, thyromegaly noted. Lungs: Bilateral good equal air entry. Clear to auscultation. No rhonchi. No rales. Heart: Normal heart sounds, no murmur or gallop. Abdomen: Soft, bowel sounds normal. No guarding, rigidity, tenderness, mass, hepatosplenomegaly, dis tention, or bruit noted. Extremities: No leg edema. No calf tenderness. Skin: No rash, ulcer, cellulitis. Lymphatics: No lymph node enlargement in neck, supraclavicular, infraclavicular region. Neuro: The patient is not answering any questions because of his advanced Alzheimer's disease which is his baseline. Chest: Unremarkable. External Genitalia: Deferred. Rectal: Deferred. Laboratory Data: Initial WBC 10.4, hemoglobin 14.8, platelets 258. Repeat WBC 9.6, hemoglobin 13, p latelets 235. Initial chemistry; sodium 134, potassium 4.4, chloride 102, bicarb 26, BUN 25, creatin ine 1.49, glucose 84. Liver function tests unremarkable. His lactic acid was 1.1. Lipase was 125. Repeat chemistry; sodium 137, potassium 4.3, chloride 107, bicarb 27, BUN 24, creatinine 1.26, gluco se 99. Liver function tests unremarkable. Urine has not been collected. Stool for C. diff is negat gabriella. Chest x-ray, no acute cardiopulmonary changes. CAT scan of abdomen and pelvis shows evidence o f small bowel and colonic fluid, likely reflecting enterocolitis. No bowel obstruction. New L4 comp ression fracture compared to 08/09/2024 CAT scan. Impression: 1. Septic shock. 2. Acute gastroenteritis. 3. Volume depletion. 4. Alzheimer's disease, late stage. 5. Chronic kidney disease stage IIIA. 6. Hypertension. 7. Type 2 diabetes mellitus. 8. Hyperlipidemia. 9. Gastroesophageal reflux disease. 10. Coronary artery disease. 11. Osteoarthritis, multiple sites. 12. Anemia due to chronic kidney disease. Plan: We will go ahead and admit the patient to hospital for further evaluation and management of th is problem. After I saw the patient in emergency room, he was initially admitted to medical floor an d upon arrival, he was noted to be hypothermic. So, warming blankets were placed and for his hypoten lucy, IV fluid was given. Subsequently, his blood pressure dropped even further and that necessitate d emergent transfer to ICU. IV fluid bolus was ordered again. While he was on the medical floor, IV fluid per sepsis protocol was already ordered, but when we transferred him to ICU, decided to give a nother 500 cc of IV fluid bolus and we will try to keep his MAP 65 or higher. If we are not able to achieve that with IV fluid bolus, then we will start him on vasopressor medication per order. Empiri c antibiotic, cefepime and vancomycin was ordered to be started upon admission, which we will continu e that. Pharmacy consult and pharmacy to manage vancomycin dosing. The patient's daughter has jay rns about how [facility] is giving him multiple medications and she does not agree the patient rudi ng all those medications and 2 days ago when he came into office, I had a long discussion with the rajeev acuna's daughter and I informed her that as the patient's family member, they have right to refuse tr eatment and I encouraged her to talk to director of nurses at the [facility] to sit down and commun icate regarding all his medications that he is being given at the [facility] since she does not agr ee and to allow him to give necessary medication that family agrees. Since I am not looking after hi s care in [facility], I was not able to intervene and I informed her about that. Today when I comm unicated with the patient's daughter, I informed her to meet me tomorrow morning in ICU, so I can go ahead and have a [id number] discussion regarding which medication she wants to continue because she was very clear today on the phone when talking to me that she does not want all of the medications c ontinued. She only wants certain specific medication continued while in the hospital, so we will com municate with her tomorrow. Overall, prognosis is guarded. She wants everything done as per my disc ussion with her regarding code status, so the patient remains full code. We will order DVT prophylax is. Total time spent was 90 minutes including review of emergency room visit record, communication with e mergency room physician, communication with the patient's daughter, review of recent office visit rec ord, review of last hospital admission record from July 2024, and performing today's evaluation and management. CIPRIANO/ORESTES Voice ID: [id number]
[2025-01-04] MEDS ORDERED: CEFEPIME 1 GM in NA CHLORIDE 0.9% 100 ML IV SCH (21:00)
[2025-01-04] MEDS: FAMOTIDINE 20 MG/2 ML VIAL IV SCH (21:11)
[2025-01-05 06:45] LABS: Absolute Eosinophils 0.2 K/uL (0-0.5); Absolute Lymphocytes (CBC) 1.5 K/uL (0.7-4.9); Absolute Monocytes 0.5 K/uL (0.1-1.3); Absolute Neutrophil 5.5 K/uL (1.8-8.0); Basophils % 0.6 % (0-1.3); Hematocrit 35.4 % (39.6-49.0); Hemoglobin 12.2 g/dL (13.6-17.9); Lymphocytes % 19.5 % (15.3-44.8); MCH 30.3 pg (27.0-35.0); MCHC 34.4 g/dL (32.0-36.0); MCV 88.2 fL (80-100); Monocytes % 6.3 % (3.3-12.3); Neutrophils % 71.6 % (41.7-73.7); Nucleated Red Blood Cells % 0.1 % (0-0); Platelets 240 thou/uL (152-406); RBC Red Blood Cell Count 4.01 M/uL (4.33-5.43); Red Cell Distribution Width 14.5 % (12.1-15.2)
[2025-01-05 07:05] LABS: Albumin 2.7 g/dL (3.4-5.0); Albumin/Globulin Ratio 0.7 (1.1-1.8); Anion Gap 7.2 mEq/L (5.0-15.0); Bilirubin Direct 0.3 mg/dL (0-0.2); Bilirubin Indirect, Calculated 0.6 mg/dL (0.2-0.8); Bilirubin Total 0.9 mg/dL (0.2-1.0); Globulin 3.8 g/dL (2.3-3.5); Potassium 4.2 mEq/L (3.5-5.1); Protein, Total 6.5 g/dL (6.4-8.2)
[2025-01-05] MEDS: D50W 25 GM/50 ML SYRINGE IV ONE (08:03)
[2025-01-05] MEDS: D5 0.9 NS 1,000 ML IV SCH ×2 (08:31→13:26)
[2025-01-05] MEDS: ASPIRIN EC 81 MG TAB PO SCH (11:07)
[2025-01-05] MEDS ORDERED: LORAZEPAM 0.5 MG TABLET PO PRN (13:29)
--- NOTE | 2025-01-05 16:27 | PN ---
Date of Progress Note: 01/05/2025 Subjective: The patient was seen this morning for followup. He was lying in bed in ICU. Prior to m y arrival, his vasopressor medication was discontinued and he is maintaining adequate blood pressure without any support from vasopressor medication. Overnight, no new complaints, problems reported by nursing staff in ICU. This morning after doing bedside evaluation started him on diet per my instruc tion and daughter was feeding him his breakfast, which he ate very well and did not have any trouble swallowing. He looked a lot better this morning, lot more awake, alert, and stronger compared to yes terday. Objective: Vital Signs: Reviewed. HEENT: Unremarkable. Lungs: Clear to auscultation. Heart: Sounds normal. Abdomen: Soft. Bowel sounds normal. No guarding, rigidity, tenderness, distention. Extremities: No leg edema. Laboratory Data: White count 7.7, hemoglobin 12.2, platelets 240. Sodium 140, potassium 4.2, chlori de 110, bicarb 27, BUN 25, creatinine 1.28, glucose was 71, fingerstick blood glucose was 54 and last glucose was 113. Cultures remained negative so far. Impression: 1. Septic shock. 2. Acute gastroenteritis. 3. Alzheimer disease, late stage. 4. Hypoglycemia. Plan: We will go ahead and change the IV fluid per order to D5 normal saline and one dose of D50 IV was ordered. This morning when the patient was noted to have hypoglycemia and since he is eating and drinking hopefully we will not have to worry about hypoglycemia anymore. Continue current empiric a ntibiotics. Follow up on culture results. The patient is hemodynamically stable and hopefully somet minor today afternoon we will be able to transfer him to medical floor as he will no longer require ICU level of care since his blood pressure is stable now. I did go over all of his residential medicat ions with the patient's daughter and she clearly informed me that she wants to stop aripiprazole, sindhu rvastatin, clopidogrel, donepezil, ezetimibe, fluoxetine, metoprolol. The only medications she wants us to continue are aspirin, famotidine, loperamide, and trazodone. I have instructed her that upon discharge from the hospital when he goes back to residential we will write orders accordingly about which medication to continue and which one to discontinue and she will need to communicate with [facility] physician if there is any problem at the residential as far as his medications are concerned . CIPRIANO/MODL Voice ID: [id number] Report ID: [id number]
[2025-01-05] MEDS: TRAZODONE 50 MG TABLET PO SCH (21:08)
[2025-01-05] MEDS: FAMOTIDINE 20 MG TAB PO SCH (21:08)
--- NOTE | 2025-01-06 13:21 | PN ---
Date of Progress Note: 01/06/2025 Subjective: Patient was seen this morning for followup. He was lying in bed, not in any distress. Patient does not answer any question due to his end-stage Alzheimer disease, and there was no family member at bedside. Objective: Vital Signs: Reviewed. HEENT: Unremarkable. Lungs: Clear to auscultation. Heart: Sounds normal. Abdomen: Soft. Bowel sounds normal. No guarding, rigidity, tenderness, distention. Extremities: No leg edema. Impression: 1. Septic shock. 2. Acute gastroenteritis. 3. Alzheimer disease, late stage. Plan: We will go ahead and continue current medications. Continue current empiric antibiotic. So f ar, cultures are negative and I will see him tomorrow for followup, possible discharge to go back to [facility] tomorrow depending on his condition. CIPRIANO/MODL Voice ID: [id number] Report ID: [id number]
[2025-01-07 08:48] VITALS: BP 134/64; TEMP 98.1
== END 2025-01-07 11:09 | DRG 871 ==
LOC: ER 08:36 → ERHOLD 11:01 → 4TH 12:02 → 3RD-ICU 17:37 → 2ND 01-05 17:05
PROVIDERS: ADMIT Internal Medicine; ATTEND Internal Medicine
PROC: 3E033XZ Introduction of Vasopressor into Peripheral Vein, Percutaneous Approach (ICD-10-PCS; principal; 2025-01-04)
DX: A41.9 Sepsis, unspecified organism (principal); R65.21 Severe sepsis with septic shock; E86.0 Dehydration; E78.2 Mixed hyperlipidemia; M19.09 Primary osteoarthritis, other specified site; K21.9 Gastro-esophageal reflux disease without esophagitis; I12.9 Hypertensive chronic kidney disease with stage 1 through stage 4 chronic kidney disease, or unspecified chronic kidney disease; N18.31 Chronic kidney disease, stage 3a; E11.22 Type 2 diabetes mellitus with diabetic chronic kidney disease; E11.649 Type 2 diabetes mellitus with hypoglycemia without coma; K52.9 Noninfective gastroenteritis and colitis, unspecified; E86.9 Volume depletion, unspecified; I25.10 Atherosclerotic heart disease of native coronary artery without angina pectoris; G30.1 Alzheimer's disease with late onset; F02.80 Dementia in other diseases classified elsewhere, unspecified severity, without behavioral disturbance, psychotic disturbance, mood disturbance, and anxiety; T68.XXXA Hypothermia, initial encounter; Z88.8 Allergy status to other drugs, medicaments and biological substances; Z90.49 Acquired absence of other specified parts of digestive tract
CPT/HCPCS: 36415; 71045; 74176; 80048; 80053; 80076; 80202; 81001; 82947; 83605; 83690; 83735; 83880; 84484; 85025; 85610; 85730; 87040; 87045; 87046; 87324; 89055; 93005; 96374; 99285; J0692; J2371; J7030; J7042; J7050; J7060; J7799

== ENCOUNTER 2025-01-20 15:08 | Emergency (ER) | payer OTHER ==
[2025-01-20] MEDS ORDERED: NA CHLORIDE 0.9% 1,000 ML ONE (16:08)
--- NOTE | 2025-01-20 16:50 | RAD REPORT ---
Procedure: Chest Single View HISTORY: Cough COMPARISON: January 04, 2025 FINDINGS: Chronic elevation left hemidiaphragm. The lungs appear clear of acute infiltrate. No significant pleural effusion noted. The heart is normal size. Post surgical changes involve the chest. IMPRESSION: No acute abnormality is displayed.
[2025-01-20 16:52] LABS: Absolute Eosinophils 0.2 K/uL (0-0.5); Absolute Lymphocytes (CBC) 1.3 K/uL (0.7-4.9); Absolute Monocytes 0.4 K/uL (0.1-1.3); Absolute Neutrophil 2.9 K/uL (1.8-8.0); Basophils % 0.8 % (0-1.3); Eosinophils % 3.4 % (0-4.4); Hematocrit 36.9 % (39.6-49.0); Hemoglobin 12.6 g/dL (13.6-17.9); Lymphocytes % 27.4 % (15.3-44.8); MCH 30.2 pg (27.0-35.0); MCHC 34.2 g/dL (32.0-36.0); MCV 88.4 fL (80-100); MPV 8.1 fL (7.6-11.3); Monocytes % 7.7 % (3.3-12.3); Neutrophils % 60.7 % (41.7-73.7); Nucleated Red Blood Cells % 0.1 % (0-0); Platelets 205 thou/uL (152-406); RBC Red Blood Cell Count 4.17 M/uL (4.33-5.43)
--- NOTE | 2025-01-20 17:06 | RAD REPORT ---
EXAM: CT brain without contrast HISTORY: Confusion and weakness COMPARISON: 2023 TECHNIQUE: Multiple contiguous axial images were obtained and a CT of the brain without contrast.. Sagittal and coronal reconstruction performed. Automated exposure control, adjustment of the mA and/or kV according to patient size, and/or iterative reconstruction. Unless otherwise specified, incidental f indings do not require dedicated imaging follow-up FINDINGS: An intracranial bleed is not seen Ventricles are normal caliber No extra-axial fluid collection noted No significant hypodensity within the brain. Cerebral atrophy. No fluid within the visualized sinuses or mastoids noted. IMPRESSION: No acute intracranial abnormality noted. If the patient continues to have symptoms to suggest an acute intracranial abnormality then MRI of th e brain would be recommended.
[2025-01-20 17:31] LABS: ALT/SGPT 48 U/L (16-61); Albumin 3.1 g/dL (3.4-5.0); Albumin/Globulin Ratio 0.7 (1.1-1.8); Alkaline Phosphatase 104 U/L (45-117); Anion Gap 8.9 mEq/L (5.0-15.0); BUN Blood Urea Nitrogen 30 mg/dL (7-18); Bicarbonate 27 mEq/L (21-32); Bilirubin Total 0.6 mg/dL (0.2-1.0); Globulin 4.5 g/dL (2.3-3.5); Glomerular Filtration Rate 64 ml/min (=/>90); Glucose Level 90 mg/dL (74-106); Lipase 57 U/L (13-75); NT PRO-BNP 314 pg/mL (<450); Protein, Total 7.6 g/dL (6.4-8.2); Sodium Level 137 mEq/L (136-145)
[2025-01-20 17:37] LABS: AST/SGOT 41 U/L (15-37); Bilirubin Direct < 0.2 mg/dL (0-0.2); Bilirubin Indirect, Calculated 0.4 mg/dL (0.2-0.8); Potassium 5.9 mEq/L (3.5-5.1)
[2025-01-20 17:38] LABS: Magnesium 2.4 mg/dL (1.6-2.4)
[2025-01-20 17:40] LABS: PT Prothrombin Time 11.6 SECONDS (10.0-13.0); Protime INR 1.02
--- NOTE | 2025-01-20 18:00 | ER ---
Nurse's Notes [facility] Name: Munir Brooks Age: 84 yrs Sex: Male : 1940 Arrival Date: 01/20/2025 Time: 15:08 Bed 15 Private MD: Diagnosis: Altered mental status, unspecified;Dementia in other diseases classified elsewhere without behavioral disturbance Presentation: 01/20 15:25 Chief complaint: Chief complaint: EMS states: Hx of Alzheimer's, family reports he is hb more confused than normal. Recently inpatient with sepsis. 15:25 Coronavirus screen: At this time, the client does not indicate any symptoms associated hb with coronavirus-19. Ebola Screen: No symptoms or risks identified at this time. Initial Sepsis Screen: Does the patient meet any 2 criteria? No. Patient's initial sepsis screen is negative. Does the patient have a suspected source of infection? No. Patient's initial sepsis screen is negative. Risk Assessment: Do you want to hurt yourself or someone else? Patient reports no desire to harm self or others. Onset of symptoms was January 20, 2025. 15:25 Method Of Arrival: EMS[facility] hb 15:25 Acuity: MAGALY 3 hb Historical: - Allergies: 16:06 Namenda; hb 16:06 Otqoxkd-Dex-Rqf Reductase Inhibitor; hb - PMHx: 16:06 Alzheimer's disease; Congenital Heart Defect; Dementia; Seizures; hb - PSHx: 16:06 heart surgery; Cholecystectomy; hb - Immunization history:: Adult Immunizations unknown. - Infectious Disease History:: Denies. - Social history:: Smoking status: unknown. Screenin:10 [facility] ED Fall Risk Assessment (Adult) History of falling in the last 3 months, kj2 including since admission No falls in past 3 months (0 pts) Confusion or Disorientation Yes (5 pts) Intoxicated or Sedated No (0 pts) Impaired Gait Yes (1 pt) Mobility Assist Device Used Yes (1 pt) Altered Elimination No (0 pt) Score/Fall Risk Level 3 or more points = High Risk Maintained a safe environment, Hourly rounding (assess needs \T\ fall precautionary measures) done, Utilized family, sitter, or virtual signaling project engineer as indicated. Abuse screen: Denies threats or abuse. Denies injuries from another. Nutritional screening: No deficits noted. Tuberculosis screening: No symptoms or risk factors identified. Assessment: 16:10 General: Appears in no apparent distress. Behavior is calm, cooperative. Pain: Denies kj2 pain. Neuro: Level of Consciousness is awake, alert, confused, Oriented to person. Cardiovascular: Patient's skin is warm and dry. Respiratory: Airway is patent Respiratory effort is even, unlabored. GI: No signs and/or symptoms were reported involving the gastrointestinal system. : No signs and/or symptoms were reported regarding the genitourinary system. 17:00 Reassessment: Patient appears in no apparent distress at this time. Patient and/or kj2 family updated on plan of care and expected duration. Pain level reassessed. Patient is alert, oriented x 3, equal unlabored respirations, skin warm/dry/pink. 18:18 Reassessment: Patient appears in no apparent distress at this time. Patient and/or kj2 family updated on plan of care and expected duration. Pain level reassessed. Patient is alert, oriented x 3, equal unlabored respirations, skin warm/dry/pink. 18:20 Reassessment: discharge on hold due to urine results pending. kj2 Vital Signs: 15:25 BP 140 / 76; Pulse 53; Resp 15; Temp 97.8(O); Pulse Ox 100% on R/A; hb 17:02 BP 120 / 65; Pulse 58; Resp 18; Pulse Ox 97% on R/A; kj2 18:18 BP 122 / 68; Pulse 62; Resp 18; Temp 98; Pulse Ox 100% on R/A; kj2 19:15 BP 126 / 86; Pulse 60; Resp 18; Temp 98; Pulse Ox 97% on R/A; kj2 ED Course: 16:04 Patient arrived in ED. eb 16:06 Triage completed. hb 16:07 Arm band placed on. hb 16:10 Patient has correct armband on for positive identification. Bed in low position. Call kj2 light in reach. Provided Education on: call light placed next to patient. 16:11 Leatha Marino, EDWIN is Primary Nurse. kj2 16:15 Schuyler Combs MD is Attending Physician. courtney 16:30 XRAY Chest (1 view) In Process Unspecified. EDMS 16:45 Initial lab(s) drawn, by me, sent to lab. Inserted saline lock: 22 gauge in left em1 forearm, using aseptic technique. Blood collected. Flushed with 10 mL NS Missed attempt(s): 20 gauge in right antecubital area. Bleeding controlled, band aid applied, catheter tip intact. 16:46 Lipase Sent. em1 16:46 Basic Metabolic Panel Sent. em1 16:46 CBC with Diff Sent. em1 16:46 LFT's Sent. em1 16:46 Magnesium Sent. em1 16:46 NT PRO-BNP Sent. em1 16:46 PT-INR Sent. em1 16:46 Troponin HS Sent. em1 16:56 CT Head Brain wo Cont In Process Unspecified. EDMS 17:59 Elvis Lees MD is Referral Physician. courtney 18:21 No provider procedures requiring assistance completed. kj2 19:32 IV discontinued, intact, bleeding controlled, No redness/swelling at site. Pressure kj2 dressing applied. Administered Medications: 16:51 Drug: NS 0.9% IV 1000 ml IV at 1 bolus Per protocol; to be given as a bolus over 60 kj2 minutes Route: IV; Rate: 1 bolus; Site: left forearm; 19:32 Follow up: IV Status: Completed infusion; IV Intake: 1000ml kj2 Medication: 17:02 VIS not applicable for this client. kj2 Intake: 19:32 IV: 1000ml; Total: 1000ml. kj2 Outcome: 17:59 Discharge ordered by . courtney 18:22 Condition: stable kj2 19:32 Discharged to home via wheelchair, with family, kj2 19:32 Discharge instructions given to patient, family, Instructed on discharge instructions, follow up and referral plans. Demonstrated understanding of instructions, follow-up care, 19:33 Patient left the ED. kj2 Signatures: Dispatcher [employer] EDID Schuyler Combs MD MD cha Martinez, Eric em1 Dee Dee Sifuentes, EDWIN RN Justine Guy Krystal, RN RN kj2 Corrections: (The following items were deleted from the chart) 16:06 16:05 Chief complaint: hb hb 16:08 15:25 Acuity: MAGALY 2 hb hb
--- NOTE | 2025-01-20 18:00 | EDPHYS ---
Physician Documentation [facility] Name: Munir Brooks Age: 84 yrs Sex: Male : 1940 Arrival Date: 01/20/2025 Time: 15:08 Bed 15 Private MD: ED Physician Schuyler Combs HPI: 01/20 17:52 This 84 yrs old Male presents to ER via EMS with complaints of Altered Mental courtney Status. 17:52 The patient presents with confusion, trouble concentrating. Onset: The symptoms/episode courtney began/occurred today. Possible causes: CVA or TIA, alcohol, head injury, low blood sugar, seizure, sepsis. Associated signs and symptoms: Pertinent positives: abdominal pain. Patient's baseline: Neuro:. The patient has experienced similar episodes in the past, multiple times. Historical: - Allergies: 16:06 Namenda; hb 16:06 Fmcucxk-Fbk-Sit Reductase Inhibitor; hb - PMHx: 16:06 Alzheimer's disease; Congenital Heart Defect; Dementia; Seizures; hb - PSHx: 16:06 heart surgery; Cholecystectomy; hb - Immunization history:: Adult Immunizations unknown. - Infectious Disease History:: Denies. - Social history:: Smoking status: unknown. ROS: 17:54 Constitutional: Negative for fever, chills, and weight loss, Eyes: Negative for injury, courtney pain, redness, and discharge, ENT: Negative for injury, pain, and discharge, Neck: Negative for injury, pain, and swelling, Cardiovascular: Negative for chest pain, palpitations, and edema, Respiratory: Negative for shortness of breath, cough, wheezing, and pleuritic chest pain, Abdomen/GI: Negative for abdominal pain, nausea, vomiting, diarrhea, and constipation, Back: Negative for injury and pain, : Negative for injury, bleeding, discharge, and swelling, MS/Extremity: Negative for injury and deformity, Skin: Negative for injury, rash, and discoloration, Psych: Negative for depression, anxiety, suicide ideation, homicidal ideation, and hallucinations, Allergy/Immunology: Negative for hives, rash, and allergies, Endocrine: Negative for neck swelling, polydipsia, polyuria, polyphagia, and marked weight changes, Hematologic/Lymphatic: Negative for swollen nodes, abnormal bleeding, and unusual bruising, 17:54 Neuro: Positive for weakness, Exam: 17:54 Constitutional: This is a well developed, well nourished patient who is awake, alert, courtney and in no acute distress. Head/Face: Normocephalic, atraumatic. Eyes: Pupils equal round and reactive to light, extra-ocular motions intact. Lids and lashes normal. Conjunctiva and sclera are non-icteric and not injected. Cornea within normal limits. Periorbital areas with no swelling, redness, or edema. ENT: Nares patent. No nasal discharge, no septal abnormalities noted. Tympanic membranes are normal and external auditory canals are clear. Oropharynx with no redness, swelling, or masses, exudates, or evidence of obstruction, uvula midline. Mucous membranes moist. Neck: Trachea midline, no thyromegaly or masses palpated, and no cervical lymphadenopathy. Supple, full range of motion without nuchal rigidity, or vertebral point tenderness. No Meningismus. Chest/axilla: Normal chest wall appearance and motion. Nontender with no deformity. No lesions are appreciated. Cardiovascular: Regular rate and rhythm with a normal S1 and S2. No gallops, murmurs, or rubs. Normal PMI, no JVD. No pulse deficits. Respiratory: Lungs have equal breath sounds bilaterally, clear to auscultation and percussion. No rales, rhonchi or wheezes noted. No increased work of breathing, no retractions or nasal flaring. Abdomen/GI: Soft, non-tender, with normal bowel sounds. No distension or tympany. No guarding or rebound. No evidence of tenderness throughout. Back: No spinal tenderness. No costovertebral tenderness. Full range of motion. Skin: Warm, dry with normal turgor. Normal color with no rashes, no lesions, and no evidence of cellulitis. MS/ Extremity: Pulses equal, no cyanosis. Neurovascular intact. Full, normal range of motion., bilateral aka Psych: Awake, alert, with orientation to person, place and time. Behavior, mood, and affect are within normal limits. 17:54 Neuro: Orientation: appropriate for stated age, no acute changes, Mentation: appropriate for stated age, no acute changes, Memory: no acute changes, Cranial nerves: grossly normal, is grossly normal based on the patient's age, no acute changes, Cerebellar function: unable to test, Motor: moves all fours, strength is normal, Sensation: no obvious gross deficits, appropriate no acute changes, Gait: Babinski testing is normal, seizure activity, is not displayed by the patient, 18:00 ECG was reviewed by the Attending Physician. [facility] Vital Signs: 15:25 BP 140 / 76; Pulse 53; Resp 15; Temp 97.8(O); Pulse Ox 100% on R/A; hb 17:02 BP 120 / 65; Pulse 58; Resp 18; Pulse Ox 97% on R/A; kj2 18:18 BP 122 / 68; Pulse 62; Resp 18; Temp 98; Pulse Ox 100% on R/A; kj2 19:15 BP 126 / 86; Pulse 60; Resp 18; Temp 98; Pulse Ox 97% on R/A; kj2 MDM: 16:15 Medical Screening Exam initiated courtney 17:56 Differential Diagnosis altered mental status, sepsis, flu. Data reviewed: vital signs, [facility] nurses notes, lab test result(s), EKG, radiologic studies, CT scan, plain films. Consideration of Admission/Observation Escalation of care including admission/observation considered. I considered the following discharge prescriptions or medication management in the emergency department Medications were administered in the Emergency Department. See MAR. Independent interpretation of the following test(s) in the Emergency Department EKG: See my EKG interpretation above. Test considered but Not performed: MRI: no mri brain. Care significantly affected by the following chronic conditions: dementia, sanjeev heart, seizures, alzheimers. 01/20 16:17 Order name: Basic Metabolic Panel; Complete Time: 17:48 [facility] 01/20 16:17 Order name: CBC with Diff; Complete Time: 17:48 [facility] 01/20 16:17 Order name: LFT's; Complete Time: 17:48 [facility] 01/20 16:17 Order name: Magnesium; Complete Time: 17:48 [facility] 01/20 16:17 Order name: NT PRO-BNP; Complete Time: 17:48 [facility] 01/20 16:17 Order name: PT-INR; Complete Time: 17:48 [facility] 01/20 16:17 Order name: Troponin HS; Complete Time: 17:48 [facility] 01/20 16:17 Order name: Urinalysis w/ reflexes 01/20 16:17 Order name: Lipase; Complete Time: 17:48 [facility] 01/20 16:17 Order name: XRAY Chest (1 view); Complete Time: 17:48 [facility] 01/20 16:17 Order name: CT Head Brain wo Cont; Complete Time: 17:48 [facility] 01/20 16:17 Order name: Cardiac monitoring; Complete Time: 16:18 [facility] 01/20 16:17 Order name: EKG - Nurse/Tech; Complete Time: 16:18 [facility] 01/20 16:17 Order name: IV Saline Lock; Complete Time: 16:46 [facility] 01/20 16:17 Order name: Labs collected and sent; Complete Time: 16:46 [facility] 01/20 16:17 Order name: O2 Per Protocol; Complete Time: 18:16 [facility] 01/20 16:17 Order name: O2 Sat Monitoring; Complete Time: 18:16 [facility] 01/20 17:52 Order name: Misc. Order: get ua if neg dc; Complete Time: 18:16 [facility] EC:00 Rate is 48 beats/min. Rhythm is regular. QRS [place] is Normal. GA interval is normal. QRS courtney interval is normal. QT interval is normal. No Q waves. No ST changes noted. Clinical impression: Sinus bradycardia and No evidence of ischemia. Interpreted by me. Reviewed by me. Administered Medications: 16:51 Drug: NS 0.9% IV 1000 ml IV at 1 bolus Per protocol; to be given as a bolus over 60 kj2 minutes Route: IV; Rate: 1 bolus; Site: left forearm; 19:32 Follow up: IV Status: Completed infusion; IV Intake: 1000ml kj2 Disposition Summary: 01/20/25 17:59 Discharge Ordered Notes: Location: Home courtney Problem: new courtney Symptoms: have improved courtney Condition: Stable courtney Diagnosis - Altered mental status, unspecified courtney - Dementia in other diseases classified elsewhere without behavioral disturbance courtney Followup: courtney - With: Private Physician - When: 2 - 3 days - Reason: Recheck today's complaints, Continuance of care, Re-evaluation by your physician Followup: courtney - With: Elvis Lees MD - When: 2 - 3 days - Reason: Recheck today's complaints, Re-evaluation by your physician Discharge Instructions: - Discharge Summary Sheet courtney - Confusion courtney - Dementia courtney - Alzheimer's Disease Caregiver Guide courtney - Alzheimer's Disease Caregiver Guide, [id number]-[id number] courtney - Dementia, [id number]-vt-[id number] courtney - Living With Alzheimer's Disease courtney - Dementia Caregiver Guide courtney - Alzheimer's Disease courtney Forms: - Medication Reconciliation Form courtney - Antibiotic Education courtney - Prescription Opioid Use courtney - Patient Portal Instructions courtney - Leadership Thank You Letter courtney Signatures: Dispatcher [employer] Schuyler Solomon MD MD cha Baxter, Heather, RN RN Justine Guy Krystal, RN RN kj2 Corrections: (The following items were deleted from the chart) 19:33 17:34 Labs - recollect needed ordered. german kj2
[2025-01-20 18:46] LABS: Specific Gravity 1.016 (1.005-1.030); Sqamous Epithelial <5 /HPF (None Seen); Transitional Epithelial <5 /HPF (None Seen); Urine Bacteria None Seen /HPF (<20); Urine Bilirubin NEGATIVE (Negative); Urine Blood Negative (Negative); Urine Clarity Clear (Clear); Urine Color Light-Yellow (Yellow); Urine Culture Reflex Order NOT NEEDED; Urine Glucose NEGATIVE (Negative); Urine Ketones NEGATIVE (Negative); Urine Microscopic Reflex YN ORDER UMIC; Urine Mucus Slight /HPF (None Seen); Urine Nitrite NEGATIVE (Negative); Urine Protein NEGATIVE (Negative); Urine RBC <5 /HPF (None Seen); Urine Urobilinogen Normal (Normal); Urine WBC <5 /HPF (<5); Urine pH 7.5 (5.0-7.0)
[2025-01-20 19:56] VITALS: TEMP 98
[2025-01-20 19:57] VITALS: BP 126/86; O2SAT 97
--- NOTE | 2025-01-21 11:58 | EKG ---
Test Date: 2025-01-20 Test Time: 15:23:07 [employer] Specialist: BURT MEASUREMENT RESULTS: Intervals: Rate: 48 MA: 170 QRSD: 76 QT: 472 QTc: 421 [place]: P: 35 MA: 170 QRS: 35 T: 61 INTERPRETIVE STATEMENTS: Marked sinus bradycardia Abnormal ECG Compared to ECG 01/04/2025 09:23:23 ST (T wave) deviation no longer present Electronically Signed On 01-21-25 11:56:46 LAB HEAD by Nasir Egan
== END 2025-01-20 19:33 | disposition home or self-care (01) ==
LOC: ER 15:08
DX: G30.9 Alzheimer's disease, unspecified (principal); F02.80 Dementia in other diseases classified elsewhere, unspecified severity, without behavioral disturbance, psychotic disturbance, mood disturbance, and anxiety
CPT/HCPCS: 96361; 93005; 85025; 81001; 80048; 36415; 83735; 85610; 80076; 84484; 83690; 83880; 70450; 71045; 96360; 99284; J7030

== ENCOUNTER 2025-01-29 12:46 | Emergency (ER) | payer OTHER ==
--- NOTE | 2025-01-29 13:54 | RAD REPORT ---
Procedure: Chest Single View HISTORY: Cough COMPARISON: December 2024 FINDINGS: Chronic elevation left hemidiaphragm with crowding of the pulmonary vessels Lungs appear clear of acute infiltrates. Heart is borderline enlarged. Post surgical changes involve the chest
--- NOTE | 2025-01-29 14:51 | ER ---
Nurse's Notes [facility] Name: Munir Brooks Age: 84 yrs Sex: Male : 1940 Arrival Date: 01/29/2025 Time: 12:46 Bed DX1 Private MD: Diagnosis: Viral infection, unspecified Presentation: 01/29 13:18 Coronavirus screen: At this time, the client does not indicate any symptoms associated ld1 with coronavirus-19. Ebola Screen: No symptoms or risks identified at this time. Initial Sepsis Screen: Does the patient meet any 2 criteria? No. Patient's initial sepsis screen is negative. Does the patient have a suspected source of infection? No. Patient's initial sepsis screen is negative. Risk Assessment: Do you want to hurt yourself or someone else? Patient reports no desire to harm self or others. Onset of symptoms was January 29, 2025. 13:18 Method Of Arrival: Wheelchair ld1 13:18 Acuity: MAGALY 4 ld1 13:18 Chief complaint: Patient states: Wheezing, cough, nosebleed this AM - tested ld1 positive for flu. Triage Assessment: 13:20 General: Appears in no apparent distress. comfortable, Behavior is calm, cooperative, ld1 appropriate for age. Pain: Denies pain. EENT: No signs and/or symptoms were reported regarding the EENT system. Neuro: Level of Consciousness is awake, alert, obeys commands, Oriented to person, place, time, situation. Cardiovascular: Capillary refill < 3 seconds Patient's skin is warm and dry. Respiratory: Airway is patent Respiratory effort is even, unlabored. GI: Abdomen is flat, non-distended. : No signs and/or symptoms were reported regarding the genitourinary system. Derm: No signs and/or symptoms reported regarding the dermatologic system. Musculoskeletal: No signs and/or symptoms reported regarding the musculoskeletal system. Historical: - Allergies: 13:20 Namenda; ld1 13:20 Zbloclv-Wgf-Tsv Reductase Inhibitor; ld1 - PMHx: 13:20 Alzheimer's disease; Congenital Heart Defect; Dementia; Seizures; ld1 - PSHx: 13:20 heart surgery; Cholecystectomy; ld1 - Immunization history:: Adult Immunizations up to date. - Infectious Disease History:: Denies. - Social history:: Smoking status: Patient denies any tobacco usage or history of. Vital Signs: 13:18 Pulse 58; Resp 18; Temp 97.6(TE); Pulse Ox 96% on R/A; Height 6 ft. 2 in. ; Pain 0/10; ld1 13:18 BP 110 / 74; Pulse 88; Resp 18; Pulse Ox 96% on R/A; ld1 13:18 Pain Scale: Adult ld1 ED Course: 12:48 Patient arrived in ED. al6 12:49 [facility]el [facility]C [facility] kb 12:49 Remington Spencer MD is Attending Physician. kb 13:19 Triage completed. ld1 13:20 Arm band placed on right wrist. ld1 13:51 Chest Single View XRAY In Process Unspecified. EDMS 14:46 COVID-19 Ag + Flu A+B Ag Sent. bc6 Administered Medications: 15:50 Not Given (Patient Refused): levalbuterol1.25 mg Inhalation once ld1 15:50 Not Given (Patient Refused): ipratropiumaerosol 0.5 mg Inhalation once ld1 Outcome: 14:51 Discharge ordered by . kb 15:50 Patient left the ED. ld1 Signatures: Dispatcher [employer] EDMS Anitha Hazel FNP-C FNP-Ckb Sims, Lauren, RN RN ld1 Roxy Abdalla bc6 Karyna Vieira al6
--- NOTE | 2025-01-29 14:51 | EDPHYS ---
Physician Documentation [facility] Name: Munir Brooks Age: 84 yrs Sex: Male : 1940 Arrival Date: 01/29/2025 Time: 12:46 Bed DX1 Private MD: ED Physician Remington Spencer HPI: 01/29 13:02 This 84 yrs old Male presents to ER via Unassigned with complaints of Flu Symptoms. kb 13:02 Pt is an 84 year old male who presents for cough, congestion, wheezing that started 4 kb days ago. Granddaughter reports pt had a nosebleed this morning. Denies fever. Spouse is here as well, tested positive for flu and has pneumonia. Granddaughter states "we just want to make sure he doesn't have the same thing.". Historical: - Allergies: 13:20 Namenda; ld1 13:20 Ujvmuyp-Rwf-Rzb Reductase Inhibitor; ld1 - PMHx: 13:20 Alzheimer's disease; Congenital Heart Defect; Dementia; Seizures; ld1 - PSHx: 13:20 heart surgery; Cholecystectomy; ld1 - Immunization history:: Adult Immunizations up to date. - Infectious Disease History:: Denies. - Social history:: Smoking status: Patient denies any tobacco usage or history of. ROS: 13:03 Constitutional: As per HPI kb Exam: 13:03 Constitutional: This is a well developed, well nourished patient who is awake, alert, kb and in no acute distress. Head/Face: Normocephalic, atraumatic. ENT: Moist Mucous membranes Cardiovascular: Regular rate Skin: Warm, dry with normal turgor. Normal color. MS/ Extremity: Pulses equal, no cyanosis. Neurovascular intact. Full, normal range of motion. Neuro: Awake and alert, GCS 15, oriented to person, place, time, and situation. 13:03 Respiratory: the patient does not display signs of respiratory distress, Respirations: normal, Breath sounds: wheezing: expiratory that is mild, is heard in the left upper lobe, left lower lobe, left posterior upper lobe and left posterior lower lobe, Vital Signs: 13:18 Pulse 58; Resp 18; Temp 97.6(TE); Pulse Ox 96% on R/A; Height 6 ft. 2 in. ; Pain 0/10; ld1 13:18 BP 110 / 74; Pulse 88; Resp 18; Pulse Ox 96% on R/A; ld1 13:18 Pain Scale: Adult ld1 MDM: 12:49 Medical Screening Exam initiated kb 13:04 Data reviewed: vital signs, nurses notes. Historians other than the Patient: Family kb Member: granddaughter. 14:47 Differential diagnosis: flu, covid, pneumonia. Counseling: I had a detailed discussion kb with the patient and/or guardian regarding the historical points, exam findings, and any diagnostic results supporting the discharge/admit diagnosis, radiology results, the need for outpatient follow up, a family practitioner, to return to the emergency department if symptoms worsen or persist or if there are any questions or concerns that arise at home. 14:50 ED course: Family would like to take pt home since xray is back and negative for kb pneumonia. They do not want pt waiting in the lobby any longer to prevent exposure. Request discharge. 01/29 13:02 Order name: COVID-19 Ag + Flu A+B Ag; Complete Time: 16:15 kb 01/29 13:02 Order name: Chest Single View XRAY; Complete Time: 14:02 kb Administered Medications: 15:50 Not Given (Patient Refused): levalbuterol1.25 mg Inhalation once ld1 15:50 Not Given (Patient Refused): ipratropiumaerosol 0.5 mg Inhalation once ld1 Disposition: 20:41 Co-signature as Attending Physician, Remington Spencer MD I reviewed the patient's care rn provided by the Advanced Practice Provider and agree with the diagnosis and treatment plan. Disposition Summary: 01/29/25 14:51 Discharge Ordered Notes: Location: Home kb Condition: Stable kb Diagnosis - Viral infection, unspecified kb Followup: kb - With: Emergency Department - When: As needed - Reason: Worsening of condition Followup: kb - With: Private Physician - When: 2 - 3 days - Reason: Recheck today's complaints, Continuance of care, Re-evaluation by your physician Discharge Instructions: - Discharge Summary Sheet kb - Viral Respiratory Infection, [id number] kb - Viral Illness, Adult kb Forms: - Medication Reconciliation Form kb - Antibiotic Education kb - Prescription Opioid Use kb - Patient Portal Instructions kb - Leadership Thank You Letter kb Signatures: Dispatcher [employer] EDAnitha Guerrero FNP-C FNP-Stephanie Remington Spencer MD MD rn SchafferDori, EDWIN RN ld1
[2025-01-29 15:51] LABS: Influenza A Ag Negative; Influenza B Ag Negative; SARS-CoV-2 Antigen Rapid Res Negative (Negative)
[2025-01-29 15:59] VITALS: BP 110/74; TEMP 97.6; O2SAT 96
== END 2025-01-29 15:50 | disposition home or self-care (01) ==
LOC: ER 12:46
DX: B34.9 Viral infection, unspecified (principal); Z11.52 Encounter for screening for COVID-19
CPT/HCPCS: 36415; 71045; 87428; 99282

== ENCOUNTER 2025-02-02 12:18 | Emergency (ER) | payer OTHER ==
--- NOTE | 2025-02-02 13:00 | RAD REPORT ---
EXAM: Chest Single View HISTORY: 84 years Male COUGH COMPARISON: 01/29/2025 FINDINGS: LUNGS/PLEURA: Chronic elevated left hemidiaphragm with likely underlying atelectasis. CARDIAC/MEDIASTINUM: Stable enlargement. UPPER ABDOMEN: No significant abnormality. BONES: Sternotomy. No acute abnormality. LINES/TUBES/OTHER: N/A IMPRESSION: Chronic elevation left hemidiaphragm with underlying atelectasis. The lungs are otherwise clear.
[2025-02-02 13:06] LABS: Absolute Eosinophils 0.2 K/uL (0-0.5); Absolute Lymphocytes (CBC) 1.5 K/uL (0.7-4.9); Absolute Monocytes 0.4 K/uL (0.1-1.3); Absolute Neutrophil 3.3 K/uL (1.8-8.0); Basophils % 0.6 % (0-1.3); Eosinophils % 2.8 % (0-4.4); Hematocrit 30.4 % (39.6-49.0); Hemoglobin 10.4 g/dL (13.6-17.9); Lymphocytes % 28.6 % (15.3-44.8); MCHC 34.2 g/dL (32.0-36.0); MCV 87.7 fL (80-100); MPV 7.2 fL (7.6-11.3); Monocytes % 6.9 % (3.3-12.3); Neutrophils % 61.1 % (41.7-73.7); Platelets 284 thou/uL (152-406); RBC Red Blood Cell Count 3.47 M/uL (4.33-5.43); Red Cell Distribution Width 14.8 % (12.1-15.2)
[2025-02-02 13:11] LABS: PT Prothrombin Time 12.2 SECONDS (10-13.0); Protime INR 1.07
--- NOTE | 2025-02-02 13:15 | RAD REPORT ---
EXAMINATION: US LOWER EXTREMITY VENOUS DOPPLER BILATERAL CLINICAL INDICATION: Male, 84 years old.SWELLING TECHNIQUE: Complete bilateral duplex sonography of the lower extremity veins was performed. The exami nation included compression for vein patency, color Doppler imaging and flow augmentation in response to distal compression of the distal external iliac, common femoral, femoral, popliteal, linda kike, tibial and great saphenous veins. [id number]. COMPARISON: No prior exams FINDINGS: Duplex sonography imaging demonstrates all deep examined to be fully compressible with spontaneous, p hasic and augmented flow bilaterally. IMPRESSION: No evidence of deep venous thrombosis seen in either lower extremity.
[2025-02-02 13:25] LABS: ALT/SGPT 27 U/L (16-61); AST/SGOT 29 U/L (15-37); Albumin 2.9 g/dL (3.4-5.0); Albumin/Globulin Ratio 0.7 (1.1-1.8); Alkaline Phosphatase 80 U/L (45-117); Anion Gap 11.2 mEq/L (5.0-15.0); BUN Blood Urea Nitrogen 40 mg/dL (7-18); Bicarbonate 26 mEq/L (21-32); Bilirubin Total 0.5 mg/dL (0.2-1.0); Globulin 4.4 g/dL (2.3-3.5); Glomerular Filtration Rate 50 ml/min (=/>90); Glucose Level 105 mg/dL (74-106); Magnesium 2.3 mg/dL (1.6-2.4); NT PRO-BNP 201 pg/mL (<450); Potassium 4.2 mEq/L (3.5-5.1); Protein, Total 7.3 g/dL (6.4-8.2); Sodium Level 138 mEq/L (136-145); Troponin High Sensitivity 4.9 pg/mL (<58.9)
[2025-02-02 13:30] LABS: Bilirubin Direct < 0.2 mg/dL (0-0.2); Bilirubin Indirect, Calculated 0.3 mg/dL (0.2-0.8)
--- NOTE | 2025-02-02 16:11 | RAD REPORT ---
EXAMINATION: CTA CHEST PE CLINICAL INDICATION: Male, 84 years old. Cough;Hemoptysis TECHNIQUE: This examination was performed according to an angiographic protocol with 3D post-processi ng. This involves 3D reconstructions, MIPs, volume rendered images and/or shaded surface rendering. One or more of the following dose reduction techniques were used: Automated exposure control, adjustm ent of the mA and/or kV according to patient size, and/or iterative reconstruction. Unless otherwise specified, incidental findings do not require dedicated imaging follow-up. [id number]. COMPARISON: 08/15/2024 FINDINGS: LOWER NECK: Visualized thyroid gland and soft tissues are normal. LUNGS AND AIRWAYS: Mucoid impacted lower lobe airways bilaterally. No consolidation.Motion artifact l imits evaluation for pulmonary nodule detection. PLEURA: No pleural effusion. No pneumothorax. Hemidiaphragms are normally positioned. MEDIASTINUM AND LYMPH NODES: No mediastinal mass or fluid collection. Normal size mediastinal, hilar, and axillary lymph nodes. THORACIC AORTA: No thoracic aortic aneurysm. PULMONARY ARTERIES: Caliber is within normal limits. No pulmonary emboli identified. HEART: Normal heart size. Coronary arterial calcifications are present.No significant pericardial eff usion. OSSEOUS STRUCTURES AND CHEST WALL: Remote appearing T3-T4 compression fractures. Sternotomy. UPPER ABDOMEN: No acute abnormalities. IMPRESSION: No evidence of pulmonary emboli to the subsegmental level. Secretions in several of the bilateral low er lobe bronchi which could be due to bronchitis or aspiration..
--- NOTE | 2025-02-02 16:44 | EDPHYS ---
Physician Documentation [facility] Name: Munir Brooks Age: 84 yrs Sex: Male : 1940 Arrival Date: 02/02/2025 Time: 12:18 Bed 15 Private MD: ED Physician Schuyler Combs HPI: 02/02 13:00 This 84 yrs old Male presents to ER via EMS with complaints of Productive Cough, Leg cp Swelling. 13:00 The patient or guardian reports cough, that is intermittent, with productive sputum. cp 13:00 Onset: The symptoms/episode began/occurred last week, and became worse yesterday. cp 13:00 Associated signs and symptoms: Pertinent positives: EMS reports family observed episode cp of bloody sputum today and reports patient did have a nosebleed yesterday, Pertinent negatives: chest pain, fever, vomiting. EMS reports family concerned about increased swelling of lower legs. Historical: - Allergies: 12:29 Namenda; kc6 12:29 Trvhves-Hcf-Pno Reductase Inhibitor; kc6 - PMHx: 12:29 Alzheimer's disease; Congenital Heart Defect; Dementia; Seizures; kc6 - PSHx: 12:29 heart surgery; Cholecystectomy; kc6 - Immunization history:: Adult Immunizations up to date. - Infectious Disease History:: Denies. - Social history:: Smoking status: Patient denies any tobacco usage or history of. ROS: 13:05 Constitutional: Negative for fever, poor PO intake, cp 13:05 Eyes: Negative for injury, pain, redness, and discharge, cp 13:05 ENT: Negative for drainage from ear(s), ear pain, difficulty swallowing, difficulty handling secretions, 13:05 Cardiovascular: Positive for edema, Negative for chest pain, 13:05 Respiratory: Positive for cough, "sounds productive", hemoptysis, Negative for shortness of breath, wheezing, 13:05 Abdomen/GI: Negative for abdominal pain, vomiting, diarrhea, constipation, 13:05 Neuro: Negative for altered mental status, headache, syncope, weakness, 13:05 All other systems are negative, Exam: 13:01 ECG was reviewed by the Attending Physician. cp 13:10 Constitutional: The patient appears in no acute distress, alert, awake, non-toxic, well cp developed, well nourished, 13:10 Head/Face: Normocephalic, atraumatic. cp 13:10 Eyes: Periorbital structures: appear normal, Conjunctiva: normal, no exudate, no injection, Sclera: no appreciated abnormality, Lids and lashes: appear normal, bilaterally, 13:10 ENT: External ear(s): are unremarkable, Nose: is normal, Mouth: Lips: moist, Oral mucosa: moist, Posterior pharynx: Airway: no evidence of obstruction, patent, erythema, is not appreciated, exudate, is not appreciated, 13:10 Neck: ROM/movement: is normal, is supple, without pain, no range of motions limitations, 13:10 Chest/axilla: Inspection: normal, 13:10 Cardiovascular: Rate: normal, Rhythm: regular, Edema: ankle edema, that is mild, JVD: is not appreciated, 13:10 Respiratory: the patient does not display signs of respiratory distress, Respirations: normal, no use of accessory muscles, no retractions, labored breathing, is not present, Breath sounds: are clear throughout, no decreased breath sounds, no stridor, no wheezing, 13:10 Abdomen/GI: Inspection: abdomen appears normal, Palpation: abdomen is soft and non-tender, in all quadrants, Vital Signs: 12:28 BP 151 / 99; Pulse 64; Resp 17 S; Pulse Ox 100% on R/A; Weight 77.11 kg (R); Height 6 kc6 ft. 3 in. (R); 13:30 BP 149 / 75; Pulse 53; Resp 16 S; Pulse Ox 99% on R/A; kc6 14:51 BP 137 / 99; Pulse 60; Resp 15 S; Pulse Ox 99% on R/A; kc6 12:28 Body Mass Index 21.25 (77.11 kg, 190.5 cm) kc6 MDM: 12:35 Medical Screening Exam initiated cp 16:43 Data reviewed: vital signs, nurses notes, lab test result(s), radiologic studies, CT cp scan, plain films, and as a result, I will discharge patient. 16:43 Differential Diagnosis: Bronchitis Influenza Viral Syndrome Pneumonia Other pulmonary cp embolism, carcinoma. I considered the following discharge prescriptions or medication management in the emergency department Medications were administered in the Emergency Department. See MAR. Independent interpretation of the following test(s) in the Emergency Department EKG: See my EKG interpretation above. Counseling: I had a detailed discussion with the patient and/or guardian regarding the historical points, exam findings, and any diagnostic results supporting the discharge/admit diagnosis, lab results, radiology results, to return to the emergency department if symptoms worsen or persist or if there are any questions or concerns that arise at home. 02/02 12:36 Order name: Basic Metabolic Panel; Complete Time: 13:50 cp 03 13:51 Interpretation: Normal except: BUN 40; CRE 1.37; GFR 50. cp 02/02 12:36 Order name: CBC with Diff; Complete Time: 13:50 cp 02/02 13:51 Interpretation: Normal except: RBC 3.47; HGB 10.4; HCT 30.4; MPV 7.2. cp 02/02 12:36 Order name: LFT's; Complete Time: 13:50 cp 02/02 13:51 Interpretation: Normal except: ALB 2.9; GLOB 4.4; A/G 0.7. cp 02/02 12:36 Order name: Magnesium; Complete Time: 13:50 cp 02/02 13:51 Interpretation: Reviewed. cp 02/02 12:36 Order name: NT PRO-BNP; Complete Time: 13:50 cp 02/02 12:36 Order name: PT-INR; Complete Time: 13:50 cp 02/02 12:36 Order name: Troponin HS; Complete Time: 13:50 cp 02/02 12:36 Order name: XRAY Chest (1 view); Complete Time: 13:50 cp 02/02 12:36 Order name: US Extremity Venous W Compression Toni; Complete Time: 13:50 cp 02/02 13:52 Order name: CT Chest For PE Angio; Complete Time: 16:19 cp 08 16:20 Interpretation: Report reviewed. cp 02/02 12:36 Order name: Cardiac monitoring; Complete Time: 12:37 cp 02/02 12:36 Order name: EKG - Nurse/Tech; Complete Time: 13:00 cp 02/02 12:36 Order name: IV Saline Lock; Complete Time: 12:37 cp 02/02 12:36 Order name: Labs collected and sent; Complete Time: 13:00 cp 02/02 12:36 Order name: O2 Per Protocol; Complete Time: 12:37 cp 02/02 12:36 Order name: O2 Sat Monitoring; Complete Time: 12:37 cp EC:01 Rate is 64 beats/min. Rhythm is regular. MO interval is normal. QRS interval is normal. cp QT interval is normal. T waves are Inverted in lead aVR. Interpreted by me. Reviewed by me. Administered Medications: 16:57 Drug: AZITHromycin PO 500 mg PO once Route: PO; kc6 17:19 Follow up: Response: No adverse reaction kc6 Disposition Summary: 02/02/25 16:44 Discharge Ordered Notes: Location: Home cp Problem: new cp Symptoms: have improved cp Condition: Stable cp Diagnosis - Cough cp - Edema, unspecified cp Followup: cp - With: Private Physician - When: 2 - 3 days - Reason: Recheck today's complaints Discharge Instructions: - Discharge Summary Sheet cp - Cough, Adult cp - Peripheral Edema cp Forms: - Medication Reconciliation Form cp - Antibiotic Education cp - Prescription Opioid Use cp - Patient Portal Instructions cp - Leadership Thank You Letter cp Prescriptions: - Zithromax Z-Shady 250 mg Oral Tablet - take 1 tablet ORAL route as directed for 5 days Day 1 - take two (2) tablets cp one time. Day 2, 3, 4 , 5 take one (1) tablet once daily.; 6 tablet; Refills: 0, Product Selection Permitted Signatures: Dispatcher [employer] EDMS Schuyler Urbano PA PA cp Avani Sloan RN RN kc6 Corrections: (The following items were deleted from the chart) 12:37 12:36 BASIC METABOLIC PANEL+C.LAB.BRZ ordered. EDMS EDMS 12:37 12:36 CBC+H.LAB.BRZ ordered. EDMS EDMS 12:37 12:36 HEPATIC FUNCTION+C.LAB.BRZ ordered. EDMS EDMS 12:37 12:36 MAGNESIUM+C.LAB.BRZ ordered. EDMS EDMS 12:37 12:36 PROBNP+C.LAB.BRZ ordered. EDMS EDMS 12:37 12:36 PROTIME (+INR)+COAG.LAB.BRZ ordered. EDMS EDMS 12:37 12:36 Troponin High Sensitivity+C.LAB.BRZ ordered. EDMS EDMS 12:37 12:37 Chest Single View+RAD.RAD.BRZ ordered. EDMS EDMS 12:37 12:37 Extrem Venous W Compression Toni+US.RAD.BRZ ordered. EDMS EDMS 13:53 13:53 Chest For PE Angio+CT.RAD.BRZ ordered. EDDE EDMS 02/03 18:14 02/02 13:10 Cardiovascular: Rate: normal, Rhythm: regular, cp cp 02/03 18:14 02/02 13:10 Respiratory: the patient does not display signs of respiratory distress, cp Respirations: normal, no use of accessory muscles, no retractions, labored breathing, is not present, Breath sounds: are clear throughout, no decreased breath sounds, no stridor, no wheezing, cp
--- NOTE | 2025-02-02 16:44 | ER ---
Nurse's Notes [facility] Name: Munir Brooks Age: 84 yrs Sex: Male : 1940 Arrival Date: 02/02/2025 Time: 12:18 Bed 15 Private MD: Diagnosis: Cough;Edema, unspecified Presentation: 02/02 12:28 Chief complaint: EMS states: they were toned out by daughter for leg swelling, cough, kc6 and nose bleed. Coronavirus screen: At this time, the client does not indicate any symptoms associated with coronavirus-19. Ebola Screen: No symptoms or risks identified at this time. Initial Sepsis Screen: Does the patient meet any 2 criteria? Altered Mental Status. Does the patient have a suspected source of infection? No. Patient's initial sepsis screen is negative. Risk Assessment: Do you want to hurt yourself or someone else? Unable to obtain. Onset of symptoms was February 02, 2025. Care prior to arrival: IV initiated. 18 GA, in the left antecubital area. 12:28 Method Of Arrival: EMS: [facility] kc6 12:28 Acuity: MAGALY 2 kc6 Historical: - Allergies: 12:29 Namenda; kc6 12:29 Amujqdn-Vlo-Isa Reductase Inhibitor; kc6 - PMHx: 12:29 Alzheimer's disease; Congenital Heart Defect; Dementia; Seizures; kc6 - PSHx: 12:29 heart surgery; Cholecystectomy; kc6 - Immunization history:: Adult Immunizations up to date. - Infectious Disease History:: Denies. - Social history:: Smoking status: Patient denies any tobacco usage or history of. Screenin:[address] [facility] ED Fall Risk Assessment (Adult) History of falling in the last 3 months, kc6 including since admission No falls in past 3 months (0 pts) Confusion or Disorientation Yes (5 pts) Intoxicated or Sedated No (0 pts) Impaired Gait No (0 pts) Mobility Assist Device Used No (0 pt) Altered Elimination No (0 pt) Score/Fall Risk Level 3 or more points = High Risk Oriented to surroundings, Maintained a safe environment, Educated pt \T\ family on fall prevention, incl call for assistance when getting out of bed. Abuse screen: Denies threats or abuse. Denies injuries from another. Nutritional screening: No deficits noted. Tuberculosis screening: No symptoms or risk factors identified. Assessment: 12:28 General: Appears in no apparent distress. comfortable, well groomed, well developed, kc6 Behavior is calm, cooperative, appropriate for age. Pain: Unable to use pain scale. Patient is disoriented. Neuro: Level of Consciousness is awake, alert, obeys commands, confused, Oriented to person, Appropriate for age. Cardiovascular: Capillary refill < 3 seconds Rhythm is sinus bradycardia. Respiratory: Airway is patent Trachea midline Respiratory effort is even, unlabored, Respiratory pattern is regular, symmetrical, Breath sounds with crackles bilaterally. Parent/caregiver reports the patient having cough that is productive. GI: No signs and/or symptoms were reported involving the gastrointestinal system. : No signs and/or symptoms were reported regarding the genitourinary system. EENT: Parent/caregiver reports the patient having nasal discharge that is bloody. Derm: No signs and/or symptoms reported regarding the dermatologic system. Skin is healthy with good turgor, has skin tears on left knee Skin is pink, warm \T\ dry. Musculoskeletal: No signs and/or symptoms reported regarding the musculoskeletal system. Circulation, motion, and sensation intact. Range of motion: intact in all extremities. 13:28 Reassessment: Patient appears in no apparent distress at this time. No changes from 6 previously documented assessment. Patient and/or family updated on plan of care and expected duration. Pain level reassessed. 14:51 Reassessment: Patient appears in no apparent distress at this time. No changes from kc6 previously documented assessment. Patient and/or family updated on plan of care and expected duration. Pain level reassessed. 15:51 Reassessment: Patient appears in no apparent distress at this time. No changes from kc6 previously documented assessment. Patient and/or family updated on plan of care and expected duration. Pain level reassessed. 16:44 Reassessment: d/c pending ride home by daughter, states she is on her way. [facility] 16:57 Reassessment: Patient appears in no apparent distress at this time. No changes from 6 previously documented assessment. Patient and/or family updated on plan of care and expected duration. Pain level reassessed. Vital Signs: 12:28 BP 151 / 99; Pulse 64; Resp 17 S; Pulse Ox 100% on R/A; Weight 77.11 kg (R); Height 6 kc6 ft. 3 in. (R); 13:30 BP 149 / 75; Pulse 53; Resp 16 S; Pulse Ox 99% on R/A; kc6 14:51 BP 137 / 99; Pulse 60; Resp 15 S; Pulse Ox 99% on R/A; kc6 12:28 Body Mass Index 21.25 (77.11 kg, 190.5 cm) kc6 ED Course: 12:27 Patient arrived in ED. kc6 12:29 Triage completed. kc6 12:29 Arm band placed on. kc6 12:29 Maintain EMS IV. Dressing intact. Good blood return noted. Site clean \T\ dry. Gauge \T\ wilfredo 6 site: 18G LAC. Flushed with 10 mL NS. Patient maintains SpO2 saturation greater than 95% on room air. 12:30 Patient has correct armband on for positive identification. Placed in gown. Bed in low kc6 position. Call light in reach. Side rails up X2. Adult w/ patient. equipment monitor phototypesetting on. Pulse ox on. NIBP on. Door closed. Noise minimized. Lights dimmed. Warm blanket given. Pillow given. Verbal reassurance given. 12:35 Schuyler Urbano PA is PHCP. cp 12:35 Schuyler Combs MD is Attending Physician. cp 12:36 Avani Sloan RN is Primary Nurse. kc6 12:55 XRAY Chest (1 view) In Process Unspecified. EDMS 13:11 US Extremity Venous W Compression Toni In Process Unspecified. EDMS 15:08 Radiology exam delayed due to IV insertion attempt and/or patient not having sm9 appropriate IV at this time. 15:20 Inserted saline lock: 20 gauge in right antecubital area, using aseptic technique. kc6 Blood collected. Flushed with 10 mL NS. 16:00 CT Chest For PE Angio In Process Unspecified. EDMS 16:20 Repositioned patient. Cleaned of incontinence. Linen changed. kc6 16:57 Diet: Patient given snack. Patient given water. Tolerated well. kc6 17:54 No provider procedures requiring assistance completed. IV discontinued, intact, kc6 bleeding controlled, No redness/swelling at site. Pressure dressing applied. Administered Medications: 16:57 Drug: AZITHromycin PO 500 mg PO once Route: PO; kc6 17:19 Follow up: Response: No adverse reaction kc6 Medication: 17:54 VIS not applicable for this client. kc6 Outcome: 16:44 Discharge ordered by . cp 17:54 Discharged to home via wheelchair, with family, kc6 17:54 Condition: good 17:54 Discharge instructions given to patient, family, Instructed on discharge instructions, follow up and referral plans. medication usage, Demonstrated understanding of instructions, follow-up care, medications, Prescriptions given X 1, 17:54 Patient left the ED. kc6 Signatures: Dispatcher [employer] EDMS Schuyler Urbano PA PA cp Campbell, Kaitlyn, RN RN kc6 Nubia Ingram sm9
[2025-02-02] MEDS ORDERED: AZITHROMYCIN 250 MG TAB ONE (16:49)
[2025-02-02 18:29] VITALS: O2SAT 99
[2025-02-02 18:39] VITALS: BP 137/99
--- NOTE | 2025-02-05 11:11 | EKG ---
Test Date: 2025-02-02 Test Time: 12:57:04 Commercial Painter: CASANDRA MEASUREMENT RESULTS: Intervals: Rate: 64 PA: 182 QRSD: 80 QT: 422 QTc: 435 [place]: P: 46 PA: 182 QRS: 33 T: 56 INTERPRETIVE STATEMENTS: Normal sinus rhythm Normal ECG Compared to ECG 01/20/2025 15:23:07 Sinus bradycardia no longer present Electronically Signed On 02-05-25 11:02:51 CDT by Nasir Egan
== END 2025-02-02 17:54 | disposition home or self-care (01) ==
LOC: ER 12:18
DX: R05.9 Cough, unspecified (principal); R60.9 Edema, unspecified; G30.9 Alzheimer's disease, unspecified; F02.80 Dementia in other diseases classified elsewhere, unspecified severity, without behavioral disturbance, psychotic disturbance, mood disturbance, and anxiety
CPT/HCPCS: 93005; 85025; 80048; 36415; 83735; 85610; 80076; 84484; 83880; 71275; 71045; 93970; 99285; Q9967

== ENCOUNTER 2025-03-11 13:43 | Inpatient (IN) | payer OTHER ==
[2025-03-11] MEDS ORDERED: LIDOCAINE 1% 20 ML MDV ONE (13:47)
[2025-03-11 14:06] LABS: Absolute Eosinophils 0.2 K/uL (0-0.5); Absolute Lymphocytes (CBC) 1.4 K/uL (0.7-4.9); Absolute Monocytes 0.4 K/uL (0.1-1.3); Absolute Neutrophil 4.4 K/uL (1.8-8.0); Basophils % 0.6 % (0-1.3); Eosinophils % 3.7 % (0-4.4); Hematocrit 35.1 % (39.6-49.0); Hemoglobin 12.4 g/dL (13.6-17.9); Lymphocytes % 21.9 % (15.3-44.8); MCH 30.6 pg (27.0-35.0); MCHC 35.4 g/dL (32.0-36.0); MCV 86.4 fL (80-100); MPV 7.9 fL (7.6-11.3); Monocytes % 6.8 % (3.3-12.3); Platelets 222 thou/uL (152-406); RBC Red Blood Cell Count 4.06 M/uL (4.33-5.43)
[2025-03-11 14:10] LABS: PT Prothrombin Time 12.1 SECONDS (10-13.0); PTT, Activated Partial Thromb 31.7 SECONDS (27.2-37.4); Protime INR 1.06
[2025-03-11 14:21] LABS: Anion Gap 10.1 mEq/L (5.0-15.0); Potassium 5.1 mEq/L (3.5-5.1)
--- NOTE | 2025-03-11 14:27 | RAD REPORT ---
EXAM: CT CHEST, ABDOMEN AND PELVIS WITHOUT CONTRAST CLINICAL INDICATION: Male, 84 years old. [facility] MAIN FALL TECHNIQUE: CT chest, abdomen and pelvis was performed, without IV contrast, as per department protoco l. Axial, sagittal and coronal reconstructions were obtained. One or more of the following dose reduction techniques were used: Automated exposure control, adjustment of the mA and/or kV according to the patient size, and/or iterative reconstruction. Unless otherwise specified, incidental findings do not require dedicated imaging follow-up. COMPARISON: 02/02/2025 and 01/04/2025 FINDINGS: The lack of intravenous contrast limits the sensitivity of this exam for evaluation of solid visceral organs, vascular structures, and retroperitoneum. Chest: LOWER NECK/CHEST WALL: Visualized thyroid gland and soft tissues are normal. LUNGS AND AIRWAYS: Elevation of the left hemidiaphragm limits evaluation Airways are clear. No eviden ce of airspace or interstitial process. No nodules. PLEURA: No pleural effusion. No pneumothorax. Hemidiaphragms are normally positioned. MEDIASTINUM AND LYMPH NODES: Tortuosity of the thoracic aorta. 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 Normal size mediastinal, hilar, and axillary lymph nodes. THORACIC AORTA: Normal caliber and configuration. PULMONARY ARTERIES: Normal caliber. HEART: Unremarkable. Abdomen/Pelvis: Motion artifact limits evaluation. LIVER: Normal in size and contour. No focal lesion. GALLBLADDER/BILE DUCTS: Status post cholecystectomy. No biliary ductal dilatation. PANCREAS: No mass, ductal dilation, or soila-pancreatic fluid. SPLEEN: Normal size. No focal lesion. ADRENALS: Normal; no mass. KIDNEYS AND URETERS: Normal size and contour. No hydronephrosis. GASTROINTESTINAL TRACT: Stomach is non-dilated. Small bowel has normal course and caliber. No colonic wall thickening or pericolonic inflammatory changes. Large stool burden especially along the rectum. PERITONEUM: No free fluid. LYMPH NODES: No lymphadenopathy. ABDOMINAL AORTA AND OTHER VESSELS: Normal caliber aorta and IVC. URINARY BLADDER: Normal contour. REPRODUCTIVE ORGANS: No pathologic process. MUSCULOSKELETAL: Multiple callus formation compatible with healing fractures along the lateral/anteri or left sixth, through tenth ribs. New sclerosis along the right sacral ala, suggesting healing insufficiency fracture. Stable wedge compression deformities at T2-T4 and L4. ADDITIONAL FINDINGS: Midline upper anterior abdominal wall fat-containing hernia measuring 2.4 cm in transverse diameter at the neck. Right inguinal hernia containing partial protrusion of the right anterior bladder. Prostatomegaly. IMPRESSION: Healing left 6th through 10th rib fractures. Large stool burden along the rectal bulb. Other incidental findings including tortuosity of the thoracic aorta with stable fusiform aneurysmal dilation.
--- NOTE | 2025-03-11 14:48 | RAD REPORT ---
EXAM: CT brain without contrast HISTORY: fall, head injury, AMS COMPARISON: None TECHNIQUE: Multiple contiguous axial images were obtained and a CT of the brain without contrast. Sag ittal and coronal reformats were performed. FINDINGS: No evidence of hydrocephalus, intracranial hemorrhage, or extra-axial fluid collection. Moderate brain atrophy with moderate periventricular and deep white matter chronic microvascular isc hemic changes present. The calvarium is intact. Polypoidal mucosal thickening throughout the paranasal sinuses. Mastoid air cells are essentially clear. IMPRESSION: No evidence of acute intracranial abnormality. EXAM: CT of the cervical spine without contrast HISTORY: fall, head injury, AMS COMPARISON: None TECHNIQUE: Multiple contiguous axial images were obtained in a CT of the cervical spine without contr ast. Sagittal and coronal reformats were performed. FINDINGS: The vertebral bodies demonstrate normal height and alignment. No evidence of acute fracture or subluxation.. Moderate degenerative changes contributing to at least moderate bilateral neural foraminal narrowing at C5-6 and C6-7. No prevertebral soft tissue swelling is seen. The posterior facets are well aligned. Normal alignment of the skull base with the cervical spine is seen. The lung apices are unremarkable. IMPRESSION: No evidence of acute osseous abnormality of the cervical spine. Stable findings as above.
[2025-03-11] MEDS ORDERED: NA CHLORIDE 0.9% 1,000 ML ONE (16:36)
--- NOTE | 2025-03-11 16:52 | ER ---
Nurse's Notes [facility] Name: Munir Brooks Age: 84 yrs Sex: Male : 1940 Arrival Date: 03/11/2025 Time: 13:43 Bed 6 Private MD: Diagnosis: Unspecified injury of head, initial encounter;Laceration without foreign body of unspecified part of head;Laceration without foreign body of nose;Muscle weakness (generalized);Dehydration Presentation: 03/11 13:47 Chief complaint: EMS states: fall from standing, no LOC, laceration across bridge of iw nose and between eyebrows , pt is normally confused and he roams at home. Coronavirus screen: At this time, the client does not indicate any symptoms associated with coronavirus-19. Ebola Screen: No symptoms or risks identified at this time. Initial Sepsis Screen: Does the patient meet any 2 criteria? No. Patient's initial sepsis screen is negative. Does the patient have a suspected source of infection? No. Patient's initial sepsis screen is negative. Risk Assessment: Do you want to hurt yourself or someone else? Patient reports no desire to harm self or others. 13:47 Method Of Arrival: EMS: [facility] iw 13:47 Acuity: MAGALY 3 iw 19:16 Onset of symptoms was March 11, 2025. kd3 Triage Assessment: 13:48 General: Appears in no apparent distress. Behavior is calm. iw Historical: - Allergies: 13:45 Namenda; ll1 13:45 Nwwwxwi-Umv-Aml Reductase Inhibitor; ll1 13:45 memantine; ll1 - Home Meds: 18:12 aspirin 81 mg Oral capsule daily [Active]; trazodone 50 mg Oral tablet every day at iw bedtime [Active]; Pepcid 20 mg Oral tablet daily [Active]; melatonin 2.5 mg oral tablet,chewable every day at bedtime [Active]; - PMHx: 13:45 Alzheimer's disease; Congenital Heart Defect; Dementia; Seizures; ll1 - PSHx: 13:45 Cholecystectomy; heart surgery; ll1 - Immunization history:: Adult Immunizations up to date. - Infectious Disease History:: Denies. - Family history:: not pertinent. - Hospitalizations: : No recent hospitalization is reported. - Social history:: Smoking status: unknown. Screenin:58 [facility] ED Fall Risk Assessment (Adult) History of falling in the last 3 months, iw including since admission Yes- fall prone (multiple falls) (3 pts) Confusion or Disorientation Yes (5 pts) Intoxicated or Sedated No (0 pts) Impaired Gait Yes (1 pt) Mobility Assist Device Used Yes (1 pt) Altered Elimination Yes (1 pt) Score/Fall Risk Level 3 or more points = High Risk Oriented to surroundings, Maintained a safe environment, Assessed \T\ reinforced patient's understanding of fall precautions, Hourly rounding (assess needs \T\ fall precautionary measures) done. Abuse screen: Denies threats or abuse. Denies injuries from another. Nutritional screening: No deficits noted. Tuberculosis screening: No symptoms or risk factors identified. Assessment: 13:50 Reassessment: No changes from previously documented assessment. Patient and/or family ll1 updated on plan of care and expected duration. Pain level reassessed. 17:25 Reassessment: Patient appears in no apparent distress at this time. Patient and/or iw family updated on plan of care and expected duration. Pain level reassessed. Patient states symptoms have not improved. Vital Signs: 13:50 BP 150 / 89; Pulse 61; Resp 18; Pulse Ox 99% ; ll1 15:00 BP 165 / 97; Pulse 65; Resp 16; Pulse Ox 98% on R/A; iw 17:25 BP 145 / 94; Pulse 61; Resp 16; Pulse Ox 99% on R/A; iw ED Course: 13:44 Patient arrived in ED. rn 13:44 Remington Spencer MD is Attending Physician. rn 13:45 Arm band placed on Patient placed in an exam room, on a stretcher. ll1 13:45 Patient has correct armband on for positive identification. iw 13:46 Yen Langston, EDWIN is Primary Nurse. iw 13:48 Triage completed. iw 13:56 Initial lab(s) drawn, by me, sent to lab. Inserted saline lock: 20 gauge in right iw antecubital area, using aseptic technique. Blood collected. Flushed with 10 mL NS. 14:03 Chest Abd Pelvis Wo Con In Process Unspecified. EDMS 14:04 Head C Spine Mpr Wo Con In Process Unspecified. EDMS 15:15 Assist provider with laceration repair on forehead and nose that was 2.5 cm. or less iw using sutures. Set up tray. Performed by Remington Spencer MD Dressed with Patient tolerated well. 17:22 Andres Herzog MD is Hospitalizing Provider. rn 19:15 Provided Education on: need for admit . kd3 19:15 Patient admitted, IV remains in place. kd3 Administered Medications: 15:00 Drug: Lidocaine Infiltration (1 %) 1 vials 20 ml Infiltration once; to bedside {Note: iw admin by Dr. Spencer .} Volume: 20 ml; Route: Infiltration; 16:46 Drug: NS 0.9% IV 1000 ml IV at 1000 ml once; to be given as a bolus over 60 minutes iw Route: IV; Rate: 1000 ml; Site: right antecubital; 18:00 Follow up: IV Status: Completed infusion iw Medication: 19:15 VIS not applicable for this client. kd3 Outcome: 16:52 Discharge ordered by . rn 17:23 Decision to Hospitalize by Provider. rn 19:14 Admitted to Med/surg kd3 19:14 Condition: stable 19:14 Discharge instructions given to patient, Instructed on the need for admit, 19:16 Patient left the ED. kd3 Signatures: Dispatcher [employer] EDMS Yen Langston, RN Remington Tolliver MD MD rn Lewis, Lynsay, RN RN 1 Ella Omer RN RN kd3
--- NOTE | 2025-03-11 16:53 | EDPHYS ---
Physician Documentation [facility] Name: Munir Brooks Age: 84 yrs Sex: Male : 1940 Arrival Date: 03/11/2025 Time: 13:43 Bed 6 Private MD: ED Physician Remington Spencer HPI: 03/11 14:38 This 84 yrs old Male presents to ER via EMS with complaints of Fall Injury, Laceration rn To Forehead. 14:38 Details of fall: The patient fell from an upright position. Onset: The symptoms/episode rn began/occurred just prior to arrival. Associated injuries: The patient sustained injury to the head. Severity of symptoms: At their worst the symptoms were mild, in the emergency department the symptoms are unchanged. The patient has experienced similar episodes in the past. Patient with witnessed fall, injury to head with laceration to the forehead and nasal bridge. No LOC. Told by EMS that he is no longer taking blood thinners. Patient at baseline has Alzheimer disease and is confused. No increasing confusion per EMS or family. Denies any extremity injury other than skin tear to left elbow. Historical: - Allergies: 13:45 Namenda; ll1 13:45 Lvpfgtn-Mhh-Xht Reductase Inhibitor; ll1 13:45 memantine; ll1 - Home Meds: 18:12 aspirin 81 mg Oral capsule daily [Active]; trazodone 50 mg Oral tablet every day at iw bedtime [Active]; Pepcid 20 mg Oral tablet daily [Active]; melatonin 2.5 mg oral tablet,chewable every day at bedtime [Active]; - PMHx: 13:45 Alzheimer's disease; Congenital Heart Defect; Dementia; Seizures; ll1 - PSHx: 13:45 Cholecystectomy; heart surgery; ll1 - Immunization history:: Adult Immunizations up to date. - Infectious Disease History:: Denies. - Family history:: not pertinent. - Hospitalizations: : No recent hospitalization is reported. - Social history:: Smoking status: unknown. ROS: 14:38 Constitutional: Negative for fever, chills, and weight loss, Neck: No midline cervical rn tenderness Cardiovascular: Negative for chest pain, palpitations, and edema, Respiratory: Negative for shortness of breath, cough, wheezing, and pleuritic chest pain, Abdomen/GI: Negative for abdominal pain, nausea, vomiting, diarrhea, and constipation, MS/Extremity: Negative for injury and deformity, Skin: Positive for lacerations to forehead and nasal bridge Neuro: Negative for headache, weakness, numbness, tingling, and seizure, Exam: 14:38 Constitutional: This is a well developed, well nourished patient who is awake, alert, rn and in no acute distress. Head/Face: Normocephalic, 8.5 cm moderate depth laceration to mid forehead with slow bleeding. No foreign body. Also 2 cm irregular but superficial laceration to the nasal bridge. ENT: Dried blood in nostrils. No evidence of septal hematoma Neck: No midline cervical tenderness Chest/axilla: No rib tenderness or crepitus Cardiovascular: Regular rate and rhythm. No pulse deficits. Respiratory: No increased work of breathing, no retractions or nasal flaring. Abdomen/GI: Soft, non-tender MS/ Extremity: Superficial skin tear to the left elbow but full range of motion of elbow otherwise without deformity. Neuro: Awake and alert, GCS 15 Vital Signs: 13:50 BP 150 / 89; Pulse 61; Resp 18; Pulse Ox 99% ; ll1 15:00 BP 165 / 97; Pulse 65; Resp 16; Pulse Ox 98% on R/A; iw 17:25 BP 145 / 94; Pulse 61; Resp 16; Pulse Ox 99% on R/A; iw Laceration: 16:32 Wound Repair of 8.5cm ( 3.3in ) subcutaneous laceration to forehead. Distal rn neuro/vascular/tendon intact. Anesthesia: Wound infiltrated with 4 mls of 1% lidocaine. Wound prep: Extensive cleansing by me, Wound irrigation by me, Wound explored extensively, Copious irrigation. Skin closed with 10 4-0 Prolene using interrupted sutures and sterile technique. Dressed with steristrips. Patient tolerated well. MDM: 13:44 Medical Screening Exam initiated rn 16:34 ED course: Nasal bridge laceration did not gape open or require sutures. Steri-Strips rn applied to wound.. 16:50 Differential diagnosis: closed head injury, contusion, fracture, laceration. Data rn reviewed: vital signs, nurses notes, lab test result(s), radiologic studies, CT scan, plain films, and as a result, I will discharge patient. Counseling: I had a detailed discussion with the patient and/or guardian regarding the historical points, exam findings, and any diagnostic results supporting the discharge/admit diagnosis, lab results, radiology results, the need for outpatient follow up, to return to the emergency department if symptoms worsen or persist or if there are any questions or concerns that arise at home. Response to treatment: the patient's symptoms have markedly improved after treatment, and as a result, I will discharge patient. Special discussion: Based on the patient's history, exam and DX evaluation, there is no indication for emergent intervention or inpatient TX. It is understood by the patient/guardian that if the SXs persist or worsen they need to return immediately for re-evaluation. I discussed with the patient/guardian in detail that at this point there is no indication for admission to the hospital. It is understood, however, that if the symptoms persist or worsen the patient needs to return immediately for re-evaluation. ED course: Patient with dehydration but no other acute traumatic finding on imaging. No indication for admission at this time. We were able to get patient up and walking without difficulty. Improved after IV fluids. Laceration sutured and needs to return in 10 to 14 days for suture removal. I have personally reviewed all of the results, including but not limited to blood tests and imaging deemed necessary to safely discharge this patient at this time. All results given to and printed out for patient. I personally went over all the results with the patient and answered all questions. Patient will follow-up with PCP and or specialist as discussed. Return precautions given and understood.. 17:19 Consideration of Admission/Observation Patient was admitted/placed on observation. rn Escalation of care including admission/observation considered. ED course: Family member, daughter, returned, ambulated patient in front of her but she is still uncomfortable taking patient home. She states he seems a little off compared to his baseline and would like him observed in the hospital. We will admit to Dr. Herzog.. 03/11 13:45 Order name: Basic Metabolic Panel; Complete Time: 14: rn 03/11 13:45 Order name: CBC with Diff; Complete Time: : rn 03/11 13:45 Order name: Protime (+inr); Complete Time: 14: rn 03/11 13:45 Order name: Ptt, Activated; Complete Time: 14: rn 03/11 13:50 Order name: Chest Abd Pelvis Wo Con; Complete Time: 14:52 EDMS 03/11 13:51 Order name: Head C Spine Mpr Wo Con; Complete Time: 14:52 EDMS 03/11 13:45 Order name: Labs collected and sent; Complete Time: 13:56 rn 03/11 13:45 Order name: Wound Care; Complete Time: 13:48 rn 03/11 13:45 Order name: Suture Tray at Bedside; Complete Time: 13:50 rn Administered Medications: 15:00 Drug: Lidocaine Infiltration (1 %) 1 vials 20 ml Infiltration once; to bedside {Note: iw admin by Dr. Spencer .} Volume: 20 ml; Route: Infiltration; 16:46 Drug: NS 0.9% IV 1000 ml IV at 1000 ml once; to be given as a bolus over 60 minutes iw Route: IV; Rate: 1000 ml; Site: right antecubital; 18:00 Follow up: IV Status: Completed infusion iw Disposition Summary: 03/11/25 17:23 Hospitalization Ordered Notes: Hospitalization Status: Observation rn Provider: Andres Herzog rn Location: Telemetry/MedSurg (observation)(03/11/25 17:23) rn Condition: Stable(03/11/25 17:23) rn Problem: new(03/11/25 17:23) rn Symptoms: have improved(03/11/25 17:23) rn Bed/Room Type: Standard rn Room Assignment: 230(03/11/25 17:37) bd Diagnosis - Unspecified injury of head, initial encounter rn - Laceration without foreign body of unspecified part of head(03/11/25 17:23) rn - Laceration without foreign body of nose(03/11/25 17:23) rn - Muscle weakness (generalized) rn - Dehydration(03/11/25 17:23) rn Forms: - Medication Reconciliation Form rn - SBAR form rn - Leadership Thank You Letter rn Signatures: Dispatcher [employer] [facility] Gauri Biggs Irene, Remington Tolliver RN, MD MD rn Lewis, Lynsay, RN RN ll1 Ella Omer, RN RN kd3 Corrections: (The following items were deleted from the chart) 13:45 13:45 BASIC METABOLIC PANEL+C.LAB.BRZ ordered. [facility] EDHI 13:45 13:45 CBC+H.LAB.BRZ ordered. EDMS EDMS 13:45 13:45 PROTIME (+INR)+COAG.LAB.BRZ ordered. EDMS EDMS 13:45 13:45 PTT, ACTIVATED+COAG.LAB.BRZ ordered. EDMS EDMS 13:45 13:45 Head C Spine Cap Wo Con+CT.RAD.BRZ ordered. EDMS EDMS 16:35 16:32 Wound Repair of 8.5cm ( 3.3in ) subcutaneous laceration to forehead. Distal rn neuro/vascular/tendon intact. Anesthesia: Wound infiltrated with 4 mls of 1% lidocaine. Wound prep: Extensive cleansing by me, Wound irrigation by me, Wound explored extensively, Copious irrigation. Skin closed with 9 4-0 Prolene using interrupted sutures and sterile technique. Dressed with steristrips. Patient tolerated well. rn 17:20 16:52 Home rn rn 17:20 16:52 new rn rn 17:20 16:52 have improved rn rn 17:20 16:52 Stable rn rn 17:20 16:52 Fall on same level, unspecified rn rn 17:20 16:52 Laceration without foreign body of unspecified part of head rn rn 17:20 16:52 Laceration without foreign body of nose rn rn 17:20 16:52 Dehydration rn rn 17:37 17:23 rn bd
[2025-03-11] MEDS ORDERED: ONDANSETRON 4 MG/2 ML VIAL IV PRN (20:26)
[2025-03-11] MEDS: NA CHLORIDE 0.9% 1,000 ML IV SCH (20:56)
--- NOTE | 2025-03-12 05:50 | HP ---
Date of Admission: 03/11/2025 Chief Complaint: Fall and head injury. History Of Present Illness: Mr. Brooks is a pleasant 84 year old male patient who has late stage end-stage Alzheimer disease, living at home with and a daughter, was brought into emergency room after a fall and head injury at home. The patient had a large laceration to forehead area, which was sutured in the emergency room. CAT scan of the head was negative for any acute intracranial changes, and the patient was admitted to the hospital. I saw him this evening. He was still in the emergency room. There was no family member at bedside. Due to his late stage end-stage Alzheimer disease, the patient is not able to provide any information or details. He was lying in bed, looking at me and smiling, not in any distress. His mental status appeared to be at baseline. Medications: Aspirin 81 mg daily, Famotidine 20 mg daily at bedtime and Trazodone 50 mg daily at bedtime. Review of Systems: 411 DIRECTORY ASSISTANCE OPERATOR: As mentioned above. All other systems reviewed and negative. Allergies: TO STATIN THERAPY. Past Medical History: Significant for Alzheimer's disease which is late stage, type 2 diabetes mellitus which is diet controlled, hypertension, mixed hyperlipidemia, gastroesophageal reflux disease, liver cyst, chronic kidney disease stage IIIA to IIIB, benign prostatic hypertrophy, high PSA, osteoarthritis at multiple sites, anemia due to chronic kidney disease, anxiety, seizure disorder, and coronary artery disease. He recently had admission to outside hospital due to myocardial infarction, which was managed with conservative treatment. Past Surgical History: Significant for surgery for congenital heart disease many years ago and cholecystectomy. Family History: Father had myocardial infarction. Social History: Negative for smoking and alcohol use. Physical Examination: Vital Signs: Height 5 feet 8 inches, weight 174 pounds. Temperature 98.1, pulse 61, respiratory rate 16, blood pressure 145/94, oxygen saturation 94%. General: Awake, alert, not oriented, not in distress, does not answer any questions but looks at me when I talked to him. HEENT: The patient has moderate area of contusion involving forehead, just in the center and left to the center of the lower forehead area above the eyebrows has swelling with bluish colored discoloration of bilateral eyelids and lower forehead area. Has sutures present over laceration involving lower forehead just above the left eyebrow area. There is no active bleeding. The patient also has some bluish colored contusion involving both cheeks. Neck: Supple. No JVD, lymph nodes, bruit, thyromegaly noted. Lungs: Bilateral good equal air entry. Clear to auscultation. No rhonchi. No rales. Heart: Normal heart sounds, no murmur or gallop. Abdomen: Soft, bowel sounds normal. No guarding, rigidity, tenderness, mass, hepatosplenomegaly, distention, or bruit noted. Extremities: No leg edema. No calf tenderness. Skin: No rash, ulcer, cellulitis. Lymphatics: No lymph node enlargement in neck, supraclavicular, infraclavicular region. Neuro: No focal neurological deficit. Chest: Unremarkable. External Genitalia: Deferred. Rectal: Deferred. Laboratory Data: WBC 6.6, hemoglobin 12.4, platelets 222. Sodium 135, potassium 5.1, chloride 103, bicarb 27, BUN 50, creatinine 1.77, glucose 103. CAT scan of the head and cervical spine: No acute intracranial or cervical spine changes. CAT scan of the chest, abdomen, pelvis shows healing multiple left-sided rib fractures from 6 to 10th ribs, large amount of stool in rectum, and 4.6 cm ascending aortic aneurysm. Impression: 1. Head injury, initial encounter. 2. Contusion, face. 3. Laceration, face. 4. Volume depletion. 5. Alzheimer disease, late stage. 6. Chronic kidney disease stage 3A. 7. Hypertension. 8. Diabetes mellitus. 9. Hyperlipidemia. 10. Gastroesophageal reflux disease. 11. Coronary artery disease. 12. Osteoarthritis, multiple sites. 13. Anemia due to chronic kidney disease. Plan: Admit the patient to hospital for further evaluation and management of this problem. The patient had sutures applied to lacerated area over the forehead in the emergency room, and no need for any further intervention except monitor this area for any evidence of infection. Sutures should be removed in 7 to 10 days. For volume depletion, we will continue IV fluid, which was started in the emergency room. The patient has late Alzheimer disease, which is end stage and prognosis is poor. No need for further intervention for that. Chronic kidney disease stage 3A, will not require any further intervention at this point. For hypertension, he does not take any antihypertensive medication. We will monitor his blood pressure while in the hospital. For diabetes, he does not take any diabetes medication. No need for further intervention on it. No need for fingerstick blood sugar check. For hyperlipidemia, he does not take any medication and will not require any intervention. Coronary artery disease will not require any intervention and he is not on any medication for that. Overall long-term prognosis is poor. In the past, I did bring up discussion with the patient's daughter about hospice care and she was not interested in it. Also had a discussion with her during last hospital admission about the code status and the patient was full code according to last hospital admission. Today, there was no family member at the bedside when I saw him in emergency room. Total time spent 65 minutes, including communication with the emergency room physician, review of emergency room visit record, review of last hospital admission record from 01/04/2025, and performing today's evaluation and management. I will see him tomorrow for followup. CIPRIANO/ORESTES Voice ID: [id number] CHEMA
--- NOTE | 2025-03-12 20:16 | PN ---
Date of Progress Note: 03/12/2025 Subjective: The patient was seen this morning for followup. He was lying in bed, not in any distres s, awake, looking at me, but does not answer any questions. When I tried to communicate with him, he would just look at me, but did not answer any question at all. The patient was not in any respirato ry distress. Objective: Vital Signs: Reviewed. HEENT: Head exam is significant for presence of bruising over his both cheeks and eyelids and forehe ad area. Swelling from the forehead around the laceration site has diminished in size compared to ye evening. Lungs: Clear to auscultation. Heart: Sounds normal. Abdomen: Soft. Bowel sounds normal. No guarding, rigidity, tenderness, distention. Extremities: No leg edema. Impression: 1. Head injury. 2. Laceration, forehead. 3. Alzheimer disease, late stage. 4. Hypertension. Plan: Social Service was consulted to assist with the discharge planning and subsequently I did comm unicate with Social Service. The patient's daughter was interested in placement for skilled care. T he patient is not appropriate candidate for inpatient rehab because of his late stage Alzheimer disea se. He practically does not follow any commands and will not be able to do 3 hours a day of physical therapy and all these details were discussed with the Case Management and he will be more appropriat e to go to detention facility, but not to inpatient rehab and Case Management will communicate with the patient's daughter regarding this recommendation. Once arrangements made for him to go to detention facility, he can be discharged. Medically, he is stable for monica lemos. Overall, prognosis is poor. CIPRIANO/MODL Voice ID: [id number] Report ID: [id number]
[2025-03-13 06:41] LABS: Absolute Basophils 0.1 K/uL (0-0.5); Absolute Eosinophils 0.2 K/uL (0-0.5); Absolute Lymphocytes (CBC) 1.7 K/uL (0.7-4.9); Absolute Monocytes 0.8 K/uL (0.1-1.3); Absolute Neutrophil 5.8 K/uL (1.8-8.0); Basophils % 0.7 % (0-1.3); Eosinophils % 1.9 % (0-4.4); Hemoglobin 12.3 g/dL (13.6-17.9); Lymphocytes % 19.4 % (15.3-44.8); MCH 30.1 pg (27.0-35.0); MCHC 34.2 g/dL (32.0-36.0); MCV 87.8 fL (80-100); MPV 8.1 fL (7.6-11.3); Monocytes % 9.7 % (3.3-12.3); Neutrophils % 68.3 % (41.7-73.7); Platelets 195 thou/uL (152-406); Red Cell Distribution Width 14.9 % (12.1-15.2)
[2025-03-13 06:59] LABS: Albumin 3.4 g/dL (3.4-5.0); Albumin/Globulin Ratio 0.8 (1.1-1.8); Anion Gap 10.1 mEq/L (5.0-15.0); Bilirubin Total 1.1 mg/dL (0.2-1.0); Globulin 4.3 g/dL (2.3-3.5); Magnesium 2.1 mg/dL (1.6-2.4); Potassium 4.1 mEq/L (3.5-5.1); Protein, Total 7.7 g/dL (6.4-8.2)
--- NOTE | 2025-03-14 07:12 | PN ---
Date of Progress Note: 03/13/2025 Subjective: The patient was seen this morning for followup. No new complaints or problems reported by nursing staff. He was lying in bed, not in any distress, awake, does not answer any questions, bu t looks at me and smiles at me when I was talking to him. Objective: Vital Signs: Reviewed. HEENT: Unremarkable except laceration on the forehead with presence of sutures. Swelling around the lacerated area has improved significantly. The patient does have bruising around the laceration sit e on the forehead and bilateral periorbital area. Lungs: Clear to auscultation. Heart: Sounds normal. Abdomen: Soft. Bowel sounds normal. No guarding, rigidity, tenderness, distention. Extremities: No leg edema. Impression: 1. Head injury. 2. Laceration, forehead. 3. Hypertension. 4. Alzheimer disease, late stage. Plan: We will go ahead and continue current medical management. No evidence of any infection of the skin laceration. Continue to follow with Social Service who is trying to make arrangements for the patient to go to fdc facility of family's choice. The patient is medically stable for di aminta as soon as arrangements gets made. For some reason, fdc facility is not going to be able to take the patient, and family will need to make decision whether to take him back home or put him in the facility as a private payee. Possible discharge as early as tomorrow, but medically the patient is stable for discharge at any time now. CIPRIANO/MODL Voice ID: [id number] Report ID: [id number]
--- NOTE | 2025-03-14 23:03 | PN ---
Date of Progress Note: 03/14/2025 Subjective: The patient was seen this morning for followup no new complaints or problems reported by nursing staff. The patient was lying in bed, sleeping, easily arousable. Does not answer any questions, but when I tried to talk to him, he was looking at me and smiling. Objective: Vital Signs: Reviewed. HEENT: Unremarkable except presence of sutures with laceration on the forehead unchanged. No discharge or bleeding. Contusion around this laceration site and periorbital area unchanged. Lungs: Clear to auscultation. Heart: Sounds normal. Abdomen: Soft. Bowel sounds normal. No guarding, rigidity, tenderness, distention. Extremities: No leg edema. Impression: 1. Head injury. 2. Alzheimer disease, late stage. 3. Hypertension. 4. Type 2 diabetes mellitus. 5. Gastroesophageal reflux disease. 6. Insomnia. Plan: We will continue current medical management. The patient is medically stable for discharge. We waiting on Social Service to try to complete arrangements for patient to go to [facility] facility. If he is not able to go there, the family wants to take him home. CIPRIANO/MODL Voice ID: [id number] Report ID: [id number] CHEMA
--- NOTE | 2025-03-15 11:18 | PN ---
Date of Progress Note: 03/15/2025 Subjective: The patient was seen this morning for followup. No new complaints or problems reported by the patient. He was lying in bed, smiling when I tried to talk to him, but does not answer any qu estions. Not in any respiratory distress. Objective: Vital Signs: Reviewed. HEENT: Unremarkable except the patient has laceration with sutures present over forehead with slight swelling around it and periorbital contusion unchanged. Lungs: Clear to auscultation. Heart: Sounds normal. Abdomen: Soft. Bowel sounds normal. No guarding, rigidity, tenderness, or distention. Extremities: No leg edema. Impression: 1. Head injury. 2. Laceration, forehead. 3. Hypertension. 4. Alzheimer's disease, end-stage. Plan: Continue current medication. Continue to follow up with Social Service who is trying to make arrangements for the patient to go to group home facility in a locked Alzheimer's unit and soon as it is arranged, we will discharge patient. He is medically stable for discharge. CIPRIANO/MODL Voice ID: [id number] Report ID: [id number]
[2025-03-16 06:04] LABS: Absolute Basophils 0.1 K/uL (0-0.5); Absolute Eosinophils 0.4 K/uL (0-0.5); Absolute Lymphocytes (CBC) 2.1 K/uL (0.7-4.9); Absolute Monocytes 0.7 K/uL (0.1-1.3); Absolute Neutrophil 6.2 K/uL (1.8-8.0); Basophils % 0.6 % (0-1.3); Eosinophils % 4.3 % (0-4.4); Hematocrit 37.4 % (39.6-49.0); Lymphocytes % 22.3 % (15.3-44.8); MCH 30.4 pg (27.0-35.0); MCHC 34.9 g/dL (32.0-36.0); MCV 87.2 fL (80-100); MPV 8.4 fL (7.6-11.3); Monocytes % 7.2 % (3.3-12.3); Neutrophils % 65.6 % (41.7-73.7); Nucleated Red Blood Cells % 0.1 % (0-0); Platelets 225 thou/uL (152-406); RBC Red Blood Cell Count 4.29 M/uL (4.33-5.43); Red Cell Distribution Width 14.5 % (12.1-15.2)
[2025-03-16 06:14] LABS: Anion Gap 9.9 mEq/L (5.0-15.0); Magnesium 2.1 mg/dL (1.6-2.4); Potassium 3.9 mEq/L (3.5-5.1)
[2025-03-16] MEDS ORDERED: FAMOTIDINE 20 MG TAB PO SCH (09:00)
--- NOTE | 2025-03-16 10:59 | PN ---
Date of Progress Note: 03/16/2025 Subjective: The patient was seen this morning for followup. No new complaints or problems reported. His daughter was with him at bedside. He was looking around, looking at me, smiling, does not answ er any questions. This is his baseline. Objective: Vital Signs: Reviewed. HEENT: Unremarkable except presence of laceration on the forehead with sutures present. Minimal sof t tissue swelling around the laceration site and periorbital contusion is improving. Lungs: Clear to auscultation. Heart: Sounds normal. Abdomen: Soft. Bowel sounds normal. No guarding, rigidity, tenderness, distention. Extremities: No leg edema. Laboratory Data: WBC 9.4, hemoglobin 13, platelets 225. Sodium 138, potassium 3.9, chloride 106, bi carb 26, BUN 38, creatinine 1.31, glucose 94, magnesium 2.1. Impression: 1. Head injury. 2. Laceration, forehead. 3. Alzheimer's disease, late stage. 4. Volume depletion, improved. Plan: We will continue current medication. Continue famotidine. Continue topical antibiotic Neospo rin to laceration site and I did discuss with the patient's daughter and informed her that considerin g risk/benefit ratio, risk of continuing aspirin is higher for somebody like him with increased risk of fall and injury and increased risk of bleeding complications, so my recommendation is to discontin ue aspirin, which we have done it for now while he is in the hospital and upon discharge, he should n ot take aspirin either. I have also discontinued his trazodone that he takes. I have discussed all these details with daughter as well today. We are waiting on Social Service to make arrangements for him to go to correction facility. As soon as it is arranged, we will b e able to discharge him. CIPRIANO/MODL Voice ID: [id number] Report ID: [id number]
[2025-03-16] MEDS: FAMOTIDINE 20 MG TAB PO SCH (21:00)
[2025-03-17 02:09] VITALS: O2SAT 94
--- NOTE | 2025-03-17 11:54 | PN ---
Date of Progress Note: 03/17/2025 Subjective: The patient was seen this morning for followup. No new complaints or problems reported by patient. He was lying in bed, looking at me, smiling, but does not answer any questions. Not in respiratory distress. There was no family with him at bedside. Objective: Vital Signs: Reviewed. HEENT: Unremarkable except presence of sutures over forehead laceration with very minimal soft tissu e swelling around it. Redness around the suture around the laceration site has actually improved. N o discharge bleeding or gapping. Periorbital contusion also has improved significantly. Lungs: Clear to auscultation. Heart: Sounds normal. Abdomen: Soft, bowel sounds normal. No guarding, rigidity, tenderness, distention. Extremities: No leg edema. Impression: 1. Head injury, initial. 2. Contusion, face. 3. Laceration, forehead. 4. Hypertension. 5. Alzheimer disease, late stage. Plan: Continue current medication. Continue topical antibiotic and we are waiting on approval for p ava to go to [facility] facility in a locked unit. Hopefully, we can discharge him to go [facility] if we are able to get approval for this. CIPRIANO/MODL Voice ID: [id number] Report ID: [id number]
[2025-03-17] MEDS: ACETAMINOPHEN 500 MG TAB PO PRN (20:00)
[2025-03-18] MEDS: DOXYCYCLINE 100 MG CAP PO SCH (08:27)
--- NOTE | 2025-03-18 20:14 | PN ---
Date of Progress Note: 03/18/2025 Subjective: The patient was seen this morning for followup. No new complaints or problems reported by nursing staff. The patient was lying in bed, looking at me, smiling, but not answering any questi ons. Objective: Vital Signs: Reviewed. HEENT: Unremarkable except presence of laceration with sutures over forehead with slight soft tissue swelling around it and had minimal pink discoloration of skin around the laceration site which appea rs little more prominent today and slightly warm to touch. No discharge or bleeding. Lungs: Clear to auscultation. Heart: Sounds normal. Abdomen: Soft. Bowel sounds normal. No guarding, rigidity, tenderness, distention. Extremities: No leg edema. Impression: 1. Head injury. 2. Laceration, forehead. 3. Cellulitis, forehead. 4. Alzheimer's disease, late stage. Plan: We will continue topical antibiotic like Neosporin to the laceration site, but start the patie nt on doxycycline 100 mg 2 times a day per order. We are waiting on insurance company's approval for the patient to go to [facility] facility in locked unit and once that is arranged, we will be a ble to discharge him to go to such facility. The patient is medically stable for discharge and waiti ng on arrangements to be completed by Social Service. CIPRIANO/MODL Voice ID: [id number] Report ID: [id number]
--- NOTE | 2025-03-19 20:53 | PN ---
Date of Progress Note: 03/19/2025 Subjective: The patient was seen this morning for followup. No new complaints or problems reported by the patient. He was lying in bed, not in distress, smiling, looking at me, but does not answer an y questions. Objective: Vital Signs: Reviewed. HEENT: Unremarkable except presence of laceration with sutures on the forehead with slight soft tiss ue swelling around the laceration area. [place] discoloration of the skin is slightly better today than couple of days ago. Lungs: Clear to auscultation. Heart: Sounds normal. Abdomen: Soft. Bowel sounds normal. No guarding, rigidity, tenderness, distention. Extremities: No leg edema. Impression: 1. Alzheimer's disease, late stage. 2. Laceration, forehead. 3. Head injury. 4. Hypertension. Plan: We will continue current medication. Continue current doxycycline for area of cellulitis arou nd the laceration site which is improving. Nursing staff was advised to remove sutures today and daron ly Steri-Strips. We are waiting on Social Service to complete arrangements for the patient to go to correction facility. Medically, he is stable for discharge soon as arrangements completed. CIPRIANO/MODL Voice ID: [id number] Report ID: [id number]
--- NOTE | 2025-03-21 06:04 | PN ---
Date of Progress Note: 03/20/2025 Subjective: The patient was seen this morning for followup. No new complaints or problems reported by nursing staff. The patient was lying in bed, looking at me, smiling, not in any distress. Objective: Vital Signs: Reviewed. HEENT: Unremarkable. The patient has Steri-Strips present over forehead where he had laceration and sutures present and sutures were removed yesterday. Has very slight soft tissue swelling around thi s area with pink discoloration of skin. Overall, it is better than before. No gapping, discharge, b leeding. Contusion from periorbital area on the face has significantly improved. Lungs: Clear to auscultation. Heart: Sounds normal. Abdomen: Soft. Bowel sounds normal. No guarding, rigidity, tenderness, distention. Extremities: No leg edema. Impression: 1. Cellulitis, face. 2. Laceration, forehead. 3. Head injury. 4. Alzheimer disease, late stage. Plan: Continue doxycycline 100 mg 2 times a day per order. We are waiting on arrangements to be com pleted for patient to go to intermediate facility in a locked unit because of his Alzheimer diseas e, late stage and safety concerns. The patient is medically stable for discharge as soon as arrangem ent is completed. CIPRIANO/MODL Voice ID: [id number] Report ID: [id number]
[2025-03-21 08:08] LABS: Absolute Basophils 0.1 K/uL (0-0.5); Absolute Eosinophils 0.3 K/uL (0-0.5); Absolute Lymphocytes (CBC) 1.9 K/uL (0.7-4.9); Absolute Monocytes 0.5 K/uL (0.1-1.3); Absolute Neutrophil 3.8 K/uL (1.8-8.0); Basophils % 0.9 % (0-1.3); Eosinophils % 4.5 % (0-4.4); Hematocrit 37.1 % (39.6-49.0); Lymphocytes % 29.6 % (15.3-44.8); MCH 30.5 pg (27.0-35.0); MCV 87.1 fL (80-100); MPV 7.7 fL (7.6-11.3); Monocytes % 7.6 % (3.3-12.3); Neutrophils % 57.4 % (41.7-73.7); Platelets 233 thou/uL (152-406); RBC Red Blood Cell Count 4.26 M/uL (4.33-5.43); Red Cell Distribution Width 14.5 % (12.1-15.2)
[2025-03-21 08:24] LABS: Anion Gap 6.7 mEq/L (5.0-15.0); Potassium 3.7 mEq/L (3.5-5.1)
--- NOTE | 2025-03-21 21:54 | PN ---
Date of Progress Note: 03/21/2025 Subjective: The patient was seen this morning for followup. No new complaints or problems reported by nursing staff. The patient was lying in bed, awake, alert, but not oriented, looking at me and sm iling, but does not answer any questions. Objective: Vital Signs: Reviewed. HEENT: Unremarkable except presence of Steri-Strips over the forehead area. All the sutures were re moved yesterday. Slight soft tissue swelling around this laceration site with pink color skin which has significantly improved compared to before. No discharge, gapping, or bleeding. Lungs: Clear to auscultation. Heart: Sounds normal. Abdomen: Soft. Bowel sounds normal. No guarding, rigidity, tenderness, distention. Extremities: No leg edema. Impression: 1. Cellulitis, forehead. 2. Head injury. 3. Laceration, forehead. 4. Alzheimer's disease, late stage. Plan: We will go ahead and continue current medication which is doxycycline. Continue famotidine. We are waiting on Social Service to finish arrangements for the patient to go to detention faci lity. As soon as it is done, we will discharge him as he is medically stable for discharge. CIPRIANO/MODL Voice ID: [id number] Report ID: [id number]
--- NOTE | 2025-03-22 10:09 | PN ---
Date of Progress Note: 03/22/2025 Subjective: The patient was seen this morning for followup. He was lying in bed, sleeping, easily a rousable, did not communicate or answer any questions, but was smiling at me when I was examining him . Physical Examination: Vital Signs: Reviewed. HEENT: Unremarkable except presence of Steri-Strip over forehead and the patient had soft tissue swe lling around the laceration site, which has significantly diminished in size now and the redness also in this area has significantly improved. There is very minimal area of redness of the skin around t he laceration site. There is no gapping. No discharge or bleeding. Lungs: Clear to auscultation. Heart: Sounds normal. Abdomen: Soft. Bowel sounds normal. No guarding, rigidity, tenderness, distention. Extremities: No leg edema. Impression: 1. Head injury. 2. Laceration, forehead. 3. Cellulitis, forehead. 4. Alzheimer disease, late stage. Plan: We will go ahead and continue doxycycline per order 100 mg 2 times a day. We still waiting on [employer]'s approval for last several days for patient to go to skilled facility and Social Service is working on it, but unfortunately [employer] has not provided any approval or author ization to go to such facility so far. The patient is medically stable and has been stable for last several days to go to such facility, but we are not able to discharge him because of problems with the [employer] company. CIPRIANO/MODL Voice ID: [id number] Report ID: [id number]
--- NOTE | 2025-03-23 10:35 | PN ---
Date of Progress Note: 03/23/2025 Subjective: The patient was seen this morning for followup. He was lying in bed, not in any distres s. No new complaints or problems reported by nursing staff. The patient was not any in distress, no t agitated. Objective: Vital Signs: Reviewed. HEENT: Unremarkable, area of laceration that he had has healed very well. Very minimal soft tissue swelling and very minimal pink discoloration of the skin around the site, which is significantly bett er than before. Lungs: Clear to auscultation. Heart: Sounds normal. Abdomen: Soft. Bowel sounds normal. No guarding, rigidity, tenderness, or distention. Extremities: No leg edema. Impression: 1. Cellulitis, forehead. 2. Laceration, forehead. 3. Head injury. 4. Alzheimer disease, late stage. 5. Hypertension. Plan: We will continue current medication. Blood pressure remains stable without any medication. C ontinue doxycycline for cellulitis and we are still waiting on insurance [employer]'s approval for the p atient to go to skilled facility. I will see him tomorrow for followup. CIPRIANO/MODL Voice ID: [id number] Report ID: [id number]
--- NOTE | 2025-03-24 16:16 | PN ---
Date of Progress Note: 03/24/2025 Subjective: The patient was seen this morning for followup. No new complaints or problems reported by nursing staff. The patient was sleeping, arousable, looked at me and was smiling, but did not ans wer any questions. Not in any distress. Physical Examination: Vital Signs: Reviewed. HEENT: Unremarkable except area of laceration, which has healed completely and there are Steri-Strip s present. [place] discoloration of the skin has almost completely resolved except very minimal area of pink discoloration, which is very faint. Overall, significantly better and soft tissue swelling is also significantly better around the laceration site. There is no gapping of the area and it has hea led well. Lungs: Clear to auscultation. Heart: Sounds normal. Abdomen: Soft. Bowel sounds normal. No guarding, rigidity, tenderness, distention. Extremities: No leg edema. Impression: 1. Cellulitis, forehead. 2. Head injury. 3. Laceration, forehead. 4. Alzheimer disease, late stage. Plan: We will go ahead and continue current medication. Continue doxycycline and we are waiting on insurance company's approval for patient to go to [facility]-way facility and we have been waiting i the [facility] for fairly long time. We hope that tomorrow we can discharge the patient to the [facility]. CIPRIANO/MODL Voice ID: [id number] Report ID: [id number]
[2025-03-24 18:19] LABS: Anion Gap 10.3 mEq/L (5.0-15.0)
[2025-03-24 18:23] LABS: Magnesium 1.8 mg/dL (1.6-2.4); Potassium 4.3 mEq/L (3.5-5.1)
--- NOTE | 2025-03-25 19:57 | PN ---
Date of Progress Note: 03/25/2025 Subjective: The patient was seen this morning for followup. He was sleeping, arousable, not in any distress, does not communicate or answer any questions. Objective: Vital Signs: Reviewed. HEENT: Unremarkable except very slight area of soft tissue swelling around the laceration site which has healed very well. Very minimal pink discoloration of the skin, unchanged from yesterday. Lungs: Clear to auscultation. Heart: Sounds normal. Abdomen: Soft. Bowel sounds normal. No guarding, rigidity, tenderness, distention. Extremities: No leg edema. Impression: 1. Cellulitis, forehead. 2. Laceration, forehead. 3. Head injury. 4. Alzheimer's disease, late stage. Plan: We will continue current medication. The patient has been in the hospital for last 13 days an d we are awaiting on insurance [employer]'s approval for him to go to skilled facility and today, Social Service contacted me and informed me that they just found out today that skilled facility that enrique otoole has requested for us to try to send him to never requested authorization from [employer] and we just found out about this today, so I am not sure what to do next as far as disposition is concer lizette, but I have asked Social Service to communicate with hospital administration and then to communic ate with the patient's daughter regarding this. Once again, the patient is medically stable for disc harge pending disposition arranged by Social Service. Because of the patient's late stage Alzheimer' s disease, as I understand he is not able to participate well with physical therapy and considering h is late stage Alzheimer's disease, I do not see any chances of meaningful improvement. In the past, when I had discussion with the patient's daughter regarding hospice care, she was not ready and she i nformed me that she will communicate with me when she is ready in the future, so obviously so far jamie tiwari has not entertained that as a possibility, so we are going to have to wait for arrangements to be completed for him to go to facility if that is what daughter still wants or daughter can take him ho me with 24-hour care at home. CIPRIANO/MODL Voice ID: [id number] Report ID: [id number]
[2025-03-26 09:11] LABS: Absolute Basophils 0.1 K/uL (0-0.5); Absolute Eosinophils 0.4 K/uL (0-0.5); Absolute Lymphocytes (CBC) 2.4 K/uL (0.7-4.9); Absolute Monocytes 0.5 K/uL (0.1-1.3); Absolute Neutrophil 4.7 K/uL (1.8-8.0); Basophils % 0.8 % (0-1.3); Eosinophils % 4.7 % (0-4.4); Hematocrit 42.2 % (39.6-49.0); Hemoglobin 14.6 g/dL (13.6-17.9); Lymphocytes % 30.1 % (15.3-44.8); MCH 30.2 pg (27.0-35.0); MCHC 34.7 g/dL (32.0-36.0); MPV 7.7 fL (7.6-11.3); Monocytes % 6.5 % (3.3-12.3); Neutrophils % 57.9 % (41.7-73.7); Nucleated Red Blood Cells % 0.1 % (0-0); Platelets 259 thou/uL (152-406); RBC Red Blood Cell Count 4.85 M/uL (4.33-5.43); Red Cell Distribution Width 14.2 % (12.1-15.2)
[2025-03-26 09:27] LABS: Anion Gap 6.8 mEq/L (5.0-15.0); Potassium 3.8 mEq/L (3.5-5.1)
--- NOTE | 2025-03-27 00:03 | PN ---
Date of Progress Note: 03/26/2025 Subjective: The patient was seen this morning for followup. No new complaints or problems reported by nursing staff. He was sleeping, not in any distress. Objective: Vital Signs: Reviewed. HEENT: Unremarkable except healed laceration with very small soft tissue swelling around it and very faint pink discoloration of the skin, unchanged from yesterday. Lungs: Clear to auscultation. Heart: Sounds normal. Abdomen: Soft. Bowel sounds normal. No guarding, rigidity, tenderness, distention. Extremities: No leg edema. Impression: 1. Head injury. 2. Alzheimer disease, late stage. 3. Cellulitis, forehead. 4. Laceration, forehead. Plan: Continue current medications. Continue to follow up with Social Service, who is working with the patient's daughter to make arrangements for the patient to go to skilled facility. Daughter want s to take him to a facility out of pocket as a private payee to see how he does with that, and Social Service is assisting with arrangements. The patient is medically stable for discharge and as soon a s this arrangement gets completed, we will be able to discharge him to go to facility of family's [facility]. CIPRIANO/MODL Voice ID: [id number] Report ID: [id number]
[2025-03-27 05:22] VITALS: BMI 26.1
[2025-03-27 17:26] VITALS: BP 113/57; TEMP 97.5
--- NOTE | 2025-04-01 00:06 | DS ---
Date of Discharge: 03/27/2025 Disposition: Discharged to go to alf facility. Physical Examination: HEENT: Unremarkable. Has healed area of laceration with no evidence of cellulitis or swelling, whic h has completely resolved now. Lungs: Clear to auscultation. Heart: Sounds normal. Abdomen: Soft. Bowel sounds normal. No guarding, rigidity, tenderness, distention. Extremities: No leg edema. Laboratory Data: Upon admission on 03/11/2025, WBC was 6.6, hemoglobin 12.4, and platelets 222. Las t CBC from 03/21/2025 shows WBC 6.6, hemoglobin 13, and platelets 233. For chemistry upon admission on 03/11/2025, sodium 135, potassium 5.1, chloride 103, bicarb 27, BUN 50, creatinine 1.77, glucose 1 03. Lowest creatinine for this hospital admission was 1.31 with BUN 38 on 03/16/2025. Lowest BUN wa s 32 on 03/21/2025. Last chemistry on 03/24/2025, sodium 138, potassium 4.3, chloride 107, bicarb 25 , BUN 36, creatinine 1.52, glucose 100, magnesium 1.8. Discharge Medications And Instructions: 1. Diet regular. 2. Fall precautions. 3. Consult Physical Therapy and Occupational Therapy. 4. Famotidine 20 mg 1 tablet by mouth daily at bedtime. 5. Stop aspirin. 6. Stop trazodone. Hospital Course: This is an 84-year-old male patient with late-stage Alzheimer disease, was brought into emergency room with fall and head injury that happened at home. Please see dictated H and P for more information. After the patient was evaluated in the emergency room, he was admitted to the [facility], had laceration to his left forehead area just above the eyebrow region and sutures were applie d in the emergency room and he was admitted to the hospital. The patient had extensive area of contu lucy over face and had volume depletion and acute kidney injury, which was corrected with IV fluid hy dration. Physical Therapy and Occupational Therapy consultation was requested. The patient's daught er requested for the patient to go to alf facility, so referral was sent to the facility of family's choice and social welfare administrator. Continue to follow up on this referral status almost on a gerald y basis and unfortunately after waiting for extensive time, we found out that facility was supposed t o request authorization from insurance company, informed social service that insurance denied, but in reality, we found out that facility never placed a request for authorization with the insurance comp any, so when we found out about all those details, family was made aware of this and the patient real ly has not participated well with physical therapy. Because of limitation with his impaired cognitio n, he is not able to follow instructions, but family still would like to take [facility] patient to see whether he improves or not, so social service assisted him to go to a different facility of family's choice in [place] and once all arrangements completed today, he was d ischarged in stable condition. The patient did develop some area of cellulitis around the laceration site which was treated with doxycycline and that actually has resolved. He responded very well to t hat. Cellulitis has not resolved. His sutures were removed and Steri-Strip was applied, which was a lso subsequently removed and laceration has healed completely. There is no gapping, discharge, bleed ing, etc. The patient was taking aspirin and trazodone at home, but during this hospitalization, I anthony minor discontinued aspirin. The patient has not received trazodone and I did talk to the patient's rob ghter about both of these changes using aspirin in somebody like him. Risk is lot more than the bene fit, so we will discontinue aspirin permanently unless clinical indication changes in the future and the patient has done well without trazodone, so no need to restart it at this time. These details we re discussed with the patient's daughter during this hospitalization. Final Diagnoses: 1. Head injury, initial encounter. 2. Contusion, face. 3. Laceration, face. 4. Cellulitis, face. 5. Volume depletion. 6. Acute kidney injury. 7. Alzheimer disease, late stage. 8. Chronic kidney disease, stage 3A. 9. Hypertension. 10. Type 2 diabetes mellitus. 11. Hyperlipidemia. 12. Gastroesophageal reflux disease. 13. Coronary artery disease. 14. Osteoarthritis, multiple sites. 15. Anemia due to chronic kidney disease. Total time spent 40 minutes. CIPRIANO/MODL Voice ID: [id number] Report ID: [id number]
== END 2025-03-27 18:22 | disposition home health service (06) | DRG 908 ==
LOC: ER 13:43 → 2ND 17:24 → OBSVTOIN 03-12 21:04
PROVIDERS: ADMIT Internal Medicine; ATTEND Internal Medicine
PROC: 0JQ10ZZ Repair Face Subcutaneous Tissue and Fascia, Open Approach (ICD-10-PCS; principal; 2025-03-12)
DX: S09.90XA Unspecified injury of head, initial encounter (principal); L03.211 Cellulitis of face; N17.9 Acute kidney failure, unspecified; E86.0 Dehydration; G30.9 Alzheimer's disease, unspecified; F02.80 Dementia in other diseases classified elsewhere, unspecified severity, without behavioral disturbance, psychotic disturbance, mood disturbance, and anxiety; I12.9 Hypertensive chronic kidney disease with stage 1 through stage 4 chronic kidney disease, or unspecified chronic kidney disease; N18.31 Chronic kidney disease, stage 3a; E11.22 Type 2 diabetes mellitus with diabetic chronic kidney disease; D63.1 Anemia in chronic kidney disease; E78.5 Hyperlipidemia, unspecified; M19.09 Primary osteoarthritis, other specified site; E86.9 Volume depletion, unspecified; G47.00 Insomnia, unspecified; K21.9 Gastro-esophageal reflux disease without esophagitis; N40.0 Benign prostatic hyperplasia without lower urinary tract symptoms; I71.21 Aneurysm of the ascending aorta, without rupture; I25.10 Atherosclerotic heart disease of native coronary artery without angina pectoris; S01.81XA Laceration without foreign body of other part of head, initial encounter; S01.21XA Laceration without foreign body of nose, initial encounter; S22.42XD Multiple fractures of ribs, left side, subsequent encounter for fracture with routine healing; I25.2 Old myocardial infarction; Z88.8 Allergy status to other drugs, medicaments and biological substances; Z79.82 Long term (current) use of aspirin; Z90.49 Acquired absence of other specified parts of digestive tract; Z79.899 Other long term (current) drug therapy; W18.30XA Fall on same level, unspecified, initial encounter; Y92.019 Unspecified place in single-family (private) house as the place of occurrence of the external cause; Y93.9 Activity, unspecified; Y99.9 Unspecified external cause status
CPT/HCPCS: 12034; 36415; 70450; 71250; 72125; 74176; 80048; 80053; 83735; 85025; 85610; 85730; 96360; 97110; 97116; 97161; 97530; 99285; G0378; J2003; J7030

== ENCOUNTER 2025-04-13 08:41 | Inpatient (IN) | payer OTHER ==
[2025-04-13 09:06] LABS: Absolute Eosinophils 0.3 K/uL (0-0.5); Absolute Lymphocytes (CBC) 1.7 K/uL (0.7-4.9); Absolute Monocytes 0.5 K/uL (0.1-1.3); Basophils % 0.8 % (0-1.3); Eosinophils % 4.3 % (0-4.4); Hematocrit 37.3 % (39.6-49.0); Hemoglobin 12.9 g/dL (13.6-17.9); MCH 30.3 pg (27.0-35.0); MCHC 34.7 g/dL (32.0-36.0); MCV 87.3 fL (80-100); MPV 7.7 fL (7.6-11.3); Monocytes % 7.2 % (3.3-12.3); Neutrophils % 61.7 % (41.7-73.7); Platelets 206 thou/uL (152-406); RBC Red Blood Cell Count 4.27 M/uL (4.33-5.43); Red Cell Distribution Width 14.4 % (12.1-15.2)
[2025-04-13 09:17] LABS: Albumin 3.3 g/dL (3.4-5.0); Albumin/Globulin Ratio 0.8 (1.1-1.8); Anion Gap 10.1 mEq/L (5.0-15.0); Bilirubin Total 0.9 mg/dL (0.2-1.0); Globulin 4.1 g/dL (2.3-3.5); Potassium 4.1 mEq/L (3.5-5.1); Protein, Total 7.4 g/dL (6.4-8.2)
--- NOTE | 2025-04-13 09:59 | RAD REPORT ---
EXAMINATION: Abdomen Pelvis Wo Contrast CLINICAL INDICATION: Male, 84 years old.family reports distension TECHNIQUE: CT abdomen and pelvis was performed, without IV contrast, as per department protocol. Axia l, sagittal and coronal reconstructions were obtained. One or more of the following dose reduction techniques were used: Automated exposure control, adjustment of the mA and/or kV according to the pat ient size, and/or iterative reconstruction. Unless otherwise specified, incidental findings do not require dedicated imaging follow-up. [id number]. IV CONTRAST: Not administered. COMPARISON: 01/04/2025 FINDINGS: The lack of intravenous contrast limits the sensitivity of this exam for evaluation of solid visceral organs, vascular structures, and retroperitoneum. LOWER CHEST: Dependent atelectasis. No significant pericardial effusion. Moderate coronary artery kalina cifications.Sternotomy Aortic valve calcifications. UPPER GI: No significant abnormality. LIVER: No significant focal abnormality. GALLBLADDER/BILE DUCTS: Cholecystectomy. Mild extra-hepatic biliary ductal dilatation is likely relat ed to the post-cholecystectomy state. Consider correlating with LFT's.? PANCREAS: No mass, ductal dilation, or soila-pancreatic fluid. SPLEEN: Unremarkable. ADRENALS: No adrenal masses. KIDNEYS AND URETERS: No hydronephrosis.Limited evaluation for renal lesions in the absence of IV cont rast.Nonobstructing renal calculi.No ureteral calculi. ABDOMINAL AORTA AND OTHER VESSELS: Moderate atherosclerotic changes without aortic aneurysm. PERITONEUM: Perirectal edema. LYMPH NODES: No pathologic lymphadenopathy. ABDOMINAL WALL: Small fat containing umbilical hernia. SMALL BOWEL/COLON: Large rectal stool burden with rectal wall thickening.No overt bowel obstruction. URINARY BLADDER: Underdistended but grossly unremarkable. REPRODUCTIVE ORGANS: Mild prostatomegaly. MUSCULOSKELETAL: Remote L4 compression fracture. ADDITIONAL FINDINGS: None. IMPRESSION: Large rectal stool burden with rectal wall thickening concerning for fecal impaction and possible lori rcoral colitis.
[2025-04-13] MEDS ORDERED: FLEET ENEMA ADULT PR ONE (10:07)
--- NOTE | 2025-04-13 10:50 | ER ---
Nurse's Notes [facility] Name: Munir Brooks Age: 84 yrs Sex: Male : 1940 Arrival Date: 04/13/2025 Time: 08:41 Bed 2 Private MD: Diagnosis: Fecal impaction;Stercoral colitis Presentation: 04/13 08:55 Chief complaint: EMS states: "toned out for abdominal pain and distention that started mb9 this morning". Coronavirus screen: At this time, the client does not indicate any symptoms associated with coronavirus-19. Ebola Screen: No symptoms or risks identified at this time. Initial Sepsis Screen: Does the patient meet any 2 criteria? No. Patient's initial sepsis screen is negative. Does the patient have a suspected source of infection? No. Patient's initial sepsis screen is negative. Risk Assessment: Do you want to hurt yourself or someone else? Patient reports no desire to harm self or others. Onset of symptoms was April 13, 2025. 08:55 Acuity: MAGALY 3 mb9 08:55 Method Of Arrival: EMS: [facility]9 Triage Assessment: 08:57 General: Appears in no apparent distress. unkempt, covered in urine. Behavior is calm. mb9 Pain: Denies pain. EENT: No signs and/or symptoms were reported regarding the EENT system. Neuro: Level of Consciousness is awake, confused, Oriented to person. Cardiovascular: Patient's skin is warm and dry. Respiratory: Airway is patent Respiratory effort is even, unlabored, Respiratory pattern is regular, symmetrical. GI: Abdomen is flat, non-distended, Bowel sounds present X 4 quads. Abd is soft and non tender X 4 quads. :. Derm: Skin is pink, warm \\T\\ dry. Musculoskeletal: Range of motion: intact in all extremities. Historical: - Allergies: 08:56 memantine; mb9 08:56 Namenda; mb9 08:56 Palfltq-Stl-Hrw Reductase Inhibitor; mb9 - PMHx: 08:56 Alzheimer's disease; Congenital Heart Defect; Dementia; Seizures; mb9 - PSHx: 08:56 heart surgery; Cholecystectomy; mb9 - Immunization history:: Adult Immunizations up to date. - Infectious Disease History:: Denies. - Social history:: Smoking status: Patient denies any tobacco usage or history of. - History obtained from: EMS. Screenin:58 [facility] ED Fall Risk Assessment (Adult) History of falling in the last 3 months, mb9 including since admission Yes- fall prone (multiple falls) (3 pts) Confusion or Disorientation Yes (5 pts) Intoxicated or Sedated No (0 pts) Impaired Gait No (0 pts) Mobility Assist Device Used No (0 pt) Altered Elimination Yes (1 pt) Score/Fall Risk Level 3 or more points = High Risk Oriented to surroundings, Maintained a safe environment, Educated pt \\T\\ family on fall prevention, incl call for assistance when getting out of bed. [facility] ED Fall Risk Assessment (Adult) History of falling in the last 3 months, including since admission. Abuse screen: Denies threats or abuse. Nutritional screening: No deficits noted. Tuberculosis screening: No symptoms or risk factors identified. Assessment: 08:58 Reassessment: see triage assessment. mb9 08:58 Reassessment: Daughter at bedside. mb9 10:45 Reassessment: No changes from previously documented assessment. Patient and/or family mb9 updated on plan of care and expected duration. Pain level reassessed. 12:00 Reassessment: See [email or web address] for further charting. mb9 Vital Signs: 08:55 BP 158 / 91; Pulse 78; Resp 18; Temp 97.9; Pulse Ox 100% ; Height 6 ft. 1 in. ; mb9 10:52 BP 154 / 88; Pulse 60; Resp 18; Pulse Ox 100% on R/A; mb9 ED Course: 08:48 Patient arrived in ED. rn 08:48 Remington Spencer MD is Attending Physician. rn 08:49 Tish Caldera RN is Primary Nurse. mb9 08:56 Triage completed. mb9 08:57 Arm band placed on. mb9 08:58 Placed in gown. Bed in low position. Call light in reach. Side rails up X 1. Provided mb9 Education on: press call light if needing anything. Client placed on continuous cardiac and pulse oximetry monitoring. NIBP monitoring applied. Noise minimized. Warm blanket given. Pillow given. Cleaned of incontinence. Linen changed. 08:59 No provider procedures requiring assistance completed. Maintain EMS IV. Dressing mb9 intact. Good blood return noted. Site clean \\T\\ dry. Gauge \\T\\ site: 20 g left fa. 08:59 CBC with Diff Sent. mb9 08:59 CMP Sent. mb9 08:59 Lipase Sent. mb9 09:30 Repositioned patient. Cleaned of incontinence. Linen changed. mb9 09:48 CT Abd/Pelvis - Without Contrast In Process Unspecified. EDMS 10:45 Straight cath inserted, using sterile technique, 16 Fr. Specimen obtained. Returned mb9 cloudy urine. Patient tolerated well. 10:49 Andres Herzog MD is Hospitalizing Provider. rn 11:54 Inserted saline lock: 20 gauge in left upper arm, using aseptic technique. Flushed with em1 10 mL NS. 13:23 Patient admitted, IV remains in place. mb9 Administered Medications: 10:44 Drug: Fleet Enema DC 133 ml DC once; may repeat once Route: DC; kc6 12:01 Follow up: Response: No adverse reaction mb9 10:59 Drug: metroNIDAZOLE IVPB 500 mg 100 ml IVPB at 200 ml/hr once over 30 mins Volume: 100 mb9 ml; Route: IVPB; Rate: 200 ml/hr; Infused Over: 30 mins; Site: left forearm; 12:01 Follow up: Response: No adverse reaction; IV Status: Completed infusion mb9 12:01 Drug: levofloxacin IVPB 500 mg 100 ml IVPB once over 60 mins Volume: 100 ml; Route: mb9 IVPB; Infused Over: 60 mins; Site: left upper arm; 13:24 Follow up: Response: No adverse reaction; IV Status: Completed infusion mb9 Medication: 08:59 VIS not applicable for this client. mb9 Outcome: 10:50 Decision to Hospitalize by Provider. rn 13:23 Admitted to ER Hold. Please see [facility] for further documentation. mb9 13:23 Condition: stable 13:23 Instructed on the need for admit, 18:39 Patient left the ED. mb9 Signatures: Dispatcher [employer] EDMS Remington Spencer MD MD rn Martinez, Eric em1 Avani Sloan RN RN kc6 Wilkerson, Mary Beth, RN RN mb9 Corrections: (The following items were deleted from the chart) 13:23 10:45 Reassessment: No changes from previously documented assessment. Patient and/or mb9 family updated on plan of care and expected duration. Pain level reassessed. Patient is alert, oriented x 3, equal unlabored respirations, skin warm/dry/pink. mb9
--- NOTE | 2025-04-13 10:50 | EDPHYS ---
Physician Documentation [facility] Name: Munir Brooks Age: 84 yrs Sex: Male : 1940 Arrival Date: 04/13/2025 Time: 08:41 Bed 2 Private MD: ED Physician Remington Spencer HPI: 04/13 10:22 This 84 yrs old Male presents to ER via EMS with complaints of Abdominal Pain. rn 10:47 The patient presents with abdominal pain. Family called 911 for perceived abdominal rn distention and abdominal pain. Patient has no complaints but has dementia.. Historical: - Allergies: 08:56 memantine; mb9 08:56 Namenda; mb9 08:56 Zdmxwvw-Drc-Eks Reductase Inhibitor; mb9 - PMHx: 08:56 Alzheimer's disease; Congenital Heart Defect; Dementia; Seizures; mb9 - PSHx: 08:56 heart surgery; Cholecystectomy; mb9 - Immunization history:: Adult Immunizations up to date. - Infectious Disease History:: Denies. - Social history:: Smoking status: Patient denies any tobacco usage or history of. - History obtained from: EMS. ROS: 10:47 Constitutional: Negative for fever, chills, and weight loss, Abdomen/GI: Patient denies rn any abdominal pain Exam: 10:47 Constitutional: This is a well developed, well nourished patient who is awake, alert, rn and in no acute distress. Cardiovascular: Regular rate and rhythm. No pulse deficits. Respiratory: No increased work of breathing, no retractions or nasal flaring. Abdomen/GI: Soft, nontender, nondistended Neuro: Awake and alert, GCS 15 Vital Signs: 08:55 BP 158 / 91; Pulse 78; Resp 18; Temp 97.9; Pulse Ox 100% ; Height 6 ft. 1 in. ; mb9 10:52 BP 154 / 88; Pulse 60; Resp 18; Pulse Ox 100% on R/A; mb9 MDM: 08:48 Medical Screening Exam initiated rn 10:47 Differential diagnosis: bowel obstruction, non-specific abd pain, Fecal impaction, handle turner abdominal pain. Data reviewed: vital signs, nurses notes, lab test result(s), radiologic studies, CT scan, and as a result, I will admit patient. Consideration of Admission/Observation Patient was admitted/placed on observation. Escalation of care including admission/observation considered. Management of patient was discussed with the following: Primary Care Provider: Discussed case with Dr. Herzog, request antibiotics, Levaquin and Flagyl, and bowel regimen with admission to the hospital.. Counseling: I had a detailed discussion with the patient and/or guardian regarding the historical points, exam findings, and any diagnostic results supporting the discharge/admit diagnosis, lab results, radiology results, the need for further work-up and treatment in the hospital. ED course: Patient has had some bowel movement and stool evacuation naturally and with enema.. 04/13 08:49 Order name: CBC with Diff; Complete Time: 10:02 rn 04/13 08:49 Order name: CMP; Complete Time: 10: rn 04/13 08:49 Order name: Lipase; Complete Time: 10:02 rn 04/13 08:49 Order name: UA Rfx Levon Cult if indicated; Complete Time: 11:21 rn 04/13 08:49 Order name: CT Abd/Pelvis - Without Contrast; Complete Time: 10:02 rn 04/13 08:49 Order name: IV Saline Lock; Complete Time: 08:59 rn 04/13 08:49 Order name: Labs collected and sent; Complete Time: 08:59 rn Administered Medications: 10:44 Drug: Fleet Enema LA 133 ml LA once; may repeat once Route: LA; kc6 12:01 Follow up: Response: No adverse reaction mb9 10:59 Drug: metroNIDAZOLE IVPB 500 mg 100 ml IVPB at 200 ml/hr once over 30 mins Volume: 100 mb9 ml; Route: IVPB; Rate: 200 ml/hr; Infused Over: 30 mins; Site: left forearm; 12:01 Follow up: Response: No adverse reaction; IV Status: Completed infusion mb9 12:01 Drug: levofloxacin IVPB 500 mg 100 ml IVPB once over 60 mins Volume: 100 ml; Route: mb9 IVPB; Infused Over: 60 mins; Site: left upper arm; 13:24 Follow up: Response: No adverse reaction; IV Status: Completed infusion mb9 Disposition Summary: 04/13/25 10:50 Hospitalization Ordered Notes: Hospitalization Status: Inpatient Admission rn Provider: Andres Herzog rn [facility]n Condition: Stable rn Problem: new rn Symptoms: have improved rn Bed/Room Type: Standard rn Room Assignment: 403(04/13/25 17:27) eb Diagnosis - Fecal impaction rn - Stercoral colitis rn Forms: - Medication Reconciliation Form rn - SBAR form rn - Leadership Thank You Letter rn Signatures: Dispatcher [employer] [facility] Remington Spencer MD MD rn Botello, Elizabeth eb Campbell, Kaitlyn RN RN kc6 Tish Caldera, RN RN mb9 Corrections: (The following items were deleted from the chart) 08:49 08:49 UA Rfx Levon Cult if indicated+U.LAB.BRZ ordered. [facility] EDMN 17:27 10:50 rn eb
[2025-04-13] MEDS ORDERED: METRONIDAZOLE 500mg IVPB 500 MG/100 ML BAG IV ONE (10:54)
[2025-04-13] MEDS ORDERED: Levofloxacin500mg IV 500 MG/100 ML BAG IV ONE (10:54)
[2025-04-13 11:11] LABS: Specific Gravity 1.014 (1.005-1.030); Sqamous Epithelial <5 /HPF (None Seen); Urine Bacteria None Seen /HPF (<20); Urine Bilirubin NEGATIVE (Negative); Urine Blood Negative (Negative); Urine Clarity Clear (Clear); Urine Color Light-Yellow (Yellow); Urine Culture Reflex Order NOT NEEDED; Urine Glucose NEGATIVE (Negative); Urine Ketones NEGATIVE (Negative); Urine Microscopic Reflex YN ORDER UMIC; Urine Mucus Slight /HPF (None Seen); Urine Nitrite NEGATIVE (Negative); Urine Protein NEGATIVE (Negative); Urine RBC <5 /HPF (None Seen); Urine Urobilinogen Normal (Normal); Urine WBC <5 /HPF (<5)
--- NOTE | 2025-04-13 12:11 | HP ---
Date of Admission: 04/13/2025 Chief Complaint: Nausea, vomiting. History Of Present Illness: This is an 84-year-old male patient, who lives at home, was brought into emergency room with above-mentioned complaint. The patient had extended hospital stay for almost 2 weeks and about 2 weeks ago, he was discharged from our hospital to go to [facility] in [place] as family decided to take him over there as a private pay patient and my understanding is that daughter decided to bring him back home, so today he came from home with nausea and vomiting complaints. After he was evaluated in emergency room, he was diagnosed as having significant problem with constipation and stercoral colitis problem. With this, the patient will be admitted to hospital. I have discussed details with emergency room physician and I have seen him in emergency room. There was no family member at bedside. Medications: Famotidine 20 mg daily at bedtime. Review of Systems: GI: As mentioned above. All other systems reviewed and negative. Allergies: TO STATIN THERAPY. Past Medical History: Significant for Alzheimer's disease which is late stage, type 2 diabetes mellitus which is diet controlled, hypertension, mixed hyperlipidemia, gastroesophageal reflux disease, liver cyst, chronic kidney disease stage IIIA to IIIB, benign prostatic hypertrophy, high PSA, osteoarthritis at multiple sites, anemia due to chronic kidney disease, anxiety,seizure disorder, and coronary artery disease. He recently had admission to outside hospital due to myocardial infarction, which was managed with conservative treatment. Past Surgical History: Significant for surgery for congenital heart disease manyyears ago and cholecystectomy. Family History: Father had myocardial infarction. Social History: Negative for smoking and alcohol use. Physical Examination: Vital Signs: Height 6 feet 1 inches, weight 180 pounds, temperature 98, pulse 58, respiratory rate 16, blood pressure 155/85, oxygen saturation 98%. General: Awake, alert, oriented, not in distress. HEENT: The patient has transverse laceration just above left eyebrow. This was present during last hospital stay and sutures were removed during last hospital stay, but today I have seen new sets of sutures present, so apparently sutures were re-applied at some point after discharge from the hospital about 2 weeks ago. There is no evidence of any redness, discharge, bleeding, or gapping. Neck: Supple. No JVD, lymph nodes, bruit, thyromegaly noted. Lungs: Bilateral good equal air entry. Clear to auscultation. No rhonchi. No rales. Heart: Normal heart sounds, no murmur or gallop. Abdomen: Soft, bowel sounds normal. No guarding, rigidity, tenderness, mass, hepatosplenomegaly, distention, or bruit noted. Extremities: No leg edema. No calf tenderness. Skin: No rash, ulcer, cellulitis. Lymphatics: No lymph node enlargement in neck, supraclavicular, infraclavicular region. Neuro: No focal neurological deficit. Patient does not answer any questions due to his late stage alzheimer's disease. Chest: Unremarkable. External Genitalia: Deferred. Rectal: Deferred. Laboratory Data: WBC 6.5, hemoglobin 12.9, platelets 206. Sodium 140, potassium 4.1, chloride 108, bicarb 26, BUN 23, creatinine 1.24, glucose 88. Liver function tests unremarkable. Lipase 50. CAT scan of abdomen and pelvis shows large rectal stool burden with thickening of the rectal wall concerning for fecal impaction and possible stercoral colitis. Impression: 1. Stercoral colitis. 2. Constipation. 3. Alzheimer's disease, late stage. 4. Chronic kidney disease stage IIIA. 5. Hypertension. 6. Diabetes mellitus. 7. Hyperlipidemia. 8. Gastroesophageal reflux disease. 9. Coronary artery disease. 10. Osteoarthritis, multiple sites. 11. Anemia due to chronic kidney disease. Plan: Admit the patient to hospital for further evaluation and management of this problem. The patient will be treated for his fecal impaction and constipation problem. He already has received enema in the emergency room and we will continue laxative for treatment of his fecal impaction and constipation problem. For stercoral colitis, we will start empiric antibiotic which will be Levaquin and metronidazole. The patient is appropriate for inpatient and is expected to spend 2 midnights in hospital. For gastroesophageal reflux disease, he takes famotidine, which we will continue that. No need for further intervention. The patient has late stage Alzheimer's disease and overall his prognosis is guarded for that reason. For chronic kidney disease stage IIIA, no need for further intervention. For hypertension, he is not on any antihypertensive medication and we will continue to monitor blood pressure. For diabetes, he is not on any diabetes medication and no need for further intervention. For coronary artery disease, he was on aspirin in the past, but during last hospital admission, he was recommended to discontinue aspirin because of risk of fall, head injury, and increased risk of bleeding complication as a result of fall and injury, so aspirin was discontinued during last hospital stay. Anemia will not require any further intervention except monitoring. Total time spent today 65 minutes including review of current emergency room visit record, communication with ER physician, review of last hospital admission record from 03/11/2025, and performing today's evaluation and management. We will see him tomorrow for followup. CIPRIANO/ORESTES Voice ID: [id number] CHEMA
[2025-04-13] MEDS ORDERED: ONDANSETRON 4 MG/2 ML VIAL IV PRN (12:21)
[2025-04-13] MEDS: D5 0.45 NS 1,000 ML IV SCH ×2 (12:21→15:00)
[2025-04-13] MEDS ORDERED: D5 0.45 NS 1,000 ML IV ONE (13:49)
[2025-04-13 14:08] VITALS: BMI 24.4
[2025-04-13] MEDS: MAGNESIUM HYDROXIDE 8% 30 ML PO ONE (14:30)
[2025-04-13] MEDS ORDERED: MAGNESIUM HYDROXIDE 8% 30 ML ONE (15:13)
[2025-04-13] MEDS: METRONIDAZOLE 500mg IVPB 500 MG/100 ML BAG IV SCH (19:56)
[2025-04-13] MEDS: FAMOTIDINE 20 MG TAB PO SCH (19:56)
[2025-04-13] MEDS: BISACODYL 10 MG RECTAL SUPP PR SCH (19:56)
[2025-04-14 06:16] LABS: Absolute Eosinophils 0.3 K/uL (0-0.5); Absolute Lymphocytes (CBC) 1.6 K/uL (0.7-4.9); Absolute Monocytes 0.5 K/uL (0.1-1.3); Absolute Neutrophil 3.5 K/uL (1.8-8.0); Basophils % 0.7 % (0-1.3); Eosinophils % 4.8 % (0-4.4); Hematocrit 36.4 % (39.6-49.0); Hemoglobin 12.8 g/dL (13.6-17.9); Lymphocytes % 27.2 % (15.3-44.8); MCH 30.4 pg (27.0-35.0); MCV 86.7 fL (80-100); MPV 7.7 fL (7.6-11.3); Monocytes % 8.8 % (3.3-12.3); Neutrophils % 58.5 % (41.7-73.7); Nucleated Red Blood Cells % 0.1 % (0-0); Platelets 203 thou/uL (152-406); Red Cell Distribution Width 14.5 % (12.1-15.2)
[2025-04-14 06:47] LABS: Anion Gap 9.8 mEq/L (5.0-15.0); Potassium 3.8 mEq/L (3.5-5.1)
[2025-04-14] MEDS: Levofloxacin500mg IV 500 MG/100 ML BAG IV SCH (10:01)
--- NOTE | 2025-04-14 11:47 | PN ---
Date of Progress Note: 04/14/2025 Subjective: The patient was seen this morning for followup. No new complaints or problems reported by nursing staff. The patient was lying in bed. He does not answer any questions. He was sleeping when I visited him. He woke up, was not in any distress. Did not answer any questions. Nurse reports that patient had five bowel movement yesterday before he came up to the floor from emergency room. Objective: Vital Signs: Reviewed. HEENT: Unremarkable except presence of sutures over left forehead area just above the left eyebrow. Heart: Sounds normal. Abdomen: Soft. Bowel sounds normal. No guarding, rigidity, tenderness, distention. Extremities: No leg edema. Impression: 1. Stercoral colitis. 2. Constipation. 3. Alzheimer disease, late stage. Plan: We will go ahead and continue current medications. Continue current antibiotic which is Levaquin and metronidazole and we will go ahead and order milk of magnesia again for the daytime use today and Dulcolax suppository for tonight and hopefully plan is to discharge him to go home tomorrow. CIPRIANO/MODEitan Voice ID: [id number] Report ID: [id number] CHEMA
[2025-04-14] MEDS: BISACODYL 10 MG RECTAL SUPP PR ONE (14:21)
[2025-04-14] MEDS: MAGNESIUM HYDROXIDE 8% 30 ML PO ONE (14:21)
[2025-04-15 22:35] VITALS: O2SAT 94
--- NOTE | 2025-04-16 00:35 | PN ---
Date of Progress Note: 04/15/2025 Subjective: The patient was seen this morning for followup. No new complaints or problems reported by nursing staff. The patient was lying in bed, sleeping, easily arousable. He looks at me, but cota s not answer any questions. Not in any distress. Objective: Vital Signs: Reviewed. HEENT: Unremarkable except presence of sutures over the left forehead just above the left eyebrow an d medial and lateral end of this laceration has very slight gapping. No redness, discharge, bleeding . Lungs: Clear to auscultation. Heart: Sounds normal. Abdomen: Soft. Bowel sounds normal. No guarding, rigidity, tenderness, distention. Extremities: No leg edema. Impression: 1. Stercoral colitis. 2. Constipation. 3. Alzheimer disease, late stage. 4. Laceration, left forehead. Plan: The patient has very small area of wound gapping on the medial and lateral angle of this lacer ation on the forehead and yesterday sutures were not removed. So, with this gapping, we will advise to go ahead and keep the sutures and do not remove this week, but remove it next week so that we will give little bit extra time for the healing. Continue current antibiotic for his colitis. Continue famotidine at bedtime. Today, discharge order was written as medically patient is stable for dischar and Social Service contacted me and informed me that the patient's daughter does not feel comforta ble taking him home and she wants Social Service to arrange for him to go to [facility]. D uring his last hospital admission, which was just 2 weeks ago, he ended up spending 2 weeks in the [facility] waiting for disposition and finally daughter decided to take him to [facility] of [place] as insurance will not cover [facility] facility. So, I have informed Social Service that wi th that in mind, she should communicate with daughter to make arrangements for out of pocket [facility] facility placement and plan for discharge tomorrow to go to this facility of family's choice as patient is medically stable for discharge. CIPRIANO/MODL Voice ID: [id number] Report ID: [id number]
--- NOTE | 2025-04-16 13:26 | PN ---
Date of Progress Note: 04/16/2025 Subjective: The patient was seen this morning for followup. No new complaints or problems reported by the patient's nursing staff. The patient was sleeping, easily arousable when I entered his room, looked at me, smiled, but did not answer any question and did not follow any commands and this is his baseline due to end-stage Alzheimer's disease. Objective: Vital Signs: Reviewed. HEENT: Unremarkable. Lungs: Clear to auscultation. Heart: Sounds normal. Abdomen: Soft. Bowel sounds normal. No guarding, rigidity, tenderness, distention. Extremities: No leg edema. Impression: 1. Stercoral colitis. 2. Constipation. 3. Alzheimer's disease, late stage. 4. Laceration, forehead. Plan: The patient's laceration on the forehead has sutures with gapping on the medial and lateral en d, which is unchanged from yesterday. No evidence of swelling, discharge, bleeding, or any redness a round. We will continue current antibiotics. Discontinue IV fluid. I did communicate with Social S marisela regarding discharge planning and during last hospital stay, we did obtain physical therapy con troy and the patient did not participate at all with physical therapy because of unfortunately his en d-stage Alzheimer's disease and this was just about 2 to 3 weeks ago and that is the reason why he en ded up staying at our hospital for almost 2 weeks waiting on the disposition and finally, daughter de cided to take him to [facility] as a private pay patient, but she did not like that facility , so she took him home. This time, she wants the patient to go to [facility] and today Soc ial Service informed me that daughter was thinking about trying to go to insurance again and see if w e can get physical therapy consult and I did communicate with Social Service and informed her that I disagree with that knowing that just about 2 weeks ago, we went through the same problem and the ishmael ent ended up waiting for disposition in hospital for 2 weeks and he did not participate at all with p hysical therapy, so this time going through the same route, it is not necessary. Not only that, but in my opinion, it is waste of valuable resources for the hospital care and he does not need to be in the hospital. The patient needs disposition where he can go to either long term or go home with f ull-time caregiver. Other option I did communicate with Social Service was option of hospice care co nsidering his late stage Alzheimer's disease, but in the past when I brought up this discussion, deanna louis was not willing to consider that. Today, after I communicated with Social Service, she informed me that the last update she got from nursing facility that now daughter is willing to take him over there as a private pay, so medically he is stable for discharge. As soon as arrangements gets made, Social Service will notify me, so we can discharge him as early as today. Overall, long-term prognos is is poor because of end-stage Alzheimer's disease. CIPRIANO/MODL Voice ID: [id number] Report ID: [id number]
[2025-04-16 16:42] VITALS: TEMP 97.7
[2025-04-16 17:15] VITALS: BP 131/70
--- NOTE | 2025-04-17 07:06 | DS ---
Date of Discharge: 04/16/2025 Disposition: Discharged to go to [facility]. Physical Examination: HEENT: Unremarkable except presence of laceration above the left forehead with presence of sutures and has a small area of gapping in the medial and the lateral end of this wound. No evidence of any swelling, redness, discharge or bleeding from this site. Lungs: Clear to auscultation. Heart: Sounds normal. Abdomen: Soft, bowel sounds normal. No guarding, rigidity, tenderness, distention. Extremities: No leg edema. Discharge medications and instructions: 1. Continue Famotidine 20 mg, take 1 tablet by mouth daily at bedtime. 2. Start Levaquin 500 mg, take 1 tablet by mouth daily for one week, take with food. 3. Start Metronidazole 500 mg, take 1 tablet by mouth three times a day for one week, take with food. 4. Start over the counter, Senokot-S, take 2 tablets by mouth daily. Remove sutures from forehead on 04/21/2025 and apply steristrips. Diet: Regular Fall precautions Discharge Diagnoses: 1. Stercoral colitis. 2. Constipation. 3. Alzheimer's disease, late stage. 4. Chronic kidney disease stage IIIA. 5. Hypertension. 6. Diabetes mellitus. 7. Hyperlipidemia. 8. Gastroesophageal reflux disease. 9. Coronary artery disease. 10. Osteoarthritis, multiple sites. 11. Anemia due to chronic kidney disease. Hospital Course: This is an 84-year-old male patient who was admitted to the hospital after he was brought into emergency room by family member. Please see dictated H and P for more information. After patient was evaluated in the emergency room, his routine labs were done and CAT scan of the abdomen and pelvis was done. His CAT scan showed evidence of a rather large amount of stool in the lower colon and rectum area and evidence of stercoral colitis. With this, the patient was admitted to the hospital. We started treating him for constipation with Dulcolax rectal suppository and milk of magnesia after getting 1 dose of enema in the emergency room. The patient had multiple bowel movements and this resulted in improvement in the constipation problem. For stercoral colitis, we started him on empiric antibiotic, which was Levaquin and metronidazole and he has tolerated that very well. The patient recently spend 2 weeks in our hospital waiting for disposition and during this last hospitalization while waiting for disposition and halfway placement. Physical therapy was consulted. The patient did not participate at all with physical therapy because of his late stage Alzheimer's disease, so on basis of that insurance company denied alf facility placement and finally the patient's daughter decided to take him as a private patient to [facility] and apparently she did not like this halfway, so she took came back home from this facility. After the laceration that he had on his left forehead, the patient had sutures applied during last hospital admission, visit to the emergency room, and because patient stayed in hospital long enough, we removed sutures, but apparently after we discharge him to go to [facility] on April 01, sutures were applied again for wound opening up on this left forehead area. So when he came back to hospital this time, he did have sutures present. There was no evidence of any infection at in this laceration area. So, the patient was medically stable for discharge and when we wrote the discharge order. Daughter informed Social Service that she is not able to take him back home and wanted the patient to go to halfway, so Social Service started assisting family with these arrangements using facility of daughter's choice which is [facility] and considering the patient's late stage Alzheimer disease, he is not going to qualify for insurance approval for alf facility placement. As just about 2 weeks ago we went through the same process and finally got denial so all these details were discussed with Social Service and Social Service communicated with the patient's family, which is daughter and finally daughter made arrangements for private pay to go to this particular facility of her choice and today the patient was discharged to go there in stable condition. Total time spent today 45 minutes. CIPRIANO/MODL Voice ID: [id number] Report ID: [id number] [facility]
== END 2025-04-16 17:50 | DRG 392 ==
LOC: SUPCPDRO 08:41 → ER 08:41 → ERHOLD 10:55 → 4TH 18:24
PROVIDERS: ADMIT Internal Medicine; ATTEND Internal Medicine
DX: K52.89 Other specified noninfective gastroenteritis and colitis (principal); K56.41 Fecal impaction; E78.2 Mixed hyperlipidemia; I12.9 Hypertensive chronic kidney disease with stage 1 through stage 4 chronic kidney disease, or unspecified chronic kidney disease; N18.31 Chronic kidney disease, stage 3a; E11.22 Type 2 diabetes mellitus with diabetic chronic kidney disease; D63.1 Anemia in chronic kidney disease; M19.09 Primary osteoarthritis, other specified site; K21.9 Gastro-esophageal reflux disease without esophagitis; N40.0 Benign prostatic hyperplasia without lower urinary tract symptoms; I25.10 Atherosclerotic heart disease of native coronary artery without angina pectoris; I25.2 Old myocardial infarction; G30.9 Alzheimer's disease, unspecified; F02.80 Dementia in other diseases classified elsewhere, unspecified severity, without behavioral disturbance, psychotic disturbance, mood disturbance, and anxiety; S01.81XA Laceration without foreign body of other part of head, initial encounter; Z88.8 Allergy status to other drugs, medicaments and biological substances; Z90.49 Acquired absence of other specified parts of digestive tract
CPT/HCPCS: 36415; 51702; 74176; 80048; 80053; 81001; 83690; 85025; 99285; J7799